=== PATIENT | male | born 1945 | race African-American/Black ===

== ENCOUNTER 2017-12-31 09:05 | Emergency (ER) | payer MEDICARE ==
--- OUTSIDE RECORDS SUMMARY | 2017-12-31 09:07 | XMS REPORT | Clinical Summary ---
:1945 Author Organization [facility] Address [address] [place] [address] Phone Care Team Providers Name Role Phone Unavailable Primary Care Provider Unavailable Allergies No Known Allergies Current Medications Prescription Sig. Disp. Refills Start Date End Date Status tamsulosin Take 0.4 mg by Active (FLOMAX) 0.4 mg mouth daily. Cp24 24 hr capsule allopurinol Take 100 mg by Active (ZYLOPRIM) 100 MG mouth daily. tablet atorvastatin Take 40 mg by Active (LIPITOR) 40 MG mouth daily. tablet aspirin 81 MG Take 81 mg by Active chewable tablet mouth daily. lisinopril Take 10 mg by 02/10/2017 Discontinued (PRINIVIL,ZESTRIL) mouth daily. 10 MG tablet carvedilol (COREG) Take 25 mg by 02/10/2017 Discontinued 25 MG tablet mouth 2 (two) times daily with breakfast and dinner. lisinopril Take 1 tablet 30 tablet 1 02/10/2017 03/12/2017 (PRINIVIL,ZESTRIL) (40 mg total) 40 MG tablet by mouth daily for 30 days. carvedilol (COREG) Take 1 tablet 60 tablet 1 02/10/2017 03/12/2017 6.25 MG tablet (6.25 mg total) by mouth 2 (two) times daily with breakfast and dinner for 30 days. Active Problems Problem Noted Date HTN (hypertension) 02/04/2017 Hyperlipidemia 02/04/2017 Subdural hematoma (HCC) 02/04/2017 Encounters Date Type Specialty Care Team Description 02/05/2017 Procedure Pass 02/05/2017 Surgery Anatoliy Govea CRANIOTOMY MD Sin 02/04/2017 - Hospital Encounter General Internal Georgiadis, Hyperlipidemia , 02/10/2017 Medicine Jose unspecified MD Bren hyperlipidemia Bershad, Ryan type;Subdural MD Florencio hematoma Analia Calloway, (HCC);Essential Bri Rios MD hypertension;CKD (chronic kidney disease), stage 3 (moderate);Encephalop athy 02/04/2017 Anesthesia Event Ryan Obregon MD 02/04/2017 Orders Only Viola Bourgeois PA after 12/30/2016 Social History Tobacco Use Types Packs/Day Years Used Date Never Smoker Sex Assigned at Date Recorded Not on file Last Filed Vital Signs Vital Sign Reading Time Taken Blood Pressure 144/75 02/10/2017 3:00 PM CDT Pulse 62 02/10/2017 3:50 PM CDT Temperature 36.5 C (97.7 F) 02/10/2017 3:00 PM CDT Respiratory Rate 20 02/10/2017 3:50 PM CDT Oxygen Saturation 96% 02/10/2017 3:50 PM CDT Inhaled Oxygen Concentration - - Weight 93.5 kg (206 lb 2.1 oz) 02/04/2017 5:30 AM CDT Height 185.4 cm (6' 1") 02/04/2017 7:00 AM CDT Body Mass Index 27.2 02/04/2017 5:30 AM CDT Plan of Treatment Not on file Implants Implanted Type Area Legal Job Titles Device Expiration Model / Identifier Date Serial / Lot Matrix Floseal Hemo W/O Ndl 10 [id number] - [id number] Cement/Romario Right: GAYTAN: BIOSCI 06/15/2018 [id number] / Implanted: Qty: 1 on 02/05/2017 by Anatoliy Govea MD ler/Adhesi Head / ve [id number] Plt Rigid 2h [id number] - [id number] Fracture/F Right: ANNMARIE:CRANIOMA [id number] / Implanted: Qty: 3 on 02/05/2017 by Anatoliy Govae MD ixation Head XILLOFACIAL / Scr Un3 Ewen Self Drl 1.5x4mm [id number] - [id number] Fracture/F Right: ANNMARIE:CRANIOMA [id number] / Implanted: Qty: 6 on 02/05/2017 by Anatoliy Govea MD ixation Head XILLOFACIAL / Kt Cath Bactiseal Shnt Carlo 23c [id number] - [id number] Neuro Right: J &J: CODMAN 08/15/2017 [id number] / Implanted: Qty: 1 on 02/05/2017 by Anatoliy Govea MD Head & SHURTLEFF / [id number] Grft Dura Cllgn Duragn 2x2in Id-[id number] - [id number] Tissue Right: INTEGRA 01/13/2019 [id number] / Implanted: Qty: 1 on 02/05/2017 by Anatoliy Govea MD Graft/Subs Head LIFESCI:NEURO / titute [id number] Procedures Procedure Name Priority Date/Time Associated Diagnosis Comments CRANIOTOMY 02/05/2017 7:15 AM CDT SUBDURAL HEMATOMA Special Needs (MICROSCOPE) after 12/30/2016 Results RHYTHM STRIP - SCAN (02/13/2017 2:01 PM)CBC with platelet count + automated diff (02/10/2017 5:18 AM)Only the most recent of7 resultswithin the time period is included. Component Value Ref Range WBC 9.2 4.0 - 10.0 K/L RBC 4.69 4.20 - 5.80 M/L Hemoglobin 12.2 (L) 13.0 - 16.8 GM/DL Hematocrit 36.5 (L) 40.0 - 50.0 % MCV 77.8 (L) 82.0 - 98.0 fL MCH 25.9 (L) 27.0 - 33.0 pg MCHC 33.3 32.0 - 36.0 GM/DL RDW 15.5 (H) 10.3 - 14.2 % Platelets 140 (L) 150 - 430 K/CU MM MPV 10.1 6.5 - 10.5 fL nRBC 0 0 - 0 /100 WBC % Neutros 74 % % Lymphs 12 % % Monos 13 % % Eos 1 % % Baso 0 % # Neutros 6.78 1.80 - 8.00 K/L # Lymphs 1.08 (L) 1.48 - 4.50 K/L # Monos 1.19 0.00 - 1.30 K/L # Eos 0.10 0.00 - 0.50 K/L # Baso 0.01 0.00 - 0.20 K/L Specimen Performing Laboratory Blood [address] [address] Narrative 0.00 Prothrombin time/INR (02/10/2017 5:18 AM)Only the most recent of3 resultswithin the time period is included. Component Value Ref Range Protime 14.5 11.7 - 14.7 seconds INR 1.1 <=5.9 Specimen Performing Laboratory Blood [address] [address] Narrative RECOMMENDED COUMADIN/WARFARIN INR THERAPY RANGES STANDARD DOSE: 2.0 - 3.0 Includes: PROPHYLAXIS for venous thrombosis, systemic embolization; TREATMENT for venous thrombosis and/or pulmonary embolus. HIGH RISK: Target INR is 2.5-3.5 for patients with mechanical heart valves. CBC with platelet count + automated diff (02/10/2017 5:18 AM)Only the most recent of7 resultswithin the time period is included. Specimen Performing Laboratory Blood Narrative The following orders were created for panel order CBC with platelet count + automated diff. Procedure Abnormality Status --------- ------ CBC with platelet count ...[[id number]]AbnormalFinal result Please view results for these tests on the individual orders. Basic Metabolic Panel (02/10/2017 5:18 AM)Only the most recent of6 resultswithin the time period is included. Component Value Ref Range Sodium 136 136 - 145 meq/L Potassium 4.5 3.5 - 5.1 meq/L Chloride 101 98 - 107 meq/L CO2 26 22 - 29 meq/L BUN 18 7 - 21 mg/dL Creatinine 1.28 (H) 0.57 - 1.25 mg/dL Glucose 89 70 - 105 mg/dL Calcium 8.6 8.4 - 10.2 mg/dL EGFR 67Comment: ESTIMATED GFR IS NOT ACCURATE mL/min/1.73 sq m CREATININE CLEARANCE IN PREDICTING GLOMERULAR FILTRATION RATE. ESTIMATED GFR IS NOT APPLICABLE FOR DIALYSIS PATIENTS. Specimen Performing Laboratory Blood [address] [address] Sodium (02/09/2017 12:18 PM) Component Value Ref Range Sodium 134 (L) 136 - 145 meq/L Specimen Performing Laboratory Blood - Line, Venous [facility] [address] [place] [address] brain without IV contrast portable (02/09/2017 5:53 AM)Only the most recent of2 resultswithin the time period is included. Specimen Performing Laboratory GE RIS Narrative FINAL REPORT Examination: CT brain without contrast. HISTORY: SDH Comparison:February 08, 2017 TECHNIQUE:5mm sequential noncontrast axial CT images from the base to apex of the brain. This exam was performed to our departmental dose optimization program which includes automated exposure control, adjustment of the mA and/or kV according to patient size and/or use of iterative reconstruction techniques. FINDINGS: Right parietal craniotomy changes are identified with mild overlying soft tissue swelling. Extra-axial fluid collection along the right frontoparietal convexity is again demonstrated and demonstrates acute on chronic features with local regional sulcal effacement and minimal leftward midline shift, not significantly changed. Ventricles are stable in size. Cavernous carotid calcifications are mild. 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 The paranasal sinuses and mastoid air cells are clear. Demonstrated globes and orbits are unremarkable. Impression: Allowing for slight differences in angulation, right cerebral convexity mixed density subdural hematoma with mild local regional mass effect and leftward midline shift is not significantly changed. Signed: Jarett Myers MD Report Verified Date/Time:02/09/2017 05:58:27 Reading Location: [address] Reading Room Procedure Note Interface, External Ris In - 02/09/2017 6:00 AM CDT FINAL REPORT Examination: CT brain without contrast. HISTORY: SDH Comparison:February 08, 2017 TECHNIQUE: 5mm sequential noncontrast axial CT images from the base to apex of the brain. This exam was performed to our departmental dose optimization program which includes automated exposure control, adjustment of the mA and/or kV according to patient size and/or use of iterative reconstruction techniques. FINDINGS: Right parietal craniotomy changes are identified with mild overlying soft tissue swelling. Extra-axial fluid collection along the right frontoparietal convexity is again demonstrated and demonstrates acute on chronic features with local regional sulcal effacement and minimal leftward midline shift, not significantly changed. Ventricles are stable in size. Cavernous carotid calcifications are mild. 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 The paranasal sinuses and mastoid air cells are clear. Demonstrated globes and orbits are unremarkable. Impression: Allowing for slight differences in angulation, right cerebral convexity mixed density subdural hematoma with mild local regional mass effect and leftward midline shift is not significantly changed. Signed: Jarett Myers MD Report Verified Date/Time: 02/09/2017 05:58:27 Reading Location: [address] Reading Room Phosphorus (02/09/2017 3:46 AM)Only the most recent of3 resultswithin the time period is included. Component Value Ref Range Phosphorus 3.3 2.3 - 4.7 mg/dL Specimen Performing Laboratory Blood - Arm, [address] [address] Magnesium (02/09/2017 3:46 AM)Only the most recent of3 resultswithin the time period is included. Component Value Ref Range Magnesium 1.6 1.6 - 2.6 mg/dL Specimen Performing Laboratory Blood - Arm, [address] [address] PT/aPTT (02/08/2017 4:51 PM)Only the most recent of2 resultswithin the time period is included. Component Value Ref Range Protime 14.4 11.7 - 14.7 seconds INR 1.1 <=5.9 PTT 36.8 (H) 22.5 - 36.0 seconds Specimen Performing Laboratory Blood - Line, Venous [address] [address] Narrative RECOMMENDED COUMADIN/WARFARIN INR THERAPY RANGES STANDARD DOSE: 2.0 - 3.0 Includes: PROPHYLAXIS for venous thrombosis, systemic embolization; TREATMENT for venous thrombosis and/or pulmonary embolus. HIGH RISK: Target INR is 2.5-3.5 for patients with mechanical heart valves. CT brain without IV contrast (02/08/2017 3:59 PM) Specimen Performing Laboratory GE RIS Impressions : Since 02/06/2017, the residual right hemispheric mixed density subdural hematoma is minimally larger and mass effect and leftward midline shift are also minimally greater. Signed: Rinku Elias MD Report Verified Date/Time:02/08/2017 16:03:42 Reading Location: [facility] C0[facility] Neuro Reading Room Narrative FINAL REPORT CT head without contrast INDICATION: Subdural hematoma evacuation. TECHNIQUE: Axial noncontrast CT images through the head were obtained. This exam was performed according to our departmental dose optimization program which includes automated exposure control, adjustment of the mA and/or kV according to patient size and/or use of iterative reconstruction technique. COMPARISON: CT head 02/06/2017 FINDINGS: Right sided craniotomy changes are again noted with a residual mixed density right hemispheric subdural hematoma appears slightly larger, now up to 14 mm along the frontal parietal convexity. There is mass effect with 4 mm leftward midline shift, previously 3 mm. There is right lateral ventricular effacement but no hydrocephalus or suprasellar cistern effacement. There are chronic appearing cerebellar infarcts. Volume loss and vascular calcifications are again noted. The visualized sinuses and mastoid air cells are well aerated. The globes remain proptotic. Scalp surgical changes are similar. Procedure Note Interface, External Ris In - 02/08/2017 4:05 PM CDT FINAL REPORT CT head without contrast INDICATION: Subdural hematoma evacuation. TECHNIQUE: Axial noncontrast CT images through the head were obtained. This exam was performed according to our departmental dose optimization program which includes automated exposure control, adjustment of the mA and/or kV according to patient size and/or use of iterative reconstruction technique. COMPARISON: CT head 02/06/2017 FINDINGS: Right sided craniotomy changes are again noted with a residual mixed density right hemispheric subdural hematoma appears slightly larger, now up to 14 mm along the frontal parietal convexity. There is mass effect with 4 mm leftward midline shift, previously 3 mm. There is right lateral ventricular effacement but no hydrocephalus or suprasellar cistern effacement. There are chronic appearing cerebellar infarcts. Volume loss and vascular calcifications are again noted. The visualized sinuses and mastoid air cells are well aerated. The globes remain proptotic. Scalp surgical changes are similar. IMPRESSION : Since 02/06/2017, the residual right hemispheric mixed density subdural hematoma is minimally larger and mass effect and leftward midline shift are also minimally greater. Signed: Rinku Elias MD Report Verified Date/Time: 02/08/2017 16:03:42 Reading Location: [facility] C013V Neuro Reading Room -Glucose meter (02/07/2017 6:07 PM)Only the most recent of14 resultswithin the time period is included. Component Value Ref Range POC-Glucose Meter 110Comment: TESTED AT [address] 70 - 110 mg/dL [address] Specimen Performing Laboratory [address] [address] Prepare leuko-red PLT (02/06/2017 8:54 AM)Only the most recent of2 resultswithin the time period is included. Component Value Ref Range Unit ABO O Pos UNIT NUMBER [id number]^PLT LEUKO APH Status TRANSFUSED Blood Bank Product PLATELETS PRODUCT CODE [id number] Specimen Performing Laboratory Blood SAFET[place] Reticulocyte count (02/06/2017 4:28 AM) Component Value Ref Range % Retic 0.9 0.4 - 2.9 % Specimen Performing Laboratory Blood [address] [address] Ferritin (02/06/2017 4:28 AM) Component Value Ref Range Ferritin 220 5 - 275 ng/mL Specimen Performing Laboratory Blood [address] [address] Narrative Effective 08/03/2014: Reference Range Change New: Male 5-275Previous: Male 22-322 Female 5-275Female 10-291 PFA-100 (02/05/2017 6:46 AM) Component Value Ref Range COL/EPI Closure Time 93 78 - 191 Seconds COL/ADP Closure Time 62 43 - 122 Seconds Platelets 113 (L)Comment: Previous platelet result was 150 - 430 K/CU MM 113. Lavender top for platelet clotted! Specimen Performing Laboratory Blood [address] [address] Narrative Hematocrit <35% or platelet count <150,000/CU MM may contribute to falsely elevated PFA-100. Peripheral Blood Smear - Path Review (02/05/2017 4:59 AM) Component Value Ref Range RBC Morphology Anisocytosis Poikilocytosis Polychromasia WBC Morphology Unremarkable Platelet Morphology Unremarkable Pathologist Review No circulating blasts. No significantly increased shistocytes. Pathologist: Mark Acuna M.D.(electronic signature) Specimen Performing Laboratory Blood [address] [address] Vitamin B12 and Folate (02/05/2017 4:59 AM) Component Value Ref Range Vitamin B12 327 213 - 816 pg/mL Folate 9.6 >=7.0 ng/mL Specimen Performing Laboratory Blood [address] [address] Narrative Effective 08/03/2014: Folate Reference Range Change New: >=7.0Previous: >=5.4 Iron, TIBC, % sat. (without ferritin) (02/05/2017 4:59 AM) Component Value Ref Range Iron 37 (L) 40 - 160 ug/dL TIBC 206 (L) 250 - 450 ug/dL Iron % Saturation 18 (L) 20 - 55 % Specimen Performing Laboratory Blood [address] [address] XR chest 1 view portable / bedside (02/04/2017 4:56 PM) Specimen Performing Laboratory GE RIS Impressions : There is elevation of the right hemidiaphragm. Lungs are clear. No pleural effusion or pneumothorax. Cardiomediastinal silhouette is normal in size. No pulmonary edema. No fracture or dislocation. Signed: Cary Wolf MD Report Verified Date/Time:02/04/2017 17:21:22 Reading Location: [facility] Radiology Reading Room Narrative FINAL REPORT TECHNIQUE: Frontal chest radiograph dated 02/04/2017. CLINICAL HISTORY: Pre-op COMPARISON STUDY: None Procedure Note Interface, External Ris In - 02/04/2017 5:23 PM CDT FINAL REPORT TECHNIQUE: Frontal chest radiograph dated 02/04/2017. CLINICAL HISTORY: Pre-op COMPARISON STUDY: None IMPRESSION : There is elevation of the right hemidiaphragm. Lungs are clear. No pleural effusion or pneumothorax. Cardiomediastinal silhouette is normal in size. No pulmonary edema. No fracture or dislocation. Signed: Cary Wolf MD Report Verified Date/Time: 02/04/2017 17:21:22 Reading Location: [facility] Radiology Reading Room Platelet Aggregation: Function Screen (02/04/2017 2:19 PM) Component Value Ref Range Weak ADP 94 (H) 60 - 91 % Plt. Function Screen Interpretation 60-100% indicates normal platelet function Pathologist: Aurora Pascual MD (electronic signature) Platelets 113 (L) 150 - 430 K/CU MM Specimen [place] [address] Prepare PLT (02/04/2017 11:23 AM) Component Value Ref Range Unit ABO O Pos UNIT NUMBER [id number]^PLT POOL LEUKO Status TRANSFUSED Blood Bank Product PLATELETS PRODUCT CODE [id number] Specimen Performing Laboratory S[place] ECG 12 lead routine (02/04/2017 9:55 AM) Specimen Performing Laboratory GE MUSE Narrative Ventricular Rate 63 BPM Atrial Rate 63 BPM P-R Interval 198 ms QRS Duration 72 ms Q-T Interval 398 ms QTC Calculation(Bazett) 407 ms P Ewen 18 degrees R Ewen -5 degrees T Ewen 27 degrees Normal sinus rhythm Inferior infarct , age undetermined Abnormal ECG No previous ECGs available Confirmed by MD SUSHILA, AB ([id number]) on 02/04/2017 4:09:24 PM Procedure Note Interface, External Ris In - 02/04/2017 4:09 PM CDT Ventricular Rate 63 BPM Atrial Rate 63 BPM P-R Interval 198 ms QRS Duration 72 ms Q-T Interval 398 ms QTC Calculation(Bazett) 407 ms P Ewen 18 degrees R Ewen -5 degrees T Ewen 27 degrees Normal sinus rhythm Inferior infarct , age undetermined Abnormal ECG No previous ECGs available Confirmed by MD SUSHILA, IHAB ([id number]) on 02/04/2017 4:09:24 PM Type and screen, automated (02/04/2017 9:26 AM) Component Value Ref Range ABO/RH AUTOMATED (BEAKER) O POSITIVE Ab Scrn NEGATIVE Specimen Performing Laboratory Blood [place] [id number] aPTT (02/04/2017 6:49 AM) Component Value Ref Range PTT 35.9 22.5 - 36.0 seconds Specimen Performing Laboratory Blood [address] [address] Hepatic function panel (02/04/2017 6:49 AM) Component Value Ref Range Protein, Total 7.6Comment: Specimen slightly hemolyzed 6.0 - 8.3 gm/dL Albumin 3.4 (L)Comment: Specimen slightly hemolyzed 3.5 - 5.0 g/dL Total Bilirubin 0.8Comment: Specimen slightly hemolyzed 0.2 - 1.2 mg/dL Bilirubin, Direct 0.3Comment: Specimen slightly hemolyzed 0.1 - 0.5 mg/dL Alkaline Phosphatase 49 40 - 150 U/L AST 16Comment: Specimen slightly hemolyzed 5 - 34 U/L ALT 16Comment: Specimen slightly hemolyzed 6 - 55 U/L Specimen Performing Laboratory Blood [address] [address] after 12/30/2016
--- OUTSIDE RECORDS SUMMARY | 2017-12-31 09:08 | XMS REPORT ---
:1945 [facility] Address [address] [place] [address] Care Team Providers Name Role Phone MYA TURCIOS Unavailable Unavailable Problems This patient has no known problems. Allergies, Adverse Reactions, Alerts This patient has no known allergies or adverse reactions. Medications This patient has no known medications. Results Test Description Test Time Test Comments Text Results Atomic Results Result Comments CBC W/PLT COUNT & AUTO DIFFERENTIAL 2017-02-10 06:43:00 Test Item Value Reference Range Comments WHITE BLOOD CELL COUNT (BEAKER) (test mbkb=463) 9.2 K/ L 4.0-10.0 RED BLOOD CELL COUNT (BEAKER) (test eghd=771) 4.69 M/ L 4.20-5.80 HEMOGLOBIN (BEAKER) (test ueqr=616) 12.2 GM/DL 13.0-16.8 HEMATOCRIT (BEAKER) (test uvbb=966) 36.5 % 40.0-50.0 MEAN CORPUSCULAR VOLUME (BEAKER) (test yqns=035) 77.8 fL 82.0-98.0 MEAN CORPUSCULAR HEMOGLOBIN (BEAKER) (test iwpy=442) 25.9 pg 27.0-33.0 MEAN CORPUSCULAR HEMOGLOBIN CONC (BEAKER) (test zdvo=205) 33.3 GM/DL 32.0- 36.0 RED CELL DISTRIBUTION WIDTH (BEAKER) (test nqxw=237) 15.5 % 10.3-14.2 PLATELET COUNT (BEAKER) (test uwcs=347) 140 K/CU MM 150-430 MEAN PLATELET VOLUME (BEAKER) (test guhz=035) 10.1 fL 6.5-10.5 NUCLEATED RED BLOOD CELLS (BEAKER) (test cvlf=556) 0 /100 WBC 0-0 NEUTROPHILS RELATIVE PERCENT (BEAKER) (test mnzl=703) 74 % LYMPHOCYTES RELATIVE PERCENT (BEAKER) (test qtkl=643) 12 % MONOCYTES RELATIVE PERCENT (BEAKER) (test eopk=397) 13 % EOSINOPHILS RELATIVE PERCENT (BEAKER) (test fhcn=075) 1 % BASOPHILS RELATIVE PERCENT (BEAKER) (test egci=044) 0 % NEUTROPHILS ABSOLUTE COUNT (BEAKER) (test disg=930) 6.78 K/ L 1.80-8.00 LYMPHOCYTES ABSOLUTE COUNT (BEAKER) (test egad=073) 1.08 K/ L 1.48-4.50 MONOCYTES ABSOLUTE COUNT (BEAKER) (test maqi=394) 1.19 K/ L 0.00-1.30 EOSINOPHILS ABSOLUTE COUNT (BEAKER) (test loxo=476) 0.10 K/ L 0.00-0.50 BASOPHILS ABSOLUTE COUNT (BEAKER) (test uacp=360) 0.01 K/ L 0.00-0.20 0.00BASIC METABOLIC [id number] 06:12:00 Test Item Value Reference Range Comments SODIUM (BEAKER) (test 136 meq/L 136-145 nylh=948) POTASSIUM (BEAKER) (test 4.5 meq/L 3.5-5.1 vfoy=944) CHLORIDE (BEAKER) (test 101 meq/L 98-107 llya=844) CO2 (BEAKER) (test 26 meq/L 22-29 udjy=643) BLOOD UREA NITROGEN 18 mg/dL 7-21 (BEAKER) (test fybl=480) CREATININE (BEAKER) (test 1.28 mg/dL 0.57-1.25 vzxq=352) GLUCOSE RANDOM (BEAKER) 89 mg/dL 70-105 (test mbrf=419) CALCIUM (BEAKER) (test 8.6 mg/dL 8.4-10.2 qfio=693) EGFR (BEAKER) (test 67 mL/min/1.73 sq m ESTIMATED GFR IS NOT inkb=5018) ACCURATE CREATININE CLEARANCE IN PREDICTING GLOMERULAR FILTRATION RATE. ESTIMATED GFR IS NOT APPLICABLE FOR DIALYSIS PATIENTS. PROTHROMBIN [id number] 05:45:00 Test Item Value Reference Range Comments PROTIME (BEAKER) (test hgim=240) 14.5 seconds 11.7-14.7 INR (BEAKER) (test xtkb=798) 1.1 <=5.9 RECOMMENDED COUMADIN/WARFARIN INR THERAPY RANGESSTANDARD DOSE: 2.0 - 3.0 Includes: PROPHYLAXIS forvenous thrombosis, systemic embolization; TREATMENT for venous thrombosis and/or pulmonary embolus.HIGH RISK: Target INR is 2.5-3.5 for patients with mechanical heart valves.[id number] 12:38:00 Test Item Value Reference Range Comments SODIUM (BEAKER) (test fmur=127) 134 meq/L 136-145 [id number] 07:07:00 Test Item Value Reference Range Comments PHOSPHORUS (BEAKER) (test bqxh=108) 3.3 mg/dL 2.3-4.7 [id number] 07:07:00 Test Item Value Reference Range Comments MAGNESIUM (BEAKER) (test htqd=608) 1.6 mg/dL 1.6-2.6 BASIC METABOLIC [id number] 04:24:00 Test Item Value Reference Range Comments SODIUM (BEAKER) (test 134 meq/L 136-145 fvxv=718) POTASSIUM (BEAKER) (test 4.2 meq/L 3.5-5.1 jonz=610) CHLORIDE (BEAKER) (test 101 meq/L 98-107 ypnj=884) CO2 (BEAKER) (test 27 meq/L 22-29 enly=539) BLOOD UREA NITROGEN 18 mg/dL 7-21 (BEAKER) (test ragr=123) CREATININE (BEAKER) (test 1.22 mg/dL 0.57-1.25 lffb=333) GLUCOSE RANDOM (BEAKER) 99 mg/dL 70-105 (test oagr=674) CALCIUM (BEAKER) (test 8.7 mg/dL 8.4-10.2 uypb=602) EGFR (BEAKER) (test 71 mL/min/1.73 sq m ESTIMATED GFR IS NOT dwfj=5448) ACCURATE CREATININE CLEARANCE IN PREDICTING GLOMERULAR FILTRATION RATE. ESTIMATED GFR IS NOT APPLICABLE FOR DIALYSIS PATIENTS. PROTHROMBIN [id number] 04:16:00 Test Item Value Reference Range Comments PROTIME (BEAKER) (test jhjb=178) 15.0 seconds 11.7-14.7 INR (BEAKER) (test urdg=488) 1.2 <=5.9 RECOMMENDED COUMADIN/WARFARIN INR THERAPY RANGESSTANDARD DOSE: 2.0 - 3.0 Includes: PROPHYLAXIS forvenous thrombosis, systemic embolization; TREATMENT for venous thrombosis and/or pulmonary embolus.HIGH RISK: Target INR is 2.5-3.5 for patients with mechanical heart valves.CBC W/PLT COUNT & AUTO [id number] 04:16:00 Test Item Value Reference Range Comments WHITE BLOOD CELL COUNT (BEAKER) (test ibma=681) 9.4 K/ L 4.0-10.0 RED BLOOD CELL COUNT (BEAKER) (test irxg=598) 4.66 M/ L 4.20-5.80 HEMOGLOBIN (BEAKER) (test uuqz=577) 11.8 GM/DL 13.0-16.8 HEMATOCRIT (BEAKER) (test rilo=145) 36.9 % 40.0-50.0 MEAN CORPUSCULAR VOLUME (BEAKER) (test shtg=891) 79.2 fL 82.0-98.0 MEAN CORPUSCULAR HEMOGLOBIN (BEAKER) (test 25.2 pg 27.0-33.0 agto=654) MEAN CORPUSCULAR HEMOGLOBIN CONC (BEAKER) (test 31.9 GM/DL 32.0-36.0 eyfs=892) RED CELL DISTRIBUTION WIDTH (BEAKER) (test 14.1 % 10.3-14.2 smjk=001) PLATELET COUNT (BEAKER) (test dmqh=951) 129 K/CU MM 150-430 MEAN PLATELET VOLUME (BEAKER) (test fkwq=460) 9.7 fL 6.5-10.5 NUCLEATED RED BLOOD CELLS (BEAKER) (test 0 /100 WBC 0-0 misp=155) NEUTROPHILS RELATIVE PERCENT (BEAKER) (test 74 % esow=005) LYMPHOCYTES RELATIVE PERCENT (BEAKER) (test 12 % jzfr=747) MONOCYTES RELATIVE PERCENT (BEAKER) (test 13 % ncqs=125) EOSINOPHILS RELATIVE PERCENT (BEAKER) (test 1 % ekzb=944) BASOPHILS RELATIVE PERCENT (BEAKER) (test 0 % gljm=127) NEUTROPHILS ABSOLUTE COUNT (BEAKER) (test 6.97 K/ L 1.80-8.00 yovo=698) LYMPHOCYTES ABSOLUTE COUNT (BEAKER) (test 1.11 K/ L 1.48-4.50 dmii=798) MONOCYTES ABSOLUTE COUNT (BEAKER) (test 1.23 K/ L 0.00-1.30 vqhd=323) EOSINOPHILS ABSOLUTE COUNT (BEAKER) (test 0.06 K/ L 0.00-0.50 kpep=904) BASOPHILS ABSOLUTE COUNT (BEAKER) (test 0.00 K/ L 0.00-0.20 lkai=095) 0.00PT/[id number] 17:46:00 Test Item Value Reference Range Comments PROTIME (BEAKER) (test lmnu=339) 14.4 seconds 11.7-14.7 INR (BEAKER) (test sfei=620) 1.1 <=5.9 PARTIAL THROMBOPLASTIN TIME (BEAKER) (test 36.8 seconds 22.5-36.0 okxd=831) RECOMMENDED COUMADIN/WARFARIN INR THERAPY RANGESSTANDARD DOSE: 2.0 - 3.0 Includes: PROPHYLAXIS forvenous thrombosis, systemic embolization; TREATMENT for venous thrombosis and/or pulmonary embolus.HIGH RISK: Target INR is 2.5-3.5 for patients with mechanical heart valves.BASIC METABOLIC [id number] 02:40: 00 Test Item Value Reference Range Comments SODIUM (BEAKER) (test 137 meq/L 136-145 hzfd=548) POTASSIUM (BEAKER) (test 4.6 meq/L 3.5-5.1 lefy=443) CHLORIDE (BEAKER) (test 101 meq/L 98-107 lave=113) CO2 (BEAKER) (test 29 meq/L 22-29 zayn=965) BLOOD UREA NITROGEN 19 mg/dL 7-21 (BEAKER) (test kbvh=023) CREATININE (BEAKER) (test 1.42 mg/dL 0.57-1.25 mudg=625) GLUCOSE RANDOM (BEAKER) 105 mg/dL 70-105 (test yasp=693) CALCIUM (BEAKER) (test 8.3 mg/dL 8.4-10.2 jwin=605) EGFR (BEAKER) (test 59 mL/min/1.73 sq m ESTIMATED GFR IS NOT sceg=8861) ACCURATE CREATININE CLEARANCE IN PREDICTING GLOMERULAR FILTRATION RATE. ESTIMATED GFR IS NOT APPLICABLE FOR DIALYSIS PATIENTS. CBC W/PLT COUNT & AUTO [id number] 02:16:00 Test Item Value Reference Range Comments WHITE BLOOD CELL COUNT (BEAKER) (test vbol=458) 9.9 K/ L 4.0-10.0 RED BLOOD CELL COUNT (BEAKER) (test raqy=559) 4.56 M/ L 4.20-5.80 HEMOGLOBIN (BEAKER) (test esvf=401) 11.8 GM/DL 13.0-16.8 HEMATOCRIT (BEAKER) (test gzfm=561) 36.5 % 40.0-50.0 MEAN CORPUSCULAR VOLUME (BEAKER) (test baqi=637) 79.9 fL 82.0-98.0 MEAN CORPUSCULAR HEMOGLOBIN (BEAKER) (test 25.9 pg 27.0-33.0 ndvt=776) MEAN CORPUSCULAR HEMOGLOBIN CONC (BEAKER) (test 32.4 GM/DL 32.0-36.0 jwqr=554) RED CELL DISTRIBUTION WIDTH (BEAKER) (test 14.4 % 10.3-14.2 coer=878) PLATELET COUNT (BEAKER) (test upjd=796) 127 K/CU MM 150-430 MEAN PLATELET VOLUME (BEAKER) (test lips=829) 10.0 fL 6.5-10.5 NUCLEATED RED BLOOD CELLS (BEAKER) (test 0 /100 WBC 0-0 cwcl=900) NEUTROPHILS RELATIVE PERCENT (BEAKER) (test 79 % vwny=552) LYMPHOCYTES RELATIVE PERCENT (BEAKER) (test 6 % lqpn=054) MONOCYTES RELATIVE PERCENT (BEAKER) (test 14 % ttwr=669) EOSINOPHILS RELATIVE PERCENT (BEAKER) (test 1 % tkmk=765) BASOPHILS RELATIVE PERCENT (BEAKER) (test 0 % ceay=699) NEUTROPHILS ABSOLUTE COUNT (BEAKER) (test 7.86 K/ L 1.80-8.00 iwjm=432) LYMPHOCYTES ABSOLUTE COUNT (BEAKER) (test 0.64 K/ L 1.48-4.50 uhvy=409) MONOCYTES ABSOLUTE COUNT (BEAKER) (test 1.36 K/ L 0.00-1.30 tjet=380) EOSINOPHILS ABSOLUTE COUNT (BEAKER) (test 0.07 K/ L 0.00-0.50 vhmr=911) BASOPHILS ABSOLUTE COUNT (BEAKER) (test 0.01 K/ L 0.00-0.20 lfvt=603) 0.00POCT-GLUCOSE [id number] 18:13:00 Test Item Value Reference Range Comments POC-GLUCOSE METER (BEAKER) 110 mg/dL 70-110 TESTED AT [address] (test mrau=8653) [place] [id number] POCT-GLUCOSE [id number] 11:50:00 Test Item Value Reference Range Comments POC-GLUCOSE METER (BEAKER) 107 mg/dL 70-110 TESTED AT [address] (test ggkh=8674) [place] [id number] POCT-GLUCOSE [id number] 06:35:00 Test Item Value Reference Range Comments POC-GLUCOSE METER (BEAKER) 113 mg/dL 70-110 TESTED AT [address] (test boam=1458) [place] [id number] CBC W/PLT COUNT & AUTO [id number] 03:27:00 Test Item Value Reference Range Comments WHITE BLOOD CELL COUNT (BEAKER) (test agnl=452) 10.0 K/ L 4.0-10.0 RED BLOOD CELL COUNT (BEAKER) (test pwhc=364) 4.64 M/ L 4.20-5.80 HEMOGLOBIN (BEAKER) (test axxz=804) 11.9 GM/DL 13.0-16.8 HEMATOCRIT (BEAKER) (test ikri=448) 36.8 % 40.0-50.0 MEAN CORPUSCULAR VOLUME (BEAKER) (test ejba=753) 79.3 fL 82.0-98.0 MEAN CORPUSCULAR HEMOGLOBIN (BEAKER) (test 25.6 pg 27.0-33.0 pkos=865) MEAN CORPUSCULAR HEMOGLOBIN CONC (BEAKER) (test 32.3 GM/DL 32.0-36.0 fkzq=858) RED CELL DISTRIBUTION WIDTH (BEAKER) (test 14.4 % 10.3-14.2 ljsz=709) PLATELET COUNT (BEAKER) (test gfah=706) 135 K/CU MM 150-430 MEAN PLATELET VOLUME (BEAKER) (test zyzy=509) 9.7 fL 6.5-10.5 NUCLEATED RED BLOOD CELLS (BEAKER) (test 0 /100 WBC 0-0 xhdy=966) NEUTROPHILS RELATIVE PERCENT (BEAKER) (test 81 % uyih=340) LYMPHOCYTES RELATIVE PERCENT (BEAKER) (test 7 % gbss=955) MONOCYTES RELATIVE PERCENT (BEAKER) (test 12 % uldq=304) EOSINOPHILS RELATIVE PERCENT (BEAKER) (test 1 % lapd=690) BASOPHILS RELATIVE PERCENT (BEAKER) (test 0 % cfft=927) NEUTROPHILS ABSOLUTE COUNT (BEAKER) (test 8.03 K/ L 1.80-8.00 prqt=405) LYMPHOCYTES ABSOLUTE COUNT (BEAKER) (test 0.69 K/ L 1.48-4.50 kxza=755) MONOCYTES ABSOLUTE COUNT (BEAKER) (test 1.19 K/ L 0.00-1.30 vusa=646) EOSINOPHILS ABSOLUTE COUNT (BEAKER) (test 0.07 K/ L 0.00-0.50 neny=628) BASOPHILS ABSOLUTE COUNT (BEAKER) (test 0.00 K/ L 0.00-0.20 zdty=947) 0.00BASIC METABOLIC [id number] 03:16:00 Test Item Value Reference Range Comments SODIUM (BEAKER) (test 135 meq/L 136-145 iaap=655) POTASSIUM (BEAKER) (test 4.3 meq/L 3.5-5.1 fcaw=472) CHLORIDE (BEAKER) (test 104 meq/L 98-107 nexz=963) CO2 (BEAKER) (test 26 meq/L 22-29 ehbg=112) BLOOD UREA NITROGEN 19 mg/dL 7-21 (BEAKER) (test mqop=587) CREATININE (BEAKER) (test 1.35 mg/dL 0.57-1.25 srjy=417) GLUCOSE RANDOM (BEAKER) 110 mg/dL 70-105 (test fvrf=233) CALCIUM (BEAKER) (test 8.2 mg/dL 8.4-10.2 lxuh=834) EGFR (BEAKER) (test 63 mL/min/1.73 sq m ESTIMATED GFR IS NOT ewsa=4154) ACCURATE CREATININE CLEARANCE IN PREDICTING GLOMERULAR FILTRATION RATE. ESTIMATED GFR IS NOT APPLICABLE FOR DIALYSIS PATIENTS. POCT-GLUCOSE [id number] 00:29:00 Test Item Value Reference Range Comments POC-GLUCOSE METER (BEAKER) 114 mg/dL 70-110 TESTED AT [address] (test kcyu=3809) [facility] [address] POCT-GLUCOSE [id number] 00:21:00 Test Item Value Reference Range Comments POC-GLUCOSE METER (BEAKER) 115 mg/dL 70-110 TESTED AT [address] (test pkvm=7389) [facility] [address] POCT-GLUCOSE [id number] 12:42:00 Test Item Value Reference Range Comments POC-GLUCOSE METER (BEAKER) 114 mg/dL 70-110 TESTED AT [facility] [address] [facility] (test yqnj=5235) [facility] [address] POCT-GLUCOSE [id number] 06:45:00 Test Item Value Reference Range Comments POC-GLUCOSE METER (BEAKER) 126 mg/dL 70-110 TESTED AT [facility] [address] [facility] (test miye=1732) [facility] [address] [id number] 05:26:00 Test Item Value Reference Range Comments FERRITIN (BEAKER) (test qliz=172) 220 ng/mL 5-275 Effective 08/03/2014: Reference Range ChangeNew: Male 5-275 Previous: Male 22-322 Female 5-275 [facility] [id number] 05:01:00 Test Item Value Reference Range Comments SODIUM (BEAKER) (test 137 meq/L 136-145 oasq=831) POTASSIUM (BEAKER) (test 3.9 meq/L 3.5-5.1 Specimen slightly ipor=402) hemolyzed CHLORIDE (BEAKER) (test 108 meq/L 98-107 apqo=787) CO2 (BEAKER) (test 22 meq/L 22-29 vjad=703) BLOOD UREA NITROGEN 13 mg/dL 7-21 (BEAKER) (test ixrw=095) CREATININE (BEAKER) (test 1.23 mg/dL 0.57-1.25 Specimen slightly fjja=020) hemolyzed GLUCOSE RANDOM (BEAKER) 114 mg/dL 70-105 (test urab=423) CALCIUM (BEAKER) (test 7.6 mg/dL 8.4-10.2 sknu=413) EGFR (BEAKER) (test 70 mL/min/1.73 sq m ESTIMATED GFR IS NOT ymvw=3999) ACCURATE CREATININE CLEARANCE IN PREDICTING GLOMERULAR FILTRATION RATE. ESTIMATED GFR IS NOT APPLICABLE FOR DIALYSIS PATIENTS. [id number] 04:59:00 Test Item Value Reference Range Comments MAGNESIUM (BEAKER) (test 1.5 mg/dL 1.6-2.6 Specimen slightly hemolyzed epvn=320) [id number] 04:59:00 Test Item Value Reference Range Comments PHOSPHORUS (BEAKER) (test 3.5 mg/dL 2.3-4.7 Specimen slightly hemolyzed psnc=983) CBC W/PLT COUNT & AUTO [id number] 04:52:00 Test Item Value Reference Range Comments WHITE BLOOD CELL COUNT (BEAKER) (test snoe=317) 9.5 K/ L 4.0-10.0 RED BLOOD CELL COUNT (BEAKER) (test pxpe=699) 4.57 M/ L 4.20-5.80 HEMOGLOBIN (BEAKER) (test ugsq=853) 11.5 GM/DL 13.0-16.8 HEMATOCRIT (BEAKER) (test dwyw=641) 36.2 % 40.0-50.0 MEAN CORPUSCULAR VOLUME (BEAKER) (test seuh=859) 79.3 fL 82.0-98.0 MEAN CORPUSCULAR HEMOGLOBIN (BEAKER) (test 25.2 pg 27.0-33.0 pqez=381) MEAN CORPUSCULAR HEMOGLOBIN CONC (BEAKER) (test 31.7 GM/DL 32.0-36.0 ajrx=769) RED CELL DISTRIBUTION WIDTH (BEAKER) (test 14.6 % 10.3-14.2 owtu=332) PLATELET COUNT (BEAKER) (test xvdz=870) 98 K/CU MM 150-430 MEAN PLATELET VOLUME (BEAKER) (test ipeb=394) 10.8 fL 6.5-10.5 NUCLEATED RED BLOOD CELLS (BEAKER) (test 0 /100 WBC 0-0 xlzt=823) NEUTROPHILS RELATIVE PERCENT (BEAKER) (test 81 % kfte=783) LYMPHOCYTES RELATIVE PERCENT (BEAKER) (test 9 % vwit=955) MONOCYTES RELATIVE PERCENT (BEAKER) (test 10 % almm=702) EOSINOPHILS RELATIVE PERCENT (BEAKER) (test 0 % lhen=499) BASOPHILS RELATIVE PERCENT (BEAKER) (test 0 % ekka=087) NEUTROPHILS ABSOLUTE COUNT (BEAKER) (test 7.71 K/ L 1.80-8.00 bloh=748) LYMPHOCYTES ABSOLUTE COUNT (BEAKER) (test 0.81 K/ L 1.48-4.50 gvom=331) MONOCYTES ABSOLUTE COUNT (BEAKER) (test xijy=903) 0.93 K/ L 0.00-1.30 EOSINOPHILS ABSOLUTE COUNT (BEAKER) (test 0.03 K/ L 0.00-0.50 basa=542) BASOPHILS ABSOLUTE COUNT (BEAKER) (test gxju=002) 0.04 K/ L 0.00-0.20 RETICULOCYTE [id number] 04:51:00 Test Item Value Reference Range Comments RETICULOCYTE COUNT PCT (BEAKER) (test vicg=377) 0.9 % 0.4-2.9 POCT-GLUCOSE [id number] 00:25:00 Test Item Value Reference Range Comments POC-GLUCOSE METER (BEAKER) 124 mg/dL 70-110 TESTED AT [address] (test ebnh=7809) [place] [address] POCT-GLUCOSE [id number] 17:53:00 Test Item Value Reference Range Comments POC-GLUCOSE METER (BEAKER) 126 mg/dL 70-110 TESTED AT [address] (test mrsi=6035) [place] [address] PERIPHERAL BLOOD SMEAR - PATHOLOGIST [id number] 13:47:00 Test Item Value Reference Range Comments RBC MORPHOLOGY (BEAKER) Anisocytosis (test kcew=1699) RBC MORPHOLOGY (BEAKER) Poikilocytosis (test gzxk=82441) RBC MORPHOLOGY (BEAKER) Polychromasia (test emos=16092) WBC MORPHOLOGY (BEAKER) Unremarkable (test nvzm=8318) PLT MORPHOLOGY (BEAKER) Unremarkable (test fnib=3297) PERIPHERAL SMR REVIEW No circulating blasts. No (BEAKER) (test hnko=1417) significantly increased shistocytes. [id number] Mark Acuna, (BEAKER) (test abcr=8981) M.D.(electronic signature) POCT-GLUCOSE [id number] 12:00:00 Test Item Value Reference Range Comments POC-GLUCOSE METER (BEAKER) 101 mg/dL 70-110 TESTED AT [address] (test rcab=3650) [place] [address] [id number] 07:34:00 Test Item Value Reference Range Comments COL/EPI CLOSURE TIME (BEAKER) 93 Seconds 78-191 (test kqzu=8200) COL/ADP CLOSURE TIME (BEAKER) 62 Seconds 43-122 (test hlan=3699) PLATELET COUNT AGG (BEAKER) 113 K/CU MM 150-430 Previous platelet result was (test pcag=0434) 113. Lavender top for platelet clotted! Hematocrit <35% or platelet count <150,000/CU MM may contribute to falsely elevated PFA-100.PT/[id number] 07:33:00 Test Item Value Reference Range Comments PROTIME (BEAKER) (test rzdc=530) 14.1 seconds 11.7-14.7 INR (BEAKER) (test xgoc=189) 1.1 <=5.9 PARTIAL THROMBOPLASTIN TIME (BEAKER) (test 30.8 seconds 22.5-36.0 htfm=029) RECOMMENDED COUMADIN/WARFARIN INR THERAPY RANGESSTANDARD DOSE: 2.0 - 3.0 Includes: PROPHYLAXIS forvenous thrombosis, systemic embolization; TREATMENT for venous thrombosis and/or pulmonary embolus.HIGH RISK: Target INR is 2.5-3.5 for patients with mechanical heart valves.VITAMIN B12 AND [id number] 06:33 :00 Test Item Value Reference Range Comments VITAMIN B12 (BEAKER) (test amdz=935) 327 pg/mL 213-816 FOLATE (BEAKER) (test ygow=314) 9.6 ng/mL >=7.0 Effective 08/03/2014: Folate Reference Range ChangeNew: >=7.0 Previous: & gt;=5.4POCT-GLUCOSE [id number] 06:32:00 Test Item Value Reference Range Comments POC-GLUCOSE METER (BEAKER) 79 mg/dL 70-110 TESTED AT [facility] [address] [facility] (test apix=5034) [facility] [address] CBC W/PLT COUNT & AUTO [id number] 06:29:00 Test Item Value Reference Range Comments WHITE BLOOD CELL COUNT (BEAKER) (test mohh=629) 7.9 K/ L 4.0-10.0 RED BLOOD CELL COUNT (BEAKER) (test ihqm=944) 5.16 M/ L 4.20-5.80 HEMOGLOBIN (BEAKER) (test dshw=710) 13.0 GM/DL 13.0-16.8 HEMATOCRIT (BEAKER) (test vpjg=182) 41.2 % 40.0-50.0 MEAN CORPUSCULAR VOLUME (BEAKER) (test uprf=866) 79.9 fL 82.0-98.0 MEAN CORPUSCULAR HEMOGLOBIN (BEAKER) (test 25.2 pg 27.0-33.0 jgvp=210) MEAN CORPUSCULAR HEMOGLOBIN CONC (BEAKER) (test 31.6 GM/DL 32.0-36.0 pzgs=662) RED CELL DISTRIBUTION WIDTH (BEAKER) (test 14.8 % 10.3-14.2 ixvy=652) PLATELET COUNT (BEAKER) (test xlal=199) 108 K/CU MM 150-430 MEAN PLATELET VOLUME (BEAKER) (test hdnj=201) 11.2 fL 6.5-10.5 NUCLEATED RED BLOOD CELLS (BEAKER) (test 0 /100 WBC 0-0 nmap=798) NEUTROPHILS RELATIVE PERCENT (BEAKER) (test 71 % ngjv=003) LYMPHOCYTES RELATIVE PERCENT (BEAKER) (test 17 % sljb=486) MONOCYTES RELATIVE PERCENT (BEAKER) (test 9 % gkhg=854) EOSINOPHILS RELATIVE PERCENT (BEAKER) (test 2 % krpy=878) BASOPHILS RELATIVE PERCENT (BEAKER) (test 0 % fjtq=594) NEUTROPHILS ABSOLUTE COUNT (BEAKER) (test 5.62 K/ L 1.80-8.00 gcku=099) LYMPHOCYTES ABSOLUTE COUNT (BEAKER) (test 1.37 K/ L 1.48-4.50 frte=522) MONOCYTES ABSOLUTE COUNT (BEAKER) (test 0.73 K/ L 0.00-1.30 lqtz=586) EOSINOPHILS ABSOLUTE COUNT (BEAKER) (test 0.16 K/ L 0.00-0.50 itdw=300) BASOPHILS ABSOLUTE COUNT (BEAKER) (test 0.02 K/ L 0.00-0.20 ifae=418) 0.00IRON, TIBC, % SAT. (WITHOUT FERRITIN)2017-02-05 05:59:00 Test Item Value Reference Range Comments IRON (BEAKER) (test ldqg=846) 37 ug/dL 40-160 TOTAL IRON BINDING CAPACITY (BEAKER) (test 206 ug/dL 250-450 zsxb=054) IRON % SATURATION (2) (BEAKER) (test wapb=7635) 18 % 20-55 [id number] 05:33:00 Test Item Value Reference Range Comments PHOSPHORUS (BEAKER) (test wylz=773) 3.4 mg/dL 2.3-4.7 Once on admission and Daily AM afterwardsOnce on admission and Daily AM afterwardsOnce on admission and Daily AM [id number] 05:33:00 Test Item Value Reference Range Comments MAGNESIUM (BEAKER) (test lmqa=104) 1.7 mg/dL 1.6-2.6 Once on admission and Daily AM afterwardsOnce on admission and Daily AM afterwardsOnce on admission and Daily AM afterwardsBASIC METABOLIC [id number] 05:33:00 Test Item Value Reference Range Comments SODIUM (BEAKER) (test 139 meq/L 136-145 czju=290) POTASSIUM (BEAKER) (test 4.9 meq/L 3.5-5.1 jkpt=220) CHLORIDE (BEAKER) (test 107 meq/L 98-107 aeye=108) CO2 (BEAKER) (test 26 meq/L 22-29 lllt=535) BLOOD UREA NITROGEN 15 mg/dL 7-21 (BEAKER) (test khgd=627) CREATININE (BEAKER) (test 1.51 mg/dL 0.57-1.25 xhvc=324) GLUCOSE RANDOM (BEAKER) 76 mg/dL 70-105 (test efqn=567) CALCIUM (BEAKER) (test 8.5 mg/dL 8.4-10.2 mepa=613) EGFR (BEAKER) (test 55 mL/min/1.73 sq m ESTIMATED GFR IS NOT qwxz=1230) ACCURATE CREATININE CLEARANCE IN PREDICTING GLOMERULAR FILTRATION RATE. ESTIMATED GFR IS NOT APPLICABLE FOR DIALYSIS PATIENTS. Once on admission and Daily AM afterwardsOnce on admission and Daily AM afterwardsOnce on admission and Daily AM afterwardsPOCT-GLUCOSE [id number] 00:30:00 Test Item Value Reference Range Comments POC-GLUCOSE METER (BEAKER) 78 mg/dL 70-110 TESTED AT [address] (test isvv=2984) [facility] [address] POCT-GLUCOSE [id number] 18:20:00 Test Item Value Reference Range Comments POC-GLUCOSE METER (BEAKER) 156 mg/dL 70-110 TESTED AT [address] (test askk=0571) [facility] [address] PLATELET AGGREGATION: FUNCTION [id number] 15:53:00 Test Item Value Reference Range Comments WEAK ADP RESULT(BEAKER) (test 94 % 60-91 zuxk=9878) PLATELET FUNCTION SCREEN 60-100% indicates normal INTERP (BEAKER) (test platelet function mehf=2738) [id number] (BEAKER) Aurora Pascual MD (electronic (test ejvz=9788) signature) PLATELET COUNT AGG (BEAKER) 113 K/CU MM 150-430 (test oazv=3840) POCT-GLUCOSE [id number] 14:21:00 Test Item Value Reference Range Comments POC-GLUCOSE METER (BEAKER) 82 mg/dL 70-110 TESTED AT [facility] [address] [facility] (test otkk=0837) [facility] [address] HEPATIC FUNCTION [id number] 07:38:00 Test Item Value Reference Range Comments TOTAL PROTEIN (BEAKER) (test 7.6 gm/dL 6.0-8.3 Specimen slightly hemolyzed ydey=427) ALBUMIN (BEAKER) (test 3.4 g/dL 3.5-5.0 Specimen slightly hemolyzed hmxi=6351) BILIRUBIN TOTAL (BEAKER) (test 0.8 mg/dL 0.2-1.2 Specimen slightly hemolyzed nlsz=464) BILIRUBIN DIRECT (BEAKER) (test 0.3 mg/dL 0.1-0.5 Specimen slightly hemolyzed kquc=468) ALKALINE PHOSPHATASE (BEAKER) 49 U/L 40-150 (test wivr=199) AST (SGOT) (BEAKER) (test 16 U/L 5-34 Specimen slightly hemolyzed rxxb=057) ALT (SGPT) (BEAKER) (test 16 U/L 6-55 Specimen slightly hemolyzed pehd=972) PROTHROMBIN [id number] 07:10:00 Test Item Value Reference Range Comments PROTIME (BEAKER) (test afpf=200) 14.9 seconds 11.7-14.7 INR (BEAKER) (test ivlx=888) 1.2 <=5.9 RECOMMENDED COUMADIN/WARFARIN INR THERAPY RANGESSTANDARD DOSE: 2.0 - 3.0 Includes: PROPHYLAXIS forvenous thrombosis, systemic embolization; TREATMENT for venous thrombosis and/or pulmonary embolus.HIGH RISK: Target INR is 2.5-3.5 for patients with mechanical heart valves.[id number] 07:10:00 Test Item Value Reference Range Comments PARTIAL THROMBOPLASTIN TIME (BEAKER) (test 35.9 seconds 22.5-36.0 aysm=823) CBC W/PLT COUNT & AUTO [id number] 07:07:00 Test Item Value Reference Range Comments WHITE BLOOD CELL COUNT (BEAKER) (test ndol=041) 7.4 K/ L 4.0-10.0 RED BLOOD CELL COUNT (BEAKER) (test caqd=718) 5.04 M/ L 4.20-5.80 HEMOGLOBIN (BEAKER) (test ctxe=470) 12.9 GM/DL 13.0-16.8 HEMATOCRIT (BEAKER) (test qzsj=101) 40.0 % 40.0-50.0 MEAN CORPUSCULAR VOLUME (BEAKER) (test tkgb=539) 79.2 fL 82.0-98.0 MEAN CORPUSCULAR HEMOGLOBIN (BEAKER) (test 25.6 pg 27.0-33.0 zbei=899) MEAN CORPUSCULAR HEMOGLOBIN CONC (BEAKER) (test 32.3 GM/DL 32.0-36.0 akkm=330) RED CELL DISTRIBUTION WIDTH (BEAKER) (test 14.5 % 10.3-14.2 gkaz=596) PLATELET COUNT (BEAKER) (test cpzy=369) 94 K/CU MM 150-430 MEAN PLATELET VOLUME (BEAKER) (test zbxe=793) 11.7 fL 6.5-10.5 NUCLEATED RED BLOOD CELLS (BEAKER) (test 0 /100 WBC 0-0 kofa=003) NEUTROPHILS RELATIVE PERCENT (BEAKER) (test 72 % ixqv=049) LYMPHOCYTES RELATIVE PERCENT (BEAKER) (test 17 % bcwz=178) MONOCYTES RELATIVE PERCENT (BEAKER) (test 9 % oyqt=543) EOSINOPHILS RELATIVE PERCENT (BEAKER) (test 2 % dkfz=793) BASOPHILS RELATIVE PERCENT (BEAKER) (test 0 % qogi=709) NEUTROPHILS ABSOLUTE COUNT (BEAKER) (test 5.33 K/ L 1.80-8.00 rxpw=023) LYMPHOCYTES ABSOLUTE COUNT (BEAKER) (test 1.25 K/ L 1.48-4.50 yjca=920) MONOCYTES ABSOLUTE COUNT (BEAKER) (test ktzk=075) 0.66 K/ L 0.00-1.30 EOSINOPHILS ABSOLUTE COUNT (BEAKER) (test 0.12 K/ L 0.00-0.50 vdjk=861) BASOPHILS ABSOLUTE COUNT (BEAKER) (test eyfh=251) 0.03 K/ L 0.00-0.20 0.00
[2017-12-31 10:17] LABS: Urine Blood NEGATIVE (NEG); Urine Glucose NEGATIVE (NEG); Urine Protein 1+ (NEG); Urine pH 6.5 (5.0-7.0)
[2017-12-31 10:25] LABS: Absolute Lymphocytes (CBC) 0.9 K/uL (0.7-4.9); Absolute Monocytes 0.6 K/uL (0.1-1.3); Absolute Neutrophil 5.7 K/uL (1.8-8.0); Basophils % 0.4 % (0-1.3); Eosinophils % 1.8 % (0-4.4); Hematocrit 41.2 % (39.6-49.0); MCH 23.9 pg (27.0-35.0); MCV 75.4 fL (80-100); MPV 9.9 fL (7.6-11.3); Monocytes % 8.1 % (3.3-12.3); Potassium 4.8 mEq/L (3.6-5.0); RBC Red Blood Cell Count 5.47 M/uL (4.33-5.43)
[2017-12-31 10:28] LABS: Albumin 3.7 g/dL (3.2-5.5); Bilirubin Total 0.7 mg/dL (0.3-1.2); Protein, Total 8.3 g/dL (6.0-8.3)
--- NOTE | 2017-12-31 11:22 | ER ---
Nurse's Notes [facility] Name: Reggie Mayer Age: 72 yrs Sex: Male : 1945 Arrival Date: 12/31/2017 Time: 09:06 Bed 19 Private MD: Diagnosis: Low back pain;Right flank pain Presentation: 12/31 09:22 Presenting complaint: Patient states: " I have been having a pain in my back for about ph a week now." Reports pain in R mid/lower back area, denies radiation, also denies N/V/D or urinary symptoms. Transition of care: patient was not received from another setting of care. Onset of symptoms was December 31, 2017. Care prior to arrival: None. : Method Of Arrival: Ambulatory ph : Acuity: AQUILES 3 ph Triage Assessment: : General: Appears in no apparent distress. uncomfortable, well groomed, Behavior is ph calm, cooperative, appropriate for age, Denies fever, feeling ill. Pain: Complains of pain in right mid back and right low back Pain does not radiate. Pain currently is 8 out of 10 on a pain scale. Aggravated by repositioning. Neuro: Level of Consciousness is awake, alert, obeys commands, Oriented to person, place, time, situation. Cardiovascular: Capillary refill < 3 seconds Patient's skin is warm and dry. Respiratory: Airway is patent Respiratory effort is even, unlabored, Respiratory pattern is regular, symmetrical. GI: Patient currently denies diarrhea, nausea, vomiting. : Denies burning with urination, urinary frequency. Derm: Skin is intact, is healthy with good turgor, Skin is dry, Skin is normal, Skin temperature is warm. Musculoskeletal: Circulation, motion, and sensation intact. Range of motion: intact in all extremities, Swelling absent. Historical: - Allergies: : NKA; ph - Home Meds: carvedilol 6.25 mg Oral tab 2 times per day [Active]; tamsulosin 0.4 mg Oral cp24 1 cap ph once daily [Active]; allopurinol 100 mg Oral tab once daily [Active]; lisinopril 20 mg oral tab [Active]; atorvastatin 40 mg Oral tab once daily [Active]; - PMHx: Hyperlipidemia; Hypertension; ph - PSHx: 09:28 Liver laceration repair; ph - Immunization history:: Adult Immunizations not up to date. - Social history:: Smoking status: Patient/guardian denies using tobacco. Screenin:30 Abuse screen: Denies threats or abuse. Denies injuries from another. Nutritional ph screening: No deficits noted. Tuberculosis screening: No symptoms or risk factors identified. Fall Risk None identified. Assessment: 10:15 General: Appears in no apparent distress. uncomfortable, Behavior is calm, cooperative, aj1 appropriate for age. Pain: Complains of pain in low back area Pain does not radiate. Neuro: Level of Consciousness is awake, alert, obeys commands, Oriented to person, place, time, situation, Jet Engine Mechanic are equal bilaterally Moves all extremities. Full function Speech is normal, Facial symmetry appears normal. Cardiovascular: Patient's skin is warm and dry. Respiratory: Airway is patent Respiratory effort is even, unlabored, Respiratory pattern is regular, symmetrical. GI: No signs and/or symptoms were reported involving the gastrointestinal system. : No signs and/or symptoms were reported regarding the genitourinary system. EENT: No signs and/or symptoms were reported regarding the EENT system. Derm: No signs and/or symptoms reported regarding the dermatologic system. Skin is pink, warm \\T\\ dry. normal. Musculoskeletal: Range of motion: intact in all extremities. 11:17 Reassessment: Patient appears in no apparent distress at this time. No changes from aj1 previously documented assessment. Patient and/or family updated on plan of care and expected duration. Pain level reassessed. Patient is alert, oriented x 3, equal unlabored respirations, skin warm/dry/pink. Vital Signs: 09:24 BP 157 / 97; Pulse 71; Resp 18; Temp 98.9(TE); Pulse Ox 96% on R/A; Weight 108.86 kg; ph Height 6 ft. 1 in. (185.42 cm); Pain 8/10; 11:35 BP 156 / 87; Pulse 65; Resp 18; Pulse Ox 97% ; aj1 09:24 Body Mass Index 31.66 (108.86 kg, 185.42 cm) ph ED Course: 09:06 Patient arrived in ED. as 09:12 Chris Dela Cruz MD is Attending Physician. ps1 09:22 Zaynab Pedro RN is Primary Nurse. ph 09:24 Triage completed. ph 09:28 Arm band placed on. ph 09:30 Patient has correct armband on for positive identification. Bed in low position. Call ph light in reach. Side rails up X 1. Pulse ox on. NIBP on. Warm blanket given. 10:15 No provider procedures requiring assistance completed. aj1 11:36 IV discontinued, intact, bleeding controlled, No redness/swelling at site. Pressure aj1 dressing applied. Administered Medications: No medications were administered Outcome: 11: Discharge ordered by . ps1 11:37 Discharged to home ambulatory. aj1 11:37 Condition: good 11:37 Discharge instructions given to patient, Instructed on discharge instructions, follow up and referral plans. medication usage, Demonstrated understanding of instructions, follow-up care, medications, Prescriptions given X 1. 11:38 Patient left the ED. aj1 Signatures: Marilee Kaminski, RN RN aj1 Little Miranda Patricia, RN RN ph Chris Dela Cruz MD MD ps1 Corrections: (The following items were deleted from the chart) :25 09:22 Acuity: AQUILES 4 ph ph
--- NOTE | 2017-12-31 11:22 | EDPHYS ---
Physician Documentation [facility] Name: Reggie Mayer Age: 72 yrs Sex: Male : 1945 Arrival Date: 12/31/2017 Time: 09:06 Bed 19 Private MD: ED Physician Chris Dela Cruz HPI: 12/31 09:25 This 72 yrs old Black Male presents to ER via Ambulatory with complaints of Back Pain. ps1 09:25 The patient presents with pain that is acute, with no known mechanism of injury. The ps1 symptoms are located in the low back. Onset: The symptoms/episode began/occurred 1 week(s) ago. The pain does not radiate. Associated signs and symptoms: The patient has no apparent associated signs or symptoms. The problem was sustained without known cause, hx of kidney disease. Has right flank pain. . Modifying factors: The patient symptoms are alleviated by nothing, the patient symptoms are aggravated by bending. Historical: - Allergies: :28 NKA; ph - Home Meds: : carvedilol 6.25 mg Oral tab 2 times per day [Active]; tamsulosin 0.4 mg Oral cp24 1 cap ph once daily [Active]; allopurinol 100 mg Oral tab once daily [Active]; lisinopril 20 mg oral tab [Active]; atorvastatin 40 mg Oral tab once daily [Active]; - PMHx: : Hyperlipidemia; Hypertension; ph - PSHx: :28 Liver laceration repair; ph - Immunization history:: Adult Immunizations not up to date. - Social history:: Smoking status: Patient/guardian denies using tobacco. ROS: 09:25 Constitutional: Negative for fever, chills, and weight loss, Eyes: Negative for injury, ps1 pain, redness, and discharge, ENT: Negative for injury, pain, and discharge, Cardiovascular: Negative for chest pain, palpitations, and edema, Respiratory: Negative for shortness of breath, cough, wheezing, and pleuritic chest pain, Abdomen/GI: Negative for abdominal pain, nausea, vomiting, diarrhea, and constipation. 09:25 MS/Extremity: Negative for injury and deformity, Skin: Negative for injury, rash, and discoloration, Neuro: Negative for headache, weakness, numbness, tingling, and seizure. 09:25 Back: Positive for decreased range of motion, pain with movement, flank pain, on the right. Exam: 09:25 Constitutional: This is a well developed, well nourished patient who is awake, alert, ps1 and in no acute distress. Head/Face: Normocephalic, atraumatic. Eyes: Pupils equal round and reactive to light, extra-ocular motions intact. Lids and lashes normal. Conjunctiva and sclera are non-icteric and not injected. Chest/axilla: Normal chest wall appearance and motion. Nontender with no deformity. No lesions are appreciated. Cardiovascular: Regular rate and rhythm. No gallops, murmurs, or rubs. Normal PMI, no JVD. No pulse deficits. Respiratory: Lungs have equal breath sounds bilaterally, clear to auscultation and percussion. No rales, rhonchi or wheezes noted. No increased work of breathing, no retractions or nasal flaring. Abdomen/GI: Soft, non-tender, with normal bowel sounds. No distension or tympany. No guarding or rebound. No evidence of tenderness throughout. 09:25 MS/ Extremity: Pulses equal, no cyanosis. Neurovascular intact. Full, normal range of motion. Neuro: Awake and alert, GCS 15, oriented to person, place, time, and situation. Cranial nerves II-XII grossly intact. Sensory grossly intact. Psych: Awake, alert, with orientation to person, place and time. Behavior, mood, and affect are within normal limits. 09:25 Back: pain, that is very mild, of the right mid back, muscle spasm, is not present. Vital Signs: 09:24 BP 157 / 97; Pulse 71; Resp 18; Temp 98.9(TE); Pulse Ox 96% on R/A; Weight 108.86 kg; ph Height 6 ft. 1 in. (185.42 cm); Pain 8/10; 11:35 BP 156 / 87; Pulse 65; Resp 18; Pulse Ox 97% ; aj1 09:24 Body Mass Index 31.66 (108.86 kg, 185.42 cm) ph MDM: 09:25 Patient medically screened. ps1 09:25 Data reviewed: vital signs, nurses notes. ps1 12/31 09:30 Order name: CBC with Diff; Complete Time: 10:30 ps1 12/31 09:30 Order name: CMP; Complete Time: 10:30 ps1 12/31 09:30 Order name: Urine Dipstick-Ancillary (obtain specimen); Complete Time: 11:19 ps1 12/31 10:03 Order name: Urine Dipstick--Ancillary (enter results); Complete Time: 10:19 em1 Administered Medications: No medications were administered Disposition: 12/31/17 11:22 Discharged to Home. Impression: Low back pain, Right flank pain. - Condition is Stable. - Discharge Instructions: Back Pain, Adult. - Prescriptions for Robaxin 500 mg Oral Tablet - take 2 tablet by ORAL route every 6 hours As needed; 40 tablet. - Medication Reconciliation Form, Thank You Letter, Antibiotic Education, Prescription Opioid Use form. - Follow up: Private Physician; When: As needed; Reason: Recheck today's complaints, Continuance of care, Re-evaluation by your physician. Follow up: Emergency Department; When: As needed; Reason: Fever > 102 F, Trouble breathing, Worsening of condition. - Problem is new. - Symptoms are unchanged. Signatures: Dispatcher [employer] EDMarilee Conklin RN RN aj1 Zaynab Pedro RN RN ph Chris Dela Cruz MD MD ps1
== END 2017-12-31 11:38 | disposition home or self-care (01) ==
LOC: ER 09:05
DX: R10.9 Unspecified abdominal pain (principal); I10 Essential (primary) hypertension; E78.5 Hyperlipidemia, unspecified
CPT/HCPCS: 36415; 80053; 81003; 85025; 99283

== ENCOUNTER 2018-05-18 08:16 | Emergency (ER) | payer MEDICARE ==
--- OUTSIDE RECORDS SUMMARY | 2018-05-18 08:18 | XMS REPORT | Clinical Summary ---
:1945 Author Organization [facility] Address [address] [place] [address] Phone Care Team Providers Name Role Phone Unavailable Primary Care Provider Unavailable Allergies No Known Allergies Current Medications Prescription Sig. Disp. Refills Start Date End Date Status tamsulosin (FLOMAX) 0.4 mg Take 0.4 mg by Active Cp24 24 hr capsule mouth daily. allopurinol (ZYLOPRIM) 100 Take 100 mg by Active MG tablet mouth daily. atorvastatin (LIPITOR) 40 Take 40 mg by Active MG tablet mouth daily. aspirin 81 MG chewable Take 81 mg by Active tablet mouth daily. Active Problems Problem Noted Date HTN (hypertension) 02/04/2017 Hyperlipidemia 02/04/2017 Subdural hematoma (HCC) 02/04/2017 Social History Tobacco Use Types Packs/Day Years Used Date Never Smoker Sex Assigned at Date Recorded Not on file Last Filed Vital Signs Not on file Plan of Treatment Not on file Implants Implanted Type Area Managed Services Sales Consultant Device Expiration Model / Identifier Date Serial / Lot Matrix Floseal Hemo W/O Ndl 10 [id number] - [id number] Cement/Romario Right: GAYTAN: BIOSCI 06/15/2018 [id number] / Implanted: Qty: 1 on 02/05/2017 by Anatoliy Govea MD ler/Adhesi Head / ve [id number] Plt Rigid 2h [id number] - [id number] Fracture/F Right: ANNMARIE:CRANIOMA [id number] / Implanted: Qty: 3 on 02/05/2017 by Anatoliy Govea MD ixation Head XILLOFACIAL / Scr Un3 [place] Self Drl 1.5x4mm [id number] - [id number] Fracture/F Right: ANNMARIE:CRANIOMA [id number] / Implanted: Qty: 6 on 02/05/2017 by Anatoliy Govea MD ixation Head XILLOFACIAL / Kt Cath Bactiseal Shnt Carlo 23c [id number] - [id number] Neuro Right: J &J:CODMAN & 08/15/2017 [id number] / Implanted: Qty: 1 on 02/05/2017 by Anatoliy Govea MD Head [facility] / [id number] Grft Dura Cllgn Duragn 2x2in [id number] - [id number] Tissue Right: [employer] 01/13/2019 [id number] / Implanted: Qty: 1 on 02/05/2017 by Anatoliy Govea MD Graft/Subs Head LIFESCI:NEURO / titute [id number] Results Not on fileafter 05/17/2017
--- OUTSIDE RECORDS SUMMARY | 2018-05-18 08:19 | XMS REPORT ---
:1945 [facility] [address] [place] [address] Care Team Providers Name Role Phone COLTON TURCIOS Unavailable Unavailable Problems This patient has no known problems. Allergies, Adverse Reactions, Alerts This patient has no known allergies or adverse reactions. Medications This patient has no known medications. Results Test Description Test Time Test Comments Text Results Atomic Results Result Comments CBC W/PLT COUNT & AUTO DIFFERENTIAL 2017-02-10 06:43:00 Test Item Value Reference Range Comments WHITE BLOOD CELL COUNT (BEAKER) (test xxgz=439) 9.2 K/ L 4.0-10.0 RED BLOOD CELL COUNT (BEAKER) (test iyob=198) 4.69 M/ L 4.20-5.80 HEMOGLOBIN (BEAKER) (test yfbe=202) 12.2 GM/DL 13.0-16.8 HEMATOCRIT (BEAKER) (test zvwl=094) 36.5 % 40.0-50.0 MEAN CORPUSCULAR VOLUME (BEAKER) (test ofcf=360) 77.8 fL 82.0-98.0 MEAN CORPUSCULAR HEMOGLOBIN (BEAKER) (test cuwd=649) 25.9 pg 27.0-33.0 MEAN CORPUSCULAR HEMOGLOBIN CONC (BEAKER) (test esjm=203) 33.3 GM/DL 32.0- 36.0 RED CELL DISTRIBUTION WIDTH (BEAKER) (test bycf=748) 15.5 % 10.3-14.2 PLATELET COUNT (BEAKER) (test fozz=843) 140 K/CU MM 150-430 MEAN PLATELET VOLUME (BEAKER) (test qjze=127) 10.1 fL 6.5-10.5 NUCLEATED RED BLOOD CELLS (BEAKER) (test qduu=120) 0 /100 WBC 0-0 NEUTROPHILS RELATIVE PERCENT (BEAKER) (test cyus=923) 74 % LYMPHOCYTES RELATIVE PERCENT (BEAKER) (test qlzv=426) 12 % MONOCYTES RELATIVE PERCENT (BEAKER) (test fxap=747) 13 % EOSINOPHILS RELATIVE PERCENT (BEAKER) (test yydo=722) 1 % BASOPHILS RELATIVE PERCENT (BEAKER) (test jwqi=131) 0 % NEUTROPHILS ABSOLUTE COUNT (BEAKER) (test ohib=126) 6.78 K/ L 1.80-8.00 LYMPHOCYTES ABSOLUTE COUNT (BEAKER) (test klpr=426) 1.08 K/ L 1.48-4.50 MONOCYTES ABSOLUTE COUNT (BEAKER) (test andt=922) 1.19 K/ L 0.00-1.30 EOSINOPHILS ABSOLUTE COUNT (BEAKER) (test uiww=564) 0.10 K/ L 0.00-0.50 BASOPHILS ABSOLUTE COUNT (BEAKER) (test wkzq=400) 0.01 K/ L 0.00-0.20 0.00BASIC METABOLIC [id number] 06:12:00 Test Item Value Reference Range Comments SODIUM (BEAKER) (test 136 meq/L 136-145 nori=860) POTASSIUM (BEAKER) (test 4.5 meq/L 3.5-5.1 zaqz=052) CHLORIDE (BEAKER) (test 101 meq/L 98-107 ttkm=416) CO2 (BEAKER) (test 26 meq/L 22-29 psae=905) BLOOD UREA NITROGEN 18 mg/dL 7-21 (BEAKER) (test otna=488) CREATININE (BEAKER) (test 1.28 mg/dL 0.57-1.25 cxyq=715) GLUCOSE RANDOM (BEAKER) 89 mg/dL 70-105 (test rwom=057) CALCIUM (BEAKER) (test 8.6 mg/dL 8.4-10.2 xltf=541) EGFR (BEAKER) (test 67 mL/min/1.73 sq m ESTIMATED GFR IS NOT vrsf=6000) ACCURATE CREATININE CLEARANCE IN PREDICTING GLOMERULAR FILTRATION RATE. ESTIMATED GFR IS NOT APPLICABLE FOR DIALYSIS PATIENTS. PROTHROMBIN [id number] 05:45:00 Test Item Value Reference Range Comments PROTIME (BEAKER) (test fudw=177) 14.5 seconds 11.7-14.7 INR (BEAKER) (test kfeg=411) 1.1 <=5.9 RECOMMENDED COUMADIN/WARFARIN INR THERAPY RANGESSTANDARD DOSE: 2.0 - 3.0 Includes: PROPHYLAXIS forvenous thrombosis, systemic embolization; TREATMENT for venous thrombosis and/or pulmonary embolus.HIGH RISK: Target INR is 2.5-3.5 for patients with mechanical heart valves.[id number] 12:38:00 Test Item Value Reference Range Comments SODIUM (BEAKER) (test pouo=121) 134 meq/L 136-145 [id number] 07:07:00 Test Item Value Reference Range Comments PHOSPHORUS (BEAKER) (test hptb=782) 3.3 mg/dL 2.3-4.7 [id number] 07:07:00 Test Item Value Reference Range Comments MAGNESIUM (BEAKER) (test jcge=085) 1.6 mg/dL 1.6-2.6 BASIC METABOLIC [id number] 04:24:00 Test Item Value Reference Range Comments SODIUM (BEAKER) (test 134 meq/L 136-145 xajf=087) POTASSIUM (BEAKER) (test 4.2 meq/L 3.5-5.1 eorg=428) CHLORIDE (BEAKER) (test 101 meq/L 98-107 njus=206) CO2 (BEAKER) (test 27 meq/L 22-29 ajlb=826) BLOOD UREA NITROGEN 18 mg/dL 7-21 (BEAKER) (test hhom=650) CREATININE (BEAKER) (test 1.22 mg/dL 0.57-1.25 ltpp=681) GLUCOSE RANDOM (BEAKER) 99 mg/dL 70-105 (test tpbr=910) CALCIUM (BEAKER) (test 8.7 mg/dL 8.4-10.2 sepw=956) EGFR (BEAKER) (test 71 mL/min/1.73 sq m ESTIMATED GFR IS NOT rnvv=5080) ACCURATE CREATININE CLEARANCE IN PREDICTING GLOMERULAR FILTRATION RATE. ESTIMATED GFR IS NOT APPLICABLE FOR DIALYSIS PATIENTS. PROTHROMBIN [id number] 04:16:00 Test Item Value Reference Range Comments PROTIME (BEAKER) (test parq=863) 15.0 seconds 11.7-14.7 INR (BEAKER) (test cwnw=479) 1.2 <=5.9 RECOMMENDED COUMADIN/WARFARIN INR THERAPY RANGESSTANDARD DOSE: 2.0 - 3.0 Includes: PROPHYLAXIS forvenous thrombosis, systemic embolization; TREATMENT for venous thrombosis and/or pulmonary embolus.HIGH RISK: Target INR is 2.5-3.5 for patients with mechanical heart valves.CBC W/PLT COUNT & AUTO [id number] 04:16:00 Test Item Value Reference Range Comments WHITE BLOOD CELL COUNT (BEAKER) (test kakk=993) 9.4 K/ L 4.0-10.0 RED BLOOD CELL COUNT (BEAKER) (test wmwo=957) 4.66 M/ L 4.20-5.80 HEMOGLOBIN (BEAKER) (test lrew=249) 11.8 GM/DL 13.0-16.8 HEMATOCRIT (BEAKER) (test mxqb=322) 36.9 % 40.0-50.0 MEAN CORPUSCULAR VOLUME (BEAKER) (test quod=696) 79.2 fL 82.0-98.0 MEAN CORPUSCULAR HEMOGLOBIN (BEAKER) (test 25.2 pg 27.0-33.0 uqio=569) MEAN CORPUSCULAR HEMOGLOBIN CONC (BEAKER) (test 31.9 GM/DL 32.0-36.0 sump=165) RED CELL DISTRIBUTION WIDTH (BEAKER) (test 14.1 % 10.3-14.2 tdyg=640) PLATELET COUNT (BEAKER) (test ecxq=686) 129 K/CU MM 150-430 MEAN PLATELET VOLUME (BEAKER) (test imdw=124) 9.7 fL 6.5-10.5 NUCLEATED RED BLOOD CELLS (BEAKER) (test 0 /100 WBC 0-0 wkdm=652) NEUTROPHILS RELATIVE PERCENT (BEAKER) (test 74 % pwne=963) LYMPHOCYTES RELATIVE PERCENT (BEAKER) (test 12 % rslb=890) MONOCYTES RELATIVE PERCENT (BEAKER) (test 13 % nctu=561) EOSINOPHILS RELATIVE PERCENT (BEAKER) (test 1 % lyyk=729) BASOPHILS RELATIVE PERCENT (BEAKER) (test 0 % lipl=862) NEUTROPHILS ABSOLUTE COUNT (BEAKER) (test 6.97 K/ L 1.80-8.00 oggh=244) LYMPHOCYTES ABSOLUTE COUNT (BEAKER) (test 1.11 K/ L 1.48-4.50 zcvo=535) MONOCYTES ABSOLUTE COUNT (BEAKER) (test 1.23 K/ L 0.00-1.30 lmet=612) EOSINOPHILS ABSOLUTE COUNT (BEAKER) (test 0.06 K/ L 0.00-0.50 lqdn=561) BASOPHILS ABSOLUTE COUNT (BEAKER) (test 0.00 K/ L 0.00-0.20 zulf=565) 0.00PT/[id number] 17:46:00 Test Item Value Reference Range Comments PROTIME (BEAKER) (test lssu=908) 14.4 seconds 11.7-14.7 INR (BEAKER) (test pdps=103) 1.1 <=5.9 PARTIAL THROMBOPLASTIN TIME (BEAKER) (test 36.8 seconds 22.5-36.0 xcrb=848) RECOMMENDED COUMADIN/WARFARIN INR THERAPY RANGESSTANDARD DOSE: 2.0 - 3.0 Includes: PROPHYLAXIS forvenous thrombosis, systemic embolization; TREATMENT for venous thrombosis and/or pulmonary embolus.HIGH RISK: Target INR is 2.5-3.5 for patients with mechanical heart valves.BASIC METABOLIC [id number] 02:40: 00 Test Item Value Reference Range Comments SODIUM (BEAKER) (test 137 meq/L 136-145 ywuh=611) POTASSIUM (BEAKER) (test 4.6 meq/L 3.5-5.1 mqev=315) CHLORIDE (BEAKER) (test 101 meq/L 98-107 mwjp=016) CO2 (BEAKER) (test 29 meq/L 22-29 xpim=134) BLOOD UREA NITROGEN 19 mg/dL 7-21 (BEAKER) (test vrvc=287) CREATININE (BEAKER) (test 1.42 mg/dL 0.57-1.25 mwkx=586) GLUCOSE RANDOM (BEAKER) 105 mg/dL 70-105 (test thtq=275) CALCIUM (BEAKER) (test 8.3 mg/dL 8.4-10.2 fntb=438) EGFR (BEAKER) (test 59 mL/min/1.73 sq m ESTIMATED GFR IS NOT ssxw=9565) ACCURATE CREATININE CLEARANCE IN PREDICTING GLOMERULAR FILTRATION RATE. ESTIMATED GFR IS NOT APPLICABLE FOR DIALYSIS PATIENTS. CBC W/PLT COUNT & AUTO [id number] 02:16:00 Test Item Value Reference Range Comments WHITE BLOOD CELL COUNT (BEAKER) (test aliw=659) 9.9 K/ L 4.0-10.0 RED BLOOD CELL COUNT (BEAKER) (test qcvg=323) 4.56 M/ L 4.20-5.80 HEMOGLOBIN (BEAKER) (test oqxk=802) 11.8 GM/DL 13.0-16.8 HEMATOCRIT (BEAKER) (test cmfd=243) 36.5 % 40.0-50.0 MEAN CORPUSCULAR VOLUME (BEAKER) (test bnrb=136) 79.9 fL 82.0-98.0 MEAN CORPUSCULAR HEMOGLOBIN (BEAKER) (test 25.9 pg 27.0-33.0 ehmp=577) MEAN CORPUSCULAR HEMOGLOBIN CONC (BEAKER) (test 32.4 GM/DL 32.0-36.0 mimp=544) RED CELL DISTRIBUTION WIDTH (BEAKER) (test 14.4 % 10.3-14.2 lfrh=268) PLATELET COUNT (BEAKER) (test xlya=332) 127 K/CU MM 150-430 MEAN PLATELET VOLUME (BEAKER) (test eitv=091) 10.0 fL 6.5-10.5 NUCLEATED RED BLOOD CELLS (BEAKER) (test 0 /100 WBC 0-0 tope=260) NEUTROPHILS RELATIVE PERCENT (BEAKER) (test 79 % zzqz=335) LYMPHOCYTES RELATIVE PERCENT (BEAKER) (test 6 % zqtg=354) MONOCYTES RELATIVE PERCENT (BEAKER) (test 14 % epyo=041) EOSINOPHILS RELATIVE PERCENT (BEAKER) (test 1 % dkyk=690) BASOPHILS RELATIVE PERCENT (BEAKER) (test 0 % nges=422) NEUTROPHILS ABSOLUTE COUNT (BEAKER) (test 7.86 K/ L 1.80-8.00 hzlt=581) LYMPHOCYTES ABSOLUTE COUNT (BEAKER) (test 0.64 K/ L 1.48-4.50 sllk=061) MONOCYTES ABSOLUTE COUNT (BEAKER) (test 1.36 K/ L 0.00-1.30 easg=171) EOSINOPHILS ABSOLUTE COUNT (BEAKER) (test 0.07 K/ L 0.00-0.50 thes=225) BASOPHILS ABSOLUTE COUNT (BEAKER) (test 0.01 K/ L 0.00-0.20 tsjk=342) 0.00POCT-GLUCOSE [id number] 18:13:00 Test Item Value Reference Range Comments POC-GLUCOSE METER (BEAKER) 110 mg/dL 70-110 TESTED AT [facility] [address] [facility] (test swdi=9959) [place] [id number] POCT-GLUCOSE [id number] 11:50:00 Test Item Value Reference Range Comments POC-GLUCOSE METER (BEAKER) 107 mg/dL 70-110 TESTED AT [place] [id number] [facility] (test yukk=5122) [place] [id number] POCT-GLUCOSE [id number] 06:35:00 Test Item Value Reference Range Comments POC-GLUCOSE METER (BEAKER) 113 mg/dL 70-110 TESTED AT [address] (test eijf=5552) [place] [id number] CBC W/PLT COUNT & AUTO [id number] 03:27:00 Test Item Value Reference Range Comments WHITE BLOOD CELL COUNT (BEAKER) (test ccjl=031) 10.0 K/ L 4.0-10.0 RED BLOOD CELL COUNT (BEAKER) (test izyp=769) 4.64 M/ L 4.20-5.80 HEMOGLOBIN (BEAKER) (test vurc=552) 11.9 GM/DL 13.0-16.8 HEMATOCRIT (BEAKER) (test qsnu=302) 36.8 % 40.0-50.0 MEAN CORPUSCULAR VOLUME (BEAKER) (test upem=061) 79.3 fL 82.0-98.0 MEAN CORPUSCULAR HEMOGLOBIN (BEAKER) (test 25.6 pg 27.0-33.0 srek=162) MEAN CORPUSCULAR HEMOGLOBIN CONC (BEAKER) (test 32.3 GM/DL 32.0-36.0 nzyl=551) RED CELL DISTRIBUTION WIDTH (BEAKER) (test 14.4 % 10.3-14.2 nwce=017) PLATELET COUNT (BEAKER) (test lhpa=442) 135 K/CU MM 150-430 MEAN PLATELET VOLUME (BEAKER) (test vdrf=621) 9.7 fL 6.5-10.5 NUCLEATED RED BLOOD CELLS (BEAKER) (test 0 /100 WBC 0-0 sorq=398) NEUTROPHILS RELATIVE PERCENT (BEAKER) (test 81 % rquv=652) LYMPHOCYTES RELATIVE PERCENT (BEAKER) (test 7 % tmks=367) MONOCYTES RELATIVE PERCENT (BEAKER) (test 12 % qrcb=352) EOSINOPHILS RELATIVE PERCENT (BEAKER) (test 1 % ywhe=666) BASOPHILS RELATIVE PERCENT (BEAKER) (test 0 % mfvv=909) NEUTROPHILS ABSOLUTE COUNT (BEAKER) (test 8.03 K/ L 1.80-8.00 vskf=429) LYMPHOCYTES ABSOLUTE COUNT (BEAKER) (test 0.69 K/ L 1.48-4.50 rkxe=347) MONOCYTES ABSOLUTE COUNT (BEAKER) (test 1.19 K/ L 0.00-1.30 jvhs=468) EOSINOPHILS ABSOLUTE COUNT (BEAKER) (test 0.07 K/ L 0.00-0.50 cpqu=996) BASOPHILS ABSOLUTE COUNT (BEAKER) (test 0.00 K/ L 0.00-0.20 hjnf=117) 0.00BASIC METABOLIC [id number] 03:16:00 Test Item Value Reference Range Comments SODIUM (BEAKER) (test 135 meq/L 136-145 zgly=887) POTASSIUM (BEAKER) (test 4.3 meq/L 3.5-5.1 kocr=788) CHLORIDE (BEAKER) (test 104 meq/L 98-107 zpto=916) CO2 (BEAKER) (test 26 meq/L 22-29 pkiw=185) BLOOD UREA NITROGEN 19 mg/dL 7-21 (BEAKER) (test igoo=761) CREATININE (BEAKER) (test 1.35 mg/dL 0.57-1.25 unob=462) GLUCOSE RANDOM (BEAKER) 110 mg/dL 70-105 (test lokf=798) CALCIUM (BEAKER) (test 8.2 mg/dL 8.4-10.2 vwsr=295) EGFR (BEAKER) (test 63 mL/min/1.73 sq m ESTIMATED GFR IS NOT hqsc=7970) ACCURATE CREATININE CLEARANCE IN PREDICTING GLOMERULAR FILTRATION RATE. ESTIMATED GFR IS NOT APPLICABLE FOR DIALYSIS PATIENTS. POCT-GLUCOSE [id number] 00:29:00 Test Item Value Reference Range Comments POC-GLUCOSE METER (BEAKER) 114 mg/dL 70-110 TESTED AT [address] (test uqpn=5562) [facility] [address] POCT-GLUCOSE [id number] 00:21:00 Test Item Value Reference Range Comments POC-GLUCOSE METER (BEAKER) 115 mg/dL 70-110 TESTED AT [address] (test eutg=3960) [facility] [address] POCT-GLUCOSE [id number] 12:42:00 Test Item Value Reference Range Comments POC-GLUCOSE METER (BEAKER) 114 mg/dL 70-110 TESTED AT [facility] [address] [facility] (test ebvr=3788) [facility] [address] POCT-GLUCOSE [id number] 06:45:00 Test Item Value Reference Range Comments POC-GLUCOSE METER (BEAKER) 126 mg/dL 70-110 TESTED AT [facility] [address] [facility] (test xuxd=5242) [facility] [address] [id number] 05:26:00 Test Item Value Reference Range Comments FERRITIN (BEAKER) (test ehln=866) 220 ng/mL 5-275 Effective 08/03/2014: Reference Range ChangeNew: Male 5-275 Previous: Male 22-322 Female 5-275 Female 10-291BASI METABOLIC [id number] 05:01:00 Test Item Value Reference Range Comments SODIUM (BEAKER) (test 137 meq/L 136-145 ibzn=462) POTASSIUM (BEAKER) (test 3.9 meq/L 3.5-5.1 Specimen slightly scgy=472) hemolyzed CHLORIDE (BEAKER) (test 108 meq/L 98-107 akhw=719) CO2 (BEAKER) (test 22 meq/L 22-29 qqzp=154) BLOOD UREA NITROGEN 13 mg/dL 7-21 (BEAKER) (test ynss=541) CREATININE (BEAKER) (test 1.23 mg/dL 0.57-1.25 Specimen slightly wfdd=257) hemolyzed GLUCOSE RANDOM (BEAKER) 114 mg/dL 70-105 (test zsex=097) CALCIUM (BEAKER) (test 7.6 mg/dL 8.4-10.2 jeya=820) EGFR (BEAKER) (test 70 mL/min/1.73 sq m ESTIMATED GFR IS NOT wfmo=7530) ACCURATE CREATININE CLEARANCE IN PREDICTING GLOMERULAR FILTRATION RATE. ESTIMATED GFR IS NOT APPLICABLE FOR DIALYSIS PATIENTS. [id number] 04:59:00 Test Item Value Reference Range Comments MAGNESIUM (BEAKER) (test 1.5 mg/dL 1.6-2.6 Specimen slightly hemolyzed ltoq=187) [id number] 04:59:00 Test Item Value Reference Range Comments PHOSPHORUS (BEAKER) (test 3.5 mg/dL 2.3-4.7 Specimen slightly hemolyzed lfle=484) CBC W/PLT COUNT & AUTO [id number] 04:52:00 Test Item Value Reference Range Comments WHITE BLOOD CELL COUNT (BEAKER) (test otct=083) 9.5 K/ L 4.0-10.0 RED BLOOD CELL COUNT (BEAKER) (test zfgm=856) 4.57 M/ L 4.20-5.80 HEMOGLOBIN (BEAKER) (test fgpk=051) 11.5 GM/DL 13.0-16.8 HEMATOCRIT (BEAKER) (test cmfn=845) 36.2 % 40.0-50.0 MEAN CORPUSCULAR VOLUME (BEAKER) (test wdzp=801) 79.3 fL 82.0-98.0 MEAN CORPUSCULAR HEMOGLOBIN (BEAKER) (test 25.2 pg 27.0-33.0 kndv=844) MEAN CORPUSCULAR HEMOGLOBIN CONC (BEAKER) (test 31.7 GM/DL 32.0-36.0 mnea=305) RED CELL DISTRIBUTION WIDTH (BEAKER) (test 14.6 % 10.3-14.2 ermc=763) PLATELET COUNT (BEAKER) (test oxhs=287) 98 K/CU MM 150-430 MEAN PLATELET VOLUME (BEAKER) (test wkhz=038) 10.8 fL 6.5-10.5 NUCLEATED RED BLOOD CELLS (BEAKER) (test 0 /100 WBC 0-0 dbad=824) NEUTROPHILS RELATIVE PERCENT (BEAKER) (test 81 % ashr=476) LYMPHOCYTES RELATIVE PERCENT (BEAKER) (test 9 % ekqa=132) MONOCYTES RELATIVE PERCENT (BEAKER) (test 10 % wbde=855) EOSINOPHILS RELATIVE PERCENT (BEAKER) (test 0 % cgni=631) BASOPHILS RELATIVE PERCENT (BEAKER) (test 0 % mqbf=455) NEUTROPHILS ABSOLUTE COUNT (BEAKER) (test 7.71 K/ L 1.80-8.00 xgnr=284) LYMPHOCYTES ABSOLUTE COUNT (BEAKER) (test 0.81 K/ L 1.48-4.50 pkim=773) MONOCYTES ABSOLUTE COUNT (BEAKER) (test hccc=397) 0.93 K/ L 0.00-1.30 EOSINOPHILS ABSOLUTE COUNT (BEAKER) (test 0.03 K/ L 0.00-0.50 sorm=247) BASOPHILS ABSOLUTE COUNT (BEAKER) (test iomy=106) 0.04 K/ L 0.00-0.20 RETICULOCYTE [id number] 04:51:00 Test Item Value Reference Range Comments RETICULOCYTE COUNT PCT (BEAKER) (test zodl=956) 0.9 % 0.4-2.9 POCT-GLUCOSE [id number] 00:25:00 Test Item Value Reference Range Comments POC-GLUCOSE METER (BEAKER) 124 mg/dL 70-110 TESTED AT [address] (test jthp=8290) [place] [address] POCT-GLUCOSE [id number] 17:53:00 Test Item Value Reference Range Comments POC-GLUCOSE METER (BEAKER) 126 mg/dL 70-110 TESTED AT [address] (test lqpz=7967) [place] [address] PERIPHERAL BLOOD SMEAR - PATHOLOGIST [id number] 13:47:00 Test Item Value Reference Range Comments RBC MORPHOLOGY (BEAKER) Anisocytosis (test ttii=6518) RBC MORPHOLOGY (BEAKER) Poikilocytosis (test slss=60606) RBC MORPHOLOGY (BEAKER) Polychromasia (test bgdl=80573) WBC MORPHOLOGY (BEAKER) Unremarkable (test hall=4007) PLT MORPHOLOGY (BEAKER) Unremarkable (test doyo=6097) PERIPHERAL SMR REVIEW No circulating blasts. No (BEAKER) (test dmyn=3467) significantly increased shistocytes. [id number] Mark Acuna, (BEAKER) (test rbhx=4847) M.D.(electronic signature) POCT-GLUCOSE [id number] 12:00:00 Test Item Value Reference Range Comments POC-GLUCOSE METER (BEAKER) 101 mg/dL 70-110 TESTED AT [address] (test zkxl=5609) [place] [address] [id number] 07:34:00 Test Item Value Reference Range Comments COL/EPI CLOSURE TIME (BEAKER) 93 Seconds 78-191 (test foxx=3642) COL/ADP CLOSURE TIME (BEAKER) 62 Seconds 43-122 (test mxxi=6024) PLATELET COUNT AGG (BEAKER) 113 K/CU MM 150-430 Previous platelet result was (test dtru=4829) 113. Lavender top for platelet clotted! Hematocrit <35% or platelet count <150,000/CU MM may contribute to falsely elevated PFA-100.PT/[id number] 07:33:00 Test Item Value Reference Range Comments PROTIME (BEAKER) (test vroj=229) 14.1 seconds 11.7-14.7 INR (BEAKER) (test anyx=991) 1.1 <=5.9 PARTIAL THROMBOPLASTIN TIME (BEAKER) (test 30.8 seconds 22.5-36.0 unsg=798) RECOMMENDED COUMADIN/WARFARIN INR THERAPY RANGESSTANDARD DOSE: 2.0 - 3.0 Includes: PROPHYLAXIS forvenous thrombosis, systemic embolization; TREATMENT for venous thrombosis and/or pulmonary embolus.HIGH RISK: Target INR is 2.5-3.5 for patients with mechanical heart valves.VITAMIN B12 AND [id number] 06:33 :00 Test Item Value Reference Range Comments VITAMIN B12 (BEAKER) (test zoxi=738) 327 pg/mL 213-816 FOLATE (BEAKER) (test hqvl=968) 9.6 ng/mL >=7.0 Effective 08/03/2014: Folate Reference Range ChangeNew: >=7.0 Previous: & gt;=5.4POCT-GLUCOSE [id number] 06:32:00 Test Item Value Reference Range Comments POC-GLUCOSE METER (BEAKER) 79 mg/dL 70-110 TESTED AT [address] (test tvkc=9420) [facility] [address] CBC W/PLT COUNT & AUTO [id number] 06:29:00 Test Item Value Reference Range Comments WHITE BLOOD CELL COUNT (BEAKER) (test lida=620) 7.9 K/ L 4.0-10.0 RED BLOOD CELL COUNT (BEAKER) (test zlqb=398) 5.16 M/ L 4.20-5.80 HEMOGLOBIN (BEAKER) (test npny=074) 13.0 GM/DL 13.0-16.8 HEMATOCRIT (BEAKER) (test zkev=281) 41.2 % 40.0-50.0 MEAN CORPUSCULAR VOLUME (BEAKER) (test oeru=488) 79.9 fL 82.0-98.0 MEAN CORPUSCULAR HEMOGLOBIN (BEAKER) (test 25.2 pg 27.0-33.0 eqrt=235) MEAN CORPUSCULAR HEMOGLOBIN CONC (BEAKER) (test 31.6 GM/DL 32.0-36.0 gaew=733) RED CELL DISTRIBUTION WIDTH (BEAKER) (test 14.8 % 10.3-14.2 lhxa=903) PLATELET COUNT (BEAKER) (test kjjk=307) 108 K/CU MM 150-430 MEAN PLATELET VOLUME (BEAKER) (test czcg=985) 11.2 fL 6.5-10.5 NUCLEATED RED BLOOD CELLS (BEAKER) (test 0 /100 WBC 0-0 veed=880) NEUTROPHILS RELATIVE PERCENT (BEAKER) (test 71 % xfux=634) LYMPHOCYTES RELATIVE PERCENT (BEAKER) (test 17 % utfx=571) MONOCYTES RELATIVE PERCENT (BEAKER) (test 9 % ckoq=282) EOSINOPHILS RELATIVE PERCENT (BEAKER) (test 2 % ajxl=424) BASOPHILS RELATIVE PERCENT (BEAKER) (test 0 % levs=150) NEUTROPHILS ABSOLUTE COUNT (BEAKER) (test 5.62 K/ L 1.80-8.00 uhro=695) LYMPHOCYTES ABSOLUTE COUNT (BEAKER) (test 1.37 K/ L 1.48-4.50 vnar=758) MONOCYTES ABSOLUTE COUNT (BEAKER) (test 0.73 K/ L 0.00-1.30 pivy=907) EOSINOPHILS ABSOLUTE COUNT (BEAKER) (test 0.16 K/ L 0.00-0.50 rkjx=065) BASOPHILS ABSOLUTE COUNT (BEAKER) (test 0.02 K/ L 0.00-0.20 dyot=907) 0.00IRON, TIBC, % SAT. (WITHOUT FERRITIN)2017-02-05 05:59:00 Test Item Value Reference Range Comments IRON (BEAKER) (test mwdk=618) 37 ug/dL 40-160 TOTAL IRON BINDING CAPACITY (BEAKER) (test 206 ug/dL 250-450 nysb=146) IRON % SATURATION (2) (BEAKER) (test fckz=6873) 18 % 20-55 [id number] 05:33:00 Test Item Value Reference Range Comments PHOSPHORUS (BEAKER) (test iniq=346) 3.4 mg/dL 2.3-4.7 Once on admission and Daily AM afterwardsOnce on admission and Daily AM afterwardsOnce on admission and Daily AM [id number] 05:33:00 Test Item Value Reference Range Comments MAGNESIUM (BEAKER) (test bkdz=579) 1.7 mg/dL 1.6-2.6 Once on admission and Daily AM afterwardsOnce on admission and Daily AM afterwardsOnce on admission and Daily AM afterwardsBASIC METABOLIC [id number] 05:33:00 Test Item Value Reference Range Comments SODIUM (BEAKER) (test 139 meq/L 136-145 ygse=337) POTASSIUM (BEAKER) (test 4.9 meq/L 3.5-5.1 nrgw=167) CHLORIDE (BEAKER) (test 107 meq/L 98-107 wsws=732) CO2 (BEAKER) (test 26 meq/L 22-29 wedp=328) BLOOD UREA NITROGEN 15 mg/dL 7-21 (BEAKER) (test utzm=876) CREATININE (BEAKER) (test 1.51 mg/dL 0.57-1.25 oarm=850) GLUCOSE RANDOM (BEAKER) 76 mg/dL 70-105 (test vios=132) CALCIUM (BEAKER) (test 8.5 mg/dL 8.4-10.2 gvgq=622) EGFR (BEAKER) (test 55 mL/min/1.73 sq m ESTIMATED GFR IS NOT gzyx=2320) ACCURATE CREATININE CLEARANCE IN PREDICTING GLOMERULAR FILTRATION RATE. ESTIMATED GFR IS NOT APPLICABLE FOR DIALYSIS PATIENTS. Once on admission and Daily AM afterwardsOnce on admission and Daily AM afterwardsOnce on admission and Daily AM afterwardsPOCT-GLUCOSE [id number] 00:30:00 Test Item Value Reference Range Comments POC-GLUCOSE METER (BEAKER) 78 mg/dL 70-110 TESTED AT [address] (test lxvz=3674) [facility] [address] POCT-GLUCOSE [id number] 18:20:00 Test Item Value Reference Range Comments POC-GLUCOSE METER (BEAKER) 156 mg/dL 70-110 TESTED AT [place] [id number] [facility] (test szpc=0729) [facility] [address] PLATELET AGGREGATION: FUNCTION [id number] 15:53:00 Test Item Value Reference Range Comments WEAK ADP RESULT(BEAKER) (test 94 % 60-91 iujv=1641) PLATELET FUNCTION SCREEN 60-100% indicates normal INTERP (BEAKER) (test platelet function njgl=8557) [id number] (BEAKER) Aurora Pascual MD (electronic (test oach=8405) signature) PLATELET COUNT AGG (BEAKER) 113 K/CU MM 150-430 (test gcgt=0083) POCT-GLUCOSE [id number] 14:21:00 Test Item Value Reference Range Comments POC-GLUCOSE METER (BEAKER) 82 mg/dL 70-110 TESTED AT [facility] [address] [facility] (test wlpi=5611) [facility] [address] HEPATIC FUNCTION [id number] 07:38:00 Test Item Value Reference Range Comments TOTAL PROTEIN (BEAKER) (test 7.6 gm/dL 6.0-8.3 Specimen slightly hemolyzed uttj=903) ALBUMIN (BEAKER) (test 3.4 g/dL 3.5-5.0 Specimen slightly hemolyzed ydyu=3865) BILIRUBIN TOTAL (BEAKER) (test 0.8 mg/dL 0.2-1.2 Specimen slightly hemolyzed doeq=351) BILIRUBIN DIRECT (BEAKER) (test 0.3 mg/dL 0.1-0.5 Specimen slightly hemolyzed hqwv=482) ALKALINE PHOSPHATASE (BEAKER) 49 U/L 40-150 (test ogyn=974) AST (SGOT) (BEAKER) (test 16 U/L 5-34 Specimen slightly hemolyzed qeet=104) ALT (SGPT) (BEAKER) (test 16 U/L 6-55 Specimen slightly hemolyzed mqnk=234) PROTHROMBIN [id number] 07:10:00 Test Item Value Reference Range Comments PROTIME (BEAKER) (test ygqw=692) 14.9 seconds 11.7-14.7 INR (BEAKER) (test bxdr=914) 1.2 <=5.9 RECOMMENDED COUMADIN/WARFARIN INR THERAPY RANGESSTANDARD DOSE: 2.0 - 3.0 Includes: PROPHYLAXIS forvenous thrombosis, systemic embolization; TREATMENT for venous thrombosis and/or pulmonary embolus.HIGH RISK: Target INR is 2.5-3.5 for patients with mechanical heart valves.[id number] 07:10:00 Test Item Value Reference Range Comments PARTIAL THROMBOPLASTIN TIME (BEAKER) (test 35.9 seconds 22.5-36.0 efka=630) CBC W/PLT COUNT & AUTO [id number] 07:07:00 Test Item Value Reference Range Comments WHITE BLOOD CELL COUNT (BEAKER) (test gybd=896) 7.4 K/ L 4.0-10.0 RED BLOOD CELL COUNT (BEAKER) (test oyfk=510) 5.04 M/ L 4.20-5.80 HEMOGLOBIN (BEAKER) (test ptwg=279) 12.9 GM/DL 13.0-16.8 HEMATOCRIT (BEAKER) (test lzso=873) 40.0 % 40.0-50.0 MEAN CORPUSCULAR VOLUME (BEAKER) (test jffv=569) 79.2 fL 82.0-98.0 MEAN CORPUSCULAR HEMOGLOBIN (BEAKER) (test 25.6 pg 27.0-33.0 pjti=689) MEAN CORPUSCULAR HEMOGLOBIN CONC (BEAKER) (test 32.3 GM/DL 32.0-36.0 mvoe=152) RED CELL DISTRIBUTION WIDTH (BEAKER) (test 14.5 % 10.3-14.2 gtgq=809) PLATELET COUNT (BEAKER) (test ivem=274) 94 K/CU MM 150-430 MEAN PLATELET VOLUME (BEAKER) (test nshz=275) 11.7 fL 6.5-10.5 NUCLEATED RED BLOOD CELLS (BEAKER) (test 0 /100 WBC 0-0 ghze=647) NEUTROPHILS RELATIVE PERCENT (BEAKER) (test 72 % esab=733) LYMPHOCYTES RELATIVE PERCENT (BEAKER) (test 17 % pftl=532) MONOCYTES RELATIVE PERCENT (BEAKER) (test 9 % ovxy=298) EOSINOPHILS RELATIVE PERCENT (BEAKER) (test 2 % fmkx=548) BASOPHILS RELATIVE PERCENT (BEAKER) (test 0 % osur=904) NEUTROPHILS ABSOLUTE COUNT (BEAKER) (test 5.33 K/ L 1.80-8.00 hklp=097) LYMPHOCYTES ABSOLUTE COUNT (BEAKER) (test 1.25 K/ L 1.48-4.50 mmdw=820) MONOCYTES ABSOLUTE COUNT (BEAKER) (test ojtk=106) 0.66 K/ L 0.00-1.30 EOSINOPHILS ABSOLUTE COUNT (BEAKER) (test 0.12 K/ L 0.00-0.50 qtcp=142) BASOPHILS ABSOLUTE COUNT (BEAKER) (test inhq=240) 0.03 K/ L 0.00-0.20 0.00
[2018-05-18 08:54] LABS: Absolute Lymphocytes (CBC) 1.2 K/uL (0.7-4.9); Absolute Monocytes 0.7 K/uL (0.1-1.3); Absolute Neutrophil 4.8 K/uL (1.8-8.0); Basophils % 0.5 % (0-1.3); Eosinophils % 2.5 % (0-4.4); Hematocrit 40.4 % (39.6-49.0); Lymphocytes % 17.1 % (15.3-44.8); MCH 25.1 pg (27.0-35.0); MCV 76.1 fL (80-100); MPV 10.4 fL (7.6-11.3); Monocytes % 10.4 % (3.3-12.3); RBC Red Blood Cell Count 5.31 M/uL (4.33-5.43)
[2018-05-18 09:05] LABS: Protime INR 1.12
[2018-05-18 09:16] LABS: ALT/SGPT 22 U/L (12-78); AST/SGOT 20 U/L (15-37); Albumin 3.2 g/dL (3.4-5.0); Alkaline Phosphatase 51 U/L (45-117); BUN Blood Urea Nitrogen 20 mg/dL (7-18); Bicarbonate 28 mmol/L (21-32); Bilirubin Direct 0.2 mg/dL (0-0.2); Bilirubin Total 0.7 mg/dL (0.2-1.0); Glucose Level 90 mg/dL (74-106); Magnesium 1.8 mg/dL (1.8-2.4); NT PRO-BNP 86 pg/mL (<450); Potassium 4.3 mmol/L (3.5-5.1); Protein, Total 8.1 g/dL (6.4-8.2); Sodium Level 140 mmol/L (136-145); Troponin (Emerg Dept Use Only) < 0.02 ng/mL (0.0-0.045)
--- NOTE | 2018-05-18 10:25 | RAD REPORT ---
EXAM DESCRIPTION: RADChest Single View05/18/2018 8:55 am CLINICAL HISTORY: CHEST PAIN COMPARISON: CHEST SINGLE VIEW dated 12/08/2014; FINDINGS: The lungs appear clear of acute infiltrate. The heart is normal size The aorta is tortuous/ectatic. Right hemidiaphragm remains elevated
--- NOTE | 2018-05-18 11:20 | EDPHYS ---
Physician Documentation [facility] Name: Reggie Mayer Age: 73 yrs Sex: Male : 1945 Arrival Date: 05/18/2018 Time: 08:18 Bed 5 Private MD: Bear Moreira ED Physician Brandyn Silva HPI: 05/18 08:33 This 73 yrs old Black Male presents to ER via Ambulatory with complaints of Chest Pain. kdr 08:33 The patient or guardian reports chest pain that is located primarily in the anterior kdr chest wall, left. Onset: gradually, 1 week(s) ago, States that he has had discomfort for about a week that began in his left hand and then it moved to his left shoulder. Last night he started to be worse and in his left chest. He has had a prior [place] but then he was short of breath. He denies and SOB, nausea or diaphoresis. The pain radiates to. Associated signs and symptoms: Pertinent positives: None. Pertinent negatives: abdominal pain, diaphoresis, dizziness, headache, nausea, palpitations, recent travel, shortness of breath, syncope. The chest pain is described as aching, dull. Duration: The patient or guardian reports multiple episodes, that are intermittent, that wax and wane, with no pattern. Severity of pain: At its worst the pain was mild in the emergency department the pain has improved markedly, Still has some pain in his arm but no chest pain at the time of my initial evaluation. The patient has not experienced similar symptoms in the past. The patient has not recently seen a physician. Historical: - Allergies: 08:32 NKA; sg - Home Meds: 08:32 allopurinol 100 mg Oral tab once daily [Active]; atorvastatin 40 mg Oral tab once daily sg [Active]; carvedilol 6.25 mg Oral tab 2 times per day [Active]; lisinopril 20 mg Oral tab [Active]; tamsulosin 0.4 mg Oral cp24 1 cap once daily [Active]; aspirin 81 mg Oral chew 1 tab once daily [Active]; - PMHx: 08:32 Hyperlipidemia; Hypertension; sg - PSHx: 08:32 Liver laceration repair; Brain Sx- post trauma to head; sg - Immunization history:: Adult Immunizations unknown. - Social history:: Smoking status: Patient/guardian denies using tobacco. - Ebola Screening: : Patient negative for fever greater than or equal to 101.5 degrees Fahrenheit, and additional compatible Ebola Virus Disease symptoms Patient denies exposure to infectious person Patient denies travel to an Ebola-affected area in the 21 days before illness onset No symptoms or risks identified at this time. ROS: 08:33 Constitutional: Negative for fever, chills, and weight loss, Eyes: Negative for injury, kdr pain, redness, and discharge, ENT: Negative for injury, pain, and discharge, Neck: Negative for injury, pain, and swelling, Respiratory: Negative for shortness of breath, cough, wheezing, and pleuritic chest pain, Abdomen/GI: Negative for abdominal pain, nausea, vomiting, diarrhea, and constipation, Back: Negative for injury and pain, : Negative for injury, bleeding, discharge, and swelling, Skin: Negative for injury, rash, and discoloration, Neuro: Negative for headache, weakness, numbness, tingling, and seizure activity. Psych: Negative for depression, anxiety, suicide ideation, homicidal ideation, and hallucinations, Allergy/Immunology: Negative for hives, rash, and allergies, Endocrine: Negative for neck swelling, polydipsia, polyuria, polyphagia, and marked weight changes, Hematologic/Lymphatic: Negative for swollen nodes, abnormal bleeding, and unusual bruising. 08:33 Cardiovascular: Positive for chest pain, of the left clavicle and anterior aspect of left upper chest, Negative for 08:33 MS/extremity: Positive for pain, of the anterior aspect of left shoulder and left hand. Exam: 08:33 Constitutional: This is a well developed, well nourished patient who is awake, alert, kdr and in no acute distress. Head/Face: Normocephalic, atraumatic. Eyes: Pupils equal round and reactive to light, extra-ocular motions intact. Lids and lashes normal. Conjunctiva and sclera are non-icteric and not injected. Cornea within normal limits. Periorbital areas with no swelling, redness, or edema. Neck: Trachea midline, no thyromegaly or masses palpated, and no cervical lymphadenopathy. Supple, full range of motion without nuchal rigidity, or vertebral point tenderness. No Meningismus. Chest/axilla: Normal chest wall appearance and motion. Nontender with no deformity. No lesions are appreciated. Cardiovascular: Regular rate and rhythm with a normal S1 and S2. No gallops, murmurs, or rubs. Normal PMI, no JVD. No pulse deficits. Respiratory: Lungs have equal breath sounds bilaterally, clear to auscultation and percussion. No rales, rhonchi or wheezes noted. No increased work of breathing, no retractions or nasal flaring. Abdomen/GI: Soft, non-tender, with normal bowel sounds. No distension or tympany. No guarding or rebound. No evidence of tenderness throughout. Back: No spinal tenderness. No costovertebral tenderness. Full range of motion. MS/ Extremity: Pulses equal, no cyanosis. Neurovascular intact. Full, normal range of motion. Neuro: Awake and alert, GCS 15, oriented to person, place, time, and situation. Cranial nerves II-XII grossly intact. Motor strength 5/5 in all extremities. Sensory grossly intact. Cerebellar exam normal. Normal gait. Psych: Awake, alert, with orientation to person, place and time. Behavior, mood, and affect are within normal limits. 08:33 Skin: Multiple lesions/psoriasis like on the left upper extremity. Vital Signs: 08:30 Pulse 65; Resp 18; Pulse Ox 100% on R/A; Pain 6/10; sg 09:00 BP 129 / 74; sg 09:56 Temp 97.7; sg 10:07 BP 134 / 81; Pulse 55 MON; Resp 17; Pulse Ox 100% on R/A; sg 11:30 BP 132 / 70; Pulse 60; Resp 17 S; Pulse Ox 100% on R/A; sg MDM: 08:33 HEART Score: History: Slightly Suspicious (0), ECG: Non specific repolarization kdr disturbance / LBTB / PM (1), Age: > or = 65 years (2), Risk Factors: > or = 3 Risk factors for atherosclerotic disease (2), [Hypercholesterolemia] [Hypertension]. ÁNGEL Risk Score: 1 - patient's age is greater or equal to 65 years, 1- Known CAD, 1 - ASA use in past 7 days. Data reviewed: vital signs, nurses notes. 11:20 Patient medically screened. kdr 05/18 08:26 Order name: Basic Metabolic Panel; Complete Time: 09:32 kdr 05/18 08:26 Order name: CBC with Diff; Complete Time: 09:32 kdr 05/18 08:26 Order name: LFT's; Complete Time: 09:32 kdr 05/18 08:26 Order name: Magnesium; Complete Time: 09:32 kdr 05/18 08:26 Order name: NT PRO-BNP; Complete Time: 09:32 kdr 05/18 08:26 Order name: PT-INR; Complete Time: 09:32 kdr 05/18 08:26 Order name: Ptt, Activated; Complete Time: 09:32 kdr 05/18 08:26 Order name: Troponin (emerg Dept Use Only); Complete Time: 09:32 kdr 05/18 08:26 Order name: XRAY Chest (1 view); Complete Time: 11:17 kdr 05/18 08:26 Order name: EKG; Complete Time: 08:26 kdr 05/18 08:26 Order name: Cardiac monitoring; Complete Time: 08:39 kdr 05/18 08:26 Order name: EKG - Nurse/Tech; Complete Time: 08:39 kdr 05/18 08:26 Order name: IV Saline Lock; Complete Time: 08:38 kdr 05/18 09:33 Order name: Troponin (emerg Dept Use Only): Draw at 2 hrs from initial draw; Complete kdr Time: 11:17 05/18 08:26 Order name: Labs collected and sent; Complete Time: 08:39 kdr 05/18 08:26 Order name: O2 Per Protocol; Complete Time: 08:39 kdr 05/18 08:26 Order name: O2 Sat Monitoring; Complete Time: 08:39 kdr 05/18 09:33 Order name: EKG - Nurse/Tech: Perform two hours from initial study; Complete Time: 10:47kdr Administered Medications: No medications were administered Disposition: 05/18/18 11:20 Discharged to Home. Impression: Left upper extremity pain, left chest pain (non-cardiac). - Condition is Stable. - Discharge Instructions: Nonspecific Chest Pain, [id number], Radicular Pain. - Medication Reconciliation Form, Thank You Letter form. - Follow up: Bear Moreira DO; When: 2 - 3 days; Reason: If symptoms return, Further diagnostic work-up, Recheck today's complaints, Continuance of care, Re-evaluation by your physician. - Problem is new. - Symptoms are resolved. Signatures: Dispatcher [employer] EDSami Morel RN RN sg Brandyn Silva MD MD [facility] Jovita Boothe, DODIE RN ss Corrections: (The following items were deleted from the chart) 11:28 11:20 05/18/2018 11:20 Discharged to Home. Impression: Left upper extremity pain, left ss chest pain (non-cardiac). Condition is Stable. Forms are Medication Reconciliation Form, Thank You Letter, Antibiotic Education, Prescription Opioid Use. Follow up: Bear Moreira; When: 2 - 3 days; Reason: If symptoms return, Further diagnostic work-up, Recheck today's complaints, Continuance of care, Re-evaluation by your physician. Problem is new. Symptoms are resolved. kdr
--- NOTE | 2018-05-18 11:20 | ER ---
Nurse's Notes [facility] Name: Reggie Mayer Age: 73 yrs Sex: Male : 1945 Arrival Date: 05/18/2018 Time: 08:18 Bed 5 Private MD: Bear Moreira Diagnosis: Left upper extremity pain, left chest pain (non-cardiac) Presentation: 05/18 08:28 Presenting complaint: Patient states: Chest pain in epigastric area that started two sg days ago. Over the last two days the pain has radiated up into my chest and now is in my left arm as well, denies dizziness, N/V/D/Fever, reports feeling short of breath last night. Transition of care: patient was not received from another setting of care. Onset of symptoms was May 18, 2018. Risk Assessment: Do you want to hurt yourself or someone else? Patient reports no desire to harm self or others. Initial Sepsis Screen: Does the patient meet any 2 criteria? No. Patient's initial sepsis screen is negative. Does the patient have a suspected source of infection? No. Patient's initial sepsis screen is negative. Care prior to arrival: None. 08:28 Method Of Arrival: Ambulatory sg 08:28 Acuity: AQUILES 3 sg Historical: - Allergies: 08:32 NKA; sg - Home Meds: 08:32 allopurinol 100 mg Oral tab once daily [Active]; atorvastatin 40 mg Oral tab once daily sg [Active]; carvedilol 6.25 mg Oral tab 2 times per day [Active]; lisinopril 20 mg Oral tab [Active]; tamsulosin 0.4 mg Oral cp24 1 cap once daily [Active]; aspirin 81 mg Oral chew 1 tab once daily [Active]; - PMHx: 08:32 Hyperlipidemia; Hypertension; sg - PSHx: 08:32 Liver laceration repair; Brain Sx- post trauma to head; sg - Immunization history:: Adult Immunizations unknown. - Social history:: Smoking status: Patient/guardian denies using tobacco. - Ebola Screening: : Patient negative for fever greater than or equal to 101.5 degrees Fahrenheit, and additional compatible Ebola Virus Disease symptoms Patient denies exposure to infectious person Patient denies travel to an Ebola-affected area in the 21 days before illness onset No symptoms or risks identified at this time. Screenin:33 Abuse screen: Denies threats or abuse. Denies injuries from another. Nutritional sg screening: No deficits noted. Tuberculosis screening: No symptoms or risk factors identified. Never had TB. Fall Risk None identified. Assessment: 08:33 General: Appears in no apparent distress. comfortable, well groomed, well developed, sg well nourished, Behavior is calm, cooperative, appropriate for age. Pain: Complains of pain in chest Pain does not radiate. Pain currently is 4 out of 10 on a pain scale. at worst was 10 out of 10 on a pain scale. Quality of pain is described as sharp. Neuro: Level of Consciousness is awake, alert, obeys commands, Oriented to person, place, time, Speech is normal, Facial symmetry appears normal. Cardiovascular: Heart tones S1 S2 present Capillary refill is brisk in bilateral fingers Patient's skin is warm and dry. Cardiovascular: Chest pain is described as vague, quality is sharp. Respiratory: Airway is patent Respiratory effort is even, unlabored, Respiratory pattern is regular, symmetrical. GI: Abdomen is round non-distended, Patient currently denies nausea, vomiting. : No signs and/or symptoms were reported regarding the genitourinary system. EENT: No signs and/or symptoms were reported regarding the EENT system. Derm: Skin is pink, warm \T\ dry. Musculoskeletal: No signs and/or symptoms reported regarding the musculoskeletal system. 09:16 Reassessment: Patient appears in no apparent distress at this time. Patient and/or sg family updated on plan of care and expected duration. Pain level reassessed. Patient is alert, oriented x 3, equal unlabored respirations, skin warm/dry/pink. Patient states symptoms have not improved. Vital Signs: 08:30 Pulse 65; Resp 18; Pulse Ox 100% on R/A; Pain 6/10; sg 09:00 BP 129 / 74; sg 09:56 Temp 97.7; sg 10:07 BP 134 / 81; Pulse 55 MON; Resp 17; Pulse Ox 100% on R/A; sg 11:30 BP 132 / 70; Pulse 60; Resp 17 S; Pulse Ox 100% on R/A; sg ED Course: 08:18 Patient arrived in ED. mr 08:18 Bear Moreira DO is Private Physician. mr 08:18 Brandyn Silva MD is Attending Physician. kdr 08:27 EKG done, by ED staff, reviewed by Brandyn Silva MD. eb 08:28 Sami Krishna, RN is Primary Nurse. sg 08:30 Triage completed. sg 08:33 No provider procedures requiring assistance completed. Patient did not have IV access sg during this emergency room visit. Patient maintains SpO2 saturation greater than 95% on room air. 08:33 Arm band placed on. sg 08:49 X-ray completed. Portable x-ray completed in exam room. Patient tolerated procedure jb2 well. 08:52 Initial lab(s) drawn, by sc, sent to lab. Inserted saline lock: 22 gauge in left 5 forearm, using aseptic technique. Blood collected. 08:52 Patient has correct armband on for positive identification. Bed in low position. Call 5 light in reach. Side rails up X2. Adult w/ patient. gambling monitor on. Pulse ox on. NIBP on. 08:55 XRAY Chest (1 view) In Process Unspecified. EDMS 08:56 Basic Metabolic Panel Sent. mh5 08:56 LFT's Sent. mh5 08:56 Magnesium Sent. mh5 08:56 NT PRO-BNP Sent. mh5 08:56 PT-INR Sent. mh5 08:57 Ptt, Activated Sent. mh5 08:57 Troponin (emerg Dept Use Only) Sent. mh5 09:15 No apparent distress. Resting quietly. sg 09:15 Awaiting lab results, Awaiting radiology results. sg 11:18 Bear Moreira DO is Referral Physician. kdr Administered Medications: No medications were administered Outcome: 11:20 Discharge ordered by . kdr 11:25 Discharged to home ambulatory, with family. sg 11:25 Condition: good 11:25 Discharge instructions given to patient, Instructed on discharge instructions, follow up and referral plans. safety practices, Demonstrated understanding of instructions, follow-up care. 11:28 Patient left the ED. Signatures: Dispatcher [employer] EDMS Sami Krishna, Brandyn Munoz RN, MD MD kdr Rivera, Maria Freddy Mayosse jb2 Jovita Boothe RN RN Apple Miranda [facility] Mabel Partida
--- NOTE | 2018-05-19 07:57 | EKG ---
Test Date: 2018-05-18 Test Time: 08:27:01 Engineering Technologist: MEASUREMENT RESULTS: Intervals: Rate: 62 [place]: 182 QRSD: 76 QT: 404 QTc: 410 [place]: P: 55 [place]: 182 QRS: 32 T: 83 INTERPRETIVE STATEMENTS: Normal sinus rhythm Normal ECG Compared to ECG 02/04/2017 00:46:05 Myocardial infarct finding no longer present Electronically Signed On 05-19-18 07:55:07 CDT by Herbert Conway
--- NOTE | 2018-05-20 07:11 | EKG ---
Test Date: 2018-05-18 Test Time: 10:49:14 Adolescent Psychiatrist: MALIA MEASUREMENT RESULTS: Intervals: Rate: 55 MT: 188 QRSD: 74 QT: 432 QTc: 413 [place]: P: 16 MT: 188 QRS: 7 T: 61 INTERPRETIVE STATEMENTS: Sinus bradycardia Inferior infarct, age undetermined Abnormal ECG Compared to ECG 05/18/2018 08:27:01 Myocardial infarct finding now present Sinus rhythm no longer present Electronically Signed On 05-20-18 07:09:40 CDT by Herbert Conway
== END 2018-05-18 11:28 | disposition home or self-care (01) ==
LOC: ER 08:16
DX: R07.89 Other chest pain (principal); I10 Essential (primary) hypertension; E78.5 Hyperlipidemia, unspecified; Z79.82 Long term (current) use of aspirin
CPT/HCPCS: 36415; 71045; 80048; 80076; 83735; 83880; 84484; 85025; 85610; 85730; 93005; 99285

== ENCOUNTER 2018-05-20 01:31 | Observation (INO) | payer MEDICARE ==
--- OUTSIDE RECORDS SUMMARY | 2018-05-20 01:33 | XMS REPORT | Clinical Summary ---
:1945 Author Organization [facility] Address [address] [place] [address] Phone Care Team Providers Name Role Phone [...] Not on file Implants Implanted Type Area Machinist Bench Device Expiration Model / Identifier Date Serial / Lot Matrix Floseal Hemo W/O Ndl 10 [id number] - [id number] Cement/Romario Right: GAYTAN: BIOSCI 06/15/2018 [id number] / Implanted: Qty: 1 on 02/05/2017 by Anatoliy Govea MD ler/Adhesi Head / ve [id number] Plt Rigid 2h [id number] - [id number] Fracture/F Right: ANNMARIE:CRANIOMA [id number] / Implanted: Qty: 3 on 02/05/2017 by Anatoliy Govea MD ixation Head XILLOFACIAL / Scr Un3 [place] Self Drl 1.5x4mm [id number] - [id number] Fracture/F Right: ANNMARIE:CRANIOMA [id number] / Implanted: Qty: 6 on 02/05/2017 by Anatoliy Govea MD ixation Head XILLOFACIAL / Kt Cath Bactiseal Shnt Carlo 23c [id number] - [id number] Neuro Right: J &J:CODMAN & 08/15/2017 [id number] / Implanted: Qty: 1 on 02/05/2017 by Anatoliy Govea MD Head [facility] / [id number] Grft Dura Cllgn Duragn 2x2in Id-[id number] - [id number] Tissue Right: INTE[employer]RA 01/13/2019 [id number] / Implanted: Qty: 1 on 02/05/2017 by Anatoliy Govea MD Graft/Subs Head LIFESCI:NEURO / titute [id number] Results Not on fileafter 05/19/2017
--- OUTSIDE RECORDS SUMMARY | 2018-05-20 01:33 | XMS REPORT ---
:1945 [facility] Address [address] [place] [address] Care Team Providers Name Role Phone COLTON [...] Comments WHITE BLOOD CELL COUNT (BEAKER) (test clbf=439) 9.2 K/ L 4.0-10.0 RED BLOOD CELL COUNT (BEAKER) (test jqwa=731) 4.69 M/ L 4.20-5.80 HEMOGLOBIN (BEAKER) (test yyke=527) 12.2 GM/DL 13.0-16.8 HEMATOCRIT (BEAKER) (test wuhx=361) 36.5 % 40.0-50.0 MEAN CORPUSCULAR VOLUME (BEAKER) (test mact=511) 77.8 fL 82.0-98.0 MEAN CORPUSCULAR HEMOGLOBIN (BEAKER) (test qsrw=669) 25.9 pg 27.0-33.0 MEAN CORPUSCULAR HEMOGLOBIN CONC (BEAKER) (test xrof=730) 33.3 GM/DL 32.0- 36.0 RED CELL DISTRIBUTION WIDTH (BEAKER) (test avuf=974) 15.5 % 10.3-14.2 PLATELET COUNT (BEAKER) (test vfff=716) 140 K/CU MM 150-430 MEAN PLATELET VOLUME (BEAKER) (test qjpk=869) 10.1 fL 6.5-10.5 NUCLEATED RED BLOOD CELLS (BEAKER) (test rfzo=892) 0 /100 WBC 0-0 NEUTROPHILS RELATIVE PERCENT (BEAKER) (test qakk=382) 74 % LYMPHOCYTES RELATIVE PERCENT (BEAKER) (test ouht=675) 12 % MONOCYTES RELATIVE PERCENT (BEAKER) (test qanb=596) 13 % EOSINOPHILS RELATIVE PERCENT (BEAKER) (test ujlq=601) 1 % BASOPHILS RELATIVE PERCENT (BEAKER) (test zfoc=634) 0 % NEUTROPHILS ABSOLUTE COUNT (BEAKER) (test zxci=061) 6.78 K/ L 1.80-8.00 LYMPHOCYTES ABSOLUTE COUNT (BEAKER) (test lljv=245) 1.08 K/ L 1.48-4.50 MONOCYTES ABSOLUTE COUNT (BEAKER) (test eqlz=184) 1.19 K/ L 0.00-1.30 EOSINOPHILS ABSOLUTE COUNT (BEAKER) (test hsko=599) 0.10 K/ L 0.00-0.50 BASOPHILS ABSOLUTE COUNT (BEAKER) (test accv=070) 0.01 K/ L 0.00-0.20 0.00BASIC METABOLIC [id number] 06:12:00 Test Item Value Reference Range Comments SODIUM (BEAKER) (test 136 meq/L 136-145 wick=636) POTASSIUM (BEAKER) (test 4.5 meq/L 3.5-5.1 psvq=859) CHLORIDE (BEAKER) (test 101 meq/L 98-107 byep=798) CO2 (BEAKER) (test 26 meq/L 22-29 yiji=444) BLOOD UREA NITROGEN 18 mg/dL 7-21 (BEAKER) (test ahnf=160) CREATININE (BEAKER) (test 1.28 mg/dL 0.57-1.25 nvwu=810) GLUCOSE RANDOM (BEAKER) 89 mg/dL 70-105 (test rcaf=097) CALCIUM (BEAKER) (test 8.6 mg/dL 8.4-10.2 drno=453) EGFR (BEAKER) (test 67 mL/min/1.73 sq m ESTIMATED GFR IS NOT gtdd=0866) ACCURATE CREATININE CLEARANCE IN PREDICTING GLOMERULAR FILTRATION RATE. ESTIMATED GFR IS NOT APPLICABLE FOR DIALYSIS PATIENTS. PROTHROMBIN [id number] 05:45:00 Test Item Value Reference Range Comments PROTIME (BEAKER) (test vcys=870) 14.5 seconds 11.7-14.7 INR (BEAKER) (test inlk=513) 1.1 <=5.9 RECOMMENDED COUMADIN/WARFARIN INR THERAPY RANGESSTANDARD DOSE: 2.0 - 3.0 Includes: PROPHYLAXIS forvenous thrombosis, systemic embolization; TREATMENT for venous thrombosis and/or pulmonary embolus.HIGH RISK: Target INR is 2.5-3.5 for patients with mechanical heart valves.[id number] 12:38:00 Test Item Value Reference Range Comments SODIUM (BEAKER) (test jjyn=819) 134 meq/L 136-145 [id number] 07:07:00 Test Item Value Reference Range Comments PHOSPHORUS (BEAKER) (test natt=466) 3.3 mg/dL 2.3-4.7 [id number] 07:07:00 Test Item Value Reference Range Comments MAGNESIUM (BEAKER) (test qxfc=777) 1.6 mg/dL 1.6-2.6 BASIC METABOLIC [id number] 04:24:00 Test Item Value Reference Range Comments SODIUM (BEAKER) (test 134 meq/L 136-145 xfuv=937) POTASSIUM (BEAKER) (test 4.2 meq/L 3.5-5.1 jbwx=297) CHLORIDE (BEAKER) (test 101 meq/L 98-107 qykl=924) CO2 (BEAKER) (test 27 meq/L 22-29 eenr=432) BLOOD UREA NITROGEN 18 mg/dL 7-21 (BEAKER) (test neps=340) CREATININE (BEAKER) (test 1.22 mg/dL 0.57-1.25 meox=022) GLUCOSE RANDOM (BEAKER) 99 mg/dL 70-105 (test sxoj=827) CALCIUM (BEAKER) (test 8.7 mg/dL 8.4-10.2 qshl=375) EGFR (BEAKER) (test 71 mL/min/1.73 sq m ESTIMATED GFR IS NOT cwep=9103) ACCURATE CREATININE CLEARANCE IN PREDICTING GLOMERULAR FILTRATION RATE. ESTIMATED GFR IS NOT APPLICABLE FOR DIALYSIS PATIENTS. PROTHROMBIN TIME/[id number] 04:16:00 Test Item Value Reference Range Comments PROTIME (BEAKER) (test ntxi=169) 15.0 seconds 11.7-14.7 INR (BEAKER) (test tfbs=160) 1.2 <=5.9 RECOMMENDED COUMADIN/WARFARIN INR THERAPY RANGESSTANDARD DOSE: 2.0 - 3.0 Includes: PROPHYLAXIS forvenous thrombosis, systemic embolization; TREATMENT for venous thrombosis and/or pulmonary embolus.HIGH RISK: Target INR is 2.5-3.5 for patients with mechanical heart valves.CBC W/PLT COUNT & AUTO [id number] 04:16:00 Test Item Value Reference Range Comments WHITE BLOOD CELL COUNT (BEAKER) (test kovc=597) 9.4 K/ L 4.0-10.0 RED BLOOD CELL COUNT (BEAKER) (test wjmf=122) 4.66 M/ L 4.20-5.80 HEMOGLOBIN (BEAKER) (test oeud=059) 11.8 GM/DL 13.0-16.8 HEMATOCRIT (BEAKER) (test jvfk=759) 36.9 % 40.0-50.0 MEAN CORPUSCULAR VOLUME (BEAKER) (test zyny=118) 79.2 fL 82.0-98.0 MEAN CORPUSCULAR HEMOGLOBIN (BEAKER) (test 25.2 pg 27.0-33.0 iwdc=858) MEAN CORPUSCULAR HEMOGLOBIN CONC (BEAKER) (test 31.9 GM/DL 32.0-36.0 pndw=329) RED CELL DISTRIBUTION WIDTH (BEAKER) (test 14.1 % 10.3-14.2 fznp=705) PLATELET COUNT (BEAKER) (test sugu=989) 129 K/CU MM 150-430 MEAN PLATELET VOLUME (BEAKER) (test tdtn=029) 9.7 fL 6.5-10.5 NUCLEATED RED BLOOD CELLS (BEAKER) (test 0 /100 WBC 0-0 ljsw=721) NEUTROPHILS RELATIVE PERCENT (BEAKER) (test 74 % wjtl=832) LYMPHOCYTES RELATIVE PERCENT (BEAKER) (test 12 % piwv=114) MONOCYTES RELATIVE PERCENT (BEAKER) (test 13 % rsyz=988) EOSINOPHILS RELATIVE PERCENT (BEAKER) (test 1 % mxcc=689) BASOPHILS RELATIVE PERCENT (BEAKER) (test 0 % rgbr=815) NEUTROPHILS ABSOLUTE COUNT (BEAKER) (test 6.97 K/ L 1.80-8.00 swlz=164) LYMPHOCYTES ABSOLUTE COUNT (BEAKER) (test 1.11 K/ L 1.48-4.50 mljw=679) MONOCYTES ABSOLUTE COUNT (BEAKER) (test 1.23 K/ L 0.00-1.30 mzbx=314) EOSINOPHILS ABSOLUTE COUNT (BEAKER) (test 0.06 K/ L 0.00-0.50 fiww=941) BASOPHILS ABSOLUTE COUNT (BEAKER) (test 0.00 K/ L 0.00-0.20 srxd=760) 0.00PT/[id number] 17:46:00 Test Item Value Reference Range Comments PROTIME (BEAKER) (test toph=936) 14.4 seconds 11.7-14.7 INR (BEAKER) (test fqrs=097) 1.1 <=5.9 PARTIAL THROMBOPLASTIN TIME (BEAKER) (test 36.8 seconds 22.5-36.0 ghci=479) RECOMMENDED COUMADIN/WARFARIN INR THERAPY RANGESSTANDARD DOSE: 2.0 - 3.0 Includes: PROPHYLAXIS forvenous thrombosis, systemic embolization; TREATMENT for venous thrombosis and/or pulmonary embolus.HIGH RISK: Target INR is 2.5-3.5 for patients with mechanical heart valves.BASIC METABOLIC [id number] 02:40: 00 Test Item Value Reference Range Comments SODIUM (BEAKER) (test 137 meq/L 136-145 cjci=391) POTASSIUM (BEAKER) (test 4.6 meq/L 3.5-5.1 luxn=009) CHLORIDE (BEAKER) (test 101 meq/L 98-107 cvmr=026) CO2 (BEAKER) (test 29 meq/L 22-29 egfx=988) BLOOD UREA NITROGEN 19 mg/dL 7-21 (BEAKER) (test fupb=617) CREATININE (BEAKER) (test 1.42 mg/dL 0.57-1.25 hlqd=983) GLUCOSE RANDOM (BEAKER) 105 mg/dL 70-105 (test aeah=783) CALCIUM (BEAKER) (test 8.3 mg/dL 8.4-10.2 tlta=597) EGFR (BEAKER) (test 59 mL/min/1.73 sq m ESTIMATED GFR IS NOT bgkg=3778) ACCURATE CREATININE CLEARANCE IN PREDICTING GLOMERULAR FILTRATION RATE. ESTIMATED GFR IS NOT APPLICABLE FOR DIALYSIS PATIENTS. CBC W/PLT COUNT & AUTO [id number] 02:16:00 Test Item Value Reference Range Comments WHITE BLOOD CELL COUNT (BEAKER) (test jmxq=623) 9.9 K/ L 4.0-10.0 RED BLOOD CELL COUNT (BEAKER) (test lihk=546) 4.56 M/ L 4.20-5.80 HEMOGLOBIN (BEAKER) (test ygls=829) 11.8 GM/DL 13.0-16.8 HEMATOCRIT (BEAKER) (test stga=645) 36.5 % 40.0-50.0 MEAN CORPUSCULAR VOLUME (BEAKER) (test kfju=419) 79.9 fL 82.0-98.0 MEAN CORPUSCULAR HEMOGLOBIN (BEAKER) (test 25.9 pg 27.0-33.0 sopr=411) MEAN CORPUSCULAR HEMOGLOBIN CONC (BEAKER) (test 32.4 GM/DL 32.0-36.0 trev=366) RED CELL DISTRIBUTION WIDTH (BEAKER) (test 14.4 % 10.3-14.2 qhsb=260) PLATELET COUNT (BEAKER) (test wnbq=469) 127 K/CU MM 150-430 MEAN PLATELET VOLUME (BEAKER) (test pjut=784) 10.0 fL 6.5-10.5 NUCLEATED RED BLOOD CELLS (BEAKER) (test 0 /100 WBC 0-0 netc=171) NEUTROPHILS RELATIVE PERCENT (BEAKER) (test 79 % lnxi=500) LYMPHOCYTES RELATIVE PERCENT (BEAKER) (test 6 % oagj=736) MONOCYTES RELATIVE PERCENT (BEAKER) (test 14 % avnn=208) EOSINOPHILS RELATIVE PERCENT (BEAKER) (test 1 % eehe=261) BASOPHILS RELATIVE PERCENT (BEAKER) (test 0 % ysns=872) NEUTROPHILS ABSOLUTE COUNT (BEAKER) (test 7.86 K/ L 1.80-8.00 kava=955) LYMPHOCYTES ABSOLUTE COUNT (BEAKER) (test 0.64 K/ L 1.48-4.50 jeuw=508) MONOCYTES ABSOLUTE COUNT (BEAKER) (test 1.36 K/ L 0.00-1.30 xeen=999) EOSINOPHILS ABSOLUTE COUNT (BEAKER) (test 0.07 K/ L 0.00-0.50 riim=582) BASOPHILS ABSOLUTE COUNT (BEAKER) (test 0.01 K/ L 0.00-0.20 irve=494) 0.00POCT-GLUCOSE [id number] 18:13:00 Test Item Value Reference Range Comments POC-GLUCOSE METER (BEAKER) 110 mg/dL 70-110 TESTED AT [facility] [address] [facility] (test yjsu=4028) [place] [id number] POCT-GLUCOSE [id number] 11:50:00 Test Item Value Reference Range Comments POC-GLUCOSE METER (BEAKER) 107 mg/dL 70-110 TESTED AT [place] [id number] [facility] (test qvre=1081) [place] [id number] POCT-GLUCOSE [id number] 06:35:00 Test Item Value Reference Range Comments POC-GLUCOSE METER (BEAKER) 113 mg/dL 70-110 TESTED AT [address] (test wcvh=9135) [place] [id number] CBC W/PLT COUNT & AUTO [id number] 03:27:00 Test Item Value Reference Range Comments WHITE BLOOD CELL COUNT (BEAKER) (test smft=254) 10.0 K/ L 4.0-10.0 RED BLOOD CELL COUNT (BEAKER) (test cqff=080) 4.64 M/ L 4.20-5.80 HEMOGLOBIN (BEAKER) (test pqne=116) 11.9 GM/DL 13.0-16.8 HEMATOCRIT (BEAKER) (test dzqf=423) 36.8 % 40.0-50.0 MEAN CORPUSCULAR VOLUME (BEAKER) (test wude=989) 79.3 fL 82.0-98.0 MEAN CORPUSCULAR HEMOGLOBIN (BEAKER) (test 25.6 pg 27.0-33.0 shjf=064) MEAN CORPUSCULAR HEMOGLOBIN CONC (BEAKER) (test 32.3 GM/DL 32.0-36.0 xljg=415) RED CELL DISTRIBUTION WIDTH (BEAKER) (test 14.4 % 10.3-14.2 iwfq=708) PLATELET COUNT (BEAKER) (test wkrz=398) 135 K/CU MM 150-430 MEAN PLATELET VOLUME (BEAKER) (test ywdx=342) 9.7 fL 6.5-10.5 NUCLEATED RED BLOOD CELLS (BEAKER) (test 0 /100 WBC 0-0 rzbq=914) NEUTROPHILS RELATIVE PERCENT (BEAKER) (test 81 % vadu=855) LYMPHOCYTES RELATIVE PERCENT (BEAKER) (test 7 % tynf=382) MONOCYTES RELATIVE PERCENT (BEAKER) (test 12 % rjvm=980) EOSINOPHILS RELATIVE PERCENT (BEAKER) (test 1 % blxb=568) BASOPHILS RELATIVE PERCENT (BEAKER) (test 0 % hqln=399) NEUTROPHILS ABSOLUTE COUNT (BEAKER) (test 8.03 K/ L 1.80-8.00 sjvs=371) LYMPHOCYTES ABSOLUTE COUNT (BEAKER) (test 0.69 K/ L 1.48-4.50 cpvw=796) MONOCYTES ABSOLUTE COUNT (BEAKER) (test 1.19 K/ L 0.00-1.30 ygzb=906) EOSINOPHILS ABSOLUTE COUNT (BEAKER) (test 0.07 K/ L 0.00-0.50 erlx=906) BASOPHILS ABSOLUTE COUNT (BEAKER) (test 0.00 K/ L 0.00-0.20 zwpk=645) 0.00BASIC METABOLIC [id number] 03:16:00 Test Item Value Reference Range Comments SODIUM (BEAKER) (test 135 meq/L 136-145 zgsb=054) POTASSIUM (BEAKER) (test 4.3 meq/L 3.5-5.1 ilpy=273) CHLORIDE (BEAKER) (test 104 meq/L 98-107 frli=583) CO2 (BEAKER) (test 26 meq/L 22-29 ebkq=311) BLOOD UREA NITROGEN 19 mg/dL 7-21 (BEAKER) (test dvrn=898) CREATININE (BEAKER) (test 1.35 mg/dL 0.57-1.25 osrx=355) GLUCOSE RANDOM (BEAKER) 110 mg/dL 70-105 (test neqh=210) CALCIUM (BEAKER) (test 8.2 mg/dL 8.4-10.2 wwvm=286) EGFR (BEAKER) (test 63 mL/min/1.73 sq m ESTIMATED GFR IS NOT ecoz=2015) ACCURATE CREATININE CLEARANCE IN PREDICTING GLOMERULAR FILTRATION RATE. ESTIMATED GFR IS NOT APPLICABLE FOR DIALYSIS PATIENTS. POCT-GLUCOSE [id number] 00:29:00 Test Item Value Reference Range Comments POC-GLUCOSE METER (BEAKER) 114 mg/dL 70-110 TESTED AT [address] (test gmio=2640) [facility] [address] POCT-GLUCOSE [id number] 00:21:00 Test Item Value Reference Range Comments POC-GLUCOSE METER (BEAKER) 115 mg/dL 70-110 TESTED AT [address] (test nioa=4293) [facility] [address] POCT-GLUCOSE [id number] 12:42:00 Test Item Value Reference Range Comments POC-GLUCOSE METER (BEAKER) 114 mg/dL 70-110 TESTED AT [facility] [address] [facility] (test owyg=6523) [facility] [address] POCT-GLUCOSE [id number] 06:45:00 Test Item Value Reference Range Comments POC-GLUCOSE METER (BEAKER) 126 mg/dL 70-110 TESTED AT [facility] [address] [facility] (test mdgh=2171) [facility] [address] [id number] 05:26:00 Test Item Value Reference Range Comments FERRITIN (BEAKER) (test xyyu=574) 220 ng/mL 5-275 Effective 08/03/2014: Reference Range ChangeNew: Male 5-275 Previous: Male 22-322 Female 5-275 Female 10-291BASI METABOLIC [id number] 05:01:00 Test Item Value Reference Range Comments SODIUM (BEAKER) (test 137 meq/L 136-145 ozkg=856) POTASSIUM (BEAKER) (test 3.9 meq/L 3.5-5.1 Specimen slightly tvmo=508) hemolyzed CHLORIDE (BEAKER) (test 108 meq/L 98-107 jknr=016) CO2 (BEAKER) (test 22 meq/L 22-29 znbn=225) BLOOD UREA NITROGEN 13 mg/dL 7-21 (BEAKER) (test milr=815) CREATININE (BEAKER) (test 1.23 mg/dL 0.57-1.25 Specimen slightly yfpw=531) hemolyzed GLUCOSE RANDOM (BEAKER) 114 mg/dL 70-105 (test huuz=600) CALCIUM (BEAKER) (test 7.6 mg/dL 8.4-10.2 jkqx=964) EGFR (BEAKER) (test 70 mL/min/1.73 sq m ESTIMATED GFR IS NOT hmow=1705) ACCURATE CREATININE CLEARANCE IN PREDICTING GLOMERULAR FILTRATION RATE. ESTIMATED GFR IS NOT APPLICABLE FOR DIALYSIS PATIENTS. [id number] 04:59:00 Test Item Value Reference Range Comments MAGNESIUM (BEAKER) (test 1.5 mg/dL 1.6-2.6 Specimen slightly hemolyzed auvk=267) [id number] 04:59:00 Test Item Value Reference Range Comments PHOSPHORUS (BEAKER) (test 3.5 mg/dL 2.3-4.7 Specimen slightly hemolyzed tgef=930) CBC W/PLT COUNT & AUTO [id number] 04:52:00 Test Item Value Reference Range Comments WHITE BLOOD CELL COUNT (BEAKER) (test ijhw=910) 9.5 K/ L 4.0-10.0 RED BLOOD CELL COUNT (BEAKER) (test ucwh=568) 4.57 M/ L 4.20-5.80 HEMOGLOBIN (BEAKER) (test ylga=321) 11.5 GM/DL 13.0-16.8 HEMATOCRIT (BEAKER) (test yrjc=492) 36.2 % 40.0-50.0 MEAN CORPUSCULAR VOLUME (BEAKER) (test ebad=020) 79.3 fL 82.0-98.0 MEAN CORPUSCULAR HEMOGLOBIN (BEAKER) (test 25.2 pg 27.0-33.0 zhjz=869) MEAN CORPUSCULAR HEMOGLOBIN CONC (BEAKER) (test 31.7 GM/DL 32.0-36.0 fcsx=372) RED CELL DISTRIBUTION WIDTH (BEAKER) (test 14.6 % 10.3-14.2 uirs=192) PLATELET COUNT (BEAKER) (test qxjm=939) 98 K/CU MM 150-430 MEAN PLATELET VOLUME (BEAKER) (test xndt=981) 10.8 fL 6.5-10.5 NUCLEATED RED BLOOD CELLS (BEAKER) (test 0 /100 WBC 0-0 tlkg=206) NEUTROPHILS RELATIVE PERCENT (BEAKER) (test 81 % atpe=833) LYMPHOCYTES RELATIVE PERCENT (BEAKER) (test 9 % rvte=036) MONOCYTES RELATIVE PERCENT (BEAKER) (test 10 % famb=752) EOSINOPHILS RELATIVE PERCENT (BEAKER) (test 0 % utnt=276) BASOPHILS RELATIVE PERCENT (BEAKER) (test 0 % yzwo=770) NEUTROPHILS ABSOLUTE COUNT (BEAKER) (test 7.71 K/ L 1.80-8.00 wfkh=586) LYMPHOCYTES ABSOLUTE COUNT (BEAKER) (test 0.81 K/ L 1.48-4.50 wlwi=672) MONOCYTES ABSOLUTE COUNT (BEAKER) (test jsyj=451) 0.93 K/ L 0.00-1.30 EOSINOPHILS ABSOLUTE COUNT (BEAKER) (test 0.03 K/ L 0.00-0.50 yueu=639) BASOPHILS ABSOLUTE COUNT (BEAKER) (test rsaq=042) 0.04 K/ L 0.00-0.20 RETICULOCYTE [id number] 04:51:00 Test Item Value Reference Range Comments RETICULOCYTE COUNT PCT (BEAKER) (test bidc=310) 0.9 % 0.4-2.9 POCT-GLUCOSE [id number] 00:25:00 Test Item Value Reference Range Comments POC-GLUCOSE METER (BEAKER) 124 mg/dL 70-110 TESTED AT [address] (test ykvw=2119) [place] [address] POCT-GLUCOSE [id number] 17:53:00 Test Item Value Reference Range Comments POC-GLUCOSE METER (BEAKER) 126 mg/dL 70-110 TESTED AT [address] (test qtmn=5768) [place] [address] PERIPHERAL BLOOD SMEAR - PATHOLOGIST [id number] 13:47:00 Test Item Value Reference Range Comments RBC MORPHOLOGY (BEAKER) Anisocytosis (test ugap=4616) RBC MORPHOLOGY (BEAKER) Poikilocytosis (test fepf=68415) RBC MORPHOLOGY (BEAKER) Polychromasia (test vyco=42084) WBC MORPHOLOGY (BEAKER) Unremarkable (test ytzo=5517) PLT MORPHOLOGY (BEAKER) Unremarkable (test cugl=8346) PERIPHERAL SMR REVIEW No circulating blasts. No (BEAKER) (test fuuu=8267) significantly increased shistocytes. [id number] Mark Acuna, (BEAKER) (test bias=6399) M.D.(electronic signature) POCT-GLUCOSE [id number] 12:00:00 Test Item Value Reference Range Comments POC-GLUCOSE METER (BEAKER) 101 mg/dL 70-110 TESTED AT [address] (test xzts=2175) [place] [address] [id number] 07:34:00 Test Item Value Reference Range Comments COL/EPI CLOSURE TIME (BEAKER) 93 Seconds 78-191 (test aeyl=3989) COL/ADP CLOSURE TIME (BEAKER) 62 Seconds 43-122 (test eput=8039) PLATELET COUNT AGG (BEAKER) 113 K/CU MM 150-430 Previous platelet result was (test csvm=9659) 113. Lavender top for platelet clotted! Hematocrit <35% or platelet count <150,000/CU MM may contribute to falsely elevated PFA-100.PT/[id number] 07:33:00 Test Item Value Reference Range Comments PROTIME (BEAKER) (test nuqc=093) 14.1 seconds 11.7-14.7 INR (BEAKER) (test jywa=583) 1.1 <=5.9 PARTIAL THROMBOPLASTIN TIME (BEAKER) (test 30.8 seconds 22.5-36.0 xomn=640) RECOMMENDED COUMADIN/WARFARIN INR THERAPY RANGESSTANDARD DOSE: 2.0 - 3.0 Includes: PROPHYLAXIS forvenous thrombosis, systemic embolization; TREATMENT for venous thrombosis and/or pulmonary embolus.HIGH RISK: Target INR is 2.5-3.5 for patients with mechanical heart valves.VITAMIN B12 AND [id number] 06:33 :00 Test Item Value Reference Range Comments VITAMIN B12 (BEAKER) (test ruhy=245) 327 pg/mL 213-816 FOLATE (BEAKER) (test dweq=293) 9.6 ng/mL >=7.0 Effective 08/03/2014: Folate Reference Range ChangeNew: >=7.0 Previous: & gt;=5.4POCT-GLUCOSE [id number] 06:32:00 Test Item Value Reference Range Comments POC-GLUCOSE METER (BEAKER) 79 mg/dL 70-110 TESTED AT [address] (test pehx=8544) [facility] [address] CBC W/PLT COUNT & AUTO [id number] 06:29:00 Test Item Value Reference Range Comments WHITE BLOOD CELL COUNT (BEAKER) (test nhog=234) 7.9 K/ L 4.0-10.0 RED BLOOD CELL COUNT (BEAKER) (test ytqf=375) 5.16 M/ L 4.20-5.80 HEMOGLOBIN (BEAKER) (test btjz=609) 13.0 GM/DL 13.0-16.8 HEMATOCRIT (BEAKER) (test jvee=207) 41.2 % 40.0-50.0 MEAN CORPUSCULAR VOLUME (BEAKER) (test paut=411) 79.9 fL 82.0-98.0 MEAN CORPUSCULAR HEMOGLOBIN (BEAKER) (test 25.2 pg 27.0-33.0 zpvq=964) MEAN CORPUSCULAR HEMOGLOBIN CONC (BEAKER) (test 31.6 GM/DL 32.0-36.0 qjyy=961) RED CELL DISTRIBUTION WIDTH (BEAKER) (test 14.8 % 10.3-14.2 nibs=704) PLATELET COUNT (BEAKER) (test wibc=081) 108 K/CU MM 150-430 MEAN PLATELET VOLUME (BEAKER) (test vqwm=707) 11.2 fL 6.5-10.5 NUCLEATED RED BLOOD CELLS (BEAKER) (test 0 /100 WBC 0-0 piuk=603) NEUTROPHILS RELATIVE PERCENT (BEAKER) (test 71 % ksaa=506) LYMPHOCYTES RELATIVE PERCENT (BEAKER) (test 17 % kwxq=258) MONOCYTES RELATIVE PERCENT (BEAKER) (test 9 % mnkj=867) EOSINOPHILS RELATIVE PERCENT (BEAKER) (test 2 % mzjp=390) BASOPHILS RELATIVE PERCENT (BEAKER) (test 0 % agjf=308) NEUTROPHILS ABSOLUTE COUNT (BEAKER) (test 5.62 K/ L 1.80-8.00 jwim=011) LYMPHOCYTES ABSOLUTE COUNT (BEAKER) (test 1.37 K/ L 1.48-4.50 ndrk=016) MONOCYTES ABSOLUTE COUNT (BEAKER) (test 0.73 K/ L 0.00-1.30 vhdh=244) EOSINOPHILS ABSOLUTE COUNT (BEAKER) (test 0.16 K/ L 0.00-0.50 bjcp=692) BASOPHILS ABSOLUTE COUNT (BEAKER) (test 0.02 K/ L 0.00-0.20 vnky=774) 0.00IRON, TIBC, % SAT. (WITHOUT FERRITIN)2017-02-05 05:59:00 Test Item Value Reference Range Comments IRON (BEAKER) (test ugfs=363) 37 ug/dL 40-160 TOTAL IRON BINDING CAPACITY (BEAKER) (test 206 ug/dL 250-450 tjtd=322) IRON % SATURATION (2) (BEAKER) (test ujiz=0786) 18 % 20-55 [id number] 05:33:00 Test Item Value Reference Range Comments PHOSPHORUS (BEAKER) (test mkfx=911) 3.4 mg/dL 2.3-4.7 Once on admission and Daily AM afterwardsOnce on admission and Daily AM afterwardsOnce on admission and Daily AM [id number] 05:33:00 Test Item Value Reference Range Comments MAGNESIUM (BEAKER) (test lild=930) 1.7 mg/dL 1.6-2.6 Once on admission and Daily AM afterwardsOnce on admission and Daily AM afterwardsOnce on admission and Daily AM afterwardsBASIC METABOLIC [id number] 05:33:00 Test Item Value Reference Range Comments SODIUM (BEAKER) (test 139 meq/L 136-145 rfif=822) POTASSIUM (BEAKER) (test 4.9 meq/L 3.5-5.1 fopj=022) CHLORIDE (BEAKER) (test 107 meq/L 98-107 xcjp=126) CO2 (BEAKER) (test 26 meq/L 22-29 aejy=683) BLOOD UREA NITROGEN 15 mg/dL 7-21 (BEAKER) (test ptmw=478) CREATININE (BEAKER) (test 1.51 mg/dL 0.57-1.25 dpnz=393) GLUCOSE RANDOM (BEAKER) 76 mg/dL 70-105 (test lfvl=760) CALCIUM (BEAKER) (test 8.5 mg/dL 8.4-10.2 ivjt=101) EGFR (BEAKER) (test 55 mL/min/1.73 sq m ESTIMATED GFR IS NOT zbmi=3183) ACCURATE CREATININE CLEARANCE IN PREDICTING GLOMERULAR FILTRATION RATE. ESTIMATED GFR IS NOT APPLICABLE FOR DIALYSIS PATIENTS. Once on admission and Daily AM afterwardsOnce on admission and Daily AM afterwardsOnce on admission and Daily AM afterwardsPOCT-GLUCOSE [id number] 00:30:00 Test Item Value Reference Range Comments POC-GLUCOSE METER (BEAKER) 78 mg/dL 70-110 TESTED AT [address] (test nonn=6429) [facility] [id number] POCT-GLUCOSE [id number] 18:20:00 Test Item Value Reference Range Comments POC-GLUCOSE METER (BEAKER) 156 mg/dL 70-110 TESTED AT [place] [id number] [facility] (test hsnb=5277) [facility] [address] PLATELET AGGREGATION: FUNCTION [id number] 15:53:00 Test Item Value Reference Range Comments WEAK ADP RESULT(BEAKER) (test 94 % 60-91 tvcv=5407) PLATELET FUNCTION SCREEN 60-100% indicates normal INTERP (BEAKER) (test platelet function aavh=3014) [id number] (BEAKER) Aurora Pascual MD (electronic (test thfj=1135) signature) PLATELET COUNT AGG (BEAKER) 113 K/CU MM 150-430 (test qkuq=4300) POCT-GLUCOSE [id number] 14:21:00 Test Item Value Reference Range Comments POC-GLUCOSE METER (BEAKER) 82 mg/dL 70-110 TESTED AT [facility] [address] [facility] (test kcit=2527) [facility] [address] HEPATIC FUNCTION [id number] 07:38:00 Test Item Value Reference Range Comments TOTAL PROTEIN (BEAKER) (test 7.6 gm/dL 6.0-8.3 Specimen slightly hemolyzed ggda=340) ALBUMIN (BEAKER) (test 3.4 g/dL 3.5-5.0 Specimen slightly hemolyzed kcdb=7756) BILIRUBIN TOTAL (BEAKER) (test 0.8 mg/dL 0.2-1.2 Specimen slightly hemolyzed mkug=137) BILIRUBIN DIRECT (BEAKER) (test 0.3 mg/dL 0.1-0.5 Specimen slightly hemolyzed sajz=335) ALKALINE PHOSPHATASE (BEAKER) 49 U/L 40-150 (test kgvi=077) AST (SGOT) (BEAKER) (test 16 U/L 5-34 Specimen slightly hemolyzed zsuq=078) ALT (SGPT) (BEAKER) (test 16 U/L 6-55 Specimen slightly hemolyzed aqui=470) PROTHROMBIN [id number] 07:10:00 Test Item Value Reference Range Comments PROTIME (BEAKER) (test cvos=697) 14.9 seconds 11.7-14.7 INR (BEAKER) (test uyik=806) 1.2 <=5.9 RECOMMENDED COUMADIN/WARFARIN INR THERAPY RANGESSTANDARD DOSE: 2.0 - 3.0 Includes: PROPHYLAXIS forvenous thrombosis, systemic embolization; TREATMENT for venous thrombosis and/or pulmonary embolus.HIGH RISK: Target INR is 2.5-3.5 for patients with mechanical heart valves.[id number] 07:10:00 Test Item Value Reference Range Comments PARTIAL THROMBOPLASTIN TIME (BEAKER) (test 35.9 seconds 22.5-36.0 trsx=654) CBC W/PLT COUNT & AUTO [id number] 07:07:00 Test Item Value Reference Range Comments WHITE BLOOD CELL COUNT (BEAKER) (test chum=227) 7.4 K/ L 4.0-10.0 RED BLOOD CELL COUNT (BEAKER) (test rhvb=735) 5.04 M/ L 4.20-5.80 HEMOGLOBIN (BEAKER) (test tmqz=199) 12.9 GM/DL 13.0-16.8 HEMATOCRIT (BEAKER) (test gedj=315) 40.0 % 40.0-50.0 MEAN CORPUSCULAR VOLUME (BEAKER) (test tdaq=287) 79.2 fL 82.0-98.0 MEAN CORPUSCULAR HEMOGLOBIN (BEAKER) (test 25.6 pg 27.0-33.0 wmlg=778) MEAN CORPUSCULAR HEMOGLOBIN CONC (BEAKER) (test 32.3 GM/DL 32.0-36.0 jhwr=693) RED CELL DISTRIBUTION WIDTH (BEAKER) (test 14.5 % 10.3-14.2 fmzq=626) PLATELET COUNT (BEAKER) (test dxfd=964) 94 K/CU MM 150-430 MEAN PLATELET VOLUME (BEAKER) (test tsjc=860) 11.7 fL 6.5-10.5 NUCLEATED RED BLOOD CELLS (BEAKER) (test 0 /100 WBC 0-0 qqbb=605) NEUTROPHILS RELATIVE PERCENT (BEAKER) (test 72 % uvum=716) LYMPHOCYTES RELATIVE PERCENT (BEAKER) (test 17 % azcv=132) MONOCYTES RELATIVE PERCENT (BEAKER) (test 9 % lncw=623) EOSINOPHILS RELATIVE PERCENT (BEAKER) (test 2 % jniy=467) BASOPHILS RELATIVE PERCENT (BEAKER) (test 0 % ogyg=275) NEUTROPHILS ABSOLUTE COUNT (BEAKER) (test 5.33 K/ L 1.80-8.00 gwtb=207) LYMPHOCYTES ABSOLUTE COUNT (BEAKER) (test 1.25 K/ L 1.48-4.50 ilxf=442) MONOCYTES ABSOLUTE COUNT (BEAKER) (test kdsr=930) 0.66 K/ L 0.00-1.30 EOSINOPHILS ABSOLUTE COUNT (BEAKER) (test 0.12 K/ L 0.00-0.50 tonr=427) BASOPHILS ABSOLUTE COUNT (BEAKER) (test ldun=295) 0.03 K/ L 0.00-0.20 0.00
[2018-05-20] MEDS ORDERED: ASPIRIN 81 MG CHEWABLE TABLET ONE (02:08)
[2018-05-20] MEDS ORDERED: MORPHINE 4 MG/ML SYR ONE (02:08)
[2018-05-20] MEDS ORDERED: ONDANSETRON 4 MG/2 ML VIAL ONE (02:08)
[2018-05-20 02:13] LABS: Absolute Lymphocytes (CBC) 1.5 K/uL (0.7-4.9); Absolute Neutrophil 5.6 K/uL (1.8-8.0); Basophils % 0.6 % (0-1.3); Eosinophils % 2.2 % (0-4.4); Hematocrit 40.2 % (39.6-49.0); Lymphocytes % 17.9 % (15.3-44.8); MCH 24.4 pg (27.0-35.0); MCV 76.7 fL (80-100); Monocytes % 12.2 % (3.3-12.3); RBC Red Blood Cell Count 5.23 M/uL (4.33-5.43)
[2018-05-20 02:18] LABS: Protime INR 1.08
[2018-05-20 02:31] LABS: ALT/SGPT 23 U/L (12-78); AST/SGOT 19 U/L (15-37); Albumin 3.2 g/dL (3.4-5.0); Alkaline Phosphatase 56 U/L (45-117); Amylase Level 97 U/L (25-115); BUN Blood Urea Nitrogen 27 mg/dL (7-18); Bicarbonate 28 mmol/L (21-32); Bilirubin Direct 0.1 mg/dL (0-0.2); Bilirubin Total 0.5 mg/dL (0.2-1.0); CKMB Creatine Kinase MB 1.3 ng/mL (0.3-3.6); Creatine Phosphokinase 329 U/L (39-308); Glucose Level 94 mg/dL (74-106); Lipase 128 U/L (73-393); NT PRO-BNP 58 pg/mL (<450); Potassium 4.3 mmol/L (3.5-5.1); Protein, Total 8.1 g/dL (6.4-8.2); Sodium Level 141 mmol/L (136-145); Troponin (Emerg Dept Use Only) < 0.02 ng/mL (0.0-0.045)
--- NOTE | 2018-05-20 02:41 | EDPHYS ---
Physician Documentation [facility] Name: Reggie Mayer Age: 73 yrs Sex: Male : 1945 Arrival Date: 05/20/2018 Time: 01:34 Bed 14 Private MD: Bear Moreira ED Physician Dat Lemus HPI: 05/20 01:54 This 73 yrs old Black Male presents to ER via Ambulatory with complaints of Chest Pain. pkl 01:54 The patient or guardian reports chest pain that is located primarily in the substernal pkl area. Onset: 2 day(s) ago, and became worse just prior to arrival. The pain radiates to the left arm. Associated signs and symptoms: Pertinent positives: shortness of breath. The chest pain is described as dull. The patient has been recently seen at the [facility] Emergency Department, yesterday, for similar complaints. Historical: - Allergies: 01:46 NKA; ao - Home Meds: 01:46 allopurinol 100 mg Oral tab once daily [Active]; aspirin 81 mg Oral chew 1 tab once ao daily [Active]; atorvastatin 40 mg Oral tab once daily [Active]; carvedilol 6.25 mg Oral tab 2 times per day [Active]; lisinopril 20 mg Oral tab [Active]; tamsulosin 0.4 mg Oral cp24 1 cap once daily [Active]; - PMHx: 01:46 Hyperlipidemia; Hypertension; ao - PSHx: 01:46 None; ao - Immunization history:: Adult Immunizations unknown. - Social history:: Smoking status: Patient/guardian denies using tobacco, Patient/guardian denies using alcohol, street drugs. - Ebola Screening: : Patient negative for fever greater than or equal to 101.5 degrees Fahrenheit, and additional compatible Ebola Virus Disease symptoms Patient denies exposure to infectious person Patient denies travel to an Ebola-affected area in the 21 days before illness onset. ROS: 01:54 Eyes: Negative for injury, pain, redness, and discharge, ENT: Negative for injury, pkl pain, and discharge, Neck: Negative for injury, pain, and swelling. 01:54 Cardiovascular: Positive for chest pain. 01:54 Respiratory: Negative for cough, shortness of breath. 01:54 Abdomen/GI: Negative for abdominal pain, nausea, vomiting, and diarrhea. 01:54 Back: Negative for acute changes. :54 : Negative for urinary symptoms. :54 MS/extremity: Negative for acute changes. :54 Skin: Negative for rash. :54 Neuro: Negative for altered mental status. Exam: :54 Head/Face: Normocephalic, atraumatic. Eyes: Pupils equal round and reactive to light, pkl extra-ocular motions intact. Lids and lashes normal. Conjunctiva and sclera are non-icteric and not injected. Cornea within normal limits. Periorbital areas with no swelling, redness, or edema. ENT: Nares patent. No nasal discharge, no septal abnormalities noted. Tympanic membranes are normal and external auditory canals are clear. Oropharynx with no redness, swelling, or masses, exudates, or evidence of obstruction, uvula midline. Mucous membranes moist. Neck: Trachea midline, no thyromegaly or masses palpated, and no cervical lymphadenopathy. Supple, full range of motion without nuchal rigidity, or vertebral point tenderness. No Meningismus. Chest/axilla: Normal chest wall appearance and motion. Nontender with no deformity. No lesions are appreciated. Cardiovascular: Regular rate and rhythm with a normal S1 and S2. No gallops, murmurs, or rubs. Normal PMI, no JVD. No pulse deficits. Respiratory: Lungs have equal breath sounds bilaterally, clear to auscultation and percussion. No rales, rhonchi or wheezes noted. No increased work of breathing, no retractions or nasal flaring. Abdomen/GI: Soft, non-tender, with normal bowel sounds. No distension or tympany. No guarding or rebound. No evidence of tenderness throughout. Back: No spinal tenderness. No costovertebral tenderness. Full range of motion. Skin: Warm, dry with normal turgor. Normal color with no rashes, no lesions, and no evidence of cellulitis. MS/ Extremity: Pulses equal, no cyanosis. Neurovascular intact. Full, normal range of motion. Neuro: Awake and alert, GCS 15, oriented to person, place, time, and situation. Cranial nerves II-XII grossly intact. Motor strength 5/5 in all extremities. Sensory grossly intact. Cerebellar exam normal. Normal gait. Vital Signs: :43 BP 160 / 84; Pulse 79; Resp 16; Temp 98.9(O); Pulse Ox 95% on R/A; Weight 108.86 kg; ao Height 6 ft. 1 in. (185.42 cm); Pain 8/10; 03:03 BP 136 / 82; Pulse 60; Resp 20; Pulse Ox 100% on R/A; Pain 0/10; ao 04:15 BP 150 / 83; Pulse 63; Resp 17; Pulse Ox 97% on R/A; ao 01:43 Body Mass Index 31.66 (108.86 kg, 185.42 cm) ao MDM: 01:40 Patient medically screened. pkl 02:38 Data reviewed: vital signs, nurses notes, lab test result(s), EKG, radiologic studies, pkl plain films. 05/20 01:50 Order name: Basic Metabolic Panel; Complete Time: 02:35 pkl 05/20 01:50 Order name: CBC with Diff; Complete Time: 02:19 pkl 05/20 01:50 Order name: Ckmb; Complete Time: 02:35 pkl 05/20 01:50 Order name: CPK; Complete Time: 02:35 pkl 05/20 01:50 Order name: LFT's; Complete Time: 02:35 pkl 05/20 01:50 Order name: Magnesium; Complete Time: 02:35 pkl 05/20 01:50 Order name: NT PRO-BNP; Complete Time: 02:35 pkl 05/20 01:50 Order name: PT-INR; Complete Time: 02:34 pkl 05/20 01:50 Order name: Ptt, Activated; Complete Time: 02:34 pkl 05/20 01:50 Order name: Troponin (emerg Dept Use Only); Complete Time: 02:35 pkl 05/20 01:51 Order name: Amylase, Serum; Complete Time: 02:35 pkl 05/20 01:51 Order name: Lipase; Complete Time: 02:35 pkl 05/20 02:11 Order name: D-Dimer; Complete Time: 02:34 EDMS 05/20 01:50 Order name: EKG; Complete Time: 01:51 pkl 05/20 01:50 Order name: Cardiac monitoring; Complete Time: 02:08 pkl 05/20 01:50 Order name: EKG - Nurse/Tech; Complete Time: 02:08 pkl 05/20 01:50 Order name: IV Saline Lock; Complete Time: 02:08 pkl 05/20 01:50 Order name: Labs collected and sent; Complete Time: 02:08 pkl 05/20 01:50 Order name: O2 Per Protocol; Complete Time: 02:08 pkl 05/20 01:50 Order name: O2 Sat Monitoring; Complete Time: 02:08 pkl 05/20 02:30 Order name: ABG pkl Administered Medications: 02:08 Drug: Aspirin 162 mg Route: PO; rv 04:42 Follow up: Response: No adverse reaction ao 02:09 Drug: morphine 4 mg Route: IVP; Site: right antecubital; rv 04:43 Follow up: Response: No adverse reaction ao 02:09 Drug: Zofran 4 mg Route: IVP; Site: right antecubital; rv 04:42 Follow up: Response: No adverse reaction ao Disposition: 05/20/18 02:40 Hospitalization ordered by Luis A Hall for Observation. Preliminary diagnosis is Chest pain. R/O Pulmonary embolism. Chronic renal disease. - Bed requested for Telemetry/MedSurg (observation). - Status is Observation. ao - Condition is Stable. - Problem is new. - Symptoms are unchanged. UTI on Admission? No Signatures: Dispatcher [employer] EDAR Barbara Dallas RN Dat Lizarraga MD MD pkl Ortiz, Alex RN RN Sean Yadav RN RN rv Corrections: (The following items were deleted from the chart) 02:09 01:52 D-DIMER+COAG.LAB.BRZ ordered. [facility] EDAR 02:46 02:40 Hospitalization Ordered by Luis A Hall MD for Observation. Preliminary mw diagnosis is Chest pain. R/O Pulmonary embolism. Chronic renal disease. Bed requested for Telemetry/MedSurg (observation). Status is Observation. Condition is Stable. Problem is new. Symptoms are unchanged. UTI on Admission? No. pkl 04:43 02:46 05/20/2018 02:40 Hospitalization Ordered by Luis A Hall MD for Observation. ao Preliminary diagnosis is Chest pain. R/O Pulmonary embolism. Chronic renal disease. Bed requested for Telemetry/MedSurg (observation). Status is Observation. Condition is Stable. Problem is new. Symptoms are unchanged. UTI on Admission? No. mw
--- NOTE | 2018-05-20 02:41 | ER ---
Nurse's Notes [facility] Name: Reggie Mayer Age: 73 yrs Sex: Male : 1945 Arrival Date: 05/20/2018 Time: 01:34 Bed 14 Private MD: Bear Moreira Diagnosis: Chest pain. R/O Pulmonary embolism. Chronic renal disease Presentation: 05/20 01:40 Presenting complaint: Patient states: "Was here on Saturday with chest pain and discharge ao home. My chest pain is coming back. It comes and goes" Patient describes pain as stabbing pain that radiates to the arms. Risk Assessment: Do you want to hurt yourself or someone else? Patient reports no desire to harm self or others. 01:40 Method Of Arrival: Ambulatory ao 01:40 Acuity: AQUILES 3 ao 01:44 Transition of care: patient was not received from another setting of care. Onset of ao symptoms is unknown. Initial Sepsis Screen: Does the patient meet any 2 criteria? No. Patient's initial sepsis screen is negative. Does the patient have a suspected source of infection? No. Patient's initial sepsis screen is negative. Care prior to arrival: None. Historical: - Allergies: 01:46 NKA; ao - Home Meds: 01:46 allopurinol 100 mg Oral tab once daily [Active]; aspirin 81 mg Oral chew 1 tab once ao daily [Active]; atorvastatin 40 mg Oral tab once daily [Active]; carvedilol 6.25 mg Oral tab 2 times per day [Active]; lisinopril 20 mg Oral tab [Active]; tamsulosin 0.4 mg Oral cp24 1 cap once daily [Active]; - PMHx: 01:46 Hyperlipidemia; Hypertension; ao - PSHx: 01:46 None; ao - Immunization history:: Adult Immunizations unknown. - Social history:: Smoking status: Patient/guardian denies using tobacco, Patient/guardian denies using alcohol, street drugs. - Ebola Screening: : Patient negative for fever greater than or equal to 101.5 degrees Fahrenheit, and additional compatible Ebola Virus Disease symptoms Patient denies exposure to infectious person Patient denies travel to an Ebola-affected area in the 21 days before illness onset. Screenin:49 Abuse screen: Denies threats or abuse. Denies injuries from another. Nutritional ao screening: No deficits noted. Tuberculosis screening: No symptoms or risk factors identified. Fall Risk None identified. Assessment: 01:47 General: Appears in no apparent distress. comfortable, Behavior is calm, cooperative, ao appropriate for age. Pain: Complains of pain in chest Pain does not radiate. Pain currently is 8 out of 10 on a pain scale. Quality of pain is described as stabbing, Pain began Unknown date pain started. Neuro: Level of Consciousness is awake, alert, obeys commands, Oriented to person, place, time, situation, Appropriate for age Moves all extremities. Full function Speech is normal, Facial symmetry appears normal. Cardiovascular: Capillary refill < 3 seconds Patient's skin is warm and dry. Respiratory: Airway is patent Respiratory effort is even, unlabored, Respiratory pattern is regular, symmetrical. GI: Abdomen is non-distended. : No signs and/or symptoms were reported regarding the genitourinary system. EENT: No signs and/or symptoms were reported regarding the EENT system. Derm: Skin is intact, Skin is pink, warm \\T\\ dry. Skin temperature is warm. Musculoskeletal: Circulation, motion, and sensation intact. Range of motion:. 02:45 Reassessment: Patient appears in no apparent distress at this time. Patient and/or ao family updated on plan of care and expected duration. Pain level reassessed. Patient is alert, oriented x 3, equal unlabored respirations, skin warm/dry/pink. Waiting on dispo orders. 03:05 Reassessment: Patient to be admitted to the hospital. Waiting on Admitting doctor ao orders. Vital Signs: 01:43 BP 160 / 84; Pulse 79; Resp 16; Temp 98.9(O); Pulse Ox 95% on R/A; Weight 108.86 kg; ao Height 6 ft. 1 in. (185.42 cm); Pain 8/10; 03:03 BP 136 / 82; Pulse 60; Resp 20; Pulse Ox 100% on R/A; Pain 0/10; ao 04:15 BP 150 / 83; Pulse 63; Resp 17; Pulse Ox 97% on R/A; ao 01:43 Body Mass Index 31.66 (108.86 kg, 185.42 cm) ao ED Course: 01:34 Patient arrived in ED. es 01:34 Bear Moreira DO is Private Physician. es 01:39 Jean Marie Espino, RN is Primary Nurse. ao 01:39 Dat Lemus MD is Attending Physician. pkl 01:43 Triage completed. ao 01:44 Arm band placed on right wrist. Patient placed in an exam room, in a wheelchair, on ao cardiac nurse, on pulse oximetry, Patient notified of wait time. 01:49 Patient has correct armband on for positive identification. Placed in gown. Bed in low ao position. Call light in reach. Side rails up X 1. desk monitor on. 01:50 Inserted saline lock: 20 gauge in right antecubital area, using aseptic technique. ao ,using aseptic technique. By DODIE Naik Blood collected. Patient maintains SpO2 saturation greater than 95% on room air. 02:27 Notified ED physician of a critical lab result(s). D-Dimer 2006 Dr Lemus notified. bb 02:38 Luis A Hall MD is Hospitalizing Provider. pkl 04:41 No provider procedures requiring assistance completed. Patient admitted, IV remains in ao place. Administered Medications: 02:08 Drug: Aspirin 162 mg Route: PO; rv 04:42 Follow up: Response: No adverse reaction ao 02:09 Drug: morphine 4 mg Route: IVP; Site: right antecubital; rv 04:43 Follow up: Response: No adverse reaction ao 02:09 Drug: Zofran 4 mg Route: IVP; Site: right antecubital; rv 04:42 Follow up: Response: No adverse reaction ao Outcome: 02:40 Decision to Hospitalize by Provider. pkl 04:41 Admitted to Tele accompanied by nurse, room 416, Other Bedside report given to ke Jefferson RN 04:41 Condition: stable 04:41 Instructed on the need for admit. 04:43 Patient left the ED. ao Signatures: Dat Lemus MD MD pkl Delisa Cleveland Brenda, RN RN bb Jean Marie Espino, RN Sean Shah RN RN rv
--- NOTE | 2018-05-20 04:13 | P.HP ---
Certification for Inpatient Patient admitted to: Observation With expected LOS: <2 Midnights Practitioner: I am a practitioner with admitting privileges, knowledge of patient current condition, hospital course, and medical plan of care. Services: Services provided to patient in accordance with Admission requirements found in Title 42 Section 412.3 of the Code of Federal Regulations Patient History Date of Service: 05/20/18 Reason for admission: chest pain History of Present Illness: Mr. Mayer is a 73-year-old male with history of hypertension, CKD, obesity and dyslipidemia, who came to ED 2 days ago due to chest pain. His workup was negative and he was discharged home. Was doing fine until last night, when he started being complaining of chest pain. His pain is located on left side of the chest, radiated to left arm and shoulder. He states that the pain is worse when he deep breath. He denied any shortness of breath, nausea, vomiting, dizziness or diaphoresis episode. Workup in ER revealed elevated D-dimer 2007. He denied also any bloody sputum. EKG remarkable for Q-waves in inferior leads , without ST-T abnormality. Troponin I is negative. Allergies No Known Drug Allergies Allergy (Unverified 12/22/14 19:54) Unknown NKDA Allergy (Uncoded 02/15/14 21:27) Unknown No Known Allergi Allergy (Uncoded 03/13/17 10:37) Unknown No Known Allergies Allergy (Uncoded 12/31/17 11:44) Unknown Home medications list reviewed: Yes - Past Medical/Surgical History -: Hypertension -: Dyslipidemia Past Surgical History: Reviewed- Non-Contributory - Family History Family History: Reviewed- Non-Contributory - Social History Smoking Status: Never smoker Alcohol use: No CD- Drugs: No Place of Residence: Home Review of Systems 10-point ROS is otherwise unremarkable Physical Examination - Physical Exam General: Alert, In no apparent distress HEENT: Atraumatic, PERRLA, Mucous membr. moist/pink, EOMI, Sclerae nonicteric Neck: Supple, 2+ carotid pulse no bruit, No LAD, Without JVD or thyroid abnormality Respiratory: Clear to auscultation bilaterally, Normal air movement Cardiovascular: Regular rate/rhythm, Normal S1 S2, Systolic murmur (2/6 in aortic area), Diastolic murmur (2/6 aortic area) Gastrointestinal: Normal bowel sounds, No tenderness Musculoskeletal: No tenderness Integumentary: No rashes Neurological: Normal speech, Normal strength at 5/5 x4 extr, Normal tone, Normal affect Lymphatics: No axilla or inguinal lymphadenopathy - Studies Laboratory Data (last 24 hrs) 05/20/18 01:45: PT 12.7 H, INR 1.08, APTT 33.2 05/20/18 01:45: WBC 8.3 D, Hgb 12.8 L, Hct 40.2, Plt Count 110 L 05/20/18 01:45: Sodium 141, Potassium 4.3, BUN 27 H, Creatinine 2.20 H, Glucose 94, Magnesium 2.0, Total Bilirubin 0.5, AST 19, ALT 23, Alkaline Phosphatase 56 , Amylase 97, Lipase 128 Assessment and Plan - Problems (Diagnosis) (1) Chest pain Current Visit: Yes Status: Acute Qualifiers: Chest pain type: intercostal pain Qualified Code(s): R07.82 - Intercostal pain (2) CKD (chronic kidney disease) Current Visit: Yes Status: Acute Qualifiers: Chronic kidney disease stage: stage 3 (moderate) Qualified Code(s): N18.3 - Chronic kidney disease, stage 3 (moderate) (3) Hypertension Current Visit: Yes Status: Acute Qualifiers: Hypertension type: essential hypertension Qualified Code(s): I10 - Essential (primary) hypertension (4) Elevated d-dimer Current Visit: Yes Status: Acute - Plan The patient will be admitted to the hospital due to chest pain associated with elevated D-dimer. He has elevated creatinine, which is contraindicated for CTA of chest. Will order a V/Q scan in the morning to rule out PE. Also will order bilateral lower extremity venous Doppler and echo. So far EKG and troponin I are negative. Continue serial cardiac enzymes and EKG. - Advance Directives Does patient have a Living Will: No Does patient have a Durable POA for Healthcare: No - Code Status/Comfort Care Code Status Assessed: Yes Code Status: Full Code
[2018-05-20] MEDS ORDERED: ACETAMINOPHEN 500 MG TAB PO PRN (04:38)
[2018-05-20] MEDS ORDERED: NA CHLORIDE 0.9% 1,000 ML IV SCH (04:38)
[2018-05-20] MEDS ORDERED: TRAMADOL HCL 50 MG TAB PO PRN (04:38)
[2018-05-20] MEDS ORDERED: ONDANSETRON 4 MG/2 ML VIAL IV PRN (04:38)
[2018-05-20 05:06] LABS: Arterial Blood Carboxyhemoglob 1.2 % (0-1.5); Blood Gas Oxyhemoglobin 89.1 % (94-97); Blood O2 Saturation 90.7 % (92-98.5)
[2018-05-20 06:17] LABS: Urine Appearance CLEAR; Urine Bilirubin NEGATIVE (NEG); Urine Blood NEGATIVE (NEG); Urine Color YELLOW; Urine Glucose NEGATIVE (NEG); Urine Protein NEGATIVE (NEG)
[2018-05-20 06:22] LABS: Urine Microscopic Reflex NO UMIC
[2018-05-20] MEDS ORDERED: PNEUMOCOCCAL VACCINE 0.5 ML IMVAC ONE (08:00)
[2018-05-20] MEDS ORDERED: ENOXAPARIN 100 MG/ML SYR SQ SCH (09:00)
--- NOTE | 2018-05-20 11:26 | RAD REPORT ---
EXAM DESCRIPTION: NM - Vent Perfusion VQ Scan - 05/20/2018 11:20 am CLINICAL HISTORY: chest pain, elevated d-dimer COMPARISON: Chest Single View dated 05/18/2018 TECHNIQUE: 20.7mCi Xe-133 gas inhaled and 7.5mCi Tc-MAA IV. Planar ventilation scan was performed in posterior projection after Xe-133 gas inhalation (wash-in, e quilibrium, and wash-out phases) followed by perfusion scan with Tc-MAA IV in multiple projections. Examination is correlated with recent chest radiograph. FINDINGS: Normal ventilation with appropriate wash-out and no significant air-trapping. No mismatched segmental perfusion defect. Elevated right hemidiaphragmatic leaflet noted. IMPRESSION: Very low probability of acute pulmonary embolism.
--- NOTE | 2018-05-20 11:35 | RAD REPORT ---
EXAM DESCRIPTION: US - Extrem Venous W Compress Zain - 05/20/2018 11:25 am CLINICAL HISTORY: elevated d-dimer Bilateral leg edema and swelling. COMPARISON: No comparisons TECHNIQUE: Real-time sonographic interrogation of the left and right lower extremity deep venous sys tems was performed. FINDINGS: Normal compressibility, flow augmentation, phasic flow and spontaneous flow is identified in both the left and right lower extremity deep venous systems. IMPRESSION: No sonographic evidence of left or right lower extremity deep venous thrombosis.
--- NOTE | 2018-05-20 12:20 | EKG ---
Test Date: 2018-05-20 Test Time: 01:40:19 Bakery Team Member: WALTER MEASUREMENT RESULTS: Intervals: Rate: 76 MS: 182 QRSD: 72 QT: 362 QTc: 407 [place]: P: 39 MS: 182 QRS: 1 T: 70 INTERPRETIVE STATEMENTS: Normal sinus rhythm Possible Inferior infarct, age undetermined Abnormal ECG Compared to ECG 05/18/2018 10:49:14 Sinus bradycardia no longer present Myocardial infarct finding still present Electronically Signed On 05-20-18 12:19:02 CDT by Herbert Conway
[2018-05-20 13:14] LABS: Potassium 4.5 mmol/L (3.5-5.1)
--- NOTE | 2018-05-20 13:16 | P.SSS ---
Patient History Date of Service: 05/20/18 Reason for admission: chest pain History of Present Illness: Mr. Mayer is a 73-year-old male with history of hypertension, CKD, obesity and dyslipidemia, who came to ED 2 days ago due to chest pain. His workup was negative and he was discharged home. Was doing fine until last night, when he started being complaining of chest pain. His pain is located on left side of the chest, radiated to left arm and shoulder. He states that the pain is worse when he deep breath. He denied any shortness of breath, nausea, vomiting, dizziness or diaphoresis episode. Workup in ER revealed elevated D-dimer 2007. He denied also any bloody sputum. EKG remarkable for Q-waves in inferior leads , without ST-T abnormality. Troponin I is negative. Allergies No Known Drug Allergies Allergy (Verified 05/20/18 05:08) Unknown NKDA Allergy (Uncoded 02/15/14 21:27) Unknown No Known Allergi Allergy (Uncoded 03/13/17 10:37) Unknown No Known Allergies Allergy (Uncoded 12/31/17 11:44) Unknown Home Medications: Allopurinol 1 tab PO DAILY 05/20/18 Aspirin [Aspirin EC 81 MG] 1 tab PO DAILY 05/20/18 Atorvastatin Calcium 1 tab PO DAILY 05/20/18 Carvedilol [Coreg*] 1 tab PO BID 05/20/18 Lisinopril [Prinivil*] 20 mg PO BID 05/20/18 Tamsulosin HCl 1 cap PO DAILY 05/20/18 - Past Medical/Surgical History Has patient received pneumonia vaccine in the past: No Diabetic: No -: Hypertension -: Dyslipidemia -: Psoriasis -: hematoma to head -: hematoma removal - Family History Family History: Reviewed- Non-Contributory - Family History Father -: Cancer - Social History Smoking Status: Never smoker Alcohol use: No CD- Drugs: No Caffeine use: Yes Place of Residence: Home Review of Systems 10-point ROS is otherwise unremarkable Physical Examination - Vital Signs Temperature: 98.4 F Blood Pressure: 139/84 Pulse: 53 Respirations: 18 Pulse Ox (%): 95 - Physical Exam General: Alert, In no apparent distress HEENT: Atraumatic, PERRLA, Mucous membr. moist/pink, EOMI, Sclerae nonicteric Neck: Supple, 2+ carotid pulse no bruit, No LAD, Without JVD or thyroid abnormality Respiratory: Clear to auscultation bilaterally, Normal air movement Cardiovascular: Regular rate/rhythm, Normal S1 S2 Gastrointestinal: Normal bowel sounds, No tenderness Musculoskeletal: No tenderness Integumentary: No rashes Neurological: Normal gait, Normal speech, Normal strength at 5/5 x4 extr, Normal tone, Normal affect Lymphatics: No axilla or inguinal lymphadenopathy - Studies Laboratory Data (last 24 hrs) 05/20/18 01:45: PT 12.7 H, INR 1.08, APTT 33.2 05/20/18 01:45: WBC 8.3 D, Hgb 12.8 L, Hct 40.2, Plt Count 110 L 05/20/18 01:45: Sodium 141, Potassium 4.3, BUN 27 H, Creatinine 2.20 H, Glucose 94, Magnesium 2.0, Total Bilirubin 0.5, AST 19, ALT 23, Alkaline Phosphatase 56 , Amylase 97, Lipase 128 - Diagnosis (Problem(s)) (1) Chest pain Current Visit: Yes Status: Acute Plan: Patient admitted for chest pain. Troponin x2 negative. EKG within normal limits. Outpatient workup is appropriate at this time patient to follow up with cardiology outpatient to get further workup if continues to have chest pain. Qualifiers: Chest pain type: intercostal pain Qualified Code(s): R07.82 - Intercostal pain (2) Elevated d-dimer Current Visit: Yes Status: Acute Plan: Elevated D-dimer. Due to elevated creatinine CT scan contraindicated. VQ scan with very low probability of PE. Patient's symptoms resolved and thus discharge home is appropriate at this time. (3) CKD (chronic kidney disease) Current Visit: Yes Status: Chronic Qualifiers: Chronic kidney disease stage: stage 3 (moderate) Qualified Code(s): N18.3 - Chronic kidney disease, stage 3 (moderate) (4) Hypertension Current Visit: Yes Status: Chronic Qualifiers: Hypertension type: essential hypertension Qualified Code(s): I10 - Essential (primary) hypertension Treatment Summary: Overall patient remained stable while here in the hospital. Patient was admitted to the hospital for chest pain. Troponin x2 negative EKG within normal limits. Patient was recommended to be discharged home under stable condition and to have followup with cards were they will be doing outpatient workup for his coronary artery disease. Chest pain resolved while here in the hospital as well. Patient was also having elevated D-dimer V/Q scan was negative for low probability for PE. Patient did not have any other further complaints and thus discharged home - Disposition Disposition: ROUTINE DISCHARGE
== END 2018-05-20 16:12 | disposition home or self-care (01) ==
LOC: ER 01:31 → ERHOLD 02:44 → 4TH 04:23
PROVIDERS: ADMIT Internal Medicine; ATTEND Internal Medicine
DX: R07.9 Chest pain, unspecified (principal); R79.1 Abnormal coagulation profile; I12.9 Hypertensive chronic kidney disease with stage 1 through stage 4 chronic kidney disease, or unspecified chronic kidney disease; N18.3 Chronic kidney disease, stage 3 (moderate); Z79.82 Long term (current) use of aspirin; E78.5 Hyperlipidemia, unspecified
CPT/HCPCS: 36415; 78582; 80048 ×2; 80076; 81003; 82150; 82550; 82553; 82805; 83690; 83735; 83880; 84484 ×3; 85025; 85379; 85610; 85730; 93005; 93970; 94760; 96374; 96375; 99285; A9540; A9558; G0378 ×2; J1650; J2405; J7030

== ENCOUNTER 2018-06-01 01:59 | Emergency (ER) | payer MEDICARE ==
--- OUTSIDE RECORDS SUMMARY | 2018-06-01 02:01 | XMS REPORT | Clinical Summary ---
:1945 Author Organization [facility] Address [address] [place] [address] Phone Care Team Providers Name Role Phone [...] Not on file Implants Implanted Type Area Drum Sander Setter Device Expiration Model / Identifier Date Serial / Lot Matrix Floseal Hemo W/O Ndl 10 [id number] - [id number] Cement/Romario Right: GAYTAN: BIOSCI 06/15/2018 [id number] / Implanted: Qty: 1 on 02/05/2017 by Anatoliy Govea MD ler/Adhesi Head / ve [id number] Plt Rigid 2h [id number] - [id number] Fracture/F Right: ANNMARIE:CRANIOMA [id number] / Implanted: Qty: 3 on 02/05/2017 by Anatoliy Govea MD ixation Head XILLOFACIAL / Scr Un3 [place] Self Drl 1.5x4mm [id number] - [id number] Fracture/F Right: ANNMARIE:CRANIOMA [id number] / Implanted: Qty: 6 on 02/05/2017 by Anatoliy Govea MD ixation Head XILLOFACIAL / Kt Cath Bactiseal Shnt Carlo 23c [id number] - [id number] Neuro Right: J &J:CODMAN & 08/15/2017 [id number] / Implanted: Qty: 1 on 02/05/2017 by Anatoliy Govea MD Head [facility] / [id number] Grft Dura Cllgn Duragn 2x2in [id number] - [id number] Tissue Right: [employer] 01/13/2019 [id number] / Implanted: Qty: 1 on 02/05/2017 by Anatoliy Govea MD Graft/Subs Head LIFESCI:NEURO / titute [id number] Results Not on fileafter 05/31/2017
--- OUTSIDE RECORDS SUMMARY | 2018-06-01 02:02 | XMS REPORT ---
:1945 [facility] Address [address] [place] [address] Care Team Providers Name Role Phone COLTON [...] Comments WHITE BLOOD CELL COUNT (BEAKER) (test mtzv=412) 9.2 K/ L 4.0-10.0 RED BLOOD CELL COUNT (BEAKER) (test afwi=589) 4.69 M/ L 4.20-5.80 HEMOGLOBIN (BEAKER) (test qzuq=214) 12.2 GM/DL 13.0-16.8 HEMATOCRIT (BEAKER) (test kvcp=676) 36.5 % 40.0-50.0 MEAN CORPUSCULAR VOLUME (BEAKER) (test nwhu=938) 77.8 fL 82.0-98.0 MEAN CORPUSCULAR HEMOGLOBIN (BEAKER) (test xgoo=864) 25.9 pg 27.0-33.0 MEAN CORPUSCULAR HEMOGLOBIN CONC (BEAKER) (test vpxo=877) 33.3 GM/DL 32.0- 36.0 RED CELL DISTRIBUTION WIDTH (BEAKER) (test dgrb=581) 15.5 % 10.3-14.2 PLATELET COUNT (BEAKER) (test pszy=125) 140 K/CU MM 150-430 MEAN PLATELET VOLUME (BEAKER) (test caud=617) 10.1 fL 6.5-10.5 NUCLEATED RED BLOOD CELLS (BEAKER) (test ncdu=241) 0 /100 WBC 0-0 NEUTROPHILS RELATIVE PERCENT (BEAKER) (test cotz=946) 74 % LYMPHOCYTES RELATIVE PERCENT (BEAKER) (test blvb=108) 12 % MONOCYTES RELATIVE PERCENT (BEAKER) (test cazu=283) 13 % EOSINOPHILS RELATIVE PERCENT (BEAKER) (test uego=808) 1 % BASOPHILS RELATIVE PERCENT (BEAKER) (test qozi=023) 0 % NEUTROPHILS ABSOLUTE COUNT (BEAKER) (test nsey=299) 6.78 K/ L 1.80-8.00 LYMPHOCYTES ABSOLUTE COUNT (BEAKER) (test xqrt=520) 1.08 K/ L 1.48-4.50 MONOCYTES ABSOLUTE COUNT (BEAKER) (test efmw=097) 1.19 K/ L 0.00-1.30 EOSINOPHILS ABSOLUTE COUNT (BEAKER) (test tphw=417) 0.10 K/ L 0.00-0.50 BASOPHILS ABSOLUTE COUNT (BEAKER) (test wnoz=515) 0.01 K/ L 0.00-0.20 0.00BASIC METABOLIC [id number] 06:12:00 Test Item Value Reference Range Comments SODIUM (BEAKER) (test 136 meq/L 136-145 lnri=578) POTASSIUM (BEAKER) (test 4.5 meq/L 3.5-5.1 ehdp=747) CHLORIDE (BEAKER) (test 101 meq/L 98-107 dgfh=850) CO2 (BEAKER) (test 26 meq/L 22-29 ocuu=107) BLOOD UREA NITROGEN 18 mg/dL 7-21 (BEAKER) (test vtsh=705) CREATININE (BEAKER) (test 1.28 mg/dL 0.57-1.25 uoia=164) GLUCOSE RANDOM (BEAKER) 89 mg/dL 70-105 (test kogk=018) CALCIUM (BEAKER) (test 8.6 mg/dL 8.4-10.2 pdxt=458) EGFR (BEAKER) (test 67 mL/min/1.73 sq m ESTIMATED GFR IS NOT qzxq=2650) ACCURATE CREATININE CLEARANCE IN PREDICTING GLOMERULAR FILTRATION RATE. ESTIMATED GFR IS NOT APPLICABLE FOR DIALYSIS PATIENTS. PROTHROMBIN TIME/[id number] 05:45:00 Test Item Value Reference Range Comments PROTIME (BEAKER) (test sodi=707) 14.5 seconds 11.7-14.7 INR (BEAKER) (test qesu=533) 1.1 <=5.9 RECOMMENDED COUMADIN/WARFARIN INR THERAPY RANGESSTANDARD DOSE: 2.0 - 3.0 Includes: PROPHYLAXIS forvenous thrombosis, systemic embolization; TREATMENT for venous thrombosis and/or pulmonary embolus.HIGH RISK: Target INR is 2.5-3.5 for patients with mechanical heart valves.[id number] 12:38:00 Test Item Value Reference Range Comments SODIUM (BEAKER) (test jnss=389) 134 meq/L 136-145 [id number] 07:07:00 Test Item Value Reference Range Comments PHOSPHORUS (BEAKER) (test gtnl=525) 3.3 mg/dL 2.3-4.7 [id number] 07:07:00 Test Item Value Reference Range Comments MAGNESIUM (BEAKER) (test zsdv=591) 1.6 mg/dL 1.6-2.6 BASIC METABOLIC [id number] 04:24:00 Test Item Value Reference Range Comments SODIUM (BEAKER) (test 134 meq/L 136-145 mhxv=391) POTASSIUM (BEAKER) (test 4.2 meq/L 3.5-5.1 wguo=679) CHLORIDE (BEAKER) (test 101 meq/L 98-107 ktlp=094) CO2 (BEAKER) (test 27 meq/L 22-29 shiu=293) BLOOD UREA NITROGEN 18 mg/dL 7-21 (BEAKER) (test kubr=006) CREATININE (BEAKER) (test 1.22 mg/dL 0.57-1.25 nijs=339) GLUCOSE RANDOM (BEAKER) 99 mg/dL 70-105 (test qxzg=614) CALCIUM (BEAKER) (test 8.7 mg/dL 8.4-10.2 ooml=588) EGFR (BEAKER) (test 71 mL/min/1.73 sq m ESTIMATED GFR IS NOT rixo=8204) ACCURATE CREATININE CLEARANCE IN PREDICTING GLOMERULAR FILTRATION RATE. ESTIMATED GFR IS NOT APPLICABLE FOR DIALYSIS PATIENTS. PROTHROMBIN TIME/[id number] 04:16:00 Test Item Value Reference Range Comments PROTIME (BEAKER) (test kmwb=733) 15.0 seconds 11.7-14.7 INR (BEAKER) (test kbnn=122) 1.2 <=5.9 RECOMMENDED COUMADIN/WARFARIN INR THERAPY RANGESSTANDARD DOSE: 2.0 - 3.0 Includes: PROPHYLAXIS forvenous thrombosis, systemic embolization; TREATMENT for venous thrombosis and/or pulmonary embolus.HIGH RISK: Target INR is 2.5-3.5 for patients with mechanical heart valves.CBC W/PLT COUNT & AUTO [id number] 04:16:00 Test Item Value Reference Range Comments WHITE BLOOD CELL COUNT (BEAKER) (test dubj=231) 9.4 K/ L 4.0-10.0 RED BLOOD CELL COUNT (BEAKER) (test zmpv=407) 4.66 M/ L 4.20-5.80 HEMOGLOBIN (BEAKER) (test kczq=275) 11.8 GM/DL 13.0-16.8 HEMATOCRIT (BEAKER) (test oavd=468) 36.9 % 40.0-50.0 MEAN CORPUSCULAR VOLUME (BEAKER) (test qnye=940) 79.2 fL 82.0-98.0 MEAN CORPUSCULAR HEMOGLOBIN (BEAKER) (test 25.2 pg 27.0-33.0 nbqc=638) MEAN CORPUSCULAR HEMOGLOBIN CONC (BEAKER) (test 31.9 GM/DL 32.0-36.0 abls=022) RED CELL DISTRIBUTION WIDTH (BEAKER) (test 14.1 % 10.3-14.2 layb=322) PLATELET COUNT (BEAKER) (test yrof=796) 129 K/CU MM 150-430 MEAN PLATELET VOLUME (BEAKER) (test axqj=681) 9.7 fL 6.5-10.5 NUCLEATED RED BLOOD CELLS (BEAKER) (test 0 /100 WBC 0-0 qauu=039) NEUTROPHILS RELATIVE PERCENT (BEAKER) (test 74 % gxvn=465) LYMPHOCYTES RELATIVE PERCENT (BEAKER) (test 12 % hpoj=932) MONOCYTES RELATIVE PERCENT (BEAKER) (test 13 % hwux=256) EOSINOPHILS RELATIVE PERCENT (BEAKER) (test 1 % ftet=620) BASOPHILS RELATIVE PERCENT (BEAKER) (test 0 % iahq=136) NEUTROPHILS ABSOLUTE COUNT (BEAKER) (test 6.97 K/ L 1.80-8.00 uozz=012) LYMPHOCYTES ABSOLUTE COUNT (BEAKER) (test 1.11 K/ L 1.48-4.50 bnjv=036) MONOCYTES ABSOLUTE COUNT (BEAKER) (test 1.23 K/ L 0.00-1.30 oere=511) EOSINOPHILS ABSOLUTE COUNT (BEAKER) (test 0.06 K/ L 0.00-0.50 pygj=600) BASOPHILS ABSOLUTE COUNT (BEAKER) (test 0.00 K/ L 0.00-0.20 shjo=295) 0.00PT/[id number] 17:46:00 Test Item Value Reference Range Comments PROTIME (BEAKER) (test zyes=821) 14.4 seconds 11.7-14.7 INR (BEAKER) (test etdr=836) 1.1 <=5.9 PARTIAL THROMBOPLASTIN TIME (BEAKER) (test 36.8 seconds 22.5-36.0 xwct=528) RECOMMENDED COUMADIN/WARFARIN INR THERAPY RANGESSTANDARD DOSE: 2.0 - 3.0 Includes: PROPHYLAXIS forvenous thrombosis, systemic embolization; TREATMENT for venous thrombosis and/or pulmonary embolus.HIGH RISK: Target INR is 2.5-3.5 for patients with mechanical heart valves.BASIC METABOLIC [id number] 02:40: 00 Test Item Value Reference Range Comments SODIUM (BEAKER) (test 137 meq/L 136-145 tldb=164) POTASSIUM (BEAKER) (test 4.6 meq/L 3.5-5.1 zogm=103) CHLORIDE (BEAKER) (test 101 meq/L 98-107 vqxn=531) CO2 (BEAKER) (test 29 meq/L 22-29 rzcj=459) BLOOD UREA NITROGEN 19 mg/dL 7-21 (BEAKER) (test yzlx=397) CREATININE (BEAKER) (test 1.42 mg/dL 0.57-1.25 vsin=174) GLUCOSE RANDOM (BEAKER) 105 mg/dL 70-105 (test pefj=011) CALCIUM (BEAKER) (test 8.3 mg/dL 8.4-10.2 mkrv=826) EGFR (BEAKER) (test 59 mL/min/1.73 sq m ESTIMATED GFR IS NOT chrt=6416) ACCURATE CREATININE CLEARANCE IN PREDICTING GLOMERULAR FILTRATION RATE. ESTIMATED GFR IS NOT APPLICABLE FOR DIALYSIS PATIENTS. CBC W/PLT COUNT & AUTO [id number] 02:16:00 Test Item Value Reference Range Comments WHITE BLOOD CELL COUNT (BEAKER) (test ozqn=405) 9.9 K/ L 4.0-10.0 RED BLOOD CELL COUNT (BEAKER) (test xnva=795) 4.56 M/ L 4.20-5.80 HEMOGLOBIN (BEAKER) (test auya=294) 11.8 GM/DL 13.0-16.8 HEMATOCRIT (BEAKER) (test ktgx=819) 36.5 % 40.0-50.0 MEAN CORPUSCULAR VOLUME (BEAKER) (test wzaw=037) 79.9 fL 82.0-98.0 MEAN CORPUSCULAR HEMOGLOBIN (BEAKER) (test 25.9 pg 27.0-33.0 ebyd=773) MEAN CORPUSCULAR HEMOGLOBIN CONC (BEAKER) (test 32.4 GM/DL 32.0-36.0 aupx=649) RED CELL DISTRIBUTION WIDTH (BEAKER) (test 14.4 % 10.3-14.2 idzn=561) PLATELET COUNT (BEAKER) (test qgje=117) 127 K/CU MM 150-430 MEAN PLATELET VOLUME (BEAKER) (test rluq=530) 10.0 fL 6.5-10.5 NUCLEATED RED BLOOD CELLS (BEAKER) (test 0 /100 WBC 0-0 hstb=053) NEUTROPHILS RELATIVE PERCENT (BEAKER) (test 79 % svnf=584) LYMPHOCYTES RELATIVE PERCENT (BEAKER) (test 6 % pcdl=228) MONOCYTES RELATIVE PERCENT (BEAKER) (test 14 % fbas=481) EOSINOPHILS RELATIVE PERCENT (BEAKER) (test 1 % nnke=059) BASOPHILS RELATIVE PERCENT (BEAKER) (test 0 % atlv=250) NEUTROPHILS ABSOLUTE COUNT (BEAKER) (test 7.86 K/ L 1.80-8.00 icui=509) LYMPHOCYTES ABSOLUTE COUNT (BEAKER) (test 0.64 K/ L 1.48-4.50 xsnn=980) MONOCYTES ABSOLUTE COUNT (BEAKER) (test 1.36 K/ L 0.00-1.30 bwvx=479) EOSINOPHILS ABSOLUTE COUNT (BEAKER) (test 0.07 K/ L 0.00-0.50 iqfb=222) BASOPHILS ABSOLUTE COUNT (BEAKER) (test 0.01 K/ L 0.00-0.20 yfet=183) 0.00POCT-GLUCOSE [id number] 18:13:00 Test Item Value Reference Range Comments POC-GLUCOSE METER (BEAKER) 110 mg/dL 70-110 TESTED AT [facility] [address] [facility] (test iwdw=7664) [place] [id number] POCT-GLUCOSE [id number] 11:50:00 Test Item Value Reference Range Comments POC-GLUCOSE METER (BEAKER) 107 mg/dL 70-110 TESTED AT [place] [id number] [facility] (test igou=2487) [place] [id number] POCT-GLUCOSE [id number] 06:35:00 Test Item Value Reference Range Comments POC-GLUCOSE METER (BEAKER) 113 mg/dL 70-110 TESTED AT [address] (test hflw=2052) [place] [id number] CBC W/PLT COUNT & AUTO [id number] 03:27:00 Test Item Value Reference Range Comments WHITE BLOOD CELL COUNT (BEAKER) (test prcl=439) 10.0 K/ L 4.0-10.0 RED BLOOD CELL COUNT (BEAKER) (test txqg=224) 4.64 M/ L 4.20-5.80 HEMOGLOBIN (BEAKER) (test icyg=090) 11.9 GM/DL 13.0-16.8 HEMATOCRIT (BEAKER) (test fnjc=638) 36.8 % 40.0-50.0 MEAN CORPUSCULAR VOLUME (BEAKER) (test zfqi=524) 79.3 fL 82.0-98.0 MEAN CORPUSCULAR HEMOGLOBIN (BEAKER) (test 25.6 pg 27.0-33.0 msrj=714) MEAN CORPUSCULAR HEMOGLOBIN CONC (BEAKER) (test 32.3 GM/DL 32.0-36.0 sxkf=014) RED CELL DISTRIBUTION WIDTH (BEAKER) (test 14.4 % 10.3-14.2 wrgg=700) PLATELET COUNT (BEAKER) (test nyhp=273) 135 K/CU MM 150-430 MEAN PLATELET VOLUME (BEAKER) (test rhri=507) 9.7 fL 6.5-10.5 NUCLEATED RED BLOOD CELLS (BEAKER) (test 0 /100 WBC 0-0 uayi=600) NEUTROPHILS RELATIVE PERCENT (BEAKER) (test 81 % urrq=249) LYMPHOCYTES RELATIVE PERCENT (BEAKER) (test 7 % uuum=640) MONOCYTES RELATIVE PERCENT (BEAKER) (test 12 % kuyn=774) EOSINOPHILS RELATIVE PERCENT (BEAKER) (test 1 % agvb=198) BASOPHILS RELATIVE PERCENT (BEAKER) (test 0 % doep=785) NEUTROPHILS ABSOLUTE COUNT (BEAKER) (test 8.03 K/ L 1.80-8.00 clmu=277) LYMPHOCYTES ABSOLUTE COUNT (BEAKER) (test 0.69 K/ L 1.48-4.50 dsbw=174) MONOCYTES ABSOLUTE COUNT (BEAKER) (test 1.19 K/ L 0.00-1.30 nsvv=540) EOSINOPHILS ABSOLUTE COUNT (BEAKER) (test 0.07 K/ L 0.00-0.50 fmem=581) BASOPHILS ABSOLUTE COUNT (BEAKER) (test 0.00 K/ L 0.00-0.20 kmit=005) 0.00BASIC METABOLIC [id number] 03:16:00 Test Item Value Reference Range Comments SODIUM (BEAKER) (test 135 meq/L 136-145 vyle=071) POTASSIUM (BEAKER) (test 4.3 meq/L 3.5-5.1 juyi=481) CHLORIDE (BEAKER) (test 104 meq/L 98-107 agam=651) CO2 (BEAKER) (test 26 meq/L 22-29 yolk=784) BLOOD UREA NITROGEN 19 mg/dL 7-21 (BEAKER) (test njgx=796) CREATININE (BEAKER) (test 1.35 mg/dL 0.57-1.25 sgcz=475) GLUCOSE RANDOM (BEAKER) 110 mg/dL 70-105 (test vvwh=626) CALCIUM (BEAKER) (test 8.2 mg/dL 8.4-10.2 pknn=347) EGFR (BEAKER) (test 63 mL/min/1.73 sq m ESTIMATED GFR IS NOT chfv=5124) ACCURATE CREATININE CLEARANCE IN PREDICTING GLOMERULAR FILTRATION RATE. ESTIMATED GFR IS NOT APPLICABLE FOR DIALYSIS PATIENTS. POCT-GLUCOSE [id number] 00:29:00 Test Item Value Reference Range Comments POC-GLUCOSE METER (BEAKER) 114 mg/dL 70-110 TESTED AT [address] (test jnbz=4077) [facility] [address] POCT-GLUCOSE [id number] 00:21:00 Test Item Value Reference Range Comments POC-GLUCOSE METER (BEAKER) 115 mg/dL 70-110 TESTED AT [address] (test bfgs=3945) [facility] [address] POCT-GLUCOSE [id number] 12:42:00 Test Item Value Reference Range Comments POC-GLUCOSE METER (BEAKER) 114 mg/dL 70-110 TESTED AT [facility] [address] [facility] (test clrk=9281) [facility] [address] POCT-GLUCOSE [id number] 06:45:00 Test Item Value Reference Range Comments POC-GLUCOSE METER (BEAKER) 126 mg/dL 70-110 TESTED AT [facility] [address] [facility] (test veps=8146) [facility] [address] [id number] 05:26:00 Test Item Value Reference Range Comments FERRITIN (BEAKER) (test uaru=229) 220 ng/mL 5-275 Effective 08/03/2014: Reference Range ChangeNew: Male 5-275 Previous: Male 22-322 Female 5-275 Female 10-291BASI METABOLIC [id number] 05:01:00 Test Item Value Reference Range Comments SODIUM (BEAKER) (test 137 meq/L 136-145 vgxv=134) POTASSIUM (BEAKER) (test 3.9 meq/L 3.5-5.1 Specimen slightly kpik=363) hemolyzed CHLORIDE (BEAKER) (test 108 meq/L 98-107 jett=625) CO2 (BEAKER) (test 22 meq/L 22-29 ndfn=798) BLOOD UREA NITROGEN 13 mg/dL 7-21 (BEAKER) (test venr=611) CREATININE (BEAKER) (test 1.23 mg/dL 0.57-1.25 Specimen slightly flzu=692) hemolyzed GLUCOSE RANDOM (BEAKER) 114 mg/dL 70-105 (test mpoc=705) CALCIUM (BEAKER) (test 7.6 mg/dL 8.4-10.2 apgb=256) EGFR (BEAKER) (test 70 mL/min/1.73 sq m ESTIMATED GFR IS NOT eqvc=0246) ACCURATE CREATININE CLEARANCE IN PREDICTING GLOMERULAR FILTRATION RATE. ESTIMATED GFR IS NOT APPLICABLE FOR DIALYSIS PATIENTS. [id number] 04:59:00 Test Item Value Reference Range Comments MAGNESIUM (BEAKER) (test 1.5 mg/dL 1.6-2.6 Specimen slightly hemolyzed cejo=484) [id number] 04:59:00 Test Item Value Reference Range Comments PHOSPHORUS (BEAKER) (test 3.5 mg/dL 2.3-4.7 Specimen slightly hemolyzed hfbq=256) CBC W/PLT COUNT & AUTO [id number] 04:52:00 Test Item Value Reference Range Comments WHITE BLOOD CELL COUNT (BEAKER) (test tepr=939) 9.5 K/ L 4.0-10.0 RED BLOOD CELL COUNT (BEAKER) (test mwqr=863) 4.57 M/ L 4.20-5.80 HEMOGLOBIN (BEAKER) (test fvza=784) 11.5 GM/DL 13.0-16.8 HEMATOCRIT (BEAKER) (test gprr=914) 36.2 % 40.0-50.0 MEAN CORPUSCULAR VOLUME (BEAKER) (test fdbo=925) 79.3 fL 82.0-98.0 MEAN CORPUSCULAR HEMOGLOBIN (BEAKER) (test 25.2 pg 27.0-33.0 arsy=538) MEAN CORPUSCULAR HEMOGLOBIN CONC (BEAKER) (test 31.7 GM/DL 32.0-36.0 yddn=170) RED CELL DISTRIBUTION WIDTH (BEAKER) (test 14.6 % 10.3-14.2 wyko=296) PLATELET COUNT (BEAKER) (test geoo=275) 98 K/CU MM 150-430 MEAN PLATELET VOLUME (BEAKER) (test uvlm=160) 10.8 fL 6.5-10.5 NUCLEATED RED BLOOD CELLS (BEAKER) (test 0 /100 WBC 0-0 bwvn=976) NEUTROPHILS RELATIVE PERCENT (BEAKER) (test 81 % vsap=471) LYMPHOCYTES RELATIVE PERCENT (BEAKER) (test 9 % rcav=790) MONOCYTES RELATIVE PERCENT (BEAKER) (test 10 % yzza=138) EOSINOPHILS RELATIVE PERCENT (BEAKER) (test 0 % tmgh=639) BASOPHILS RELATIVE PERCENT (BEAKER) (test 0 % fpmv=845) NEUTROPHILS ABSOLUTE COUNT (BEAKER) (test 7.71 K/ L 1.80-8.00 cyfe=473) LYMPHOCYTES ABSOLUTE COUNT (BEAKER) (test 0.81 K/ L 1.48-4.50 zwfm=751) MONOCYTES ABSOLUTE COUNT (BEAKER) (test lxjr=617) 0.93 K/ L 0.00-1.30 EOSINOPHILS ABSOLUTE COUNT (BEAKER) (test 0.03 K/ L 0.00-0.50 ropm=285) BASOPHILS ABSOLUTE COUNT (BEAKER) (test ynim=696) 0.04 K/ L 0.00-0.20 RETICULOCYTE [id number] 04:51:00 Test Item Value Reference Range Comments RETICULOCYTE COUNT PCT (BEAKER) (test uxal=113) 0.9 % 0.4-2.9 POCT-GLUCOSE [id number] 00:25:00 Test Item Value Reference Range Comments POC-GLUCOSE METER (BEAKER) 124 mg/dL 70-110 TESTED AT [address] (test riex=0090) [place] [address] POCT-GLUCOSE [id number] 17:53:00 Test Item Value Reference Range Comments POC-GLUCOSE METER (BEAKER) 126 mg/dL 70-110 TESTED AT [address] (test wxde=0739) [place] [address] PERIPHERAL BLOOD SMEAR - PATHOLOGIST [id number] 13:47:00 Test Item Value Reference Range Comments RBC MORPHOLOGY (BEAKER) Anisocytosis (test yfcr=1534) RBC MORPHOLOGY (BEAKER) Poikilocytosis (test kfkd=38382) RBC MORPHOLOGY (BEAKER) Polychromasia (test kcmx=58273) WBC MORPHOLOGY (BEAKER) Unremarkable (test zkvn=2979) PLT MORPHOLOGY (BEAKER) Unremarkable (test ykvp=9603) PERIPHERAL SMR REVIEW No circulating blasts. No (BEAKER) (test oxrq=5153) significantly increased shistocytes. [id number] Mark Acuna, (BEAKER) (test nrom=6217) M.D.(electronic signature) POCT-GLUCOSE [id number] 12:00:00 Test Item Value Reference Range Comments POC-GLUCOSE METER (BEAKER) 101 mg/dL 70-110 TESTED AT [address] (test xhfv=4236) [place] [address] [id number] 07:34:00 Test Item Value Reference Range Comments COL/EPI CLOSURE TIME (BEAKER) 93 Seconds 78-191 (test emxu=2703) COL/ADP CLOSURE TIME (BEAKER) 62 Seconds 43-122 (test ypjv=3835) PLATELET COUNT AGG (BEAKER) 113 K/CU MM 150-430 Previous platelet result was (test yjkn=2080) 113. Lavender top for platelet clotted! Hematocrit <35% or platelet count <150,000/CU MM may contribute to falsely elevated PFA-100.PT/[id number] 07:33:00 Test Item Value Reference Range Comments PROTIME (BEAKER) (test giqi=628) 14.1 seconds 11.7-14.7 INR (BEAKER) (test exeu=313) 1.1 <=5.9 PARTIAL THROMBOPLASTIN TIME (BEAKER) (test 30.8 seconds 22.5-36.0 fyta=275) RECOMMENDED COUMADIN/WARFARIN INR THERAPY RANGESSTANDARD DOSE: 2.0 - 3.0 Includes: PROPHYLAXIS forvenous thrombosis, systemic embolization; TREATMENT for venous thrombosis and/or pulmonary embolus.HIGH RISK: Target INR is 2.5-3.5 for patients with mechanical heart valves.VITAMIN B12 AND [id number] 06:33 :00 Test Item Value Reference Range Comments VITAMIN B12 (BEAKER) (test ngew=835) 327 pg/mL 213-816 FOLATE (BEAKER) (test hphb=956) 9.6 ng/mL >=7.0 Effective 08/03/2014: Folate Reference Range ChangeNew: >=7.0 Previous: & gt;=5.4POCT-GLUCOSE [id number] 06:32:00 Test Item Value Reference Range Comments POC-GLUCOSE METER (BEAKER) 79 mg/dL 70-110 TESTED AT [address] (test blad=9321) [facility] [address] CBC W/PLT COUNT & AUTO [id number] 06:29:00 Test Item Value Reference Range Comments WHITE BLOOD CELL COUNT (BEAKER) (test rooq=989) 7.9 K/ L 4.0-10.0 RED BLOOD CELL COUNT (BEAKER) (test qdqj=496) 5.16 M/ L 4.20-5.80 HEMOGLOBIN (BEAKER) (test aykz=103) 13.0 GM/DL 13.0-16.8 HEMATOCRIT (BEAKER) (test ipyy=403) 41.2 % 40.0-50.0 MEAN CORPUSCULAR VOLUME (BEAKER) (test xccv=298) 79.9 fL 82.0-98.0 MEAN CORPUSCULAR HEMOGLOBIN (BEAKER) (test 25.2 pg 27.0-33.0 etwr=552) MEAN CORPUSCULAR HEMOGLOBIN CONC (BEAKER) (test 31.6 GM/DL 32.0-36.0 dukp=080) RED CELL DISTRIBUTION WIDTH (BEAKER) (test 14.8 % 10.3-14.2 qvyn=348) PLATELET COUNT (BEAKER) (test lphv=822) 108 K/CU MM 150-430 MEAN PLATELET VOLUME (BEAKER) (test lrgg=094) 11.2 fL 6.5-10.5 NUCLEATED RED BLOOD CELLS (BEAKER) (test 0 /100 WBC 0-0 meas=487) NEUTROPHILS RELATIVE PERCENT (BEAKER) (test 71 % lcdy=139) LYMPHOCYTES RELATIVE PERCENT (BEAKER) (test 17 % ojvg=079) MONOCYTES RELATIVE PERCENT (BEAKER) (test 9 % otpj=736) EOSINOPHILS RELATIVE PERCENT (BEAKER) (test 2 % xcvt=636) BASOPHILS RELATIVE PERCENT (BEAKER) (test 0 % xrth=408) NEUTROPHILS ABSOLUTE COUNT (BEAKER) (test 5.62 K/ L 1.80-8.00 dogy=679) LYMPHOCYTES ABSOLUTE COUNT (BEAKER) (test 1.37 K/ L 1.48-4.50 pdtb=530) MONOCYTES ABSOLUTE COUNT (BEAKER) (test 0.73 K/ L 0.00-1.30 bbxf=693) EOSINOPHILS ABSOLUTE COUNT (BEAKER) (test 0.16 K/ L 0.00-0.50 mqyp=751) BASOPHILS ABSOLUTE COUNT (BEAKER) (test 0.02 K/ L 0.00-0.20 razk=344) 0.00IRON, TIBC, % SAT. (WITHOUT FERRITIN)2017-02-05 05:59:00 Test Item Value Reference Range Comments IRON (BEAKER) (test hppe=942) 37 ug/dL 40-160 TOTAL IRON BINDING CAPACITY (BEAKER) (test 206 ug/dL 250-450 aslz=779) IRON % SATURATION (2) (BEAKER) (test nube=9730) 18 % 20-55 [id number] 05:33:00 Test Item Value Reference Range Comments PHOSPHORUS (BEAKER) (test dsbk=615) 3.4 mg/dL 2.3-4.7 Once on admission and Daily AM afterwardsOnce on admission and Daily AM afterwardsOnce on admission and Daily AM [id number] 05:33:00 Test Item Value Reference Range Comments MAGNESIUM (BEAKER) (test ffml=212) 1.7 mg/dL 1.6-2.6 Once on admission and Daily AM afterwardsOnce on admission and Daily AM afterwardsOnce on admission and Daily AM afterwardsBASIC METABOLIC [id number] 05:33:00 Test Item Value Reference Range Comments SODIUM (BEAKER) (test 139 meq/L 136-145 nffp=960) POTASSIUM (BEAKER) (test 4.9 meq/L 3.5-5.1 ysxv=314) CHLORIDE (BEAKER) (test 107 meq/L 98-107 pway=693) CO2 (BEAKER) (test 26 meq/L 22-29 uzlb=037) BLOOD UREA NITROGEN 15 mg/dL 7-21 (BEAKER) (test ayfc=208) CREATININE (BEAKER) (test 1.51 mg/dL 0.57-1.25 cqes=040) GLUCOSE RANDOM (BEAKER) 76 mg/dL 70-105 (test nobw=597) CALCIUM (BEAKER) (test 8.5 mg/dL 8.4-10.2 fdui=218) EGFR (BEAKER) (test 55 mL/min/1.73 sq m ESTIMATED GFR IS NOT rvzg=6771) ACCURATE CREATININE CLEARANCE IN PREDICTING GLOMERULAR FILTRATION RATE. ESTIMATED GFR IS NOT APPLICABLE FOR DIALYSIS PATIENTS. Once on admission and Daily AM afterwardsOnce on admission and Daily AM afterwardsOnce on admission and Daily AM afterwardsPOCT-GLUCOSE [id number] 00:30:00 Test Item Value Reference Range Comments POC-GLUCOSE METER (BEAKER) 78 mg/dL 70-110 TESTED AT [address] (test iyiq=5905) [facility] [id number] POCT-GLUCOSE [id number] 18:20:00 Test Item Value Reference Range Comments POC-GLUCOSE METER (BEAKER) 156 mg/dL 70-110 TESTED AT [place] [id number] [facility] (test trnt=6031) [facility] [address] PLATELET AGGREGATION: FUNCTION [id number] 15:53:00 Test Item Value Reference Range Comments WEAK ADP RESULT(BEAKER) (test 94 % 60-91 hxlh=8699) PLATELET FUNCTION SCREEN 60-100% indicates normal INTERP (BEAKER) (test platelet function hvgp=7574) [id number] (BEAKER) Aurora Pascual MD (electronic (test iiwo=0352) signature) PLATELET COUNT AGG (BEAKER) 113 K/CU MM 150-430 (test dueb=1040) POCT-GLUCOSE [id number] 14:21:00 Test Item Value Reference Range Comments POC-GLUCOSE METER (BEAKER) 82 mg/dL 70-110 TESTED AT [facility] [address] [facility] (test qmvy=7612) [facility] [address] HEPATIC FUNCTION [id number] 07:38:00 Test Item Value Reference Range Comments TOTAL PROTEIN (BEAKER) (test 7.6 gm/dL 6.0-8.3 Specimen slightly hemolyzed cplm=953) ALBUMIN (BEAKER) (test 3.4 g/dL 3.5-5.0 Specimen slightly hemolyzed citd=3024) BILIRUBIN TOTAL (BEAKER) (test 0.8 mg/dL 0.2-1.2 Specimen slightly hemolyzed kltr=718) BILIRUBIN DIRECT (BEAKER) (test 0.3 mg/dL 0.1-0.5 Specimen slightly hemolyzed txfk=644) ALKALINE PHOSPHATASE (BEAKER) 49 U/L 40-150 (test iqvb=982) AST (SGOT) (BEAKER) (test 16 U/L 5-34 Specimen slightly hemolyzed rmmv=673) ALT (SGPT) (BEAKER) (test 16 U/L 6-55 Specimen slightly hemolyzed fptn=874) PROTHROMBIN [id number] 07:10:00 Test Item Value Reference Range Comments PROTIME (BEAKER) (test ewxt=646) 14.9 seconds 11.7-14.7 INR (BEAKER) (test symp=332) 1.2 <=5.9 RECOMMENDED COUMADIN/WARFARIN INR THERAPY RANGESSTANDARD DOSE: 2.0 - 3.0 Includes: PROPHYLAXIS forvenous thrombosis, systemic embolization; TREATMENT for venous thrombosis and/or pulmonary embolus.HIGH RISK: Target INR is 2.5-3.5 for patients with mechanical heart valves.[id number] 07:10:00 Test Item Value Reference Range Comments PARTIAL THROMBOPLASTIN TIME (BEAKER) (test 35.9 seconds 22.5-36.0 hfqn=060) CBC W/PLT COUNT & AUTO [id number] 07:07:00 Test Item Value Reference Range Comments WHITE BLOOD CELL COUNT (BEAKER) (test tqrx=893) 7.4 K/ L 4.0-10.0 RED BLOOD CELL COUNT (BEAKER) (test mlbe=994) 5.04 M/ L 4.20-5.80 HEMOGLOBIN (BEAKER) (test tzvr=506) 12.9 GM/DL 13.0-16.8 HEMATOCRIT (BEAKER) (test pezk=173) 40.0 % 40.0-50.0 MEAN CORPUSCULAR VOLUME (BEAKER) (test raba=929) 79.2 fL 82.0-98.0 MEAN CORPUSCULAR HEMOGLOBIN (BEAKER) (test 25.6 pg 27.0-33.0 refr=175) MEAN CORPUSCULAR HEMOGLOBIN CONC (BEAKER) (test 32.3 GM/DL 32.0-36.0 nmiq=212) RED CELL DISTRIBUTION WIDTH (BEAKER) (test 14.5 % 10.3-14.2 fzfw=702) PLATELET COUNT (BEAKER) (test rpvn=009) 94 K/CU MM 150-430 MEAN PLATELET VOLUME (BEAKER) (test eajw=358) 11.7 fL 6.5-10.5 NUCLEATED RED BLOOD CELLS (BEAKER) (test 0 /100 WBC 0-0 pyzo=789) NEUTROPHILS RELATIVE PERCENT (BEAKER) (test 72 % hwrq=465) LYMPHOCYTES RELATIVE PERCENT (BEAKER) (test 17 % vtua=745) MONOCYTES RELATIVE PERCENT (BEAKER) (test 9 % omua=784) EOSINOPHILS RELATIVE PERCENT (BEAKER) (test 2 % fpec=262) BASOPHILS RELATIVE PERCENT (BEAKER) (test 0 % opwj=888) NEUTROPHILS ABSOLUTE COUNT (BEAKER) (test 5.33 K/ L 1.80-8.00 flrx=848) LYMPHOCYTES ABSOLUTE COUNT (BEAKER) (test 1.25 K/ L 1.48-4.50 alds=422) MONOCYTES ABSOLUTE COUNT (BEAKER) (test piop=457) 0.66 K/ L 0.00-1.30 EOSINOPHILS ABSOLUTE COUNT (BEAKER) (test 0.12 K/ L 0.00-0.50 esxu=406) BASOPHILS ABSOLUTE COUNT (BEAKER) (test dycx=463) 0.03 K/ L 0.00-0.20 0.00
[2018-06-01 03:33] LABS: Absolute Lymphocytes (CBC) 1.6 K/uL (0.7-4.9); Absolute Monocytes 0.8 K/uL (0.1-1.3); Absolute Neutrophil 4.8 K/uL (1.8-8.0); Basophils % 1.1 % (0-1.3); Eosinophils % 2.9 % (0-4.4); Lymphocytes % 21.7 % (15.3-44.8); MCH 24.3 pg (27.0-35.0); MCV 75.4 fL (80-100); Monocytes % 10.8 % (3.3-12.3); RBC Red Blood Cell Count 5.04 M/uL (4.33-5.43)
[2018-06-01 03:49] LABS: BUN Blood Urea Nitrogen 31 mg/dL (7-18); Bicarbonate 30 mmol/L (21-32); Glucose Level 87 mg/dL (74-106); Potassium 4.8 mmol/L (3.5-5.1); Sodium Level 140 mmol/L (136-145); Troponin (Emerg Dept Use Only) < 0.02 ng/mL (0.0-0.045)
--- NOTE | 2018-06-01 04:10 | EDPHYS ---
Physician Documentation [facility] Name: Reggie Mayer Age: 73 yrs Sex: Male : 1945 Arrival Date: 06/01/2018 Time: 02:00 Bed 6 Private MD: Bear Moreira ED Physician Clayton Arce HPI: 06/01 04:02 This 73 yrs old Black Male presents to ER via Ambulatory with complaints of Chest Pain. gs 04:02 The patient or guardian reports chest pain that is located primarily in the anterior gs chest wall. Onset: 2 week(s) ago. The pain does not radiate. Associated signs and symptoms: Pertinent negatives: abdominal pain, diaphoresis. The chest pain is described as a heaviness. Duration: The patient or guardian reports multiple episodes, that are intermittent, that wax and wane, with no pattern. Modifying factors: The symptoms are alleviated by nothing. the symptoms are aggravated by nothing. Severity of pain: At its worst the pain was moderate in the emergency department the pain has resolved. The patient has experienced similar episodes in the past, several times. The patient has been recently been admitted at [facility], was discharged a couple of weeks ago. Historical: - Allergies: 02:25 NKA; fc - Home Meds: 02:25 tamsulosin 0.4 mg Oral cp24 1 cap once daily [Active]; lisinopril 20 mg Oral tab 1 tab fc twice a day [Active]; carvedilol 6.25 mg Oral tab 1 tab 2 times per day [Active]; aspirin 81 mg Oral chew 1 tab once daily [Active]; allopurinol 100 mg Oral tab 1 tab once daily [Active]; atorvastatin 40 mg Oral tab 1 tab once daily [Active]; - PMHx: 02:25 Hyperlipidemia; Hypertension; Chronic kidney disease; fc - PSHx: 02:25 hematoma evacuated from head post fall; fc - Immunization history:: Last tetanus immunization: up to date. - Social history:: Smoking status: Patient/guardian denies using tobacco. - Ebola Screening: : Patient negative for fever greater than or equal to 101.5 degrees Fahrenheit, and additional compatible Ebola Virus Disease symptoms Patient denies exposure to infectious person Patient denies travel to an Ebola-affected area in the 21 days before illness onset. ROS: 04:02 All other systems are negative. gs Exam: 04:02 Head/Face: Normocephalic, atraumatic. Eyes: Pupils equal round and reactive to light, gs extra-ocular motions intact. Lids and lashes normal. Conjunctiva and sclera are non-icteric and not injected. Cornea within normal limits. Periorbital areas with no swelling, redness, or edema. ENT: Nares patent. No nasal discharge, no septal abnormalities noted. Tympanic membranes are normal and external auditory canals are clear. Oropharynx with no redness, swelling, or masses, exudates, or evidence of obstruction, uvula midline. Mucous membranes moist. Neck: Trachea midline, no thyromegaly or masses palpated, and no cervical lymphadenopathy. Supple, full range of motion without nuchal rigidity, or vertebral point tenderness. No Meningismus. Chest/axilla: Normal chest wall appearance and motion. Nontender with no deformity. No lesions are appreciated. Cardiovascular: Regular rate and rhythm with a normal S1 and S2. No gallops, murmurs, or rubs. Normal PMI, no JVD. No pulse deficits. Respiratory: Lungs have equal breath sounds bilaterally, clear to auscultation and percussion. No rales, rhonchi or wheezes noted. No increased work of breathing, no retractions or nasal flaring. Abdomen/GI: Soft, non-tender, with normal bowel sounds. No distension or tympany. No guarding or rebound. No evidence of tenderness throughout. Back: No spinal tenderness. No costovertebral tenderness. Full range of motion. Skin: Warm, dry with normal turgor. Normal color with no rashes, no lesions, and no evidence of cellulitis. MS/ Extremity: Pulses equal, no cyanosis. Neurovascular intact. Full, normal range of motion. Neuro: Awake and alert, GCS 15, oriented to person, place, time, and situation. Cranial nerves II-XII grossly intact. Motor strength 5/5 in all extremities. Sensory grossly intact. Cerebellar exam normal. Normal gait. 04:02 Constitutional: The patient appears alert, awake. 04:02 ECG was reviewed by the Attending Physician. Vital Signs: 02:20 BP 147 / 97; Pulse 63; Resp 18; Temp 97.6(O); Pulse Ox 95% on R/A; Weight 108.86 kg fc (R); Height 6 ft. 1 in. (185.42 cm) (R); Pain 10/10; 03:57 BP 138 / 78; Pulse 62; Resp 18; Pulse Ox 96% ; ea 04:22 BP 142 / 90; Pulse 60; Resp 18; Pulse Ox 99% on R/A; ea 02:20 Body Mass Index 31.66 (108.86 kg, 185.42 cm) MDM: 02:18 Patient medically screened. 04:02 Differential diagnosis: acute myocardial infarction, coronary artery disease congestive gs heart failure. Data reviewed: vital signs, nurses notes. Counseling: I had a detailed discussion with the patient and/or guardian regarding: the historical points, exam findings, and any diagnostic results supporting the discharge/admit diagnosis, lab results, radiology results. Response to treatment: the patient's symptoms have resolved after treatment, the patient's pain is gone. 06/01 02:20 Order name: Basic Metabolic Panel; Complete Time: 04:10 06/01 02:20 Order name: CBC with Diff; Complete Time: 04: 06/01 02:20 Order name: Troponin (emerg Dept Use Only); Complete Time: 04:10 06/01 02:20 Order name: XRAY Chest (1 view) 06/01 02:20 Order name: EKG; Complete Time: 02:20 06/01 02:20 Order name: Cardiac monitoring; Complete Time: 02:27 06/01 02:20 Order name: EKG - Nurse/Tech; Complete Time: 02:27 06/01 02:20 Order name: IV Saline Lock; Complete Time: 03:34 06/01 02:20 Order name: Labs collected and sent; Complete Time: 03:34 06/01 02:20 Order name: O2 Per Protocol; Complete Time: 02: 06/01 02:20 Order name: O2 Sat Monitoring; Complete Time: 02:27 EC:02 Rate is 59 beats/min. Rhythm is regular. AK interval is normal. QRS interval is normal. Q waves are Old in leads III, aVF. T waves are Normal. No ST changes noted. Clinical impression: Abnormal EKG without significant change. Interpreted by me. Administered Medications: No medications were administered Disposition: 06/01/18 04:09 Discharged to Home. Impression: Chest pain, unspecified. - Condition is Stable. - Discharge Instructions: Nonspecific Chest Pain. - Medication Reconciliation Form, Thank You Letter, Antibiotic Education, Prescription Opioid Use form. - Follow up: Private Physician; When: 2 - 3 days; Reason: Re-evaluation by your physician. Follow up: Oscar Yee MD; When: 2 - 3 days; Reason: Re-evaluation by your physician. Signatures: Dispatcher [employer] EDDE Lynn Cuevas RN RN fc Antunez, Elena, RN RN ea ArceClayton marshall MD MD gs Corrections: (The following items were deleted from the chart) 04:10 04:09 06/01/2018 04:09 Discharged to Home. Impression: Chest pain, unspecified. gs Condition is Stable. Forms are Medication Reconciliation Form, Thank You Letter, Antibiotic Education, Prescription Opioid Use. Follow up: Private Physician; When: 2 - 3 days; Reason: Re-evaluation by your physician. gs 04:25 04:10 06/01/2018 04:09 Discharged to Home. Impression: Chest pain, unspecified. ea Condition is Stable. Forms are Medication Reconciliation Form, Thank You Letter, Antibiotic Education, Prescription Opioid Use. Follow up: Private Physician; When: 2 - 3 days; Reason: Re-evaluation by your physician. Follow up: Oscar Yee; When: 2 - 3 days; Reason: Re-evaluation by your physician. gs
--- NOTE | 2018-06-01 04:10 | ER ---
Nurse's Notes [facility] Name: Reggie Mayer Age: 73 yrs Sex: Male : 1945 Arrival Date: 06/01/2018 Time: 02:00 Bed 6 Private MD: Bear Moreira Diagnosis: Chest pain, unspecified Presentation: 06/01 02:20 Presenting complaint: Patient states: that he is having chest pain that radiates down fc left arm. Denies any nausea, vomiting or shortness of breath. Has been seen here x 2 in the past week for the same thing. Has also been seen by his PCP. Transition of care: patient was not received from another setting of care. Onset of symptoms was May 23, 2018. Risk Assessment: Do you want to hurt yourself or someone else? Patient reports no desire to harm self or others. Initial Sepsis Screen: Does the patient meet any 2 criteria? No. Patient's initial sepsis screen is negative. Does the patient have a suspected source of infection? No. Patient's initial sepsis screen is negative. Care prior to arrival: None. 02:20 Method Of Arrival: Ambulatory 02:20 Acuity: AQUILES 3 fc Historical: - Allergies: 02:25 NKA; fc - Home Meds: 02:25 tamsulosin 0.4 mg Oral cp24 1 cap once daily [Active]; lisinopril 20 mg Oral tab 1 tab fc twice a day [Active]; carvedilol 6.25 mg Oral tab 1 tab 2 times per day [Active]; aspirin 81 mg Oral chew 1 tab once daily [Active]; allopurinol 100 mg Oral tab 1 tab once daily [Active]; atorvastatin 40 mg Oral tab 1 tab once daily [Active]; - PMHx: 02:25 Hyperlipidemia; Hypertension; Chronic kidney disease; fc - PSHx: 02:25 hematoma evacuated from head post fall; fc - Immunization history:: Last tetanus immunization: up to date. - Social history:: Smoking status: Patient/guardian denies using tobacco. - Ebola Screening: : Patient negative for fever greater than or equal to 101.5 degrees Fahrenheit, and additional compatible Ebola Virus Disease symptoms Patient denies exposure to infectious person Patient denies travel to an Ebola-affected area in the 21 days before illness onset. Screenin:20 Abuse screen: Denies threats or abuse. Nutritional screening: No deficits noted. fc Tuberculosis screening: No symptoms or risk factors identified. Fall Risk None identified. Assessment: 02:35 General: Appears in no apparent distress. Behavior is calm, cooperative, appropriate ea for age. Pain: Complains of pain in chest Pain does not radiate. Pain began 1 week ago. Neuro: Level of Consciousness is awake, alert, obeys commands, Oriented to person, place, time, situation. Cardiovascular: Heart tones S1 S2 present Patient's skin is warm and dry. Respiratory: Airway is patent Respiratory effort is even, unlabored, Respiratory pattern is regular, Breath sounds are clear bilaterally. GI: No signs and/or symptoms were reported involving the gastrointestinal system. : No signs and/or symptoms were reported regarding the genitourinary system. Derm: Skin is pink, warm \T\ dry. 03:50 Reassessment: Patient and/or family updated on plan of care and expected duration. Pain ea level reassessed. Patient is alert, oriented x 3, equal unlabored respirations, skin warm/dry/pink. 04:21 Reassessment: Patient and/or family updated on plan of care and expected duration. Pain ea level reassessed. Patient is alert, oriented x 3, equal unlabored respirations, skin warm/dry/pink. Discharge instructions given to patient, verbalized the understanding of instructions. Vital Signs: 02:20 BP 147 / 97; Pulse 63; Resp 18; Temp 97.6(O); Pulse Ox 95% on R/A; Weight 108.86 kg fc (R); Height 6 ft. 1 in. (185.42 cm) (R); Pain 10/10; 03:57 BP 138 / 78; Pulse 62; Resp 18; Pulse Ox 96% ; ea 04:22 BP 142 / 90; Pulse 60; Resp 18; Pulse Ox 99% on R/A; ea 02:20 Body Mass Index 31.66 (108.86 kg, 185.42 cm) ED Course: 02:00 Patient arrived in ED. ds1 02:01 Bear Moreira DO is Private Physician. ds1 02:13 Clayton Arce MD is Attending Physician. gs 02:20 Arm band placed on Patient placed in an exam room, on a stretcher. 02:20 Patient has correct armband on for positive identification. Placed in gown. Bed in low fc position. Call light in reach. Side rails up X 1. classroom monitor on. Pulse ox on. NIBP on. 02:20 Inserted saline lock: 20 gauge in right antecubital area, using aseptic technique. ea Blood collected. 02:22 Triage completed. fc 02:32 Shayy Singh, RN is Primary Nurse. ea 02:44 X-ray completed. Portable x-ray completed in exam room. Patient tolerated procedure mh1 well. 02:44 XRAY Chest (1 view) In Process Unspecified. EDMS 03:00 Patient maintains SpO2 saturation greater than 95% on room air. ea 04:10 Oscar Yee MD is Referral Physician. gs 04:23 No provider procedures requiring assistance completed. IV discontinued, intact, ea bleeding controlled, No redness/swelling at site. Pressure dressing applied. Administered Medications: No medications were administered Outcome: 04:09 Discharge ordered by . gs 04:24 Discharged to home ambulatory, with significant other. ea 04:24 Condition: improved 04:24 Discharge instructions given to patient, Instructed on discharge instructions, follow up and referral plans. Demonstrated understanding of instructions, follow-up care. 04:25 Patient left the ED. ea Signatures: Dispatcher [employer] [facility] Barbara Montano 1 Lynn Cuevas RN RN Maritza Ruiz 1 Shayy Singh RN RN ea Starr, Gregory, MD MD
--- NOTE | 2018-06-01 08:33 | RAD REPORT ---
EXAM DESCRIPTION: RAD - Chest Single View - 06/01/2018 2:44 am CLINICAL HISTORY: Chest pain radiating to the left arm, history of hypertension COMPARISON: May 18 TECHNIQUE: AP portable chest image was obtained 0241 hours . FINDINGS: Right hemidiaphragm elevation is again noted. No new or progressive right lung field findi ng. Minimal left base patchy opacification present that could be minimal infiltrate or atelectasis. H eart and vasculature are normal. No pneumothorax or large pleural effusion. No gross bony abnormality seen. No acute aortic findings suspected. IMPRESSION: Atelectasis versus patchy pneumonia change left lung base. No significant failure or volume overload.
--- NOTE | 2018-06-02 06:54 | EKG ---
Test Date: 2018-06-01 Test Time: 02:16:45 Care Administrative Tech: LISANDRA MEASUREMENT RESULTS: Intervals: Rate: 59 NV: 190 QRSD: 78 QT: 404 QTc: 399 [place]: P: 32 NV: 190 QRS: 5 T: 41 INTERPRETIVE STATEMENTS: Sinus bradycardia Inferior infarct, age undetermined Abnormal ECG Compared to ECG 05/20/2018 01:40:19 Sinus rhythm no longer present Myocardial infarct finding still present Electronically Signed On 06-02-18 06:51:17 CDT by Herbert Conway
== END 2018-06-01 04:25 | disposition home or self-care (01) ==
LOC: ER 01:59
DX: R07.9 Chest pain, unspecified (principal); I12.9 Hypertensive chronic kidney disease with stage 1 through stage 4 chronic kidney disease, or unspecified chronic kidney disease; N18.9 Chronic kidney disease, unspecified; Z79.82 Long term (current) use of aspirin
CPT/HCPCS: 36415; 71045; 80048; 84484; 85025; 93005; 99285

== ENCOUNTER 2018-12-24 22:36 | Observation (INO) | payer MEDICARE ==
--- OUTSIDE RECORDS SUMMARY | 2018-12-24 22:38 | XMS REPORT | Clinical Summary ---
:1945 Author Organization [facility] Address [address] [place] [address] Care Team Providers Name Role Phone Unavailable Primary Care Provider Unavailable Allergies No Known Allergies Medications Medication Sig Dispensed Refills Start Date End Date Status tamsulosin (FLOMAX) 0.4 Take 0.4 mg by 0 Active mg Cp24 24 hr capsule mouth daily. allopurinol (ZYLOPRIM) Take 100 mg by 0 Active 100 MG tablet mouth daily. atorvastatin (LIPITOR) Take 40 mg by 0 Active 40 MG tablet mouth daily. aspirin 81 MG chewable Take 81 mg by 0 Active tablet mouth daily. 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 Last Filed Vital Signs Not on file Plan of Treatment Not on file Implants Implanted Type Area Oleo Hasher And Renderer Device Shelf Model / Identifier Expiration Serial / Date Lot Matrix Floseal Hemo W/O Ndl 10 [id number] - [id number] Cement/Romario Right: GAYTAN: BIOSCI 06/15/2018 [id number] / Implanted: Qty: 1 on 02/05/2017 by Anatoliy Govea MD ler/Adhesi Head / ve [id number] Plt Rigid 2h [id number] - [id number] Fracture/F Right: ANNMARIE:CRANIOMA [id number] / Implanted: Qty: 3 on 02/05/2017 by Anatoliy Govea MD ixation Head XILLOFACIAL / Scr Un3 Maybell Self Drl 1.5x4mm [id number] - [id number] Fracture/F Right: ANNMARIE:CRANIOMA [id number] / Implanted: Qty: 6 on 02/05/2017 by Anatoliy Govea MD ixation Head XILLOFACIAL / Kt Cath Bactiseal Shnt Carlo 23c [id number] - [id number] Neuro Right: J &J:CODMAN & 08/15/2017 [id number] / Implanted: Qty: 1 on 02/05/2017 by Anatoliy Govea MD Head SHURTLEFF / [id number] Grft Dura Cllgn Duragn 2x2in [id number] - [id number] Tissue Right: INTEGRA 01/13/2019 [id number] / Implanted: Qty: 1 on 02/05/2017 by Anatoliy Govea MD Graft/Subs Head LIFESCI:NEURO / titute [id number] Results Not on fileafter 12/23/2017 Insurance Payer Benefit Plan / Group Subscriber ID Type Phone Address [employer] - MEDICARE AARP/MEDICARE COMPLETE xxxxxxxxx MGD CARE Advance Directives For more information, please contact:[address] MajanoAtchison, [place] [phone] Code Status Date Activated Date Inactivated Comments Full Code 02/04/2017 6:37 AM 02/10/2017 9:03 PM This code status was determined by: Patient
--- OUTSIDE RECORDS SUMMARY | 2018-12-24 22:39 | XMS REPORT ---
:1945 [facility] [address] [place] [address] Care Team Providers Name Role Phone COLTON [...] Comments WHITE BLOOD CELL COUNT (BEAKER) (test wdsh=418) 9.2 K/ L 4.0-10.0 RED BLOOD CELL COUNT (BEAKER) (test cqoc=071) 4.69 M/ L 4.20-5.80 HEMOGLOBIN (BEAKER) (test aslu=192) 12.2 GM/DL 13.0-16.8 HEMATOCRIT (BEAKER) (test uaqe=900) 36.5 % 40.0-50.0 MEAN CORPUSCULAR VOLUME (BEAKER) (test oymx=667) 77.8 fL 82.0-98.0 MEAN CORPUSCULAR HEMOGLOBIN (BEAKER) (test mqve=791) 25.9 pg 27.0-33.0 MEAN CORPUSCULAR HEMOGLOBIN CONC (BEAKER) (test ngyw=458) 33.3 GM/DL 32.0- 36.0 RED CELL DISTRIBUTION WIDTH (BEAKER) (test qusg=179) 15.5 % 10.3-14.2 PLATELET COUNT (BEAKER) (test cper=300) 140 K/CU MM 150-430 MEAN PLATELET VOLUME (BEAKER) (test qehr=824) 10.1 fL 6.5-10.5 NUCLEATED RED BLOOD CELLS (BEAKER) (test ocad=196) 0 /100 WBC 0-0 NEUTROPHILS RELATIVE PERCENT (BEAKER) (test grzz=378) 74 % LYMPHOCYTES RELATIVE PERCENT (BEAKER) (test jmxa=810) 12 % MONOCYTES RELATIVE PERCENT (BEAKER) (test ghdj=596) 13 % EOSINOPHILS RELATIVE PERCENT (BEAKER) (test mhsx=532) 1 % BASOPHILS RELATIVE PERCENT (BEAKER) (test yhxv=586) 0 % NEUTROPHILS ABSOLUTE COUNT (BEAKER) (test ydja=291) 6.78 K/ L 1.80-8.00 LYMPHOCYTES ABSOLUTE COUNT (BEAKER) (test hfnd=122) 1.08 K/ L 1.48-4.50 MONOCYTES ABSOLUTE COUNT (BEAKER) (test amly=949) 1.19 K/ L 0.00-1.30 EOSINOPHILS ABSOLUTE COUNT (BEAKER) (test izqj=633) 0.10 K/ L 0.00-0.50 BASOPHILS ABSOLUTE COUNT (BEAKER) (test rtlp=585) 0.01 K/ L 0.00-0.20 0.00BASIC METABOLIC [id number] 06:12:00 Test Item Value Reference Range Comments SODIUM (BEAKER) (test 136 meq/L 136-145 hroz=083) POTASSIUM (BEAKER) (test 4.5 meq/L 3.5-5.1 xoea=975) CHLORIDE (BEAKER) (test 101 meq/L 98-107 qhfw=178) CO2 (BEAKER) (test 26 meq/L 22-29 xgvg=302) BLOOD UREA NITROGEN 18 mg/dL 7-21 (BEAKER) (test prxa=055) CREATININE (BEAKER) (test 1.28 mg/dL 0.57-1.25 pqjb=754) GLUCOSE RANDOM (BEAKER) 89 mg/dL 70-105 (test cvsw=839) CALCIUM (BEAKER) (test 8.6 mg/dL 8.4-10.2 tgqs=513) EGFR (BEAKER) (test 67 mL/min/1.73 sq m ESTIMATED GFR IS NOT hiat=0175) ACCURATE CREATININE CLEARANCE IN PREDICTING GLOMERULAR FILTRATION RATE. ESTIMATED GFR IS NOT APPLICABLE FOR DIALYSIS PATIENTS. PROTHROMBIN [id number] 05:45:00 Test Item Value Reference Range Comments PROTIME (BEAKER) (test jdnx=878) 14.5 seconds 11.7-14.7 INR (BEAKER) (test xlnw=398) 1.1 <=5.9 RECOMMENDED COUMADIN/WARFARIN INR THERAPY RANGESSTANDARD DOSE: 2.0 - 3.0 Includes: PROPHYLAXIS forvenous thrombosis, systemic embolization; TREATMENT for venous thrombosis and/or pulmonary embolus.HIGH RISK: Target INR is 2.5-3.5 for patients with mechanical heart valves.[id number] 12:38:00 Test Item Value Reference Range Comments SODIUM (BEAKER) (test uymj=643) 134 meq/L 136-145 [id number] 07:07:00 Test Item Value Reference Range Comments PHOSPHORUS (BEAKER) (test njsb=217) 3.3 mg/dL 2.3-4.7 [id number] 07:07:00 Test Item Value Reference Range Comments MAGNESIUM (BEAKER) (test blmz=369) 1.6 mg/dL 1.6-2.6 BASIC METABOLIC [id number] 04:24:00 Test Item Value Reference Range Comments SODIUM (BEAKER) (test 134 meq/L 136-145 pfmw=432) POTASSIUM (BEAKER) (test 4.2 meq/L 3.5-5.1 xdzs=952) CHLORIDE (BEAKER) (test 101 meq/L 98-107 eewr=892) CO2 (BEAKER) (test 27 meq/L 22-29 cuxu=155) BLOOD UREA NITROGEN 18 mg/dL 7-21 (BEAKER) (test walq=885) CREATININE (BEAKER) (test 1.22 mg/dL 0.57-1.25 ysit=241) GLUCOSE RANDOM (BEAKER) 99 mg/dL 70-105 (test vwqn=511) CALCIUM (BEAKER) (test 8.7 mg/dL 8.4-10.2 gpfr=758) EGFR (BEAKER) (test 71 mL/min/1.73 sq m ESTIMATED GFR IS NOT kqfn=7144) ACCURATE CREATININE CLEARANCE IN PREDICTING GLOMERULAR FILTRATION RATE. ESTIMATED GFR IS NOT APPLICABLE FOR DIALYSIS PATIENTS. PROTHROMBIN [id number] 04:16:00 Test Item Value Reference Range Comments PROTIME (BEAKER) (test pjaj=049) 15.0 seconds 11.7-14.7 INR (BEAKER) (test bjrc=319) 1.2 <=5.9 RECOMMENDED COUMADIN/WARFARIN INR THERAPY RANGESSTANDARD DOSE: 2.0 - 3.0 Includes: PROPHYLAXIS forvenous thrombosis, systemic embolization; TREATMENT for venous thrombosis and/or pulmonary embolus.HIGH RISK: Target INR is 2.5-3.5 for patients with mechanical heart valves.CBC W/PLT COUNT & AUTO [id number] 04:16:00 Test Item Value Reference Range Comments WHITE BLOOD CELL COUNT (BEAKER) (test xldz=046) 9.4 K/ L 4.0-10.0 RED BLOOD CELL COUNT (BEAKER) (test tass=514) 4.66 M/ L 4.20-5.80 HEMOGLOBIN (BEAKER) (test iwak=323) 11.8 GM/DL 13.0-16.8 HEMATOCRIT (BEAKER) (test faws=476) 36.9 % 40.0-50.0 MEAN CORPUSCULAR VOLUME (BEAKER) (test nfcv=887) 79.2 fL 82.0-98.0 MEAN CORPUSCULAR HEMOGLOBIN (BEAKER) (test 25.2 pg 27.0-33.0 mery=836) MEAN CORPUSCULAR HEMOGLOBIN CONC (BEAKER) (test 31.9 GM/DL 32.0-36.0 ivdp=962) RED CELL DISTRIBUTION WIDTH (BEAKER) (test 14.1 % 10.3-14.2 oqdh=153) PLATELET COUNT (BEAKER) (test bqho=515) 129 K/CU MM 150-430 MEAN PLATELET VOLUME (BEAKER) (test ibzk=831) 9.7 fL 6.5-10.5 NUCLEATED RED BLOOD CELLS (BEAKER) (test 0 /100 WBC 0-0 ihnx=431) NEUTROPHILS RELATIVE PERCENT (BEAKER) (test 74 % uifg=735) LYMPHOCYTES RELATIVE PERCENT (BEAKER) (test 12 % zfhn=000) MONOCYTES RELATIVE PERCENT (BEAKER) (test 13 % wpgn=425) EOSINOPHILS RELATIVE PERCENT (BEAKER) (test 1 % bccn=289) BASOPHILS RELATIVE PERCENT (BEAKER) (test 0 % akwj=953) NEUTROPHILS ABSOLUTE COUNT (BEAKER) (test 6.97 K/ L 1.80-8.00 stfo=373) LYMPHOCYTES ABSOLUTE COUNT (BEAKER) (test 1.11 K/ L 1.48-4.50 ywgf=130) MONOCYTES ABSOLUTE COUNT (BEAKER) (test 1.23 K/ L 0.00-1.30 djkt=143) EOSINOPHILS ABSOLUTE COUNT (BEAKER) (test 0.06 K/ L 0.00-0.50 hqrc=383) BASOPHILS ABSOLUTE COUNT (BEAKER) (test 0.00 K/ L 0.00-0.20 frex=614) 0.00PT/[id number] 17:46:00 Test Item Value Reference Range Comments PROTIME (BEAKER) (test gylv=504) 14.4 seconds 11.7-14.7 INR (BEAKER) (test pqmv=684) 1.1 <=5.9 PARTIAL THROMBOPLASTIN TIME (BEAKER) (test 36.8 seconds 22.5-36.0 rjof=492) RECOMMENDED COUMADIN/WARFARIN INR THERAPY RANGESSTANDARD DOSE: 2.0 - 3.0 Includes: PROPHYLAXIS forvenous thrombosis, systemic embolization; TREATMENT for venous thrombosis and/or pulmonary embolus.HIGH RISK: Target INR is 2.5-3.5 for patients with mechanical heart valves.BASIC METABOLIC [id number] 02:40: 00 Test Item Value Reference Range Comments SODIUM (BEAKER) (test 137 meq/L 136-145 bepi=162) POTASSIUM (BEAKER) (test 4.6 meq/L 3.5-5.1 wcsw=604) CHLORIDE (BEAKER) (test 101 meq/L 98-107 cppp=139) CO2 (BEAKER) (test 29 meq/L 22-29 svyp=825) BLOOD UREA NITROGEN 19 mg/dL 7-21 (BEAKER) (test wrha=774) CREATININE (BEAKER) (test 1.42 mg/dL 0.57-1.25 zohc=905) GLUCOSE RANDOM (BEAKER) 105 mg/dL 70-105 (test sknl=230) CALCIUM (BEAKER) (test 8.3 mg/dL 8.4-10.2 kfmt=826) EGFR (BEAKER) (test 59 mL/min/1.73 sq m ESTIMATED GFR IS NOT lmok=9977) ACCURATE CREATININE CLEARANCE IN PREDICTING GLOMERULAR FILTRATION RATE. ESTIMATED GFR IS NOT APPLICABLE FOR DIALYSIS PATIENTS. CBC W/PLT COUNT & AUTO [id number] 02:16:00 Test Item Value Reference Range Comments WHITE BLOOD CELL COUNT (BEAKER) (test vguh=332) 9.9 K/ L 4.0-10.0 RED BLOOD CELL COUNT (BEAKER) (test csbj=553) 4.56 M/ L 4.20-5.80 HEMOGLOBIN (BEAKER) (test gyfw=367) 11.8 GM/DL 13.0-16.8 HEMATOCRIT (BEAKER) (test zpqf=155) 36.5 % 40.0-50.0 MEAN CORPUSCULAR VOLUME (BEAKER) (test khxf=910) 79.9 fL 82.0-98.0 MEAN CORPUSCULAR HEMOGLOBIN (BEAKER) (test 25.9 pg 27.0-33.0 mmtr=200) MEAN CORPUSCULAR HEMOGLOBIN CONC (BEAKER) (test 32.4 GM/DL 32.0-36.0 cvvc=231) RED CELL DISTRIBUTION WIDTH (BEAKER) (test 14.4 % 10.3-14.2 qtjb=310) PLATELET COUNT (BEAKER) (test twwk=998) 127 K/CU MM 150-430 MEAN PLATELET VOLUME (BEAKER) (test tlzs=979) 10.0 fL 6.5-10.5 NUCLEATED RED BLOOD CELLS (BEAKER) (test 0 /100 WBC 0-0 cggb=999) NEUTROPHILS RELATIVE PERCENT (BEAKER) (test 79 % yinw=739) LYMPHOCYTES RELATIVE PERCENT (BEAKER) (test 6 % taed=154) MONOCYTES RELATIVE PERCENT (BEAKER) (test 14 % amuu=521) EOSINOPHILS RELATIVE PERCENT (BEAKER) (test 1 % udev=823) BASOPHILS RELATIVE PERCENT (BEAKER) (test 0 % vurx=187) NEUTROPHILS ABSOLUTE COUNT (BEAKER) (test 7.86 K/ L 1.80-8.00 lorq=764) LYMPHOCYTES ABSOLUTE COUNT (BEAKER) (test 0.64 K/ L 1.48-4.50 uoqj=893) MONOCYTES ABSOLUTE COUNT (BEAKER) (test 1.36 K/ L 0.00-1.30 gbtp=933) EOSINOPHILS ABSOLUTE COUNT (BEAKER) (test 0.07 K/ L 0.00-0.50 pzob=711) BASOPHILS ABSOLUTE COUNT (BEAKER) (test 0.01 K/ L 0.00-0.20 mhmt=660) 0.00POCT-GLUCOSE [id number] 18:13:00 Test Item Value Reference Range Comments POC-GLUCOSE METER (BEAKER) 110 mg/dL 70-110 TESTED AT [facility] [address] [facility] (test gzxe=2802) [place] [id number] POCT-GLUCOSE [id number] 11:50:00 Test Item Value Reference Range Comments POC-GLUCOSE METER (BEAKER) 107 mg/dL 70-110 TESTED AT [place] [id number] [facility] (test ldhd=9412) [place] [id number] POCT-GLUCOSE [id number] 06:35:00 Test Item Value Reference Range Comments POC-GLUCOSE METER (BEAKER) 113 mg/dL 70-110 TESTED AT [address] (test xsmw=4405) [place] [id number] CBC W/PLT COUNT & AUTO [id number] 03:27:00 Test Item Value Reference Range Comments WHITE BLOOD CELL COUNT (BEAKER) (test aths=873) 10.0 K/ L 4.0-10.0 RED BLOOD CELL COUNT (BEAKER) (test yara=492) 4.64 M/ L 4.20-5.80 HEMOGLOBIN (BEAKER) (test uohz=209) 11.9 GM/DL 13.0-16.8 HEMATOCRIT (BEAKER) (test oeeb=528) 36.8 % 40.0-50.0 MEAN CORPUSCULAR VOLUME (BEAKER) (test ttbq=808) 79.3 fL 82.0-98.0 MEAN CORPUSCULAR HEMOGLOBIN (BEAKER) (test 25.6 pg 27.0-33.0 flvj=003) MEAN CORPUSCULAR HEMOGLOBIN CONC (BEAKER) (test 32.3 GM/DL 32.0-36.0 acvm=861) RED CELL DISTRIBUTION WIDTH (BEAKER) (test 14.4 % 10.3-14.2 uayz=208) PLATELET COUNT (BEAKER) (test fgve=491) 135 K/CU MM 150-430 MEAN PLATELET VOLUME (BEAKER) (test rwny=824) 9.7 fL 6.5-10.5 NUCLEATED RED BLOOD CELLS (BEAKER) (test 0 /100 WBC 0-0 osdg=117) NEUTROPHILS RELATIVE PERCENT (BEAKER) (test 81 % lspy=470) LYMPHOCYTES RELATIVE PERCENT (BEAKER) (test 7 % bnpw=493) MONOCYTES RELATIVE PERCENT (BEAKER) (test 12 % chnk=484) EOSINOPHILS RELATIVE PERCENT (BEAKER) (test 1 % qoje=600) BASOPHILS RELATIVE PERCENT (BEAKER) (test 0 % cxxw=319) NEUTROPHILS ABSOLUTE COUNT (BEAKER) (test 8.03 K/ L 1.80-8.00 ohun=641) LYMPHOCYTES ABSOLUTE COUNT (BEAKER) (test 0.69 K/ L 1.48-4.50 tcwu=564) MONOCYTES ABSOLUTE COUNT (BEAKER) (test 1.19 K/ L 0.00-1.30 auiv=438) EOSINOPHILS ABSOLUTE COUNT (BEAKER) (test 0.07 K/ L 0.00-0.50 njdz=156) BASOPHILS ABSOLUTE COUNT (BEAKER) (test 0.00 K/ L 0.00-0.20 zsbs=034) 0.00BASIC METABOLIC [id number] 03:16:00 Test Item Value Reference Range Comments SODIUM (BEAKER) (test 135 meq/L 136-145 ebcc=138) POTASSIUM (BEAKER) (test 4.3 meq/L 3.5-5.1 xlyv=316) CHLORIDE (BEAKER) (test 104 meq/L 98-107 gkjz=697) CO2 (BEAKER) (test 26 meq/L 22-29 hfdo=002) BLOOD UREA NITROGEN 19 mg/dL 7-21 (BEAKER) (test drby=448) CREATININE (BEAKER) (test 1.35 mg/dL 0.57-1.25 foav=052) GLUCOSE RANDOM (BEAKER) 110 mg/dL 70-105 (test yitj=646) CALCIUM (BEAKER) (test 8.2 mg/dL 8.4-10.2 elfx=020) EGFR (BEAKER) (test 63 mL/min/1.73 sq m ESTIMATED GFR IS NOT hcus=0165) ACCURATE CREATININE CLEARANCE IN PREDICTING GLOMERULAR FILTRATION RATE. ESTIMATED GFR IS NOT APPLICABLE FOR DIALYSIS PATIENTS. POCT-GLUCOSE [id number] 00:29:00 Test Item Value Reference Range Comments POC-GLUCOSE METER (BEAKER) 114 mg/dL 70-110 TESTED AT [address] (test frmn=0066) [facility] [address] POCT-GLUCOSE [id number] 00:21:00 Test Item Value Reference Range Comments POC-GLUCOSE METER (BEAKER) 115 mg/dL 70-110 TESTED AT [address] (test syjc=3963) [facility] [address] POCT-GLUCOSE [id number] 12:42:00 Test Item Value Reference Range Comments POC-GLUCOSE METER (BEAKER) 114 mg/dL 70-110 TESTED AT [facility] [address] [facility] (test cgje=0905) [facility] [address] POCT-GLUCOSE [id number] 06:45:00 Test Item Value Reference Range Comments POC-GLUCOSE METER (BEAKER) 126 mg/dL 70-110 TESTED AT [facility] [address] [facility] (test izxr=6772) [facility] [address] [id number] 05:26:00 Test Item Value Reference Range Comments FERRITIN (BEAKER) (test vftr=175) 220 ng/mL 5-275 Effective 08/03/2014: Reference Range ChangeNew: Male 5-275 Previous: Male 22-322 Female 5-275 Female 10-291BASI METABOLIC [id number] 05:01:00 Test Item Value Reference Range Comments SODIUM (BEAKER) (test 137 meq/L 136-145 rpcq=545) POTASSIUM (BEAKER) (test 3.9 meq/L 3.5-5.1 Specimen slightly zgro=187) hemolyzed CHLORIDE (BEAKER) (test 108 meq/L 98-107 sehy=643) CO2 (BEAKER) (test 22 meq/L 22-29 zyoh=433) BLOOD UREA NITROGEN 13 mg/dL 7-21 (BEAKER) (test gjts=829) CREATININE (BEAKER) (test 1.23 mg/dL 0.57-1.25 Specimen slightly erwu=737) hemolyzed GLUCOSE RANDOM (BEAKER) 114 mg/dL 70-105 (test nnns=999) CALCIUM (BEAKER) (test 7.6 mg/dL 8.4-10.2 oygc=839) EGFR (BEAKER) (test 70 mL/min/1.73 sq m ESTIMATED GFR IS NOT yqom=5209) ACCURATE CREATININE CLEARANCE IN PREDICTING GLOMERULAR FILTRATION RATE. ESTIMATED GFR IS NOT APPLICABLE FOR DIALYSIS PATIENTS. [id number] 04:59:00 Test Item Value Reference Range Comments MAGNESIUM (BEAKER) (test 1.5 mg/dL 1.6-2.6 Specimen slightly hemolyzed fzjm=415) [id number] 04:59:00 Test Item Value Reference Range Comments PHOSPHORUS (BEAKER) (test 3.5 mg/dL 2.3-4.7 Specimen slightly hemolyzed qkkx=906) CBC W/PLT COUNT & AUTO [id number] 04:52:00 Test Item Value Reference Range Comments WHITE BLOOD CELL COUNT (BEAKER) (test amiq=818) 9.5 K/ L 4.0-10.0 RED BLOOD CELL COUNT (BEAKER) (test smit=909) 4.57 M/ L 4.20-5.80 HEMOGLOBIN (BEAKER) (test trrs=961) 11.5 GM/DL 13.0-16.8 HEMATOCRIT (BEAKER) (test vion=763) 36.2 % 40.0-50.0 MEAN CORPUSCULAR VOLUME (BEAKER) (test kiyk=003) 79.3 fL 82.0-98.0 MEAN CORPUSCULAR HEMOGLOBIN (BEAKER) (test 25.2 pg 27.0-33.0 kepn=558) MEAN CORPUSCULAR HEMOGLOBIN CONC (BEAKER) (test 31.7 GM/DL 32.0-36.0 czlq=410) RED CELL DISTRIBUTION WIDTH (BEAKER) (test 14.6 % 10.3-14.2 usne=083) PLATELET COUNT (BEAKER) (test xief=309) 98 K/CU MM 150-430 MEAN PLATELET VOLUME (BEAKER) (test ndzc=030) 10.8 fL 6.5-10.5 NUCLEATED RED BLOOD CELLS (BEAKER) (test 0 /100 WBC 0-0 vxdg=822) NEUTROPHILS RELATIVE PERCENT (BEAKER) (test 81 % ydni=475) LYMPHOCYTES RELATIVE PERCENT (BEAKER) (test 9 % ndww=189) MONOCYTES RELATIVE PERCENT (BEAKER) (test 10 % fyxw=694) EOSINOPHILS RELATIVE PERCENT (BEAKER) (test 0 % suoq=122) BASOPHILS RELATIVE PERCENT (BEAKER) (test 0 % nnet=868) NEUTROPHILS ABSOLUTE COUNT (BEAKER) (test 7.71 K/ L 1.80-8.00 hszt=449) LYMPHOCYTES ABSOLUTE COUNT (BEAKER) (test 0.81 K/ L 1.48-4.50 vqiy=712) MONOCYTES ABSOLUTE COUNT (BEAKER) (test yfdf=860) 0.93 K/ L 0.00-1.30 EOSINOPHILS ABSOLUTE COUNT (BEAKER) (test 0.03 K/ L 0.00-0.50 wcrg=200) BASOPHILS ABSOLUTE COUNT (BEAKER) (test fyrv=250) 0.04 K/ L 0.00-0.20 RETICULOCYTE [id number] 04:51:00 Test Item Value Reference Range Comments RETICULOCYTE COUNT PCT (BEAKER) (test sxqx=687) 0.9 % 0.4-2.9 POCT-GLUCOSE [id number] 00:25:00 Test Item Value Reference Range Comments POC-GLUCOSE METER (BEAKER) 124 mg/dL 70-110 TESTED AT [address] (test cjgi=9200) [place] [address] POCT-GLUCOSE [id number] 17:53:00 Test Item Value Reference Range Comments POC-GLUCOSE METER (BEAKER) 126 mg/dL 70-110 TESTED AT [address] (test umjr=0022) [place] [address] PERIPHERAL BLOOD SMEAR - PATHOLOGIST [id number] 13:47:00 Test Item Value Reference Range Comments RBC MORPHOLOGY (BEAKER) Anisocytosis (test pbae=5822) RBC MORPHOLOGY (BEAKER) Poikilocytosis (test kdgh=28303) RBC MORPHOLOGY (BEAKER) Polychromasia (test islk=36113) WBC MORPHOLOGY (BEAKER) Unremarkable (test vodj=4081) PLT MORPHOLOGY (BEAKER) Unremarkable (test fbjg=4169) PERIPHERAL SMR REVIEW No circulating blasts. No (BEAKER) (test jkmc=2699) significantly increased shistocytes. [id number] Mark Acuna, (BEAKER) (test qdlh=6396) M.D.(electronic signature) POCT-GLUCOSE [id number] 12:00:00 Test Item Value Reference Range Comments POC-GLUCOSE METER (BEAKER) 101 mg/dL 70-110 TESTED AT [address] (test kajv=2248) [place] [address] [id number] 07:34:00 Test Item Value Reference Range Comments COL/EPI CLOSURE TIME (BEAKER) 93 Seconds 78-191 (test icix=4052) COL/ADP CLOSURE TIME (BEAKER) 62 Seconds 43-122 (test ddmn=3065) PLATELET COUNT AGG (BEAKER) 113 K/CU MM 150-430 Previous platelet result was (test exbj=1314) 113. Lavender top for platelet clotted! Hematocrit <35% or platelet count <150,000/CU MM may contribute to falsely elevated PFA-100.PT/[id number] 07:33:00 Test Item Value Reference Range Comments PROTIME (BEAKER) (test zrhf=944) 14.1 seconds 11.7-14.7 INR (BEAKER) (test ryxr=932) 1.1 <=5.9 PARTIAL THROMBOPLASTIN TIME (BEAKER) (test 30.8 seconds 22.5-36.0 jwuu=795) RECOMMENDED COUMADIN/WARFARIN INR THERAPY RANGESSTANDARD DOSE: 2.0 - 3.0 Includes: PROPHYLAXIS forvenous thrombosis, systemic embolization; TREATMENT for venous thrombosis and/or pulmonary embolus.HIGH RISK: Target INR is 2.5-3.5 for patients with mechanical heart valves.VITAMIN B12 AND [id number] 06:33 :00 Test Item Value Reference Range Comments VITAMIN B12 (BEAKER) (test uiwy=829) 327 pg/mL 213-816 FOLATE (BEAKER) (test zimo=563) 9.6 ng/mL >=7.0 Effective 08/03/2014: Folate Reference Range ChangeNew: >=7.0 Previous: & gt;=5.4POCT-GLUCOSE [id number] 06:32:00 Test Item Value Reference Range Comments POC-GLUCOSE METER (BEAKER) 79 mg/dL 70-110 TESTED AT [address] (test apdw=2719) [facility] [address] CBC W/PLT COUNT & AUTO [id number] 06:29:00 Test Item Value Reference Range Comments WHITE BLOOD CELL COUNT (BEAKER) (test tequ=544) 7.9 K/ L 4.0-10.0 RED BLOOD CELL COUNT (BEAKER) (test ddfe=851) 5.16 M/ L 4.20-5.80 HEMOGLOBIN (BEAKER) (test dopu=836) 13.0 GM/DL 13.0-16.8 HEMATOCRIT (BEAKER) (test yjes=555) 41.2 % 40.0-50.0 MEAN CORPUSCULAR VOLUME (BEAKER) (test rqdt=383) 79.9 fL 82.0-98.0 MEAN CORPUSCULAR HEMOGLOBIN (BEAKER) (test 25.2 pg 27.0-33.0 lboe=509) MEAN CORPUSCULAR HEMOGLOBIN CONC (BEAKER) (test 31.6 GM/DL 32.0-36.0 sfsl=236) RED CELL DISTRIBUTION WIDTH (BEAKER) (test 14.8 % 10.3-14.2 bijw=281) PLATELET COUNT (BEAKER) (test iwbg=541) 108 K/CU MM 150-430 MEAN PLATELET VOLUME (BEAKER) (test wxtt=690) 11.2 fL 6.5-10.5 NUCLEATED RED BLOOD CELLS (BEAKER) (test 0 /100 WBC 0-0 jzoc=976) NEUTROPHILS RELATIVE PERCENT (BEAKER) (test 71 % vseo=106) LYMPHOCYTES RELATIVE PERCENT (BEAKER) (test 17 % expr=978) MONOCYTES RELATIVE PERCENT (BEAKER) (test 9 % fpqx=967) EOSINOPHILS RELATIVE PERCENT (BEAKER) (test 2 % ofqa=456) BASOPHILS RELATIVE PERCENT (BEAKER) (test 0 % ctbg=780) NEUTROPHILS ABSOLUTE COUNT (BEAKER) (test 5.62 K/ L 1.80-8.00 arax=559) LYMPHOCYTES ABSOLUTE COUNT (BEAKER) (test 1.37 K/ L 1.48-4.50 phav=378) MONOCYTES ABSOLUTE COUNT (BEAKER) (test 0.73 K/ L 0.00-1.30 tvbq=202) EOSINOPHILS ABSOLUTE COUNT (BEAKER) (test 0.16 K/ L 0.00-0.50 vqtr=916) BASOPHILS ABSOLUTE COUNT (BEAKER) (test 0.02 K/ L 0.00-0.20 mvqi=512) 0.00IRON, TIBC, % SAT. (WITHOUT FERRITIN)2017-02-05 05:59:00 Test Item Value Reference Range Comments IRON (BEAKER) (test tyie=553) 37 ug/dL 40-160 TOTAL IRON BINDING CAPACITY (BEAKER) (test 206 ug/dL 250-450 drjb=673) IRON % SATURATION (2) (BEAKER) (test ovzx=8210) 18 % 20-55 [id number] 05:33:00 Test Item Value Reference Range Comments PHOSPHORUS (BEAKER) (test nilm=143) 3.4 mg/dL 2.3-4.7 Once on admission and Daily AM afterwardsOnce on admission and Daily AM afterwardsOnce on admission and Daily AM [id number] 05:33:00 Test Item Value Reference Range Comments MAGNESIUM (BEAKER) (test ccep=919) 1.7 mg/dL 1.6-2.6 Once on admission and Daily AM afterwardsOnce on admission and Daily AM afterwardsOnce on admission and Daily AM afterwardsBASIC METABOLIC [id number] 05:33:00 Test Item Value Reference Range Comments SODIUM (BEAKER) (test 139 meq/L 136-145 cfzj=971) POTASSIUM (BEAKER) (test 4.9 meq/L 3.5-5.1 eqpg=378) CHLORIDE (BEAKER) (test 107 meq/L 98-107 hrmv=593) CO2 (BEAKER) (test 26 meq/L 22-29 ebuq=553) BLOOD UREA NITROGEN 15 mg/dL 7-21 (BEAKER) (test cmok=147) CREATININE (BEAKER) (test 1.51 mg/dL 0.57-1.25 piyw=895) GLUCOSE RANDOM (BEAKER) 76 mg/dL 70-105 (test aoxy=579) CALCIUM (BEAKER) (test 8.5 mg/dL 8.4-10.2 lrou=451) EGFR (BEAKER) (test 55 mL/min/1.73 sq m ESTIMATED GFR IS NOT bjaf=6614) ACCURATE CREATININE CLEARANCE IN PREDICTING GLOMERULAR FILTRATION RATE. ESTIMATED GFR IS NOT APPLICABLE FOR DIALYSIS PATIENTS. Once on admission and Daily AM afterwardsOnce on admission and Daily AM afterwardsOnce on admission and Daily AM afterwardsPOCT-GLUCOSE [id number] 00:30:00 Test Item Value Reference Range Comments POC-GLUCOSE METER (BEAKER) 78 mg/dL 70-110 TESTED AT [address] (test comq=0403) [facility] [address] POCT-GLUCOSE [id number] 18:20:00 Test Item Value Reference Range Comments POC-GLUCOSE METER (BEAKER) 156 mg/dL 70-110 TESTED AT [place] [id number] [facility] (test ergp=9478) [facility] [address] PLATELET AGGREGATION: FUNCTION [id number] 15:53:00 Test Item Value Reference Range Comments WEAK ADP RESULT(BEAKER) (test 94 % 60-91 cnza=9894) PLATELET FUNCTION SCREEN 60-100% indicates normal INTERP (BEAKER) (test platelet function zphg=6086) [id number]-[id number]-2170 (BEAKER) Aurora Pascual MD (electronic (test jkmo=4235) signature) PLATELET COUNT AGG (BEAKER) 113 K/CU MM 150-430 (test bmkn=6735) POCT-GLUCOSE [id number] 14:21:00 Test Item Value Reference Range Comments POC-GLUCOSE METER (BEAKER) 82 mg/dL 70-110 TESTED AT [facility] [address] [facility] (test fazg=5067) [facility] [address] HEPATIC FUNCTION [id number] 07:38:00 Test Item Value Reference Range Comments TOTAL PROTEIN (BEAKER) (test 7.6 gm/dL 6.0-8.3 Specimen slightly hemolyzed ycrx=518) ALBUMIN (BEAKER) (test 3.4 g/dL 3.5-5.0 Specimen slightly hemolyzed jled=5263) BILIRUBIN TOTAL (BEAKER) (test 0.8 mg/dL 0.2-1.2 Specimen slightly hemolyzed cdjr=370) BILIRUBIN DIRECT (BEAKER) (test 0.3 mg/dL 0.1-0.5 Specimen slightly hemolyzed qtyv=975) ALKALINE PHOSPHATASE (BEAKER) 49 U/L 40-150 (test namg=577) AST (SGOT) (BEAKER) (test 16 U/L 5-34 Specimen slightly hemolyzed meaa=417) ALT (SGPT) (BEAKER) (test 16 U/L 6-55 Specimen slightly hemolyzed jcuu=804) PROTHROMBIN [id number] 07:10:00 Test Item Value Reference Range Comments PROTIME (BEAKER) (test zuww=258) 14.9 seconds 11.7-14.7 INR (BEAKER) (test byaq=104) 1.2 <=5.9 RECOMMENDED COUMADIN/WARFARIN INR THERAPY RANGESSTANDARD DOSE: 2.0 - 3.0 Includes: PROPHYLAXIS forvenous thrombosis, systemic embolization; TREATMENT for venous thrombosis and/or pulmonary embolus.HIGH RISK: Target INR is 2.5-3.5 for patients with mechanical heart valves.[id number] 07:10:00 Test Item Value Reference Range Comments PARTIAL THROMBOPLASTIN TIME (BEAKER) (test 35.9 seconds 22.5-36.0 lqgi=715) CBC W/PLT COUNT & AUTO [id number] 07:07:00 Test Item Value Reference Range Comments WHITE BLOOD CELL COUNT (BEAKER) (test yibc=156) 7.4 K/ L 4.0-10.0 RED BLOOD CELL COUNT (BEAKER) (test rvkv=619) 5.04 M/ L 4.20-5.80 HEMOGLOBIN (BEAKER) (test lxuh=245) 12.9 GM/DL 13.0-16.8 HEMATOCRIT (BEAKER) (test zxoj=752) 40.0 % 40.0-50.0 MEAN CORPUSCULAR VOLUME (BEAKER) (test unvd=644) 79.2 fL 82.0-98.0 MEAN CORPUSCULAR HEMOGLOBIN (BEAKER) (test 25.6 pg 27.0-33.0 vgiw=475) MEAN CORPUSCULAR HEMOGLOBIN CONC (BEAKER) (test 32.3 GM/DL 32.0-36.0 jnsy=701) RED CELL DISTRIBUTION WIDTH (BEAKER) (test 14.5 % 10.3-14.2 qudy=017) PLATELET COUNT (BEAKER) (test gpze=007) 94 K/CU MM 150-430 MEAN PLATELET VOLUME (BEAKER) (test ntdb=126) 11.7 fL 6.5-10.5 NUCLEATED RED BLOOD CELLS (BEAKER) (test 0 /100 WBC 0-0 xpvm=570) NEUTROPHILS RELATIVE PERCENT (BEAKER) (test 72 % hfwl=039) LYMPHOCYTES RELATIVE PERCENT (BEAKER) (test 17 % saft=067) MONOCYTES RELATIVE PERCENT (BEAKER) (test 9 % ilxv=038) EOSINOPHILS RELATIVE PERCENT (BEAKER) (test 2 % bgdp=481) BASOPHILS RELATIVE PERCENT (BEAKER) (test 0 % yyll=331) NEUTROPHILS ABSOLUTE COUNT (BEAKER) (test 5.33 K/ L 1.80-8.00 qxzk=763) LYMPHOCYTES ABSOLUTE COUNT (BEAKER) (test 1.25 K/ L 1.48-4.50 bxok=[id number]) MONOCYTES ABSOLUTE COUNT (BEAKER) (test mtpl=117) 0.66 K/ L 0.00-1.30 EOSINOPHILS ABSOLUTE COUNT (BEAKER) (test 0.12 K/ L 0.00-0.50 bpwa=786) BASOPHILS ABSOLUTE COUNT (BEAKER) (test nabg=411) 0.03 K/ L 0.00-0.20 0.00
[2018-12-24 23:26] LABS: Absolute Lymphocytes (CBC) 1.6 K/uL (0.7-4.9); Absolute Monocytes 0.8 K/uL (0.1-1.3); Absolute Neutrophil 4.5 K/uL (1.8-8.0); Basophils % 0.7 % (0-1.3); Eosinophils % 3.4 % (0-4.4); Hematocrit 40.6 % (39.6-49.0); Lymphocytes % 21.6 % (15.3-44.8); MPV 10.1 fL (7.6-11.3); Monocytes % 11.4 % (3.3-12.3); RBC Red Blood Cell Count 5.41 M/uL (4.33-5.43)
[2018-12-24 23:35] LABS: Protime INR 1.01
[2018-12-24 23:48] LABS: ALT/SGPT 27 U/L (12-78); AST/SGOT 22 U/L (15-37); Albumin 3.1 g/dL (3.4-5.0); Alkaline Phosphatase 53 U/L (45-117); BUN Blood Urea Nitrogen 30 mg/dL (7-18); Bicarbonate 25 mmol/L (21-32); Bilirubin Direct 0.1 mg/dL (0-0.2); Bilirubin Total 0.4 mg/dL (0.2-1.0); Glucose Level 96 mg/dL (74-106); Magnesium 2.2 mg/dL (1.8-2.4); NT PRO-BNP 57 pg/mL (<450); Potassium 4.3 mmol/L (3.5-5.1); Protein, Total 7.6 g/dL (6.4-8.2); Sodium Level 143 mmol/L (136-145); Troponin (Emerg Dept Use Only) < 0.02 ng/mL (0.0-0.045)
--- NOTE | 2018-12-25 01:29 | ER ---
Nurse's Notes [facility] Name: Reggie Mayer Age: 73 yrs Sex: Male : 1945 Arrival Date: 12/24/2018 Time: 22:37 Bed 16 Private MD: Diagnosis: Chest pain, unspecified;Chronic renal insufficiency Presentation: 12/24 22:48 Presenting complaint: Patient states: Chest pain to center of chest x 3-4 days; States lp1 pain worse tonight; Hx of VA; Denies any other symptoms. Transition of care: patient was not received from another setting of care. Onset of symptoms was December 24, 2018. Risk Assessment: Do you want to hurt yourself or someone else? Patient reports no desire to harm self or others. Initial Sepsis Screen: Does the patient meet any 2 criteria? No. Patient's initial sepsis screen is negative. Does the patient have a suspected source of infection? No. Patient's initial sepsis screen is negative. Care prior to arrival: None. 22:48 Method Of Arrival: Wheelchair lp1 22:48 Acuity: AQUILES 3 lp1 Historical: - Allergies: 22:50 NKA; lp1 - Home Meds: 22:50 allopurinol 100 mg Oral tab 1 tab once daily [Active]; aspirin 81 mg Oral chew 1 tab lp1 once daily [Active]; atorvastatin 40 mg Oral tab 1 tab once daily [Active]; carvedilol 6.25 mg Oral tab 1 tab 2 times per day [Active]; lisinopril 20 mg Oral tab 1 tab twice a day [Active]; tamsulosin 0.4 mg Oral cp24 1 cap once daily [Active]; - PMHx: 22:50 chronic kidney disease; Hyperlipidemia; Hypertension; Myocardial infarction; lp1 - PSHx: 22:50 Head bleed; lp1 - Immunization history:: Adult Immunizations up to date. - Social history:: Smoking status: Patient/guardian denies using tobacco. - Ebola Screening: : No symptoms or risks identified at this time. Screenin:51 Abuse screen: Denies threats or abuse. Denies injuries from another. Nutritional lp1 screening: No deficits noted. Tuberculosis screening: No symptoms or risk factors identified. Fall Risk None identified. Assessment: 22:50 General: Appears in no apparent distress. comfortable, Behavior is calm, cooperative, jb4 appropriate for age. Pain: Complains of pain in anterior aspect of left upper chest Pain does not radiate. Pain currently is 2 out of 10 on a pain scale. at worst was 8 out of 10 on a pain scale. Quality of pain is described as spasm Pain began 2-3 days ago. Is intermittent, Alleviated by rest, Aggravated by Moving the left arm. Neuro: Level of Consciousness is awake, alert, obeys commands, Oriented to person, place, time, situation. Cardiovascular: Patient's skin is warm and dry. Respiratory: Airway is patent Respiratory effort is even, unlabored, Respiratory pattern is regular, symmetrical. GI: No signs and/or symptoms were reported involving the gastrointestinal system. : No signs and/or symptoms were reported regarding the genitourinary system. EENT: No signs and/or symptoms were reported regarding the EENT system. Derm: Skin is intact, Skin is dry, Skin is normal, Skin temperature is warm Rash noted that is on umbilical area and anterior aspect of right lateral abdomen. Musculoskeletal: Circulation, motion, and sensation intact. 12/25 00:15 Reassessment: Patient appears in no apparent distress at this time. Patient and/or jb4 family updated on plan of care and expected duration. Pain level reassessed. Patient is alert, oriented x 3, equal unlabored respirations, skin warm/dry/pink. 01:00 Reassessment: Patient appears in no apparent distress at this time. Patient and/or jb4 family updated on plan of care and expected duration. Pain level reassessed. Patient is alert, oriented x 3, equal unlabored respirations, skin warm/dry/pink. 01:38 Reassessment: Pt reports increased chest pain, provider notified, EKG done, read by jb4 provider. 02:30 Reassessment: Patient appears in no apparent distress at this time. Patient and/or jb4 family updated on plan of care and expected duration. Pain level reassessed. Patient is alert, oriented x 3, equal unlabored respirations, skin warm/dry/pink. 03:30 Reassessment: Patient appears in no apparent distress at this time. Patient and/or jb4 family updated on plan of care and expected duration. Pain level reassessed. Patient is alert, oriented x 3, equal unlabored respirations, skin warm/dry/pink. 03:51 Reassessment: Patient appears in no apparent distress at this time. Patient and/or jb4 family updated on plan of care and expected duration. Pain level reassessed. Patient is alert, oriented x 3, equal unlabored respirations, skin warm/dry/pink. Pt admitted to ER hold. No signs of distress or pain noted. has a 20g IV to the left forearm. Pt is lying in bed watching tv. See [facility] for further charting. 07:48 Reassessment: Called report to DODIE De La Rosa. Information from the SBAR was given. All rb1 questions asked and answered. Vital Signs: 12/24 22:50 BP 158 / 89; Pulse 58; Resp 16; Temp 99(O); Pulse Ox 97% on R/A; Weight 111.13 kg; lp1 Height 6 ft. 1 in. (185.42 cm); Pain 06/25; 12/25 00:15 BP 141 / 82; Pulse 62; Resp 16; Pulse Ox 95% on R/A; jb4 01:00 BP 149 / 92; Pulse 57; Resp 18; Pulse Ox 98% on R/A; jb4 01:30 BP 151 / 78; Pulse 54; Resp 16; Pulse Ox 98% on R/A; jb4 02:32 BP 134 / 67; Pulse 52; Resp 16; Pulse Ox 93% on R/A; jb4 03:30 BP 135 / 73; Pulse 52; Resp 16; Pulse Ox 96% on R/A; jb4 07:50 BP 156 / 89; Pulse 52; Resp 15; Pulse Ox 95% on R/A; Pain 0/10; rb1 12/24 22:50 Body Mass Index 32.32 (111.13 kg, 185.42 cm) lp1 ED Course: 12/24 22:37 Patient arrived in ED. do 22:45 Escobar Robles, DODIE is Primary Nurse. jb4 22:49 Triage completed. lp1 22:49 EKG done, by ED staff. lp1 22:50 Patient has correct armband on for positive identification. Placed in gown. Bed in low jb4 position. Call light in reach. Side rails up X 1. dorr operator on. Pulse ox on. NIBP on. 22:51 Patient maintains SpO2 saturation greater than 95% on room air. lp1 22:51 Arm band placed on left wrist. lp1 22:54 Sarah Dennis [facility]C [facility]. snw 22:54 Francis Thompson MD is Attending Physician. snw 23:15 Initial lab(s) drawn, by me, sent to lab. Inserted saline lock: 20 gauge in left jb4 forearm, using aseptic technique. Blood collected. Missed attempt(s): 20 gauge in right antecubital area. 23:17 X-ray completed. Portable x-ray completed in exam room. Patient tolerated procedure kw well. 23:18 XRAY Chest (1 view) In Process Unspecified. EDCO 12/25 01:28 Odilia Dyson MD is Hospitalizing Provider. snw 03:51 No provider procedures requiring assistance completed. Patient admitted, IV remains in jb4 place. Administered Medications: 01:42 Drug: Aspirin Chewable Tablet 324 mg Route: PO; jb4 02:30 Follow up: Response: No adverse reaction jb4 01:42 Drug: Lovenox 1 mg/kg Route: Sub-Q; Site: left lower abdomen; jb4 02:30 Follow up: Response: No adverse reaction jb Outcome: 01:29 Decision to Hospitalize by Provider. snw 03:51 Admitted to ER Hold. Please see [facility] for further documentation. jb4 03:51 Condition: stable 03:51 Discharge instructions given to patient, Instructed on the need for admit, Demonstrated understanding of instructions. 08:19 Patient left the ED. sv Signatures: Dispatcher [employer] EDCO Melly Shea RN RN Sarah Dennis FNP-C DIE FORGER-Csnw Mirella Arora Laura, DODIE STOLL lp1 Mariana Lopez, RN RN rb1 Irene Jose James RN RN jb4
--- NOTE | 2018-12-25 01:29 | EDPHYS ---
Physician Documentation [facility] Name: Reggie Mayer Age: 73 yrs Sex: Male : 1945 Arrival Date: 12/24/2018 Time: 22:37 Bed 16 Private MD: ED Physician Francis Thompson HPI: 12/24 23:02 This 73 yrs old Black Male presents to ER via Wheelchair with complaints of Chest Pain. snw 23:02 Onset: The symptoms/episode began/occurred acutely, 3 day(s) ago, and became snw persistent. Associated signs and symptoms: The patient has no apparent associated signs or symptoms. Modifying factors: The patient symptoms are alleviated by nothing, the patient symptoms are aggravated by nothing. The patient has experienced similar episodes in the past. It is unknown whether or not the patient has recently seen a physician, sees Dr. Moreira. Historical: - Allergies: 22:50 NKA; lp1 - Home Meds: 22:50 allopurinol 100 mg Oral tab 1 tab once daily [Active]; aspirin 81 mg Oral chew 1 tab lp1 once daily [Active]; atorvastatin 40 mg Oral tab 1 tab once daily [Active]; carvedilol 6.25 mg Oral tab 1 tab 2 times per day [Active]; lisinopril 20 mg Oral tab 1 tab twice a day [Active]; tamsulosin 0.4 mg Oral cp24 1 cap once daily [Active]; - PMHx: 22:50 chronic kidney disease; Hyperlipidemia; Hypertension; Myocardial infarction; lp1 - PSHx: 22:50 Head bleed; lp1 - Immunization history:: Adult Immunizations up to date. - Social history:: Smoking status: Patient/guardian denies using tobacco. - Ebola Screening: : No symptoms or risks identified at this time. ROS: 23:02 Constitutional: Negative for fever, chills, and weight loss, Eyes: Negative for injury, snw pain, redness, and discharge, ENT: Negative for injury, pain, and discharge, Neck: Negative for injury, pain, and swelling, Respiratory: Negative for shortness of breath, cough, wheezing, and pleuritic chest pain, Abdomen/GI: Negative for abdominal pain, nausea, vomiting, diarrhea, and constipation, Back: Negative for injury and pain, : Negative for injury, bleeding, discharge, and swelling, MS/Extremity: Negative for injury and deformity, Skin: Negative for injury, rash, and discoloration, Neuro: Negative for headache, weakness, numbness, tingling, and seizure. 23:02 Cardiovascular: Positive for chest pain, of the anterior aspect of left upper chest. Exam: 23:02 Constitutional: This is a well developed, well nourished patient who is awake, alert, snw and in no acute distress. Head/Face: Normocephalic, atraumatic. Eyes: Pupils equal round and reactive to light, extra-ocular motions intact. Lids and lashes normal. Conjunctiva and sclera are non-icteric and not injected. Cornea within normal limits. Periorbital areas with no swelling, redness, or edema. ENT: Nares patent. No nasal discharge, no septal abnormalities noted. Tympanic membranes are normal and external auditory canals are clear. Oropharynx with no redness, swelling, or masses, exudates, or evidence of obstruction, uvula midline. Mucous membranes moist. Neck: Trachea midline, no thyromegaly or masses palpated, and no cervical lymphadenopathy. Supple, full range of motion without nuchal rigidity, or vertebral point tenderness. No Meningismus. Chest/axilla: Normal chest wall appearance and motion. Nontender with no deformity. No lesions are appreciated. Cardiovascular: Regular rate and rhythm with a normal S1 and S2. No gallops, murmurs, or rubs. Normal PMI, no JVD. No pulse deficits. Respiratory: Lungs have equal breath sounds bilaterally, clear to auscultation and percussion. No rales, rhonchi or wheezes noted. No increased work of breathing, no retractions or nasal flaring. Abdomen/GI: Soft, non-tender, with normal bowel sounds. No distension or tympany. No guarding or rebound. No evidence of tenderness throughout. Back: No spinal tenderness. No costovertebral tenderness. Full range of motion. Skin: Warm, dry with normal turgor. Normal color with no rashes, no lesions, and no evidence of cellulitis. MS/ Extremity: Pulses equal, no cyanosis. Neurovascular intact. Full, normal range of motion. Neuro: Awake and alert, GCS 15, oriented to person, place, time, and situation. Cranial nerves II-XII grossly intact. Motor strength 5/5 in all extremities. Sensory grossly intact. Cerebellar exam normal. Normal gait. Psych: Awake, alert, with orientation to person, place and time. Behavior, mood, and affect are within normal limits. 23:15 ECG was reviewed by the Attending Physician. snw Vital Signs: 22:50 BP 158 / 89; Pulse 58; Resp 16; Temp 99(O); Pulse Ox 97% on R/A; Weight 111.13 kg; lp1 Height 6 ft. 1 in. (185.42 cm); Pain 06/25; 12/25 00:15 BP 141 / 82; Pulse 62; Resp 16; Pulse Ox 95% on R/A; jb4 01:00 BP 149 / 92; Pulse 57; Resp 18; Pulse Ox 98% on R/A; jb4 01:30 BP 151 / 78; Pulse 54; Resp 16; Pulse Ox 98% on R/A; jb4 02:32 BP 134 / 67; Pulse 52; Resp 16; Pulse Ox 93% on R/A; jb4 03:30 BP 135 / 73; Pulse 52; Resp 16; Pulse Ox 96% on R/A; jb4 07:50 BP 156 / 89; Pulse 52; Resp 15; Pulse Ox 95% on R/A; Pain 010; rb1 12/24 22:50 Body Mass Index 32.32 (111.13 kg, 185.42 cm) lp1 MDM: 12/24 23:04 Patient medically screened. snw 12/25 01:29 Data reviewed: vital signs, nurses notes. Data interpreted: Pulse oximetry: on room air snw is 95 %. Interpretation: acceptable. Counseling: I had a detailed discussion with the patient and/or guardian regarding: the historical points, exam findings, and any diagnostic results supporting the discharge/admit diagnosis, the presence of at least one elevated blood pressure reading (>120/80) during this emergency department visit, lab results, radiology results, the need for further work-up and treatment in the hospital. Physician consultation: Odilia Dyson MD was called at 01:30, was contacted at 01:30, regarding admission. 01:30 Response to treatment: There is no appreciated change of the patient's symptoms at this snw time, pain remains intermittent, denies nausea, shortness of breath. Will admit for serial enzymes secondary to pt's hx and age.. 12/24 22:54 Order name: Basic Metabolic Panel [facility] 12/24 22:54 Order name: CBC with Diff; Complete Time: 00:03 [facility] 12/24 22:54 Order name: LFT's sn 12/24 22:54 Order name: Magnesium; Complete Time: 00:03 [facility] 12/24 22:54 Order name: NT PRO-BNP; Complete Time: 00:03 [facility] 12/24 22:54 Order name: PT-INR; Complete Time: 00:03 [facility] 12/24 22:54 Order name: Troponin (emerg Dept Use Only) sn 12/24 22:55 Order name: Basic Metabolic Panel; Complete Time: 00:03 [facility] 12/24 22:55 Order name: Liver (Hepatic) Function; Complete Time: 00:03 [facility] 12/24 22:55 Order name: Troponin (Emerg Dept Use Only); Complete Time: 00:03 [facility] 12/25 02:50 Order name: Basic Metabolic Panel [facility] 12/25 02:50 Order name: Basic Metabolic Panel [facility] 12/25 02:50 Order name: Lipid Profile [facility] 12/25 02:50 Order name: Lipid Profile [facility] 12/24 22:54 Order name: XRAY Chest (1 view) [facility] 12/24 22:54 Order name: EKG; Complete Time: 22:55 [facility] 12/24 22:54 Order name: Cardiac monitoring; Complete Time: 22:59 [facility] 12/24 22:54 Order name: EKG - Nurse/Tech; Complete Time: 22:55 [facility] 12/24 22:54 Order name: IV Saline Lock; Complete Time: 23:28 [facility] 12/25 02:50 Order name: CONS Physician Consult [facility] 12/25 02:50 Order name: Troponin I [facility] 12/25 02:50 Order name: Troponin I [facility] 12/25 02:50 Order name: Troponin I [facility] 12/25 02:52 Order name: Echo with Doppler [facility] 12/25 02:52 Order name: EKG Electrocardiogram [facility] 12/25 02:52 Order name: EKG Electrocardiogram [facility] 12/25 02:52 Order name: CBC with Automated Diff [facility] 12/25 02:52 Order name: CBC with Automated Diff [facility] 12/24 22:54 Order name: Labs collected and sent; Complete Time: 23:28 snw 12/24 22:54 Order name: O2 Per Protocol; Complete Time: 23:00 snw 12/24 22:54 Order name: O2 Sat Monitoring; Complete Time: 23:00 snw Administered Medications: 01:42 Drug: Aspirin Chewable Tablet 324 mg Route: PO; jb4 02:30 Follow up: Response: No adverse reaction jb4 01:42 Drug: Lovenox 1 mg/kg Route: Sub-Q; Site: left lower abdomen; jb4 02:30 Follow up: Response: No adverse reaction jb4 Disposition: 12/25/18 01:29 Hospitalization ordered by Odilia Dyson for Observation. Preliminary diagnosis are Chest pain, unspecified, Chronic renal insufficiency. - Bed requested for Telemetry/MedSurg (observation). - Status is Observation. sv - Condition is Stable. - Problem is an acute exacerbation. - Symptoms are unchanged. UTI on Admission? No Addendum: 12/29/2018 08:52 Co-signature as Attending Physician, Francis Thompson MD I agree with the assessment and c webster plan of care. Signatures: Dispatcher [employer] EDIL Melly Shea RN Barbara Cohen RN Francis Wu MD MD cha Therrien, Shelly, WAREHOUSE PACKAGING SUPERVISOR-C WAREHOUSE PACKAGING SUPERVISOR-Csnw Silvina Rowley, RN RN Irene Paul, DODIE RN lp1 Escobar Robles, RN RN jb4 Corrections: (The following items were deleted from the chart) 12/25 02:57 01:29 Hospitalization Ordered by Odilia Dyson MD for Observation. Preliminary bb diagnosis is Chest pain, unspecified; Chronic renal insufficiency. Bed requested for Telemetry/MedSurg (observation). Status is Observation. Condition is Stable. Problem is an acute exacerbation. Symptoms are unchanged. UTI on Admission? No. snw 05:35 02:57 12/25/2018 01:29 Hospitalization Ordered by Odilia Dyson MD for Observation. ho Preliminary diagnosis is Chest pain, unspecified; Chronic renal insufficiency. Bed requested for [facility] ER HOLD. Status is Observation. Condition is Stable. Problem is an acute exacerbation. Symptoms are unchanged. UTI on Admission? No. bb 08:19 05:35 12/25/2018 01:29 Hospitalization Ordered by Odilia Dyson MD for Observation. sv Preliminary diagnosis is Chest pain, unspecified; Chronic renal insufficiency. Bed requested for Telemetry/MedSurg (observation). Status is Observation. Condition is Stable. Problem is an acute exacerbation. Symptoms are unchanged. UTI on Admission? No. mw
[2018-12-25] MEDS ORDERED: ENOXAPARIN 100 MG/ML SYR SQ ONE (01:45)
[2018-12-25] MEDS ORDERED: ASPIRIN 81 MG CHEWABLE TABLET ONE (01:45)
[2018-12-25] MEDS ORDERED: ALPRAZOLAM 0.25 MG TABLET PO PRN (02:46)
[2018-12-25] MEDS ORDERED: MORPHINE 4 MG/ML SYR IV PRN (02:46)
[2018-12-25] MEDS ORDERED: ACETAMINOPHEN 500 MG TAB PO PRN (02:46)
[2018-12-25 05:31] LABS: HDL Cholesterol 55 mg/dL (40-60); LDL Cholesterol, Calculated 92 (<130); Troponin I < 0.02 ng/mL (0.0-0.045)
[2018-12-25] MEDS ORDERED: PNEUMOCOCCAL VACCINE 0.5 ML IMVAC ONE (08:00)
--- NOTE | 2018-12-25 08:18 | EKG ---
Test Date: 2018-12-24 Test Time: 22:45:25 Sales Negotiator: JENN MEASUREMENT RESULTS: Intervals: Rate: 58 DC: 192 QRSD: 78 QT: 422 QTc: 414 Klemme: P: 33 DC: 192 QRS: 9 T: 59 INTERPRETIVE STATEMENTS: Sinus bradycardia Inferior infarct, age undetermined Abnormal ECG Compared to ECG 06/01/2018 02:16:45 No significant changes Electronically Signed On 12-25-18 07:50:26 CDT by Oscar Yee
--- NOTE | 2018-12-25 08:24 | RAD REPORT ---
EXAM DESCRIPTION: RAD - Chest Single View - 12/24/2018 11:18 pm CLINICAL HISTORY: CHEST PAIN Chest pain. COMPARISON: Chest Single View dated 06/01/2018; Chest Single View dated 05/18/2018; CHEST SINGLE VIEW d ated 12/08/2014; CHEST PA AND LAT 2 VIEW dated 11/29/2008 FINDINGS: Portable technique limits examination quality. The lungs are grossly clear. Elevation of the right hemidiaphragmatic leaflet noted, chronic. The hea rt is upper limit of normal in size with a tortuous thoracic aorta. IMPRESSION: No acute intrathoracic process suspected.
[2018-12-25] MEDS ORDERED: ASPIRIN EC 81 MG TAB PO SCH (09:00)
[2018-12-25] MEDS ORDERED: TAMSULOSIN 0.4 MG SR CAP PO SCH (09:00)
[2018-12-25] MEDS: METOPROLOL TAR 50 MG TAB PO SCH ×2 (09:00→12:15)
[2018-12-25] MEDS ORDERED: ALLOPURINOL 100 MG TAB PO SCH (09:00)
[2018-12-25] MEDS ORDERED: ENOXAPARIN 40 MG/0.4 ML SQ SCH (09:00)
[2018-12-25] MEDS ORDERED: REGADENOSON 0.4 MG/5 ML SYR IV ONE (10:19)
[2018-12-25 10:39] VITALS: BMI 30.3
--- NOTE | 2018-12-25 11:37 | RAD REPORT ---
EXAM DESCRIPTION: NM - Rest Stress Cardiac Imaging - 12/25/2018 11:26 am CLINICAL HISTORY: CP Chest pain. COMPARISON: No comparisons TECHNIQUE: The patient was administered approximately 10mCi of Tc 99m Sestamibi prior to resting SPE CT imaging of the heart. The patient was then administered approximately 30 mCi of Tc 99m Sestamibi f ollowing exercise or pharmacologic stress. Multiplanar SPECT images were reviewed. FINDINGS: No stress induced ischemic defect is seen to suggest stress induced ischemia. No fixed def ect is seen to suggest hibernating myocardium or scarred myocardium. Diminished radiopharmaceutical accumulation along the inferior wall on both rest and stress is likely related to diaphragmatic atten uation artifact. The end diastolic volume is 109 ml, the end systolic volume is 53 ml, and the ejection fraction is 51 %. IMPRESSION: No stress induced ischemia.
--- NOTE | 2018-12-25 11:57 | CON ---
Additional Attending Physician: Dr. Dyson. Chief Complaint: Chest pain. History Of Present Illness: Mr. Mayer has been having this pain in the chest for 2 weeks. It is mos tly at night while he is sleeping, during the day he does not feel it. He has been very active durin g the day, walking 5 blocks going up and down stairs, doing everything he wants to do without any sym ptoms at all, but at night when he sleeps it is an area of point tenderness, mid left pectoral muscle might be in the third or fourth intercostal space, midclavicular line. It does not radiate. No alis sea, vomiting, sweating, dyspnea. Mr. Mayer has a history of heart disease. Ten years ago he had a heart attack. He did a heart catheterization. 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 Medications: As an outpatient he takes Flomax, lisinopril, carvedilol, allopurinol, aspirin, and evert rvastatin 40 mg. Allergies: HE HAS NO ALLERGIES. Social History: He uses no tobacco. No illegal drugs. Rare alcohol. Physical Examination: VITAL SIGNS: 6 feet 1 inch. 245 pounds. Obese, alert, oriented and pleasant. Lungs: Clear. Neck: Carotids, no bruit. Heart: Within normal limits. Abdomen: Soft. Extremities: Normal. Diagnostic Data: EKG shows an old inferior FL without any ischemia or injury. Laboratory Data: Reveals some microcytosis without anemia and a low platelet count, otherwise unexpl ained. Normal clotting studies. He has a creatinine of 2.11. Normal enzymes. His total cholestero l is 159, HDL is 55 and terminal proBNP is 57. Impression: This is not an acute coronary syndrome. We will do echo and stress test later today. I f those are normal, he could be discharged and he could be given colchicine or nonsteroidal anti-infl ammatory drugs to see if it would relieve his pain. I suspect he has a very stable situation and mus culoskeletal pain. SH/MODL Voice ID: [id number] Report ID: [id number]
--- NOTE | 2018-12-25 12:07 | TREADPHA ---
DX: CHEST PAIN Date of Study: 12/25/2018 Ht: 6 1 Wt: 230 lb 1.6 oz Consulting Physician: BLAKE MEDICATIONS: TYLENOL, ZYLOPRIM, XANAX, LOVENOX, LOPRESSOR, FLOMAX HISTORY: 73 YEAR OLD MALE WITH COMPLAINTS OF CHEST PAIN. HISTORY OF HYPERTENSION AND HYPERLIPIDEMIA, MYOCARDIAL INFARCTION AND CHRONIC KIDNEY DISEASE. PHYSICIAL EXAMINATION: RESTING B.P.: 172/92 RESTING H.R.: 53 RESTING EKG: SINUS BRADYCARDIA, OTHERWISE NORMAL PROTOCOL: LEXISCAN EXERCISE TIME: 3:30 B.P. AT PEAK STRESS: 169/97 IMPRESSION: LEXISCAN INJECTED, CARDIOLITE INJECTED PER PROTOCOL. SEE NUCLEAR MEDICINE REPORT. NO SUPRAVENTRICULAR TACHCARDIA. NO VENTRICULAR TACHYCARDIA. PREMATURE VENTRICULAR COMPLEXES, OCCASIONAL. PREMATURE ATRIAL COMPLEXES, OCCASIONAL. DENIED CHEST PAIN. NON-DIAGNOSTIC ELECTROCARDIOGRAM WITH LEXISCAN STRESS.
--- NOTE | 2018-12-25 12:11 | ECHO ---
HEIGHT: 6 ft 1 in WEIGHT: 230 lb 1.6 oz DATE OF STUDY: 12/25/[address]: Odilia Dyson MD 2-DIMENSIONAL: YES M.MODE: YES DOPPLER: YES COLOR FLOW: YES TDS: PORTABLE: DEFINITY: BUBBLE STUDY: DIAGNOSIS: CHEST PAIN/ RULE OUT ACUTE CORNARY SYNDROME CARDIAC HISTORY: CATHERIZATION: NO SURGERY: NO PROSTHETIC VALVE: NO PACEMAKER: NO MEASUREMENTS (cm) DIASTOLIC (NORMALS) SYSTOLIC (NORMALS) IVSd 1.1 (0.6-1.2) LA Diam 4.0 (1.9-4.0) LVEF 44% LVIDd 4.6 (3.5-5.7) LVIDs 3.6 (2.0-3.5) %FS 22% LVPWd 1.3 (0.6-1.2) Ao Diam 2.8 (2.0-3.7) 2 DIMENSIONAL ASSESSMENT: RIGHT ATRIUM: NORMAL LEFT ATRIUM: NORMAL RIGHT VENTRICLE: NORMAL LEFT VENTRICLE: NORMAL TRICUSPID VALVE: NORMAL MITRAL VALVE: NORMAL PULMONIC VALVE: NORMAL AORTIC VALVE: NORMAL PERICARDIAL EFFUSION: NONE AORTIC ROOT: NORMAL LEFT VENTRICULAR WALL MOTION: NORMAL DOPPLER/COLOR FLOW: TRACE MITRAL AND TRICUSPID REGURGITATION. NORMAL RIGHT VENTRICULAR SYSTOLIC PRESSURE. COMMENTS: NORMAL 2-DIMENSIONAL ECHOCARDIOGRAM. TRACE MITRAL AND TRICUSPID REGURGITATION. TECHNOLOGIST: PEDRITO AZAR
[2018-12-25 12:24] LABS: Urine Appearance CLEAR; Urine Bilirubin NEGATIVE (NEG); Urine Blood NEGATIVE (NEG); Urine Color YELLOW; Urine Glucose NEGATIVE (NEG); Urine Protein NEGATIVE (NEG); Urine Urobilinogen 0.2 mg/dL (0.2-1.0); Urine pH 5.5 (5.0-7.0)
[2018-12-25 12:28] LABS: Urine Microscopic Reflex NO UMIC
[2018-12-25 15:14] VITALS: O2SAT 94
[2018-12-25 18:03] VITALS: BP 171/79; TEMP 97.6
--- NOTE | 2018-12-25 20:14 | P.HP ---
Certification for Inpatient Patient admitted to: Observation With expected LOS: <2 Midnights Patient will require the following post-hospital care: None Practitioner: I am a practitioner with admitting privileges, knowledge of patient current condition, hospital course, and medical plan of care. Services: Services provided to patient in accordance with Admission requirements found in Title 42 Section 412.3 of the Code of Federal Regulations Patient History Date of Service: 12/25/18 Reason for admission: chest pain rule out acute coronary syndrome History of Present Illness: patient is a 73-year-old gentleman came to the hospital with chest discomfort. Pain was mainly in the sternal region radiated down her left arm. He also has some shortness of breath. He had nausea no vomiting. patient with multiple risk factors of cardiac disease. At this time will admit him to the hospital to rule out for acute coronary syndrome. Patient will also need an echocardiogram along with a cardiac stress test. Will further work him up at this time. Allergies No Known Drug Allergies Allergy (Verified 05/20/18 05:08) Unknown Home Medications: Allopurinol 1 tab PO DAILY 05/20/18 Aspirin [Aspirin EC 81 MG] 1 tab PO DAILY 05/20/18 Carvedilol [Coreg*] 1 tab PO BID 05/20/18 Lisinopril [Prinivil*] 20 mg PO BID 05/20/18 Tamsulosin HCl 1 cap PO DAILY 05/20/18 Atorvastatin Calcium 40 mg PO DAILY 12/25/18 - Past Medical/Surgical History Has patient received pneumonia vaccine in the past: No Diabetic: No -: Hypertension -: Dyslipidemia -: Psoriasis -: hematoma to head -: CKD -: HLD -: PR -: hematoma removal - Family History Father Medical History: Cancer - Social History Smoking Status: Never smoker Alcohol use: No CD- Drugs: No Caffeine use: Yes Place of Residence: Home Review of Systems 10-point ROS is otherwise unremarkable Physical Examination - Vital Signs Temperature: 97.6 F Blood Pressure: 171/79 Pulse: 51 Respirations: 20 Pulse Ox (%): 96 - Physical Exam General: Alert, In no apparent distress, Oriented x3 HEENT: Atraumatic, PERRLA, Mucous membr. moist/pink, EOMI, Sclerae nonicteric Neck: Supple, 2+ carotid pulse no bruit, No LAD, Without JVD or thyroid abnormality Respiratory: Clear to auscultation bilaterally, Normal air movement Cardiovascular: Regular rate/rhythm, Normal S1 S2, No murmurs Gastrointestinal: Normal bowel sounds, Hypoactive, Soft and benign, Non- distended, No tenderness Musculoskeletal: No clubbing, No swelling, No tenderness Integumentary: No rashes Neurological: Normal gait, Normal speech, Normal strength at 5/5 x4 extr, Normal tone, Normal affect Lymphatics: No axilla or inguinal lymphadenopathy - Studies Laboratory Data (last 24 hrs) 12/24/18 23:15: PT 11.9, INR 1.01 12/24/18 23:15: WBC 7.2, Hgb 12.6 L, Hct 40.6, Plt Count 126 L 12/24/18 23:15: Sodium 143, Potassium 4.3, BUN 30 H, Creatinine 2.11 H, Glucose 96, Magnesium 2.2, Total Bilirubin 0.4, AST 22, ALT 27, Alkaline Phosphatase 53 Assessment & Plan - Problems (Diagnosis) (1) Chest pain Onset Date: 05/21/18 Status: Acute Qualifiers: (2) CKD (chronic kidney disease) Onset Date: 05/21/18 Status: Chronic Qualifiers: (3) Hypertension Onset Date: 05/21/18 Status: Chronic Qualifiers: - Plan 1. Serial troponins and EKG 2. Cardiology consultation 3. Echocardiogram and inpatient stress test(pending cardiology evaluation) 4. Anti-platelet therapy, anti coagulation, beta-nicolette, statin, and O2 as needed 5. IV morphine for pain 6. Nitro p.r.n. Discharge Plan: Home Plan to discharge in: 24 Hours - Advance Directives Does patient have a Living Will: Yes Does patient have a Durable POA for Healthcare: No - Code Status/Comfort Care Code Status Assessed: Yes Code Status: Full Code Critical Care: No Time Spent Managing PTS Care (In Minutes): 45
[2018-12-26] MEDS ORDERED: ASPIRIN 81 MG PO SCH (09:00)
[2018-12-26] MEDS ORDERED: ALLOPURINOL 100 MG TABLET PO SCH (09:00)
[2018-12-26] MEDS ORDERED: TAMSULOSIN 0.4 MG PO SCH (09:00)
== END 2018-12-25 16:25 | disposition home or self-care (01) ==
LOC: ER 22:36 → ERHOLD 12-25 03:01 → 4TH 12-25 07:55
PROVIDERS: ADMIT Hospitalist; ATTEND Hospitalist
DX: R07.9 Chest pain, unspecified (principal); I12.9 Hypertensive chronic kidney disease with stage 1 through stage 4 chronic kidney disease, or unspecified chronic kidney disease; N18.9 Chronic kidney disease, unspecified; E78.5 Hyperlipidemia, unspecified; Z23 Encounter for immunization
CPT/HCPCS: 93005; 93017; 93306; 85025; 80048; 36415; 83735; 85610; 80061; 80076; 81003; 84484 ×3; 83880; 71045; 90670; 78452; 96372; 99285; G0009; J1650 ×2; J2785; A9500; G0378 ×2

== ENCOUNTER 2019-03-04 07:54 | Emergency (ER) | payer MEDICARE ==
--- OUTSIDE RECORDS SUMMARY | 2019-03-04 07:57 | XMS REPORT | Clinical Summary ---
:1945 Author Organization [facility] Address [address] [place] [address] Care Team Providers Name Role Phone Unavailable [...] Not on file Implants Implanted Type Area Probation Agent Device Shelf Model / Identifier Expiration Serial / Date Lot Matrix Floseal Hemo W/O Ndl 10 [id number] - [id number] Cement/Romario Right: GAYTAN: BIOSCI 06/15/2018 [id number] / Implanted: Qty: 1 on 02/05/2017 by Anatoliy Govea MD ler/Adhesi Head / ve [id number] Plt Rigid 2h [id number] - [id number] Fracture/F Right: ANNMARIE:CRANIOMA [id number] / Implanted: Qty: 3 on 02/05/2017 by Anatoliy Govea MD ixation Head XILLOFACIAL / Scr Un3 Petros Self Drl 1.5x4mm [id number] - [id number] Fracture/F Right: ANNMARIE:CRANIOMA [id number] / Implanted: Qty: 6 on 02/05/2017 by Anatoliy Govea MD ixation Head XILLOFACIAL / Kt Cath Bactiseal Shnt Carlo 23c [id number] - [id number] Neuro Right: J &J:CODMAN & 08/15/2017 [id number] / Implanted: Qty: 1 on 02/05/2017 by Anatoliy Govea MD Head SHURTLEFF / [id number] Grft Dura Cllgn Duragn 2x2in Id-[id number] - [id number] Tissue Right: INTEGRA 01/13/2019 [id number] / Implanted: Qty: 1 on 02/05/2017 by Anatoliy Govea MD Graft/Subs Head LIFESCI:NEURO / titute [id number] Results Not on fileafter 03/03/2018 Insurance Payer Benefit Plan / Group Subscriber ID Type Phone Address [employer] - MEDICARE AARP/MEDICARE COMPLETE xxxxxxxxx MGD CARE Advance Directives For more information, please contact:[address] enrique MajanoRavens[place], [place] [phone] Code Status Date Activated Date Inactivated Comments Full Code 02/04/2017 6:37 AM 02/10/2017 9:03 PM This code status was determined by: Patient
--- OUTSIDE RECORDS SUMMARY | 2019-03-04 07:58 | XMS REPORT ---
:1945 Author Organization [facility] Address [address] [place] [address] [address] [place] [address] Care Team Providers Name Role Phone COLTON [...] Comments WHITE BLOOD CELL COUNT (BEAKER) (test jpie=069) 9.2 K/ L 4.0-10.0 RED BLOOD CELL COUNT (BEAKER) (test immp=272) 4.69 M/ L 4.20-5.80 HEMOGLOBIN (BEAKER) (test lxyx=335) 12.2 GM/DL 13.0-16.8 HEMATOCRIT (BEAKER) (test rrbz=269) 36.5 % 40.0-50.0 MEAN CORPUSCULAR VOLUME (BEAKER) (test kftr=522) 77.8 fL 82.0-98.0 MEAN CORPUSCULAR HEMOGLOBIN (BEAKER) (test ybnx=783) 25.9 pg 27.0-33.0 MEAN CORPUSCULAR HEMOGLOBIN CONC (BEAKER) (test euuz=653) 33.3 GM/DL 32.0- 36.0 RED CELL DISTRIBUTION WIDTH (BEAKER) (test yvjn=834) 15.5 % 10.3-14.2 PLATELET COUNT (BEAKER) (test cobt=862) 140 K/CU MM 150-430 MEAN PLATELET VOLUME (BEAKER) (test jaef=672) 10.1 fL 6.5-10.5 NUCLEATED RED BLOOD CELLS (BEAKER) (test rxde=850) 0 /100 WBC 0-0 NEUTROPHILS RELATIVE PERCENT (BEAKER) (test qeaa=401) 74 % LYMPHOCYTES RELATIVE PERCENT (BEAKER) (test tyvl=597) 12 % MONOCYTES RELATIVE PERCENT (BEAKER) (test rnon=297) 13 % EOSINOPHILS RELATIVE PERCENT (BEAKER) (test xxlb=804) 1 % BASOPHILS RELATIVE PERCENT (BEAKER) (test rifj=608) 0 % NEUTROPHILS ABSOLUTE COUNT (BEAKER) (test cqqm=481) 6.78 K/ L 1.80-8.00 LYMPHOCYTES ABSOLUTE COUNT (BEAKER) (test xbfz=231) 1.08 K/ L 1.48-4.50 MONOCYTES ABSOLUTE COUNT (BEAKER) (test hmvm=757) 1.19 K/ L 0.00-1.30 EOSINOPHILS ABSOLUTE COUNT (BEAKER) (test ysvd=805) 0.10 K/ L 0.00-0.50 BASOPHILS ABSOLUTE COUNT (BEAKER) (test jvfg=863) 0.01 K/ L 0.00-0.20 0.00BASIC METABOLIC [id number] 06:12:00 Test Item Value Reference Range Comments SODIUM (BEAKER) (test 136 meq/L 136-145 haze=422) POTASSIUM (BEAKER) (test 4.5 meq/L 3.5-5.1 xhkv=032) CHLORIDE (BEAKER) (test 101 meq/L 98-107 daoo=320) CO2 (BEAKER) (test 26 meq/L 22-29 vbtu=001) BLOOD UREA NITROGEN 18 mg/dL 7-21 (BEAKER) (test zeap=508) CREATININE (BEAKER) (test 1.28 mg/dL 0.57-1.25 fwuk=595) GLUCOSE RANDOM (BEAKER) 89 mg/dL 70-105 (test euxv=625) CALCIUM (BEAKER) (test 8.6 mg/dL 8.4-10.2 zwzw=379) EGFR (BEAKER) (test 67 mL/min/1.73 sq m ESTIMATED GFR IS NOT jbgv=6967) ACCURATE CREATININE CLEARANCE IN PREDICTING GLOMERULAR FILTRATION RATE. ESTIMATED GFR IS NOT APPLICABLE FOR DIALYSIS PATIENTS. PROTHROMBIN [id number] 05:45:00 Test Item Value Reference Range Comments PROTIME (BEAKER) (test noln=733) 14.5 seconds 11.7-14.7 INR (BEAKER) (test jxif=833) 1.1 <=5.9 RECOMMENDED COUMADIN/WARFARIN INR THERAPY RANGESSTANDARD DOSE: 2.0 - 3.0 Includes: PROPHYLAXIS forvenous thrombosis, systemic embolization; TREATMENT for venous thrombosis and/or pulmonary embolus.HIGH RISK: Target INR is 2.5-3.5 for patients with mechanical heart valves.[id number] 12:38:00 Test Item Value Reference Range Comments SODIUM (BEAKER) (test wepu=088) 134 meq/L 136-145 [id number] 07:07:00 Test Item Value Reference Range Comments PHOSPHORUS (BEAKER) (test fgxu=291) 3.3 mg/dL 2.3-4.7 [id number] 07:07:00 Test Item Value Reference Range Comments MAGNESIUM (BEAKER) (test rydc=512) 1.6 mg/dL 1.6-2.6 BASIC METABOLIC [id number] 04:24:00 Test Item Value Reference Range Comments SODIUM (BEAKER) (test 134 meq/L 136-145 wsxm=590) POTASSIUM (BEAKER) (test 4.2 meq/L 3.5-5.1 rfuv=853) CHLORIDE (BEAKER) (test 101 meq/L 98-107 xlyn=037) CO2 (BEAKER) (test 27 meq/L 22-29 kvlq=477) BLOOD UREA NITROGEN 18 mg/dL 7-21 (BEAKER) (test nbgr=563) CREATININE (BEAKER) (test 1.22 mg/dL 0.57-1.25 bklr=987) GLUCOSE RANDOM (BEAKER) 99 mg/dL 70-105 (test wcrz=722) CALCIUM (BEAKER) (test 8.7 mg/dL 8.4-10.2 agda=616) EGFR (BEAKER) (test 71 mL/min/1.73 sq m ESTIMATED GFR IS NOT luly=2632) ACCURATE CREATININE CLEARANCE IN PREDICTING GLOMERULAR FILTRATION RATE. ESTIMATED GFR IS NOT APPLICABLE FOR DIALYSIS PATIENTS. PROTHROMBIN TIME/[id number] 04:16:00 Test Item Value Reference Range Comments PROTIME (BEAKER) (test qjzv=681) 15.0 seconds 11.7-14.7 INR (BEAKER) (test ysbj=722) 1.2 <=5.9 RECOMMENDED COUMADIN/WARFARIN INR THERAPY RANGESSTANDARD DOSE: 2.0 - 3.0 Includes: PROPHYLAXIS forvenous thrombosis, systemic embolization; TREATMENT for venous thrombosis and/or pulmonary embolus.HIGH RISK: Target INR is 2.5-3.5 for patients with mechanical heart valves.CBC W/PLT COUNT & AUTO [id number] 04:16:00 Test Item Value Reference Range Comments WHITE BLOOD CELL COUNT (BEAKER) (test lifb=768) 9.4 K/ L 4.0-10.0 RED BLOOD CELL COUNT (BEAKER) (test jula=639) 4.66 M/ L 4.20-5.80 HEMOGLOBIN (BEAKER) (test xcff=097) 11.8 GM/DL 13.0-16.8 HEMATOCRIT (BEAKER) (test oywq=171) 36.9 % 40.0-50.0 MEAN CORPUSCULAR VOLUME (BEAKER) (test hbwb=722) 79.2 fL 82.0-98.0 MEAN CORPUSCULAR HEMOGLOBIN (BEAKER) (test 25.2 pg 27.0-33.0 xyxu=134) MEAN CORPUSCULAR HEMOGLOBIN CONC (BEAKER) (test 31.9 GM/DL 32.0-36.0 emrn=629) RED CELL DISTRIBUTION WIDTH (BEAKER) (test 14.1 % 10.3-14.2 palx=921) PLATELET COUNT (BEAKER) (test ewhh=796) 129 K/CU MM 150-430 MEAN PLATELET VOLUME (BEAKER) (test ldpq=413) 9.7 fL 6.5-10.5 NUCLEATED RED BLOOD CELLS (BEAKER) (test 0 /100 WBC 0-0 wnkx=030) NEUTROPHILS RELATIVE PERCENT (BEAKER) (test 74 % jcui=157) LYMPHOCYTES RELATIVE PERCENT (BEAKER) (test 12 % ftsw=292) MONOCYTES RELATIVE PERCENT (BEAKER) (test 13 % ucuj=713) EOSINOPHILS RELATIVE PERCENT (BEAKER) (test 1 % oycu=898) BASOPHILS RELATIVE PERCENT (BEAKER) (test 0 % cmsl=003) NEUTROPHILS ABSOLUTE COUNT (BEAKER) (test 6.97 K/ L 1.80-8.00 ptzz=520) LYMPHOCYTES ABSOLUTE COUNT (BEAKER) (test 1.11 K/ L 1.48-4.50 gjlz=593) MONOCYTES ABSOLUTE COUNT (BEAKER) (test 1.23 K/ L 0.00-1.30 dkoj=681) EOSINOPHILS ABSOLUTE COUNT (BEAKER) (test 0.06 K/ L 0.00-0.50 smkf=235) BASOPHILS ABSOLUTE COUNT (BEAKER) (test 0.00 K/ L 0.00-0.20 mxfr=606) 0.00PT/[id number] 17:46:00 Test Item Value Reference Range Comments PROTIME (BEAKER) (test lxau=911) 14.4 seconds 11.7-14.7 INR (BEAKER) (test huxv=241) 1.1 <=5.9 PARTIAL THROMBOPLASTIN TIME (BEAKER) (test 36.8 seconds 22.5-36.0 secz=027) RECOMMENDED COUMADIN/WARFARIN INR THERAPY RANGESSTANDARD DOSE: 2.0 - 3.0 Includes: PROPHYLAXIS forvenous thrombosis, systemic embolization; TREATMENT for venous thrombosis and/or pulmonary embolus.HIGH RISK: Target INR is 2.5-3.5 for patients with mechanical heart valves.BASIC METABOLIC [id number] 02:40: 00 Test Item Value Reference Range Comments SODIUM (BEAKER) (test 137 meq/L 136-145 irrq=264) POTASSIUM (BEAKER) (test 4.6 meq/L 3.5-5.1 kogz=801) CHLORIDE (BEAKER) (test 101 meq/L 98-107 couj=279) CO2 (BEAKER) (test 29 meq/L 22-29 wlwr=270) BLOOD UREA NITROGEN 19 mg/dL 7-21 (BEAKER) (test dofn=948) CREATININE (BEAKER) (test 1.42 mg/dL 0.57-1.25 iksd=965) GLUCOSE RANDOM (BEAKER) 105 mg/dL 70-105 (test iuaj=815) CALCIUM (BEAKER) (test 8.3 mg/dL 8.4-10.2 yqil=530) EGFR (BEAKER) (test 59 mL/min/1.73 sq m ESTIMATED GFR IS NOT zjhd=9267) ACCURATE CREATININE CLEARANCE IN PREDICTING GLOMERULAR FILTRATION RATE. ESTIMATED GFR IS NOT APPLICABLE FOR DIALYSIS PATIENTS. CBC W/PLT COUNT & AUTO [id number] 02:16:00 Test Item Value Reference Range Comments WHITE BLOOD CELL COUNT (BEAKER) (test siso=811) 9.9 K/ L 4.0-10.0 RED BLOOD CELL COUNT (BEAKER) (test umjz=563) 4.56 M/ L 4.20-5.80 HEMOGLOBIN (BEAKER) (test iwmt=259) 11.8 GM/DL 13.0-16.8 HEMATOCRIT (BEAKER) (test ghvs=605) 36.5 % 40.0-50.0 MEAN CORPUSCULAR VOLUME (BEAKER) (test lpbg=644) 79.9 fL 82.0-98.0 MEAN CORPUSCULAR HEMOGLOBIN (BEAKER) (test 25.9 pg 27.0-33.0 pdwe=233) MEAN CORPUSCULAR HEMOGLOBIN CONC (BEAKER) (test 32.4 GM/DL 32.0-36.0 rzaf=029) RED CELL DISTRIBUTION WIDTH (BEAKER) (test 14.4 % 10.3-14.2 qfno=316) PLATELET COUNT (BEAKER) (test udor=701) 127 K/CU MM 150-430 MEAN PLATELET VOLUME (BEAKER) (test lycf=017) 10.0 fL 6.5-10.5 NUCLEATED RED BLOOD CELLS (BEAKER) (test 0 /100 WBC 0-0 zaek=813) NEUTROPHILS RELATIVE PERCENT (BEAKER) (test 79 % nhbk=957) LYMPHOCYTES RELATIVE PERCENT (BEAKER) (test 6 % rvai=940) MONOCYTES RELATIVE PERCENT (BEAKER) (test 14 % wvir=843) EOSINOPHILS RELATIVE PERCENT (BEAKER) (test 1 % brph=236) BASOPHILS RELATIVE PERCENT (BEAKER) (test 0 % ixqq=803) NEUTROPHILS ABSOLUTE COUNT (BEAKER) (test 7.86 K/ L 1.80-8.00 kldn=480) LYMPHOCYTES ABSOLUTE COUNT (BEAKER) (test 0.64 K/ L 1.48-4.50 fvxx=790) MONOCYTES ABSOLUTE COUNT (BEAKER) (test 1.36 K/ L 0.00-1.30 mxdp=774) EOSINOPHILS ABSOLUTE COUNT (BEAKER) (test 0.07 K/ L 0.00-0.50 gvzx=024) BASOPHILS ABSOLUTE COUNT (BEAKER) (test 0.01 K/ L 0.00-0.20 xzgy=189) 0.00POCT-GLUCOSE [id number] 18:13:00 Test Item Value Reference Range Comments POC-GLUCOSE METER (BEAKER) 110 mg/dL 70-110 TESTED AT [address] (test qhon=8709) [facility] [address] POCT-GLUCOSE [id number] 11:50:00 Test Item Value Reference Range Comments POC-GLUCOSE METER (BEAKER) 107 mg/dL 70-110 TESTED AT [address] (test hvsb=8928) [place] [id number] POCT-GLUCOSE [id number] 06:35:00 Test Item Value Reference Range Comments POC-GLUCOSE METER (BEAKER) 113 mg/dL 70-110 TESTED AT [address] (test yyoc=5328) [facility] [address] CBC W/PLT COUNT & AUTO [id number] 03:27:00 Test Item Value Reference Range Comments WHITE BLOOD CELL COUNT (BEAKER) (test occp=350) 10.0 K/ L 4.0-10.0 RED BLOOD CELL COUNT (BEAKER) (test nllr=718) 4.64 M/ L 4.20-5.80 HEMOGLOBIN (BEAKER) (test xzoh=876) 11.9 GM/DL 13.0-16.8 HEMATOCRIT (BEAKER) (test phcm=583) 36.8 % 40.0-50.0 MEAN CORPUSCULAR VOLUME (BEAKER) (test gulv=998) 79.3 fL 82.0-98.0 MEAN CORPUSCULAR HEMOGLOBIN (BEAKER) (test 25.6 pg 27.0-33.0 gkjk=262) MEAN CORPUSCULAR HEMOGLOBIN CONC (BEAKER) (test 32.3 GM/DL 32.0-36.0 gode=395) RED CELL DISTRIBUTION WIDTH (BEAKER) (test 14.4 % 10.3-14.2 mqjw=979) PLATELET COUNT (BEAKER) (test gqlj=403) 135 K/CU MM 150-430 MEAN PLATELET VOLUME (BEAKER) (test gpwp=860) 9.7 fL 6.5-10.5 NUCLEATED RED BLOOD CELLS (BEAKER) (test 0 /100 WBC 0-0 mchi=470) NEUTROPHILS RELATIVE PERCENT (BEAKER) (test 81 % hujx=433) LYMPHOCYTES RELATIVE PERCENT (BEAKER) (test 7 % ygrs=441) MONOCYTES RELATIVE PERCENT (BEAKER) (test 12 % qbut=288) EOSINOPHILS RELATIVE PERCENT (BEAKER) (test 1 % umxf=020) BASOPHILS RELATIVE PERCENT (BEAKER) (test 0 % zfmr=668) NEUTROPHILS ABSOLUTE COUNT (BEAKER) (test 8.03 K/ L 1.80-8.00 ozht=336) LYMPHOCYTES ABSOLUTE COUNT (BEAKER) (test 0.69 K/ L 1.48-4.50 esth=953) MONOCYTES ABSOLUTE COUNT (BEAKER) (test 1.19 K/ L 0.00-1.30 jicv=658) EOSINOPHILS ABSOLUTE COUNT (BEAKER) (test 0.07 K/ L 0.00-0.50 mplb=512) BASOPHILS ABSOLUTE COUNT (BEAKER) (test 0.00 K/ L 0.00-0.20 kzgr=282) 0.00BASI METABOLIC [id number] 03:16:00 Test Item Value Reference Range Comments SODIUM (BEAKER) (test 135 meq/L 136-145 pklk=506) POTASSIUM (BEAKER) (test 4.3 meq/L 3.5-5.1 gqwm=641) CHLORIDE (BEAKER) (test 104 meq/L 98-107 czeg=057) CO2 (BEAKER) (test 26 meq/L 22-29 jmiw=705) BLOOD UREA NITROGEN 19 mg/dL 7-21 (BEAKER) (test vmzj=484) CREATININE (BEAKER) (test 1.35 mg/dL 0.57-1.25 dxol=349) GLUCOSE RANDOM (BEAKER) 110 mg/dL 70-105 (test otol=997) CALCIUM (BEAKER) (test 8.2 mg/dL 8.4-10.2 qxzl=160) EGFR (BEAKER) (test 63 mL/min/1.73 sq m ESTIMATED GFR IS NOT hoat=4705) ACCURATE CREATININE CLEARANCE IN PREDICTING GLOMERULAR FILTRATION RATE. ESTIMATED GFR IS NOT APPLICABLE FOR DIALYSIS PATIENTS. POCT-GLUCOSE [id number] 00:29:00 Test Item Value Reference Range Comments POC-GLUCOSE METER (BEAKER) 114 mg/dL 70-110 TESTED AT [address] (test fvrc=3273) [facility] [address] POCT-GLUCOSE [id number] 00:21:00 Test Item Value Reference Range Comments POC-GLUCOSE METER (BEAKER) 115 mg/dL 70-110 TESTED AT [address] (test ppvo=2607) [facility] [address] POCT-GLUCOSE [id number] 12:42:00 Test Item Value Reference Range Comments POC-GLUCOSE METER (BEAKER) 114 mg/dL 70-110 TESTED AT [facility] [address] [facility] (test raqp=8711) [facility] [address] POCT-GLUCOSE [id number] 06:45:00 Test Item Value Reference Range Comments POC-GLUCOSE METER (BEAKER) 126 mg/dL 70-110 TESTED AT [facility] [address] [facility] (test hayd=7097) [facility] [address] [id number] 05:26:00 Test Item Value Reference Range Comments FERRITIN (BEAKER) (test qjjn=202) 220 ng/mL 5-275 Effective 08/03/2014: Reference Range ChangeNew: Male 5-275 Previous: Male 22-322 Female 5-275 Female 10-291BASI METABOLIC [id number] 05:01:00 Test Item Value Reference Range Comments SODIUM (BEAKER) (test 137 meq/L 136-145 luog=057) POTASSIUM (BEAKER) (test 3.9 meq/L 3.5-5.1 Specimen slightly gsqr=414) hemolyzed CHLORIDE (BEAKER) (test 108 meq/L 98-107 rngh=720) CO2 (BEAKER) (test 22 meq/L 22-29 bisz=094) BLOOD UREA NITROGEN 13 mg/dL 7-21 (BEAKER) (test util=554) CREATININE (BEAKER) (test 1.23 mg/dL 0.57-1.25 Specimen slightly dasi=437) hemolyzed GLUCOSE RANDOM (BEAKER) 114 mg/dL 70-105 (test dnmo=980) CALCIUM (BEAKER) (test 7.6 mg/dL 8.4-10.2 ojha=443) EGFR (BEAKER) (test 70 mL/min/1.73 sq m ESTIMATED GFR IS NOT yvlw=9700) ACCURATE CREATININE CLEARANCE IN PREDICTING GLOMERULAR FILTRATION RATE. ESTIMATED GFR IS NOT APPLICABLE FOR DIALYSIS PATIENTS. [id number] 04:59:00 Test Item Value Reference Range Comments MAGNESIUM (BEAKER) (test 1.5 mg/dL 1.6-2.6 Specimen slightly hemolyzed rljr=543) [id number] 04:59:00 Test Item Value Reference Range Comments PHOSPHORUS (BEAKER) (test 3.5 mg/dL 2.3-4.7 Specimen slightly hemolyzed rpyv=635) CBC W/PLT COUNT & AUTO [id number] 04:52:00 Test Item Value Reference Range Comments WHITE BLOOD CELL COUNT (BEAKER) (test twbx=315) 9.5 K/ L 4.0-10.0 RED BLOOD CELL COUNT (BEAKER) (test sdyx=312) 4.57 M/ L 4.20-5.80 HEMOGLOBIN (BEAKER) (test eptr=462) 11.5 GM/DL 13.0-16.8 HEMATOCRIT (BEAKER) (test lkyo=377) 36.2 % 40.0-50.0 MEAN CORPUSCULAR VOLUME (BEAKER) (test wizh=352) 79.3 fL 82.0-98.0 MEAN CORPUSCULAR HEMOGLOBIN (BEAKER) (test 25.2 pg 27.0-33.0 fsrz=678) MEAN CORPUSCULAR HEMOGLOBIN CONC (BEAKER) (test 31.7 GM/DL 32.0-36.0 fwyb=983) RED CELL DISTRIBUTION WIDTH (BEAKER) (test 14.6 % 10.3-14.2 mhcc=503) PLATELET COUNT (BEAKER) (test lorx=067) 98 K/CU MM 150-430 MEAN PLATELET VOLUME (BEAKER) (test kqwk=380) 10.8 fL 6.5-10.5 NUCLEATED RED BLOOD CELLS (BEAKER) (test 0 /100 WBC 0-0 rmvj=564) NEUTROPHILS RELATIVE PERCENT (BEAKER) (test 81 % xuoo=798) LYMPHOCYTES RELATIVE PERCENT (BEAKER) (test 9 % ohze=955) MONOCYTES RELATIVE PERCENT (BEAKER) (test 10 % vqjd=355) EOSINOPHILS RELATIVE PERCENT (BEAKER) (test 0 % kyrd=527) BASOPHILS RELATIVE PERCENT (BEAKER) (test 0 % yvzl=708) NEUTROPHILS ABSOLUTE COUNT (BEAKER) (test 7.71 K/ L 1.80-8.00 pgqx=889) LYMPHOCYTES ABSOLUTE COUNT (BEAKER) (test 0.81 K/ L 1.48-4.50 mucb=016) MONOCYTES ABSOLUTE COUNT (BEAKER) (test excs=315) 0.93 K/ L 0.00-1.30 EOSINOPHILS ABSOLUTE COUNT (BEAKER) (test 0.03 K/ L 0.00-0.50 obau=132) BASOPHILS ABSOLUTE COUNT (BEAKER) (test njwf=817) 0.04 K/ L 0.00-0.20 RETICULOCYTE [id number] 04:51:00 Test Item Value Reference Range Comments RETICULOCYTE COUNT PCT (BEAKER) (test vrby=092) 0.9 % 0.4-2.9 POCT-GLUCOSE [id number] 00:25:00 Test Item Value Reference Range Comments POC-GLUCOSE METER (BEAKER) 124 mg/dL 70-110 TESTED AT [address] (test livd=4527) [place] [address] POCT-GLUCOSE [id number] 17:53:00 Test Item Value Reference Range Comments POC-GLUCOSE METER (BEAKER) 126 mg/dL 70-110 TESTED AT [address] (test ocpk=6377) [place] [address] PERIPHERAL BLOOD SMEAR - PATHOLOGIST [id number] 13:47:00 Test Item Value Reference Range Comments RBC MORPHOLOGY (BEAKER) Anisocytosis (test evnu=7812) RBC MORPHOLOGY (BEAKER) Poikilocytosis (test tgpo=76355) RBC MORPHOLOGY (BEAKER) Polychromasia (test osbg=26991) WBC MORPHOLOGY (BEAKER) Unremarkable (test yakf=2286) PLT MORPHOLOGY (BEAKER) Unremarkable (test oajn=0445) PERIPHERAL SMR REVIEW No circulating blasts. No (BEAKER) (test deyo=7086) significantly increased shistocytes. [id number] Mark Acuna, (BEAKER) (test wdqf=4984) M.D.(electronic signature) POCT-GLUCOSE [id number] 12:00:00 Test Item Value Reference Range Comments POC-GLUCOSE METER (BEAKER) 101 mg/dL 70-110 TESTED AT [address] (test htla=8112) [place] [id number] 07:34:00 Test Item Value Reference Range Comments COL/EPI CLOSURE TIME (BEAKER) 93 Seconds 78-191 (test vqum=9187) COL/ADP CLOSURE TIME (BEAKER) 62 Seconds 43-122 (test bqjk=0943) PLATELET COUNT AGG (BEAKER) 113 K/CU MM 150-430 Previous platelet result was (test rbtu=8153) 113. Lavender top for platelet clotted! Hematocrit <35% or platelet count <150,000/CU MM may contribute to falsely elevated PFA-100.PT/[id number] 07:33:00 Test Item Value Reference Range Comments PROTIME (BEAKER) (test ofty=955) 14.1 seconds 11.7-14.7 INR (BEAKER) (test dbtj=515) 1.1 <=5.9 PARTIAL THROMBOPLASTIN TIME (BEAKER) (test 30.8 seconds 22.5-36.0 hirw=123) RECOMMENDED COUMADIN/WARFARIN INR THERAPY RANGESSTANDARD DOSE: 2.0 - 3.0 Includes: PROPHYLAXIS forvenous thrombosis, systemic embolization; TREATMENT for venous thrombosis and/or pulmonary embolus.HIGH RISK: Target INR is 2.5-3.5 for patients with mechanical heart valves.VITAMIN B12 AND [id number] 06:33 :00 Test Item Value Reference Range Comments VITAMIN B12 (BEAKER) (test knnf=772) 327 pg/mL 213-816 FOLATE (BEAKER) (test yqof=160) 9.6 ng/mL >=7.0 Effective 08/03/2014: Folate Reference Range ChangeNew: >=7.0 Previous: & gt;=5.4POCT-GLUCOSE [id number] 06:32:00 Test Item Value Reference Range Comments POC-GLUCOSE METER (BEAKER) 79 mg/dL 70-110 TESTED AT [facility] [address] [facility] (test kqdj=5748) [facility] [address] CBC W/PLT COUNT & AUTO [id number] 06:29:00 Test Item Value Reference Range Comments WHITE BLOOD CELL COUNT (BEAKER) (test rhgj=793) 7.9 K/ L 4.0-10.0 RED BLOOD CELL COUNT (BEAKER) (test mtym=763) 5.16 M/ L 4.20-5.80 HEMOGLOBIN (BEAKER) (test mvmp=439) 13.0 GM/DL 13.0-16.8 HEMATOCRIT (BEAKER) (test mdrg=984) 41.2 % 40.0-50.0 MEAN CORPUSCULAR VOLUME (BEAKER) (test skfp=014) 79.9 fL 82.0-98.0 MEAN CORPUSCULAR HEMOGLOBIN (BEAKER) (test 25.2 pg 27.0-33.0 tzob=119) MEAN CORPUSCULAR HEMOGLOBIN CONC (BEAKER) (test 31.6 GM/DL 32.0-36.0 qjgi=799) RED CELL DISTRIBUTION WIDTH (BEAKER) (test 14.8 % 10.3-14.2 qheq=601) PLATELET COUNT (BEAKER) (test qset=052) 108 K/CU MM 150-430 MEAN PLATELET VOLUME (BEAKER) (test uinp=070) 11.2 fL 6.5-10.5 NUCLEATED RED BLOOD CELLS (BEAKER) (test 0 /100 WBC 0-0 dhhj=836) NEUTROPHILS RELATIVE PERCENT (BEAKER) (test 71 % ymxw=478) LYMPHOCYTES RELATIVE PERCENT (BEAKER) (test 17 % xbcl=391) MONOCYTES RELATIVE PERCENT (BEAKER) (test 9 % uqyu=573) EOSINOPHILS RELATIVE PERCENT (BEAKER) (test 2 % uhjn=081) BASOPHILS RELATIVE PERCENT (BEAKER) (test 0 % gflj=754) NEUTROPHILS ABSOLUTE COUNT (BEAKER) (test 5.62 K/ L 1.80-8.00 mcsp=242) LYMPHOCYTES ABSOLUTE COUNT (BEAKER) (test 1.37 K/ L 1.48-4.50 bujj=056) MONOCYTES ABSOLUTE COUNT (BEAKER) (test 0.73 K/ L 0.00-1.30 tqfm=482) EOSINOPHILS ABSOLUTE COUNT (BEAKER) (test 0.16 K/ L 0.00-0.50 ekks=430) BASOPHILS ABSOLUTE COUNT (BEAKER) (test 0.02 K/ L 0.00-0.20 pcec=626) 0.00IRON, TIBC, % SAT. (WITHOUT FERRITIN)2017-02-05 05:59:00 Test Item Value Reference Range Comments IRON (BEAKER) (test wnns=260) 37 ug/dL 40-160 TOTAL IRON BINDING CAPACITY (BEAKER) (test 206 ug/dL 250-450 dnzf=688) IRON % SATURATION (2) (BEAKER) (test aqcr=1133) 18 % 20-55 [id number] 05:33:00 Test Item Value Reference Range Comments PHOSPHORUS (BEAKER) (test mzjq=264) 3.4 mg/dL 2.3-4.7 Once on admission and Daily AM afterwardsOnce on admission and Daily AM afterwardsOnce on admission and Daily AM [id number] 05:33:00 Test Item Value Reference Range Comments MAGNESIUM (BEAKER) (test wpsf=850) 1.7 mg/dL 1.6-2.6 Once on admission and Daily AM afterwardsOnce on admission and Daily AM afterwardsOnce on admission and Daily AM afterwardsBASIC METABOLIC [id number] 05:33:00 Test Item Value Reference Range Comments SODIUM (BEAKER) (test 139 meq/L 136-145 dtrn=610) POTASSIUM (BEAKER) (test 4.9 meq/L 3.5-5.1 rssm=708) CHLORIDE (BEAKER) (test 107 meq/L 98-107 dwsl=742) CO2 (BEAKER) (test 26 meq/L 22-29 hbvw=616) BLOOD UREA NITROGEN 15 mg/dL 7-21 (BEAKER) (test lyzb=420) CREATININE (BEAKER) (test 1.51 mg/dL 0.57-1.25 deon=287) GLUCOSE RANDOM (BEAKER) 76 mg/dL 70-105 (test evad=060) CALCIUM (BEAKER) (test 8.5 mg/dL 8.4-10.2 wfxo=664) EGFR (BEAKER) (test 55 mL/min/1.73 sq m ESTIMATED GFR IS NOT meaz=0496) ACCURATE CREATININE CLEARANCE IN PREDICTING GLOMERULAR FILTRATION RATE. ESTIMATED GFR IS NOT APPLICABLE FOR DIALYSIS PATIENTS. Once on admission and Daily AM afterwardsOnce on admission and Daily AM afterwardsOnce on admission and Daily AM afterwardsPOCT-GLUCOSE [id number] 00:30:00 Test Item Value Reference Range Comments POC-GLUCOSE METER (BEAKER) 78 mg/dL 70-110 TESTED AT [address] (test tiut=4260) [facility] [address] POCT-GLUCOSE [id number] 18:20:00 Test Item Value Reference Range Comments POC-GLUCOSE METER (BEAKER) 156 mg/dL 70-110 TESTED AT [address] (test yohf=3423) [facility] [address] PLATELET AGGREGATION: FUNCTION [id number] 15:53:00 Test Item Value Reference Range Comments WEAK ADP RESULT(BEAKER) (test 94 % 60-91 hmdc=7989) PLATELET FUNCTION SCREEN 60-100% indicates normal INTERP (BEAKER) (test platelet function yswz=7020) [id number] (BEAKER) Aurora Pascual MD (electronic (test bwlo=6042) signature) PLATELET COUNT AGG (BEAKER) 113 K/CU MM 150-430 (test nyuw=5980) POCT-GLUCOSE [id number] 14:21:00 Test Item Value Reference Range Comments POC-GLUCOSE METER (BEAKER) 82 mg/dL 70-110 TESTED AT [facility] [address] [facility] (test bxur=1997) [facility] [address] HEPATIC FUNCTION [id number] 07:38:00 Test Item Value Reference Range Comments TOTAL PROTEIN (BEAKER) (test 7.6 gm/dL 6.0-8.3 Specimen slightly hemolyzed sbhy=837) ALBUMIN (BEAKER) (test 3.4 g/dL 3.5-5.0 Specimen slightly hemolyzed vqnb=3703) BILIRUBIN TOTAL (BEAKER) (test 0.8 mg/dL 0.2-1.2 Specimen slightly hemolyzed gpoq=398) BILIRUBIN DIRECT (BEAKER) (test 0.3 mg/dL 0.1-0.5 Specimen slightly hemolyzed rple=985) ALKALINE PHOSPHATASE (BEAKER) 49 U/L 40-150 (test zmxi=976) AST (SGOT) (BEAKER) (test 16 U/L 5-34 Specimen slightly hemolyzed mciz=262) ALT (SGPT) (BEAKER) (test 16 U/L 6-55 Specimen slightly hemolyzed anrp=055) PROTHROMBIN [id number] 07:10:00 Test Item Value Reference Range Comments PROTIME (BEAKER) (test xdpu=183) 14.9 seconds 11.7-14.7 INR (BEAKER) (test ggif=316) 1.2 <=5.9 RECOMMENDED COUMADIN/WARFARIN INR THERAPY RANGESSTANDARD DOSE: 2.0 - 3.0 Includes: PROPHYLAXIS forvenous thrombosis, systemic embolization; TREATMENT for venous thrombosis and/or pulmonary embolus.HIGH RISK: Target INR is 2.5-3.5 for patients with mechanical heart valves.[id number] 07:10:00 Test Item Value Reference Range Comments PARTIAL THROMBOPLASTIN TIME (BEAKER) (test 35.9 seconds 22.5-36.0 isea=582) CBC W/PLT COUNT & AUTO [id number] 07:07:00 Test Item Value Reference Range Comments WHITE BLOOD CELL COUNT (BEAKER) (test iaqk=302) 7.4 K/ L 4.0-10.0 RED BLOOD CELL COUNT (BEAKER) (test wlaw=936) 5.04 M/ L 4.20-5.80 HEMOGLOBIN (BEAKER) (test utfu=797) 12.9 GM/DL 13.0-16.8 HEMATOCRIT (BEAKER) (test zfln=092) 40.0 % 40.0-50.0 MEAN CORPUSCULAR VOLUME (BEAKER) (test wmhx=927) 79.2 fL 82.0-98.0 MEAN CORPUSCULAR HEMOGLOBIN (BEAKER) (test 25.6 pg 27.0-33.0 ezve=993) MEAN CORPUSCULAR HEMOGLOBIN CONC (BEAKER) (test 32.3 GM/DL 32.0-36.0 astk=593) RED CELL DISTRIBUTION WIDTH (BEAKER) (test 14.5 % 10.3-14.2 uazv=684) PLATELET COUNT (BEAKER) (test etgf=269) 94 K/CU MM 150-430 MEAN PLATELET VOLUME (BEAKER) (test vtot=665) 11.7 fL 6.5-10.5 NUCLEATED RED BLOOD CELLS (BEAKER) (test 0 /100 WBC 0-0 bmfr=565) NEUTROPHILS RELATIVE PERCENT (BEAKER) (test 72 % iwil=885) LYMPHOCYTES RELATIVE PERCENT (BEAKER) (test 17 % ckqi=906) MONOCYTES RELATIVE PERCENT (BEAKER) (test 9 % leus=562) EOSINOPHILS RELATIVE PERCENT (BEAKER) (test 2 % bvtn=703) BASOPHILS RELATIVE PERCENT (BEAKER) (test 0 % pxxx=660) NEUTROPHILS ABSOLUTE COUNT (BEAKER) (test 5.33 K/ L 1.80-8.00 xzgm=532) LYMPHOCYTES ABSOLUTE COUNT (BEAKER) (test 1.25 K/ L 1.48-4.50 nitz=705) MONOCYTES ABSOLUTE COUNT (BEAKER) (test xusy=154) 0.66 K/ L 0.00-1.30 EOSINOPHILS ABSOLUTE COUNT (BEAKER) (test 0.12 K/ L 0.00-0.50 owuz=978) BASOPHILS ABSOLUTE COUNT (BEAKER) (test hhzv=694) 0.03 K/ L 0.00-0.20 0.00
[2019-03-04] MEDS ORDERED: METHYLPREDNISOLONE 125 MG INJ ONE (08:40)
[2019-03-04] MEDS ORDERED: HYDROCODONE/APAP 5/325 MG TAB ONE (08:41)
--- NOTE | 2019-03-04 09:17 | ER ---
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 Transition of care: patient was not received from another setting of care. Onset of symptoms was February 27, 2019. Risk Assessment: Do you want to hurt yourself or someone else? Patient reports no desire to harm self or others. Initial Sepsis Screen: Does the patient meet any 2 criteria? No. Patient's initial sepsis screen is negative. Does the patient have a suspected source of infection? No. Patient's initial sepsis screen is negative. Care prior to arrival: None. 08:13 Method Of Arrival: Ambulatory ss 08:13 Acuity: AQUILES 4 ss Historical: - Allergies: 08:14 NKA; ss - PMHx: 08:14 chronic kidney disease; Hyperlipidemia; Hypertension; Myocardial infarction; ss - PSHx: 08:14 Head bleed; ss - Immunization history:: Adult Immunizations up to date. - Social history:: Smoking status: Patient/guardian denies using tobacco. - Ebola Screening: : Patient denies exposure to infectious person Patient denies travel to an Ebola-affected area in the 21 days before illness onset. Screenin:15 Fall Risk None identified. hb 09:00 Abuse screen: Denies threats or abuse. Denies injuries from another. Nutritional hb screening: No deficits noted. Tuberculosis screening: No symptoms or risk factors identified. Assessment: 08:15 General: Appears in no apparent distress. Behavior is calm, cooperative. Pain: Pain hb currently is 9 out of 10 on a pain scale. Neuro: Level of Consciousness is awake, alert, obeys commands, Oriented to person, place, time, situation. Cardiovascular: Capillary refill < 3 seconds Patient's skin is warm and dry. Respiratory: Airway is patent Respiratory effort is even, unlabored, Respiratory pattern is regular, symmetrical. GI: No signs and/or symptoms were reported involving the gastrointestinal system. : No signs and/or symptoms were reported regarding the genitourinary system. EENT: No signs and/or symptoms were reported regarding the EENT system. Derm: Skin is intact, is healthy with good turgor. Musculoskeletal: Reports LOW BACK PAIN. 09:00 Reassessment: Patient appears in no apparent distress at this time. Patient and/or hb family updated on plan of care and expected duration. Pain level reassessed. Patient is alert, oriented x 3, equal unlabored respirations, skin warm/dry/pink. Vital Signs: 08:14 BP 151 / 81; Pulse 56; Resp 15; Temp 97.8(TE); Pulse Ox 96% on R/A; Weight 105.23 kg; ss Height 6 ft. 1 in. (185.42 cm); Pain 9/10; 09:00 BP 148 / 78; Pulse 55; Resp 15; Pulse Ox 100% on R/A; Pain 4/10; hb 08:14 Body Mass Index 30.61 (105.23 kg, 185.42 cm) ED Course: 07:57 Patient arrived in ED. as 07:57 Bear Moreira DO is Private Physician. as 08:09 Colin De Paz [facility] pm1 08:09 Brandyn Silva MD is Attending Physician. pm1 08:14 Triage completed. ss 08:14 Arm band placed on right wrist. ss 08:27 Liana Tinsley, RN is Primary Nurse. ls4 08:28 Liana Tinsley, RN is Primary Nurse. ls4 08:30 Patient has correct armband on for positive identification. Bed in low position. Call hb light in reach. Side rails up X 1. 09:36 No provider procedures requiring assistance completed. Patient did not have IV access hb during this emergency room visit. Administered Medications: 08:28 Drug: SOLU-Medrol 125 mg Route: IM; Site: right deltoid; ls4 08:29 Drug: [place] 5 mg-325 mg 1 tabs Route: PO; ls4 Outcome: 09:17 Discharge ordered by . pm1 09:36 Discharged to home ambulatory. hb 09:36 Condition: stable 09:36 Discharge instructions given to patient, Instructed on discharge instructions, follow up and referral plans. medication usage, Demonstrated understanding of instructions, follow-up care, medications, Prescriptions given X 2. 09:38 Patient left the ED. hb Signatures: Little Miranda Shelby, RN RN ss Colin De Paz, EDGER AUTOMATIC EDGER AUTOMATIC pm1 Nikole Carpenter, RN RN hb Liana Tinsley RN RN ls4
--- NOTE | 2019-03-04 09:17 | EDPHYS ---
Physician Documentation [facility] Name: Reggie Mayer Age: 73 yrs Sex: Male : 1945 Arrival Date: 03/04/2019 Time: 07:57 Bed 20 Private MD: Bear Moreira ED Physician Brandyn Silva HPI: 03/04 08:31 This 73 yrs old Black Male presents to ER via Ambulatory with complaints of Back Pain. pm1 08:31 The patient presents with pain that is acute. The symptoms are located in the low back. pm1 Onset: The symptoms/episode began/occurred 5 day(s) ago. The pain does not radiate. Associated signs and symptoms: Pertinent negatives: abdominal pain, chest pain, dysuria, fever, hematuria, incontinence, nausea, numbness, tingling, vomiting. 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 Modifying factors: The patient symptoms are alleviated by remaining still, the patient symptoms are aggravated by changing position, standing up from sitting position and twisting. Severity of symptoms: in the emergency department the symptoms are unchanged. The patient has not experienced similar symptoms in the past. The patient has not recently seen a physician. Historical: - Allergies: 08:14 NKA; ss - PMHx: 08:14 chronic kidney disease; Hyperlipidemia; Hypertension; Myocardial infarction; ss - PSHx: 08:14 Head bleed; ss - Immunization history:: Adult Immunizations up to date. - Social history:: Smoking status: Patient/guardian denies using tobacco. - Ebola Screening: : Patient denies exposure to infectious person Patient denies travel to an Ebola-affected area in the 21 days before illness onset. ROS: 08:31 Constitutional: Negative for fever, chills, and weight loss, Eyes: Negative for injury, pm1 pain, redness, and discharge, ENT: Negative for injury, pain, and discharge, Neck: Negative for injury, pain, and swelling, Cardiovascular: Negative for chest pain, palpitations, and edema, Respiratory: Negative for shortness of breath, cough, wheezing, and pleuritic chest pain, Abdomen/GI: Negative for abdominal pain, nausea, vomiting, diarrhea, and constipation. 08:31 : Negative for injury, bleeding, discharge, and swelling, MS/Extremity: Negative for injury and deformity, Skin: Negative for injury, rash, and discoloration, Neuro: Negative for headache, weakness, numbness, tingling, and seizure. 08:31 Back: Positive for of the low back area. Exam: 08:31 Constitutional: This is a well developed, well nourished patient who is awake, alert, pm1 and in no acute distress. Head/Face: Normocephalic, atraumatic. Neck: Trachea midline, no thyromegaly or masses palpated, and no cervical lymphadenopathy. Supple, full range of motion without nuchal rigidity, or vertebral point tenderness. No Meningismus. Chest/axilla: Normal chest wall appearance and motion. Nontender with no deformity. No lesions are appreciated. Cardiovascular: Regular rate and rhythm with a normal S1 and S2. No gallops, murmurs, or rubs. Normal PMI, no JVD. No pulse deficits. Respiratory: Lungs have equal breath sounds bilaterally, clear to auscultation and percussion. No rales, rhonchi or wheezes noted. No increased work of breathing, no retractions or nasal flaring. Abdomen/GI: Soft, non-tender, with normal bowel sounds. No distension or tympany. No guarding or rebound. No evidence of tenderness throughout. 08:31 Skin: Warm, dry with normal turgor. Normal color with no rashes, no lesions, and no evidence of cellulitis. MS/ Extremity: Pulses equal, no cyanosis. Neurovascular intact. Full, normal range of motion. 08:31 Back: normal spinal alignment noted, vertebral tenderness, is not appreciated, muscle spasm, is appreciated in the left low back and right low back. 08:31 Neuro: Orientation: is normal, Motor: moves all fours, strength is normal, strength is 5/5 in all extremities, Sensation: is normal, no obvious gross deficits, patient able to dorsi and plantar flex bilateral great toes. Vital Signs: 08:14 BP 151 / 81; Pulse 56; Resp 15; Temp 97.8(TE); Pulse Ox 96% on R/A; Weight 105.23 kg; ss Height 6 ft. 1 in. (185.42 cm); Pain 9/10; 09:00 BP 148 / 78; Pulse 55; Resp 15; Pulse Ox 100% on R/A; Pain 4/10; hb 08:14 Body Mass Index 30.61 (105.23 kg, 185.42 cm) MDM: 08:19 Patient medically screened. pm1 08:57 Data reviewed: vital signs. Data interpreted: Pulse oximetry: on room air is 96 %. pm1 Interpretation: normal. 09:16 Counseling: I had a detailed discussion with the patient and/or guardian regarding: the pm1 historical points, exam findings, and any diagnostic results supporting the discharge/admit diagnosis, the need for outpatient follow up, a family practitioner, possible MRI of lower back, to return to the emergency department if symptoms worsen or persist or if there are any questions or concerns that arise at home. Administered Medications: 08:28 Drug: SOLU-Medrol 125 mg Route: IM; Site: right deltoid; ls4 08:29 Drug: [place] 5 mg-325 mg 1 tabs Route: PO; ls4 Disposition: 14:14 Co-signature as Attending Physician, Brandyn Silva MD I agree with the assessment and kdr plan of care. Disposition: 03/04/19 09:17 Discharged to Home. Impression: Low back pain. - Condition is Stable. - Discharge Instructions: Back Pain, Adult, Musculoskeletal Pain, Back Injury Prevention, [id number]. - Prescriptions for Tylenol- Codeine #3 300-30 mg Oral Tablet - take 2 tablets by ORAL route every 6 hours As needed; 20 tablet. Medrol (Sonu) 4 mg Oral Tablets, Dose Pack - take 1 tablet by ORAL route as directed - follow package instructions; 1 packet. - Medication Reconciliation Form, Thank You Letter, Antibiotic Education, Prescription Opioid Use form. - Follow up: Emergency Department; When: As needed; Reason: Worsening of condition. Follow up: Private Physician; When: 2 - 3 days; Reason: Recheck today's complaints, Continuance of care, Re-evaluation by your physician. - Problem is new. - Symptoms have improved. Signatures: Brandyn Silva MD MD [facility] Jovita Boothe RN RN Colin De Paz, CAR LUBRICATOR CAR LUBRICATOR pm1 Nikole Carpenter RN RN hb Liana Tinsley RN RN ls4 Corrections: (The following items were deleted from the chart) 09:38 09:17 03/04/2019 09:17 Discharged to Home. Impression: Low back pain. Condition is hb Stable. Forms are Medication Reconciliation Form, Thank You Letter, Antibiotic Education, Prescription Opioid Use. Follow up: Emergency Department; When: As needed; Reason: Worsening of condition. Follow up: Private Physician; When: 2 - 3 days; Reason: Recheck today's complaints, Continuance of care, Re-evaluation by your physician. Problem is new. Symptoms have improved. pm1
[2019-03-04 09:54] VITALS: TEMP 97.8
[2019-03-04 09:56] VITALS: BP 148/78; O2SAT 100
== END 2019-03-04 09:38 | disposition home or self-care (01) ==
LOC: ER 07:54
DX: M54.5 Low back pain (principal); I12.9 Hypertensive chronic kidney disease with stage 1 through stage 4 chronic kidney disease, or unspecified chronic kidney disease; N18.9 Chronic kidney disease, unspecified; E78.5 Hyperlipidemia, unspecified; I25.2 Old myocardial infarction
CPT/HCPCS: 96372; 99283; J2930

== ENCOUNTER 2019-11-12 09:21 | Emergency (ER) | payer MEDICARE ==
--- OUTSIDE RECORDS SUMMARY | 2019-11-12 09:24 | XMS REPORT ---
:1945 Author Organization [employer] Care Team Providers Name Role Phone Sudhir Bo Provider Role Unavailable Allergies, Adverse Reactions, Alerts Substance Reaction Event Type N.K.D.A. Info Not Available Non Drug Allergy Problems Problem Type Condition Code Onset Dates Condition Status Problem Traumatic subdural hemorrhage S06.5X0A Active without loss of consciousness, initial encounter Problem Other hammer toe(s) (acquired), M20.41 Active right foot Problem Other hammer toe(s) (acquired), M20.42 Active left foot Problem Prostate cancer C61 Active Problem CKD (chronic kidney disease) stage N18.3 Active 3, GFR 30-59 ml/min Problem Acute gout involving toe of right M10.9 Active foot, unspecified cause Problem History of gout Z87.39 Active Problem Type 2 diabetes mellitus with E11.22 Active chronic kidney disease, without long-term current use of insulin, unspecified CKD stage Problem Chronic gout of multiple sites, M1A.09X0 Active unspecified cause Problem BPH loc w/o ur obs/LUTS N40.0 Active Assessment Chronic gout of multiple sites, M1A.09X0 Active unspecified cause Assessment Acute gout involving toe of right M10.9 Active foot, unspecified cause Problem Hypercholesteremia E78.00 Active Problem Elevated PSA R97.2 Active Problem Psoriasis L40.9 Active Problem Arteriosclerosis of coronary I25.10 Active artery Problem Benign essential HTN I10 Active Medications Medication Code Code Instructions Start End Status Dosage System Date Date [facility] 66888730084 81 MG Orally Active 1 tablet Once a day Lisinopril ND 32665581673 20 MG Orally Active 1 tablet Once a day Clobetasol ND 29345593877 0.05 % Jul 20, Jul 14, Active use Propionate Externally 2018 2019 sparingly to Twice a day area Tamsulosin HCl ND 83056630457 0.4 MG Active TAKE 1 CAPSULE BY MOUTH EVERY DAY Carvedilol [facility] 51148289667 6.25 MG Oral Active take 1 Twice a day tablet by mouth twice a day Colchicine [facility] 16445185938 0.6 MG Orally Nov 03, Active 2 tab PO x Once a day 2019 09, then 1 tab 0.6 mg 1 hour later x 1 Max 1.8 mg total dose/course Atorvastatin [facility] 24690744576 40 MG Orally Active 1 tablet Calcium Once a day Allopurinol [facility] 57378323425 100 MG Orally Active 1 tablet Once a day Results No Known Results Summary Purpose [employer] Submission
--- OUTSIDE RECORDS SUMMARY | 2019-11-12 09:24 | XMS REPORT ---
:1945 Author Organization [employer] Care Team Providers Name Role Phone Sudhir Bo Provider Role Unavailable Allergies No Known Allergies Problems Problem Type Condition Code Onset Dates [...] BPH loc w/o ur obs/LUTS N40.0 Active Problem Hypercholesteremia E78.00 Active Problem Elevated PSA R97.2 Active Problem Psoriasis L40.9 Active Problem Arteriosclerosis of coronary I25.10 Active artery Problem Benign essential HTN I10 Active Medications No Known Medications Results No Known Results Summary Purpose [employer] Submission
--- OUTSIDE RECORDS SUMMARY | 2019-11-12 09:24 | XMS REPORT ---
[...] loc w/o ur obs/LUTS N40.0 Active Assessment Psoriasis L40.9 Active Problem Hypercholesteremia E78.00 Active Problem Elevated PSA R97.2 Active Problem Psoriasis L40.9 Active Problem Arteriosclerosis of coronary I25.10 Active artery Problem Benign essential HTN I10 Active Medications Medication Code Code Instructions Start End Status Dosage System Date Date Clobetasol [facility] 76205771312 0.05 % Active use Propionate Externally sparingly to Twice a day affected area Results No Known Results Summary Purpose [employer] Submission
--- OUTSIDE RECORDS SUMMARY | 2019-11-12 09:24 | XMS REPORT ---
:1945 Author Organization [employer] Care Team Providers Name Role Phone Sudhir Bo Provider Role Unavailable Allergies No Known Allergies Problems Problem Type Condition Code Onset Dates Condition Status Problem Benign essential HTN I10 Active Problem Other hammer toe(s) (acquired), M20.42 Active left foot Problem Traumatic subdural hemorrhage S06.5X0A Active without loss of consciousness, initial encounter Problem CKD (chronic kidney disease) stage N18.3 Active 3, GFR 30-59 ml/min Problem Chronic gout of multiple sites, M1A.09X0 Active unspecified cause Problem Prostate cancer C61 Active Problem Type 2 diabetes mellitus with E11.22 Active chronic kidney disease, without long-term current use of insulin, unspecified CKD stage Problem Other hammer toe(s) (acquired), M20.41 Active right foot Problem BPH loc w/o ur obs/LUTS N40.0 Active Problem History of gout Z87.39 Active Problem Arteriosclerosis of coronary I25.10 Active artery Problem Hypercholesteremia E78.00 Active Assessment Prostate cancer C61 Active Problem Elevated PSA R97.2 Active Problem Psoriasis L40.9 Active Medications No Known Medications Results No Known Results Summary Purpose [employer]Works Submission
--- OUTSIDE RECORDS SUMMARY | 2019-11-12 09:24 | XMS REPORT ---
:1945 Author Organization [facility] Address [address] [place] [address] Dr. Wolff [address] [place] [id number] Care Team Providers Name Role Phone CHIKIS TURCIOSCHLOE ONTIVEROSTRAN Unavailable Unavailable Problems This patient has no known problems. Allergies, Adverse Reactions, Alerts This patient has no known allergies or adverse reactions. Medications This patient has no known medications. Results Test Description Test Time Test Comments Text Results Atomic Results Result Comments CBC W/PLT COUNT & AUTO DIFFERENTIAL 2017-02-10 06:43:00 Test Item Value Reference Range Comments WHITE BLOOD CELL COUNT (BEAKER) (test ehbl=094) 9.2 K/ L 4.0-10.0 RED BLOOD CELL COUNT (BEAKER) (test jmet=915) 4.69 M/ L 4.20-5.80 HEMOGLOBIN (BEAKER) (test zkya=204) 12.2 GM/DL 13.0-16.8 HEMATOCRIT (BEAKER) (test ehrr=263) 36.5 % 40.0-50.0 MEAN CORPUSCULAR VOLUME (BEAKER) (test pmxp=374) 77.8 fL 82.0-98.0 MEAN CORPUSCULAR HEMOGLOBIN (BEAKER) (test kuow=230) 25.9 pg 27.0-33.0 MEAN CORPUSCULAR HEMOGLOBIN CONC (BEAKER) (test wiob=364) 33.3 GM/DL 32.0- 36.0 RED CELL DISTRIBUTION WIDTH (BEAKER) (test xrlv=660) 15.5 % 10.3-14.2 PLATELET COUNT (BEAKER) (test agbo=054) 140 K/CU MM 150-430 MEAN PLATELET VOLUME (BEAKER) (test ivjq=641) 10.1 fL 6.5-10.5 NUCLEATED RED BLOOD CELLS (BEAKER) (test cqur=668) 0 /100 WBC 0-0 NEUTROPHILS RELATIVE PERCENT (BEAKER) (test uftd=604) 74 % LYMPHOCYTES RELATIVE PERCENT (BEAKER) (test kpni=988) 12 % MONOCYTES RELATIVE PERCENT (BEAKER) (test vzjl=814) 13 % EOSINOPHILS RELATIVE PERCENT (BEAKER) (test evwm=532) 1 % BASOPHILS RELATIVE PERCENT (BEAKER) (test ylsr=035) 0 % NEUTROPHILS ABSOLUTE COUNT (BEAKER) (test hjmx=155) 6.78 K/ L 1.80-8.00 LYMPHOCYTES ABSOLUTE COUNT (BEAKER) (test wgpd=320) 1.08 K/ L 1.48-4.50 MONOCYTES ABSOLUTE COUNT (BEAKER) (test vabb=536) 1.19 K/ L 0.00-1.30 EOSINOPHILS ABSOLUTE COUNT (BEAKER) (test rzvn=137) 0.10 K/ L 0.00-0.50 BASOPHILS ABSOLUTE COUNT (BEAKER) (test amut=994) 0.01 K/ L 0.00-0.20 0.00BASIC METABOLIC [id number] 06:12:00 Test Item Value Reference Range Comments SODIUM (BEAKER) (test 136 meq/L 136-145 qdfr=445) POTASSIUM (BEAKER) (test 4.5 meq/L 3.5-5.1 nhim=944) CHLORIDE (BEAKER) (test 101 meq/L 98-107 yogg=245) CO2 (BEAKER) (test 26 meq/L 22-29 vdka=940) BLOOD UREA NITROGEN 18 mg/dL 7-21 (BEAKER) (test klfm=252) CREATININE (BEAKER) (test 1.28 mg/dL 0.57-1.25 vsci=483) GLUCOSE RANDOM (BEAKER) 89 mg/dL 70-105 (test jpta=495) CALCIUM (BEAKER) (test 8.6 mg/dL 8.4-10.2 rozm=446) EGFR (BEAKER) (test 67 mL/min/1.73 sq m ESTIMATED GFR IS NOT ride=7412) ACCURATE CREATININE CLEARANCE IN PREDICTING GLOMERULAR FILTRATION RATE. ESTIMATED GFR IS NOT APPLICABLE FOR DIALYSIS PATIENTS. PROTHROMBIN TIME/[id number] 05:45:00 Test Item Value Reference Range Comments PROTIME (BEAKER) (test zjbu=742) 14.5 seconds 11.7-14.7 INR (BEAKER) (test udgr=481) 1.1 <=5.9 RECOMMENDED COUMADIN/WARFARIN INR THERAPY RANGESSTANDARD DOSE: 2.0 - 3.0 Includes: PROPHYLAXIS forvenous thrombosis, systemic embolization; TREATMENT for venous thrombosis and/or pulmonary embolus.HIGH RISK: Target INR is 2.5-3.5 for patients with mechanical heart valves.[id number] 12:38:00 Test Item Value Reference Range Comments SODIUM (BEAKER) (test vjfr=562) 134 meq/L 136-145 [id number] 07:07:00 Test Item Value Reference Range Comments PHOSPHORUS (BEAKER) (test xnnq=852) 3.3 mg/dL 2.3-4.7 [id number] 07:07:00 Test Item Value Reference Range Comments MAGNESIUM (BEAKER) (test skgg=488) 1.6 mg/dL 1.6-2.6 BASIC METABOLIC [id number] 04:24:00 Test Item Value Reference Range Comments SODIUM (BEAKER) (test 134 meq/L 136-145 tqav=682) POTASSIUM (BEAKER) (test 4.2 meq/L 3.5-5.1 hqhw=473) CHLORIDE (BEAKER) (test 101 meq/L 98-107 pkot=613) CO2 (BEAKER) (test 27 meq/L 22-29 qqxn=725) BLOOD UREA NITROGEN 18 mg/dL 7-21 (BEAKER) (test tguc=491) CREATININE (BEAKER) (test 1.22 mg/dL 0.57-1.25 rncx=688) GLUCOSE RANDOM (BEAKER) 99 mg/dL 70-105 (test gofe=647) CALCIUM (BEAKER) (test 8.7 mg/dL 8.4-10.2 bvwy=772) EGFR (BEAKER) (test 71 mL/min/1.73 sq m ESTIMATED GFR IS NOT kgph=3580) ACCURATE CREATININE CLEARANCE IN PREDICTING GLOMERULAR FILTRATION RATE. ESTIMATED GFR IS NOT APPLICABLE FOR DIALYSIS PATIENTS. PROTHROMBIN TIME/[id number] 04:16:00 Test Item Value Reference Range Comments PROTIME (BEAKER) (test vvki=611) 15.0 seconds 11.7-14.7 INR (BEAKER) (test mkof=140) 1.2 <=5.9 RECOMMENDED COUMADIN/WARFARIN INR THERAPY RANGESSTANDARD DOSE: 2.0 - 3.0 Includes: PROPHYLAXIS forvenous thrombosis, systemic embolization; TREATMENT for venous thrombosis and/or pulmonary embolus.HIGH RISK: Target INR is 2.5-3.5 for patients with mechanical heart valves.CBC W/PLT COUNT & AUTO [id number] 04:16:00 Test Item Value Reference Range Comments WHITE BLOOD CELL COUNT (BEAKER) (test rtoi=500) 9.4 K/ L 4.0-10.0 RED BLOOD CELL COUNT (BEAKER) (test msub=225) 4.66 M/ L 4.20-5.80 HEMOGLOBIN (BEAKER) (test jjsq=960) 11.8 GM/DL 13.0-16.8 HEMATOCRIT (BEAKER) (test mssa=325) 36.9 % 40.0-50.0 MEAN CORPUSCULAR VOLUME (BEAKER) (test ikve=136) 79.2 fL 82.0-98.0 MEAN CORPUSCULAR HEMOGLOBIN (BEAKER) (test 25.2 pg 27.0-33.0 onvi=277) MEAN CORPUSCULAR HEMOGLOBIN CONC (BEAKER) (test 31.9 GM/DL 32.0-36.0 jxus=186) RED CELL DISTRIBUTION WIDTH (BEAKER) (test 14.1 % 10.3-14.2 mjno=010) PLATELET COUNT (BEAKER) (test dxgg=607) 129 K/CU MM 150-430 MEAN PLATELET VOLUME (BEAKER) (test vctd=645) 9.7 fL 6.5-10.5 NUCLEATED RED BLOOD CELLS (BEAKER) (test 0 /100 WBC 0-0 ahuf=887) NEUTROPHILS RELATIVE PERCENT (BEAKER) (test 74 % ndap=233) LYMPHOCYTES RELATIVE PERCENT (BEAKER) (test 12 % ngdf=065) MONOCYTES RELATIVE PERCENT (BEAKER) (test 13 % avbz=316) EOSINOPHILS RELATIVE PERCENT (BEAKER) (test 1 % gcvm=426) BASOPHILS RELATIVE PERCENT (BEAKER) (test 0 % opii=458) NEUTROPHILS ABSOLUTE COUNT (BEAKER) (test 6.97 K/ L 1.80-8.00 arix=965) LYMPHOCYTES ABSOLUTE COUNT (BEAKER) (test 1.11 K/ L 1.48-4.50 cdsf=534) MONOCYTES ABSOLUTE COUNT (BEAKER) (test 1.23 K/ L 0.00-1.30 zzdl=363) EOSINOPHILS ABSOLUTE COUNT (BEAKER) (test 0.06 K/ L 0.00-0.50 lvlc=555) BASOPHILS ABSOLUTE COUNT (BEAKER) (test 0.00 K/ L 0.00-0.20 erjc=439) [id number] 17:46:00 Test Item Value Reference Range Comments PROTIME (BEAKER) (test qtef=038) 14.4 seconds 11.7-14.7 INR (BEAKER) (test ixou=576) 1.1 <=5.9 PARTIAL THROMBOPLASTIN TIME (BEAKER) (test 36.8 seconds 22.5-36.0 gect=047) RECOMMENDED COUMADIN/WARFARIN INR THERAPY RANGESSTANDARD DOSE: 2.0 - 3.0 Includes: PROPHYLAXIS forvenous thrombosis, systemic embolization; TREATMENT for venous thrombosis and/or pulmonary embolus.HIGH RISK: Target INR is 2.5-3.5 for patients with mechanical heart valves.BASIC METABOLIC [id number] 02:40: 00 Test Item Value Reference Range Comments SODIUM (BEAKER) (test 137 meq/L 136-145 cuqz=759) POTASSIUM (BEAKER) (test 4.6 meq/L 3.5-5.1 ozgf=054) CHLORIDE (BEAKER) (test 101 meq/L 98-107 ziuw=658) CO2 (BEAKER) (test 29 meq/L 22-29 vavc=647) BLOOD UREA NITROGEN 19 mg/dL 7-21 (BEAKER) (test inrl=653) CREATININE (BEAKER) (test 1.42 mg/dL 0.57-1.25 xkym=617) GLUCOSE RANDOM (BEAKER) 105 mg/dL 70-105 (test kgxf=172) CALCIUM (BEAKER) (test 8.3 mg/dL 8.4-10.2 zwyg=311) EGFR (BEAKER) (test 59 mL/min/1.73 sq m ESTIMATED GFR IS NOT mmrr=7705) ACCURATE CREATININE CLEARANCE IN PREDICTING GLOMERULAR FILTRATION RATE. ESTIMATED GFR IS NOT APPLICABLE FOR DIALYSIS PATIENTS. CBC W/PLT COUNT & AUTO [id number] 02:16:00 Test Item Value Reference Range Comments WHITE BLOOD CELL COUNT (BEAKER) (test vcmp=662) 9.9 K/ L 4.0-10.0 RED BLOOD CELL COUNT (BEAKER) (test fckj=419) 4.56 M/ L 4.20-5.80 HEMOGLOBIN (BEAKER) (test csph=216) 11.8 GM/DL 13.0-16.8 HEMATOCRIT (BEAKER) (test lbxy=131) 36.5 % 40.0-50.0 MEAN CORPUSCULAR VOLUME (BEAKER) (test khkn=647) 79.9 fL 82.0-98.0 MEAN CORPUSCULAR HEMOGLOBIN (BEAKER) (test 25.9 pg 27.0-33.0 gkgm=246) MEAN CORPUSCULAR HEMOGLOBIN CONC (BEAKER) (test 32.4 GM/DL 32.0-36.0 mksl=408) RED CELL DISTRIBUTION WIDTH (BEAKER) (test 14.4 % 10.3-14.2 fwzd=112) PLATELET COUNT (BEAKER) (test kokx=699) 127 K/CU MM 150-430 MEAN PLATELET VOLUME (BEAKER) (test grux=781) 10.0 fL 6.5-10.5 NUCLEATED RED BLOOD CELLS (BEAKER) (test 0 /100 WBC 0-0 kakz=600) NEUTROPHILS RELATIVE PERCENT (BEAKER) (test 79 % loiz=380) LYMPHOCYTES RELATIVE PERCENT (BEAKER) (test 6 % ndxe=675) MONOCYTES RELATIVE PERCENT (BEAKER) (test 14 % drja=435) EOSINOPHILS RELATIVE PERCENT (BEAKER) (test 1 % uwgr=740) BASOPHILS RELATIVE PERCENT (BEAKER) (test 0 % yecw=748) NEUTROPHILS ABSOLUTE COUNT (BEAKER) (test 7.86 K/ L 1.80-8.00 epyv=387) LYMPHOCYTES ABSOLUTE COUNT (BEAKER) (test 0.64 K/ L 1.48-4.50 bkaa=809) MONOCYTES ABSOLUTE COUNT (BEAKER) (test 1.36 K/ L 0.00-1.30 yegz=280) EOSINOPHILS ABSOLUTE COUNT (BEAKER) (test 0.07 K/ L 0.00-0.50 dpol=238) BASOPHILS ABSOLUTE COUNT (BEAKER) (test 0.01 K/ L 0.00-0.20 gaik=323) 0.00POCT-GLUCOSE [id number] 18:13:00 Test Item Value Reference Range Comments POC-GLUCOSE METER (BEAKER) 110 mg/dL 70-110 TESTED AT [address] (test axfa=2940) [place] [id number] POCT-GLUCOSE [id number] 11:50:00 Test Item Value Reference Range Comments POC-GLUCOSE METER (BEAKER) 107 mg/dL 70-110 TESTED AT [address] (test wowc=3125) [place] [id number] POCT-GLUCOSE [id number] 06:35:00 Test Item Value Reference Range Comments POC-GLUCOSE METER (BEAKER) 113 mg/dL 70-110 TESTED AT [address] (test cimk=4165) [place] [address] CBC W/PLT COUNT & AUTO [id number] 03:27:00 Test Item Value Reference Range Comments WHITE BLOOD CELL COUNT (BEAKER) (test zeuh=205) 10.0 K/ L 4.0-10.0 RED BLOOD CELL COUNT (BEAKER) (test vyqx=029) 4.64 M/ L 4.20-5.80 HEMOGLOBIN (BEAKER) (test xnex=890) 11.9 GM/DL 13.0-16.8 HEMATOCRIT (BEAKER) (test enxz=056) 36.8 % 40.0-50.0 MEAN CORPUSCULAR VOLUME (BEAKER) (test qvcm=281) 79.3 fL 82.0-98.0 MEAN CORPUSCULAR HEMOGLOBIN (BEAKER) (test 25.6 pg 27.0-33.0 cqvu=343) MEAN CORPUSCULAR HEMOGLOBIN CONC (BEAKER) (test 32.3 GM/DL 32.0-36.0 syqm=588) RED CELL DISTRIBUTION WIDTH (BEAKER) (test 14.4 % 10.3-14.2 jmtt=057) PLATELET COUNT (BEAKER) (test jqrz=647) 135 K/CU MM 150-430 MEAN PLATELET VOLUME (BEAKER) (test zuvs=626) 9.7 fL 6.5-10.5 NUCLEATED RED BLOOD CELLS (BEAKER) (test 0 /100 WBC 0-0 ixte=979) NEUTROPHILS RELATIVE PERCENT (BEAKER) (test 81 % jdou=313) LYMPHOCYTES RELATIVE PERCENT (BEAKER) (test 7 % gngd=491) MONOCYTES RELATIVE PERCENT (BEAKER) (test 12 % goxi=565) EOSINOPHILS RELATIVE PERCENT (BEAKER) (test 1 % whsr=963) BASOPHILS RELATIVE PERCENT (BEAKER) (test 0 % rvtu=916) NEUTROPHILS ABSOLUTE COUNT (BEAKER) (test 8.03 K/ L 1.80-8.00 yvlo=714) LYMPHOCYTES ABSOLUTE COUNT (BEAKER) (test 0.69 K/ L 1.48-4.50 ahbm=322) MONOCYTES ABSOLUTE COUNT (BEAKER) (test 1.19 K/ L 0.00-1.30 rsmv=058) EOSINOPHILS ABSOLUTE COUNT (BEAKER) (test 0.07 K/ L 0.00-0.50 pytx=445) BASOPHILS ABSOLUTE COUNT (BEAKER) (test 0.00 K/ L 0.00-0.20 gwmd=505) 0.00BASI METABOLIC [id number] 03:16:00 Test Item Value Reference Range Comments SODIUM (BEAKER) (test 135 meq/L 136-145 qmbm=110) POTASSIUM (BEAKER) (test 4.3 meq/L 3.5-5.1 lkhy=877) CHLORIDE (BEAKER) (test 104 meq/L 98-107 tqko=783) CO2 (BEAKER) (test 26 meq/L 22-29 xugk=317) BLOOD UREA NITROGEN 19 mg/dL 7-21 (BEAKER) (test dceg=125) CREATININE (BEAKER) (test 1.35 mg/dL 0.57-1.25 njon=917) GLUCOSE RANDOM (BEAKER) 110 mg/dL 70-105 (test eboa=321) CALCIUM (BEAKER) (test 8.2 mg/dL 8.4-10.2 isjl=309) EGFR (BEAKER) (test 63 mL/min/1.73 sq m ESTIMATED GFR IS NOT imqy=0267) ACCURATE CREATININE CLEARANCE IN PREDICTING GLOMERULAR FILTRATION RATE. ESTIMATED GFR IS NOT APPLICABLE FOR DIALYSIS PATIENTS. POCT-GLUCOSE [id number] 00:29:00 Test Item Value Reference Range Comments POC-GLUCOSE METER (BEAKER) 114 mg/dL 70-110 TESTED AT [address] (test cqrc=6796) [facility] [place] [address] POCT-GLUCOSE [id number] 00:21:00 Test Item Value Reference Range Comments POC-GLUCOSE METER (BEAKER) 115 mg/dL 70-110 TESTED AT [address] (test uulw=9282) [facility] [place] [address] POCT-GLUCOSE [id number] 12:42:00 Test Item Value Reference Range Comments POC-GLUCOSE METER (BEAKER) 114 mg/dL 70-110 TESTED AT [facility] [address] [facility] (test xndg=9492) [facility] [place] [address] POCT-GLUCOSE [id number] 06:45:00 Test Item Value Reference Range Comments POC-GLUCOSE METER (BEAKER) 126 mg/dL 70-110 TESTED AT [facility] [address] [facility] (test napi=7088) [facility] [place] [address] [id number] 05:26:00 Test Item Value Reference Range Comments FERRITIN (BEAKER) (test phpv=861) 220 ng/mL 5-275 Effective 08/03/2014: Reference Range ChangeNew: Male 5-275 Previous: Male 22-322 Female 5-275 Female 10-291[facility] METABOLIC [id number] 05:01:00 Test Item Value Reference Range Comments SODIUM (BEAKER) (test 137 meq/L 136-145 empz=015) POTASSIUM (BEAKER) (test 3.9 meq/L 3.5-5.1 Specimen slightly vinc=598) hemolyzed CHLORIDE (BEAKER) (test 108 meq/L 98-107 louy=307) CO2 (BEAKER) (test 22 meq/L 22-29 cyki=162) BLOOD UREA NITROGEN 13 mg/dL 7-21 (BEAKER) (test rptk=962) CREATININE (BEAKER) (test 1.23 mg/dL 0.57-1.25 Specimen slightly cdvx=860) hemolyzed GLUCOSE RANDOM (BEAKER) 114 mg/dL 70-105 (test zscz=087) CALCIUM (BEAKER) (test 7.6 mg/dL 8.4-10.2 iwgr=077) EGFR (BEAKER) (test 70 mL/min/1.73 sq m ESTIMATED GFR IS NOT myou=4471) ACCURATE CREATININE CLEARANCE IN PREDICTING GLOMERULAR FILTRATION RATE. ESTIMATED GFR IS NOT APPLICABLE FOR DIALYSIS PATIENTS. [id number] 04:59:00 Test Item Value Reference Range Comments MAGNESIUM (BEAKER) (test 1.5 mg/dL 1.6-2.6 Specimen slightly hemolyzed bhcg=103) [id number] 04:59:00 Test Item Value Reference Range Comments PHOSPHORUS (BEAKER) (test 3.5 mg/dL 2.3-4.7 Specimen slightly hemolyzed pcij=878) CBC W/PLT COUNT & AUTO [id number] 04:52:00 Test Item Value Reference Range Comments WHITE BLOOD CELL COUNT (BEAKER) (test fnjf=847) 9.5 K/ L 4.0-10.0 RED BLOOD CELL COUNT (BEAKER) (test fjhi=997) 4.57 M/ L 4.20-5.80 HEMOGLOBIN (BEAKER) (test eudx=328) 11.5 GM/DL 13.0-16.8 HEMATOCRIT (BEAKER) (test eosr=263) 36.2 % 40.0-50.0 MEAN CORPUSCULAR VOLUME (BEAKER) (test mzuu=640) 79.3 fL 82.0-98.0 MEAN CORPUSCULAR HEMOGLOBIN (BEAKER) (test 25.2 pg 27.0-33.0 wwza=299) MEAN CORPUSCULAR HEMOGLOBIN CONC (BEAKER) (test 31.7 GM/DL 32.0-36.0 kawz=808) RED CELL DISTRIBUTION WIDTH (BEAKER) (test 14.6 % 10.3-14.2 kyie=002) PLATELET COUNT (BEAKER) (test roas=798) 98 K/CU MM 150-430 MEAN PLATELET VOLUME (BEAKER) (test xwzv=473) 10.8 fL 6.5-10.5 NUCLEATED RED BLOOD CELLS (BEAKER) (test 0 /100 WBC 0-0 ultx=561) NEUTROPHILS RELATIVE PERCENT (BEAKER) (test 81 % asan=541) LYMPHOCYTES RELATIVE PERCENT (BEAKER) (test 9 % mfdi=473) MONOCYTES RELATIVE PERCENT (BEAKER) (test 10 % dhkm=069) EOSINOPHILS RELATIVE PERCENT (BEAKER) (test 0 % ykow=647) BASOPHILS RELATIVE PERCENT (BEAKER) (test 0 % duoj=606) NEUTROPHILS ABSOLUTE COUNT (BEAKER) (test 7.71 K/ L 1.80-8.00 fash=790) LYMPHOCYTES ABSOLUTE COUNT (BEAKER) (test 0.81 K/ L 1.48-4.50 oyxe=842) MONOCYTES ABSOLUTE COUNT (BEAKER) (test bneh=714) 0.93 K/ L 0.00-1.30 EOSINOPHILS ABSOLUTE COUNT (BEAKER) (test 0.03 K/ L 0.00-0.50 ujww=713) BASOPHILS ABSOLUTE COUNT (BEAKER) (test qblr=458) 0.04 K/ L 0.00-0.20 RETICULOCYTE [id number] 04:51:00 Test Item Value Reference Range Comments RETICULOCYTE COUNT PCT (BEAKER) (test egxx=909) 0.9 % 0.4-2.9 POCT-GLUCOSE [id number] 00:25:00 Test Item Value Reference Range Comments POC-GLUCOSE METER (BEAKER) 124 mg/dL 70-110 TESTED AT [address] (test rqkz=2579) [place] [address] POCT-GLUCOSE [id number] 17:53:00 Test Item Value Reference Range Comments POC-GLUCOSE METER (BEAKER) 126 mg/dL 70-110 TESTED AT [address] (test sosz=2695) [place] [address] PERIPHERAL BLOOD SMEAR - PATHOLOGIST [id number] 13:47:00 Test Item Value Reference Range Comments RBC MORPHOLOGY (BEAKER) Anisocytosis (test mvvx=0378) RBC MORPHOLOGY (BEAKER) Poikilocytosis (test ylrt=88495) RBC MORPHOLOGY (BEAKER) Polychromasia (test ucpz=54420) WBC MORPHOLOGY (BEAKER) Unremarkable (test ssbb=3752) PLT MORPHOLOGY (BEAKER) Unremarkable (test laud=3247) PERIPHERAL SMR REVIEW No circulating blasts. No (BEAKER) (test vxfa=2535) significantly increased shistocytes. [id number] Mark Acuna, (BEAKER) (test ayrn=8990) M.D.(electronic signature) POCT-GLUCOSE [id number] 12:00:00 Test Item Value Reference Range Comments POC-GLUCOSE METER (BEAKER) 101 mg/dL 70-110 TESTED AT [address] (test goll=7612) [place] [address] [id number] 07:34:00 Test Item Value Reference Range Comments COL/EPI CLOSURE TIME (BEAKER) 93 Seconds 78-191 (test sutu=4759) COL/ADP CLOSURE TIME (BEAKER) 62 Seconds 43-122 (test kses=5529) PLATELET COUNT AGG (BEAKER) 113 K/CU MM 150-430 Previous platelet result was (test lbkm=5802) 113. Lavender top for platelet clotted! Hematocrit <35% or platelet count <150,000/CU MM may contribute to falsely elevated PFA-100.PT/[id number] 07:33:00 Test Item Value Reference Range Comments PROTIME (BEAKER) (test ufkh=338) 14.1 seconds 11.7-14.7 INR (BEAKER) (test pnbz=700) 1.1 <=5.9 PARTIAL THROMBOPLASTIN TIME (BEAKER) (test 30.8 seconds 22.5-36.0 ljzi=249) RECOMMENDED COUMADIN/WARFARIN INR THERAPY RANGESSTANDARD DOSE: 2.0 - 3.0 Includes: PROPHYLAXIS forvenous thrombosis, systemic embolization; TREATMENT for venous thrombosis and/or pulmonary embolus.HIGH RISK: Target INR is 2.5-3.5 for patients with mechanical heart valves.VITAMIN B12 AND [id number] 06:33 :00 Test Item Value Reference Range Comments VITAMIN B12 (BEAKER) (test pomv=201) 327 pg/mL 213-816 FOLATE (BEAKER) (test etpb=406) 9.6 ng/mL >=7.0 Effective 08/03/2014: Folate Reference Range ChangeNew: >=7.0 Previous: & gt;=5.4POCT-GLUCOSE [id number] 06:32:00 Test Item Value Reference Range Comments POC-GLUCOSE METER (BEAKER) 79 mg/dL 70-110 TESTED AT [facility] [address] [facility] (test jlka=5359) [facility] [place] [address] CBC W/PLT COUNT & AUTO [id number] 06:29:00 Test Item Value Reference Range Comments WHITE BLOOD CELL COUNT (BEAKER) (test hzub=912) 7.9 K/ L 4.0-10.0 RED BLOOD CELL COUNT (BEAKER) (test vjgt=924) 5.16 M/ L 4.20-5.80 HEMOGLOBIN (BEAKER) (test vnil=814) 13.0 GM/DL 13.0-16.8 HEMATOCRIT (BEAKER) (test uirl=846) 41.2 % 40.0-50.0 MEAN CORPUSCULAR VOLUME (BEAKER) (test wovt=762) 79.9 fL 82.0-98.0 MEAN CORPUSCULAR HEMOGLOBIN (BEAKER) (test 25.2 pg 27.0-33.0 ctlv=785) MEAN CORPUSCULAR HEMOGLOBIN CONC (BEAKER) (test 31.6 GM/DL 32.0-36.0 qlwk=785) RED CELL DISTRIBUTION WIDTH (BEAKER) (test 14.8 % 10.3-14.2 lvwc=875) PLATELET COUNT (BEAKER) (test lkwy=095) 108 K/CU MM 150-430 MEAN PLATELET VOLUME (BEAKER) (test mdwy=746) 11.2 fL 6.5-10.5 NUCLEATED RED BLOOD CELLS (BEAKER) (test 0 /100 WBC 0-0 enuz=232) NEUTROPHILS RELATIVE PERCENT (BEAKER) (test 71 % wjwf=992) LYMPHOCYTES RELATIVE PERCENT (BEAKER) (test 17 % sdfk=980) MONOCYTES RELATIVE PERCENT (BEAKER) (test 9 % flqf=324) EOSINOPHILS RELATIVE PERCENT (BEAKER) (test 2 % cltk=351) BASOPHILS RELATIVE PERCENT (BEAKER) (test 0 % mugt=694) NEUTROPHILS ABSOLUTE COUNT (BEAKER) (test 5.62 K/ L 1.80-8.00 tsfq=058) LYMPHOCYTES ABSOLUTE COUNT (BEAKER) (test 1.37 K/ L 1.48-4.50 fymo=938) MONOCYTES ABSOLUTE COUNT (BEAKER) (test 0.73 K/ L 0.00-1.30 xaky=352) EOSINOPHILS ABSOLUTE COUNT (BEAKER) (test 0.16 K/ L 0.00-0.50 jhhr=407) BASOPHILS ABSOLUTE COUNT (BEAKER) (test 0.02 K/ L 0.00-0.20 fhkk=563) 0.00IRON, TIBC, % SAT. (WITHOUT FERRITIN)2017-02-05 05:59:00 Test Item Value Reference Range Comments IRON (BEAKER) (test hhiy=679) 37 ug/dL 40-160 TOTAL IRON BINDING CAPACITY (BEAKER) (test 206 ug/dL 250-450 apxa=808) IRON % SATURATION (2) (BEAKER) (test yfoh=0271) 18 % 20-55 [id number] 05:33:00 Test Item Value Reference Range Comments PHOSPHORUS (BEAKER) (test xphf=941) 3.4 mg/dL 2.3-4.7 Once on admission and Daily AM afterwardsOnce on admission and Daily AM afterwardsOnce on admission and Daily AM [id number] 05:33:00 Test Item Value Reference Range Comments MAGNESIUM (BEAKER) (test hvlb=164) 1.7 mg/dL 1.6-2.6 Once on admission and Daily AM afterwardsOnce on admission and Daily AM afterwardsOnce on admission and Daily AM afterwardsBASIC METABOLIC [id number] 05:33:00 Test Item Value Reference Range Comments SODIUM (BEAKER) (test 139 meq/L 136-145 lkbn=505) POTASSIUM (BEAKER) (test 4.9 meq/L 3.5-5.1 lplp=154) CHLORIDE (BEAKER) (test 107 meq/L 98-107 iifv=032) CO2 (BEAKER) (test 26 meq/L 22-29 lucd=121) BLOOD UREA NITROGEN 15 mg/dL 7-21 (BEAKER) (test zfsm=665) CREATININE (BEAKER) (test 1.51 mg/dL 0.57-1.25 cpbr=612) GLUCOSE RANDOM (BEAKER) 76 mg/dL 70-105 (test dujj=793) CALCIUM (BEAKER) (test 8.5 mg/dL 8.4-10.2 smwm=853) EGFR (BEAKER) (test 55 mL/min/1.73 sq m ESTIMATED GFR IS NOT pvtb=8025) ACCURATE CREATININE CLEARANCE IN PREDICTING GLOMERULAR FILTRATION RATE. ESTIMATED GFR IS NOT APPLICABLE FOR DIALYSIS PATIENTS. Once on admission and Daily AM afterwardsOnce on admission and Daily AM afterwardsOnce on admission and Daily AM afterwardsPOCT-GLUCOSE [id number] 00:30:00 Test Item Value Reference Range Comments POC-GLUCOSE METER (BEAKER) 78 mg/dL 70-110 TESTED AT [address] (test vrqt=5043) [facility] [place] [address] POCT-GLUCOSE [id number] 18:20:00 Test Item Value Reference Range Comments POC-GLUCOSE METER (BEAKER) 156 mg/dL 70-110 TESTED AT [address] (test mtyi=6208) [facility] [place] [address] PLATELET AGGREGATION: FUNCTION [id number] 15:53:00 Test Item Value Reference Range Comments WEAK ADP RESULT(BEAKER) (test 94 % 60-91 xium=1631) PLATELET FUNCTION SCREEN 60-100% indicates normal INTERP (BEAKER) (test platelet function lasm=4231) [id number] (BEAKER) Aurora Pascual MD (electronic (test ffqo=2335) signature) PLATELET COUNT AGG (BEAKER) 113 K/CU MM 150-430 (test quiv=1195) POCT-GLUCOSE [id number] 14:21:00 Test Item Value Reference Range Comments POC-GLUCOSE METER (BEAKER) 82 mg/dL 70-110 TESTED AT [facility] [address] [facility] (test sixw=9641) [facility] [place] [address] HEPATIC FUNCTION [id number] 07:38:00 Test Item Value Reference Range Comments TOTAL PROTEIN (BEAKER) (test 7.6 gm/dL 6.0-8.3 Specimen slightly hemolyzed cvse=460) ALBUMIN (BEAKER) (test 3.4 g/dL 3.5-5.0 Specimen slightly hemolyzed symk=1153) BILIRUBIN TOTAL (BEAKER) (test 0.8 mg/dL 0.2-1.2 Specimen slightly hemolyzed lybg=237) BILIRUBIN DIRECT (BEAKER) (test 0.3 mg/dL 0.1-0.5 Specimen slightly hemolyzed wcrs=964) ALKALINE PHOSPHATASE (BEAKER) 49 U/L 40-150 (test kwik=512) AST (SGOT) (BEAKER) (test 16 U/L 5-34 Specimen slightly hemolyzed jgrt=753) ALT (SGPT) (BEAKER) (test 16 U/L 6-55 Specimen slightly hemolyzed iaoo=971) PROTHROMBIN [id number] 07:10:00 Test Item Value Reference Range Comments PROTIME (BEAKER) (test igny=928) 14.9 seconds 11.7-14.7 INR (BEAKER) (test wzcj=440) 1.2 <=5.9 RECOMMENDED COUMADIN/WARFARIN INR THERAPY RANGESSTANDARD DOSE: 2.0 - 3.0 Includes: PROPHYLAXIS forvenous thrombosis, systemic embolization; TREATMENT for venous thrombosis and/or pulmonary embolus.HIGH RISK: Target INR is 2.5-3.5 for patients with mechanical heart valves.[id number] 07:10:00 Test Item Value Reference Range Comments PARTIAL THROMBOPLASTIN TIME (BEAKER) (test 35.9 seconds 22.5-36.0 ofmo=924) CBC W/PLT COUNT & AUTO [id number] 07:07:00 Test Item Value Reference Range Comments WHITE BLOOD CELL COUNT (BEAKER) (test doos=213) 7.4 K/ L 4.0-10.0 RED BLOOD CELL COUNT (BEAKER) (test ystq=634) 5.04 M/ L 4.20-5.80 HEMOGLOBIN (BEAKER) (test kujv=585) 12.9 GM/DL 13.0-16.8 HEMATOCRIT (BEAKER) (test zbhr=217) 40.0 % 40.0-50.0 MEAN CORPUSCULAR VOLUME (BEAKER) (test zuno=433) 79.2 fL 82.0-98.0 MEAN CORPUSCULAR HEMOGLOBIN (BEAKER) (test 25.6 pg 27.0-33.0 fyil=605) MEAN CORPUSCULAR HEMOGLOBIN CONC (BEAKER) (test 32.3 GM/DL 32.0-36.0 yraw=889) RED CELL DISTRIBUTION WIDTH (BEAKER) (test 14.5 % 10.3-14.2 zrgb=878) PLATELET COUNT (BEAKER) (test omfv=231) 94 K/CU MM 150-430 MEAN PLATELET VOLUME (BEAKER) (test uroi=203) 11.7 fL 6.5-10.5 NUCLEATED RED BLOOD CELLS (BEAKER) (test 0 /100 WBC 0-0 afji=265) NEUTROPHILS RELATIVE PERCENT (BEAKER) (test 72 % gelq=898) LYMPHOCYTES RELATIVE PERCENT (BEAKER) (test 17 % ovgt=071) MONOCYTES RELATIVE PERCENT (BEAKER) (test 9 % tcxr=640) EOSINOPHILS RELATIVE PERCENT (BEAKER) (test 2 % zikh=950) BASOPHILS RELATIVE PERCENT (BEAKER) (test 0 % seiu=533) NEUTROPHILS ABSOLUTE COUNT (BEAKER) (test 5.33 K/ L 1.80-8.00 aizs=464) LYMPHOCYTES ABSOLUTE COUNT (BEAKER) (test 1.25 K/ L 1.48-4.50 iidt=480) MONOCYTES ABSOLUTE COUNT (BEAKER) (test emry=492) 0.66 K/ L 0.00-1.30 EOSINOPHILS ABSOLUTE COUNT (BEAKER) (test 0.12 K/ L 0.00-0.50 bklh=889) BASOPHILS ABSOLUTE COUNT (BEAKER) (test wdcj=282) 0.03 K/ L 0.00-0.20 0.00
[2019-11-12] MEDS ORDERED: HYDROCODONE/APAP 7.5/325 MG TAB ONE (09:45)
[2019-11-12 10:11] LABS: Basophils % 0.4 % (0-1.3); Hematocrit 40.4 % (39.6-49.0); Lymphocytes % 15.4 % (15.3-44.8); MPV 10.9 fL (7.6-11.3); RBC Red Blood Cell Count 5.34 M/uL (4.33-5.43)
[2019-11-12 10:18] LABS: Albumin 3.1 g/dL (3.4-5.0); Bilirubin Total 0.6 mg/dL (0.2-1.0); Potassium 4.5 mmol/L (3.5-5.1); Protein, Total 8.3 g/dL (6.4-8.2); Uric Acid 6.2 mg/dL (3.5-7.2)
--- NOTE | 2019-11-12 10:36 | EDPHYS ---
Physician Documentation [facility] Name: Reggie Mayer Age: 74 yrs Sex: Male : 1945 Arrival Date: 11/12/2019 Time: 09:23 Bed 6 Private MD: ED Physician Chris Dela Cruz HPI: 11/12 09:40 This 74 yrs old Black Male presents to ER via Wheelchair with complaints of Knee Pain. ps1 09:40 Patient has a history of GOUT. Was recently seen and evaluated for Gout and was given ps1 symptomatic care by PCP. Initially right great toe, now right medial ankle, and knee. Has CKD. Pain rated as moderate to severe. However improving in the toe. No fever, no effusion. . Historical: - Allergies: 09:34 NKA; sv - PMHx: 09:34 chronic kidney disease; Hyperlipidemia; Hypertension; Myocardial infarction; Prostate sv cancer; - PSHx: 09:34 Head bleed; liver; sv - Immunization history:: Adult Immunizations up to date. - Social history:: Smoking status: Patient denies any tobacco usage or history of. ROS: 09:40 Constitutional: Negative for fever, chills, and weight loss, Eyes: Negative for injury, ps1 pain, redness, and discharge, Cardiovascular: Negative for chest pain, palpitations, and edema, Respiratory: Negative for shortness of breath, cough, wheezing, and pleuritic chest pain, Abdomen/GI: Negative for abdominal pain, nausea, vomiting, diarrhea, and constipation, MS/Extremity: Negative for injury and deformity, Neuro: Negative for headache, weakness, numbness, tingling, and seizure. 09:40 Skin: Positive for tenderness of ankle and knee, Negative for cellulitis, discoloration, swelling. Exam: 09:40 Constitutional: This is a well developed, well nourished patient who is awake, alert, ps1 and in no acute distress. Head/Face: Normocephalic, atraumatic. Eyes: Pupils equal round and reactive to light, extra-ocular motions intact. Lids and lashes normal. Conjunctiva and sclera are non-icteric and not injected. Chest/axilla: Normal chest wall appearance and motion. Nontender with no deformity. No lesions are appreciated. Cardiovascular: Regular rate and rhythm. No gallops, murmurs, or rubs. Normal PMI, no JVD. No pulse deficits. Respiratory: Lungs have equal breath sounds bilaterally, clear to auscultation and percussion. No rales, rhonchi or wheezes noted. No increased work of breathing, no retractions or nasal flaring. Abdomen/GI: Soft, non-tender, with normal bowel sounds. No distension or tympany. No guarding or rebound. No evidence of tenderness throughout. Neuro: Awake and alert, GCS 15, oriented to person, place, time, and situation. Cranial nerves II-XII grossly intact. Sensory grossly intact. 09:40 Musculoskeletal/extremity: Extremities: grossly normal except: noted in the medial aspect of right knee: pain, noted in the right ankle: pain. Vital Signs: 09:31 BP 142 / 94; Pulse 64; Resp 18; Temp 98; Pulse Ox 97% ; Weight 101.6 kg; Height 6 ft. 1 sv in. (185.42 cm); 10:30 BP 132 / 80; Pulse 62; Resp 18; Pulse Ox 99% ; sv 10:49 Pain 6/10; sv 09:31 Body Mass Index 29.55 (101.60 kg, 185.42 cm) sv MDM: 09:38 Patient medically screened. ps1 10:36 Differential diagnosis: gout, polyarthritis, ischemic limb, and others. Data reviewed: ps1 vital signs, nurses notes, lab test result(s), and as a result, I will discharge patient. Counseling: I had a detailed discussion with the patient and/or guardian regarding: the historical points, exam findings, and any diagnostic results supporting the discharge/admit diagnosis, lab results, the need for outpatient follow up, to return to the emergency department if symptoms worsen or persist or if there are any questions or concerns that arise at home. 10:36 ED course: 74 y/o M with hx of Gout. Pain seems cw diagnosis. No fever or effusion. Has ps1 palpable pulses in foot. Follow up OP, pain improved in ED. Stable for discharge. . 11/12 09:38 Order name: Uric Acid; Complete Time: 10:33 ps1 11/12 09:38 Order name: CBC with Diff; Complete Time: 10:22 ps1 11/12 09:38 Order name: CMP; Complete Time: 10:33 ps1 Administered Medications: 09:49 Drug: [place] (7.5 mg-325 mg) 1 tabs {Note: RASS1.} Route: PO; sv 10:49 Follow up: Pain 6/10 Adult; Response: No adverse reaction; Pain is decreased; RASS: sv Alert and Calm (0) Disposition: 11/12/19 10:35 Discharged to Home. Impression: Gout. - Condition is Stable. - Discharge Instructions: Gout. - Prescriptions for Colchicine- Probenecid 0.5-500 mg Oral Tablet - take 1 tablet by ORAL route every 1 hour up to 3 hours; 3 tablet. Tramadol 50 mg Oral Tablet - take 1 tablet by ORAL route every 8 hours as needed; 12 tablet. - Medication Reconciliation Form, Thank You Letter, Antibiotic Education, Prescription Opioid Use form. - Follow up: Private Physician; When: As needed; Reason: Recheck today's complaints, Continuance of care, Re-evaluation by your physician. Follow up: Emergency Department; When: As needed; Reason: Fever > 102 F, Worsening of condition. - Problem is chronic. - Symptoms have improved. Signatures: Dispatcher [employer] Melly Dean RN RN Chris Shanks MD MD ps1 Corrections: (The following items were deleted from the chart) 10:49 10:35 11/12/2019 10:35 Discharged to Home. Impression: Gout. Condition is Stable. Forms sv are Medication Reconciliation Form, Thank You Letter, Antibiotic Education, Prescription Opioid Use. Follow up: Private Physician; When: As needed; Reason: Recheck today's complaints, Continuance of care, Re-evaluation by your physician. Follow up: Emergency Department; When: As needed; Reason: Fever > 102 F, Worsening of condition. Problem is chronic. Symptoms have improved. ps1
--- NOTE | 2019-11-12 10:36 | ER ---
Nurse's Notes [facility] Name: Reggie Mayer Age: 74 yrs Sex: Male : 1945 Arrival Date: 11/12/2019 Time: :23 Bed 6 Private MD: Diagnosis: Gout Presentation: 11/12 09:31 Chief complaint: Patient states: saw his PCP last week for the right knee and ankle sv pain/swelling and was prescribed Colchicine and given an IM steroid shot but pain and swelling has not improved. Coronavirus screen: The patient has NOT traveled to [place] in the past 14 days. Proceed with normal triage procedures. The patient has NOT had contact with known and/or suspected case of Coronavirus. Proceed with normal triage procedures. Ebola Screen: No symptoms or risks identified at this time. Initial Sepsis Screen: Does the patient meet any 2 criteria? No. Patient's initial sepsis screen is negative. Does the patient have a suspected source of infection? No. Patient's initial sepsis screen is negative. Risk Assessment: Do you want to hurt yourself or someone else? Patient reports no desire to harm self or others. Onset of symptoms was October 2019. 09:31 Method Of Arrival: Wheelchair sv 09:31 Acuity: AQUILES 3 sv Triage Assessment: :31 General: Appears in no apparent distress. uncomfortable, well developed, Behavior is sv calm, cooperative, appropriate for age. Pain: Complains of pain in right knee and anterior aspect of right ankle Pain currently is 8 out of 10 on a pain scale. Pain began over a week ago Is intermittent. Neuro: Level of Consciousness is awake, alert, obeys commands, Oriented to person, place, time, situation, Moves all extremities. Gait is steady. Respiratory: Airway is patent Respiratory effort is even, unlabored, Respiratory pattern is regular, symmetrical. Derm: Skin is pink, warm \T\ dry. Musculoskeletal: Range of motion: intact in all extremities, Swelling present in right ankle and medial aspect of right foot. Historical: - Allergies: :34 NKA; sv - PMHx: :34 chronic kidney disease; Hyperlipidemia; Hypertension; Myocardial infarction; Prostate sv cancer; - PSHx: :34 Head bleed; liver; sv - Immunization history:: Adult Immunizations up to date. - Social history:: Smoking status: Patient denies any tobacco usage or history of. Screenin:35 Abuse screen: Denies threats or abuse. Denies injuries from another. Nutritional sv screening: No deficits noted. Tuberculosis screening: No symptoms or risk factors identified. Fall Risk None identified. Assessment: 09:51 Reassessment: Patient appears in no apparent distress at this time. No changes from sv previously documented assessment. Patient and/or family updated on plan of care and expected duration. Pain level reassessed. Patient is alert, oriented x 3, equal unlabored respirations, skin warm/dry/pink. 10:47 Reassessment: Patient appears in no apparent distress at this time. No changes from sv previously documented assessment. Patient and/or family updated on plan of care and expected duration. Pain level reassessed. Patient is alert, oriented x 3, equal unlabored respirations, skin warm/dry/pink. Vital Signs: 09:31 BP 142 / 94; Pulse 64; Resp 18; Temp 98; Pulse Ox 97% ; Weight 101.6 kg; Height 6 ft. 1 sv in. (185.42 cm); 10:30 BP 132 / 80; Pulse 62; Resp 18; Pulse Ox 99% ; sv 10:49 Pain 6/10; sv 09:31 Body Mass Index 29.55 (101.60 kg, 185.42 cm) sv ED Course: 09:23 Patient arrived in ED. as 09:25 Melly Shea, DODIE is Primary Nurse. sv 09:26 Chris Dela Cruz MD is Attending Physician. ps1 09:33 Triage completed. sv 09:34 ED physician to see patient. sv 09:34 Arm band placed on Patient placed in an exam room, on a stretcher. sv 09:34 Patient has correct armband on for positive identification. Bed in low position. Call sv light in reach. Adult w/ patient. Pulse ox on. NIBP on. Door closed. Head of bed elevated. 09:45 Initial lab(s) drawn, by me, sent to lab. done by a 23G needle, site covered with gauze sv and bandaid. 10:47 No provider procedures requiring assistance completed. Patient did not have IV access sv during this emergency room visit. Administered Medications: 09:49 Drug: [place] (7.5 mg-325 mg) 1 tabs {Note: RASS1.} Route: PO; sv 10:49 Follow up: Pain 6/10 Adult; Response: No adverse reaction; Pain is decreased; RASS: sv Alert and Calm (0) Outcome: 10:35 Discharge ordered by . ps1 10:48 Discharged to home ambulatory, with family, with his cane sv 10:48 Condition: stable 10:48 Discharge instructions given to patient, Instructed on discharge instructions, follow up and referral plans. medication usage, Demonstrated understanding of instructions, follow-up care, medications, Prescriptions given X 2. 10:49 Patient left the ED. sv Signatures: Melyl Shea, DODIE RN [place] Montez Phillip, MD MD ps1
[2019-11-12 10:54] VITALS: TEMP 98
[2019-11-12 10:55] VITALS: BP 132/80; O2SAT 99
== END 2019-11-12 10:49 | disposition home or self-care (01) ==
LOC: ER 09:21
DX: M10.9 Gout, unspecified (principal); I12.9 Hypertensive chronic kidney disease with stage 1 through stage 4 chronic kidney disease, or unspecified chronic kidney disease; N18.9 Chronic kidney disease, unspecified; Z85.46 Personal history of malignant neoplasm of prostate
CPT/HCPCS: 36415; 80053; 82306; 84153; 84550; 85025; 99284

== ENCOUNTER 2019-11-23 08:02 | Emergency (ER) | payer MEDICARE ==
--- OUTSIDE RECORDS SUMMARY | 2019-11-23 08:18 | XMS REPORT ---
[...] Start End Status Dosage System Date Date [facility] 40543435422 81 MG Orally Active 1 tablet Once a day Lisinopril ND 72122829512 20 MG Orally Active 1 tablet Once a day Clobetasol ND 97590302780 0.05 % Jul 20, Jul 14, Active use Propionate Externally 2018 2019 sparingly to Twice a day area Tamsulosin HCl ND 31092229579 0.4 MG Active TAKE 1 CAPSULE BY MOUTH EVERY DAY Carvedilol [facility] 96003939164 6.25 MG Oral Active take 1 Twice a day tablet by mouth twice a day Colchicine [facility] 57208624375 0.6 MG Orally Nov 03, Active 2 tab PO x Once a day 2019 09, then 1 tab 0.6 mg 1 hour later x 1 Max 1.8 mg total dose/course Atorvastatin [facility] 02322439260 40 MG Orally Active 1 tablet Calcium Once a day Allopurinol [facility] 68892557106 100 MG Orally Active 1 tablet Once a day Results No Known Results Summary Purpose eClinicalWorks Submission
--- OUTSIDE RECORDS SUMMARY | 2019-11-23 08:18 | XMS REPORT ---
[...] End Status Dosage System Date Date Clobetasol [facility] 50151169180 0.05 % Active use Propionate Externally sparingly to Twice a day affected area Results No Known Results Summary Purpose eClinicalWorks Submission
--- OUTSIDE RECORDS SUMMARY | 2019-11-23 08:18 | XMS REPORT ---
:1945 [facility] Address [address] [place] [address] Dr. Wolff [address] [place] [id number] Care Team Providers Name Role Phone CHIKIS [...] Comments WHITE BLOOD CELL COUNT (BEAKER) (test pgik=426) 9.2 K/ L 4.0-10.0 RED BLOOD CELL COUNT (BEAKER) (test nhri=225) 4.69 M/ L 4.20-5.80 HEMOGLOBIN (BEAKER) (test wlku=009) 12.2 GM/DL 13.0-16.8 HEMATOCRIT (BEAKER) (test anlq=229) 36.5 % 40.0-50.0 MEAN CORPUSCULAR VOLUME (BEAKER) (test yjap=496) 77.8 fL 82.0-98.0 MEAN CORPUSCULAR HEMOGLOBIN (BEAKER) (test sumk=541) 25.9 pg 27.0-33.0 MEAN CORPUSCULAR HEMOGLOBIN CONC (BEAKER) (test aqfy=128) 33.3 GM/DL 32.0- 36.0 RED CELL DISTRIBUTION WIDTH (BEAKER) (test mbnu=207) 15.5 % 10.3-14.2 PLATELET COUNT (BEAKER) (test alrk=634) 140 K/CU MM 150-430 MEAN PLATELET VOLUME (BEAKER) (test loyh=387) 10.1 fL 6.5-10.5 NUCLEATED RED BLOOD CELLS (BEAKER) (test kloe=264) 0 /100 WBC 0-0 NEUTROPHILS RELATIVE PERCENT (BEAKER) (test zjgq=259) 74 % LYMPHOCYTES RELATIVE PERCENT (BEAKER) (test yglw=210) 12 % MONOCYTES RELATIVE PERCENT (BEAKER) (test yyyz=844) 13 % EOSINOPHILS RELATIVE PERCENT (BEAKER) (test wsxa=980) 1 % BASOPHILS RELATIVE PERCENT (BEAKER) (test isop=122) 0 % NEUTROPHILS ABSOLUTE COUNT (BEAKER) (test arqh=783) 6.78 K/ L 1.80-8.00 LYMPHOCYTES ABSOLUTE COUNT (BEAKER) (test hbqi=228) 1.08 K/ L 1.48-4.50 MONOCYTES ABSOLUTE COUNT (BEAKER) (test jiox=969) 1.19 K/ L 0.00-1.30 EOSINOPHILS ABSOLUTE COUNT (BEAKER) (test ftpj=850) 0.10 K/ L 0.00-0.50 BASOPHILS ABSOLUTE COUNT (BEAKER) (test yeqz=762) 0.01 K/ L 0.00-0.20 0.00BASIC METABOLIC [id number] 06:12:00 Test Item Value Reference Range Comments SODIUM (BEAKER) (test 136 meq/L 136-145 zxnv=841) POTASSIUM (BEAKER) (test 4.5 meq/L 3.5-5.1 xemn=530) CHLORIDE (BEAKER) (test 101 meq/L 98-107 rxuz=248) CO2 (BEAKER) (test 26 meq/L 22-29 wyes=546) BLOOD UREA NITROGEN 18 mg/dL 7-21 (BEAKER) (test hsyo=525) CREATININE (BEAKER) (test 1.28 mg/dL 0.57-1.25 zplw=604) GLUCOSE RANDOM (BEAKER) 89 mg/dL 70-105 (test oasm=740) CALCIUM (BEAKER) (test 8.6 mg/dL 8.4-10.2 ofea=844) EGFR (BEAKER) (test 67 mL/min/1.73 sq m ESTIMATED GFR IS NOT whgc=5642) ACCURATE CREATININE CLEARANCE IN PREDICTING GLOMERULAR FILTRATION RATE. ESTIMATED GFR IS NOT APPLICABLE FOR DIALYSIS PATIENTS. PROTHROMBIN TIME/[id number] 05:45:00 Test Item Value Reference Range Comments PROTIME (BEAKER) (test yycc=411) 14.5 seconds 11.7-14.7 INR (BEAKER) (test vzoh=023) 1.1 <=5.9 RECOMMENDED COUMADIN/WARFARIN INR THERAPY RANGESSTANDARD DOSE: 2.0 - 3.0 Includes: PROPHYLAXIS forvenous thrombosis, systemic embolization; TREATMENT for venous thrombosis and/or pulmonary embolus.HIGH RISK: Target INR is 2.5-3.5 for patients with mechanical heart valves.[id number] 12:38:00 Test Item Value Reference Range Comments SODIUM (BEAKER) (test vmam=845) 134 meq/L 136-145 [id number] 07:07:00 Test Item Value Reference Range Comments PHOSPHORUS (BEAKER) (test rikj=017) 3.3 mg/dL 2.3-4.7 [id number] 07:07:00 Test Item Value Reference Range Comments MAGNESIUM (BEAKER) (test dahg=667) 1.6 mg/dL 1.6-2.6 BASIC METABOLIC [id number] 04:24:00 Test Item Value Reference Range Comments SODIUM (BEAKER) (test 134 meq/L 136-145 ncch=181) POTASSIUM (BEAKER) (test 4.2 meq/L 3.5-5.1 jfxt=577) CHLORIDE (BEAKER) (test 101 meq/L 98-107 rbdk=573) CO2 (BEAKER) (test 27 meq/L 22-29 jqcn=820) BLOOD UREA NITROGEN 18 mg/dL 7-21 (BEAKER) (test okgs=557) CREATININE (BEAKER) (test 1.22 mg/dL 0.57-1.25 hqkw=756) GLUCOSE RANDOM (BEAKER) 99 mg/dL 70-105 (test kqpm=689) CALCIUM (BEAKER) (test 8.7 mg/dL 8.4-10.2 kjts=737) EGFR (BEAKER) (test 71 mL/min/1.73 sq m ESTIMATED GFR IS NOT tnpx=0215) ACCURATE CREATININE CLEARANCE IN PREDICTING GLOMERULAR FILTRATION RATE. ESTIMATED GFR IS NOT APPLICABLE FOR DIALYSIS PATIENTS. PROTHROMBIN TIME/[id number] 04:16:00 Test Item Value Reference Range Comments PROTIME (BEAKER) (test hbot=638) 15.0 seconds 11.7-14.7 INR (BEAKER) (test myjy=700) 1.2 <=5.9 RECOMMENDED COUMADIN/WARFARIN INR THERAPY RANGESSTANDARD DOSE: 2.0 - 3.0 Includes: PROPHYLAXIS forvenous thrombosis, systemic embolization; TREATMENT for venous thrombosis and/or pulmonary embolus.HIGH RISK: Target INR is 2.5-3.5 for patients with mechanical heart valves.CBC W/PLT COUNT & AUTO [id number] 04:16:00 Test Item Value Reference Range Comments WHITE BLOOD CELL COUNT (BEAKER) (test rqrc=279) 9.4 K/ L 4.0-10.0 RED BLOOD CELL COUNT (BEAKER) (test vved=677) 4.66 M/ L 4.20-5.80 HEMOGLOBIN (BEAKER) (test zvbg=135) 11.8 GM/DL 13.0-16.8 HEMATOCRIT (BEAKER) (test apvu=466) 36.9 % 40.0-50.0 MEAN CORPUSCULAR VOLUME (BEAKER) (test gmkc=059) 79.2 fL 82.0-98.0 MEAN CORPUSCULAR HEMOGLOBIN (BEAKER) (test 25.2 pg 27.0-33.0 schg=976) MEAN CORPUSCULAR HEMOGLOBIN CONC (BEAKER) (test 31.9 GM/DL 32.0-36.0 hbth=515) RED CELL DISTRIBUTION WIDTH (BEAKER) (test 14.1 % 10.3-14.2 rkjy=319) PLATELET COUNT (BEAKER) (test iqnj=511) 129 K/CU MM 150-430 MEAN PLATELET VOLUME (BEAKER) (test ldli=266) 9.7 fL 6.5-10.5 NUCLEATED RED BLOOD CELLS (BEAKER) (test 0 /100 WBC 0-0 vnrm=533) NEUTROPHILS RELATIVE PERCENT (BEAKER) (test 74 % lsyf=918) LYMPHOCYTES RELATIVE PERCENT (BEAKER) (test 12 % hcjq=798) MONOCYTES RELATIVE PERCENT (BEAKER) (test 13 % hhqh=691) EOSINOPHILS RELATIVE PERCENT (BEAKER) (test 1 % kfde=858) BASOPHILS RELATIVE PERCENT (BEAKER) (test 0 % zqsv=254) NEUTROPHILS ABSOLUTE COUNT (BEAKER) (test 6.97 K/ L 1.80-8.00 rwzb=114) LYMPHOCYTES ABSOLUTE COUNT (BEAKER) (test 1.11 K/ L 1.48-4.50 rcxu=177) MONOCYTES ABSOLUTE COUNT (BEAKER) (test 1.23 K/ L 0.00-1.30 wuds=514) EOSINOPHILS ABSOLUTE COUNT (BEAKER) (test 0.06 K/ L 0.00-0.50 nojj=669) BASOPHILS ABSOLUTE COUNT (BEAKER) (test 0.00 K/ L 0.00-0.20 vjwz=512) 0.00PT/[id number] 17:46:00 Test Item Value Reference Range Comments PROTIME (BEAKER) (test xxbs=765) 14.4 seconds 11.7-14.7 INR (BEAKER) (test wbrv=099) 1.1 <=5.9 PARTIAL THROMBOPLASTIN TIME (BEAKER) (test 36.8 seconds 22.5-36.0 xykj=112) RECOMMENDED COUMADIN/WARFARIN INR THERAPY RANGESSTANDARD DOSE: 2.0 - 3.0 Includes: PROPHYLAXIS forvenous thrombosis, systemic embolization; TREATMENT for venous thrombosis and/or pulmonary embolus.HIGH RISK: Target INR is 2.5-3.5 for patients with mechanical heart valves.BASIC METABOLIC [id number] 02:40: 00 Test Item Value Reference Range Comments SODIUM (BEAKER) (test 137 meq/L 136-145 vded=188) POTASSIUM (BEAKER) (test 4.6 meq/L 3.5-5.1 dgxa=485) CHLORIDE (BEAKER) (test 101 meq/L 98-107 tptz=712) CO2 (BEAKER) (test 29 meq/L 22-29 lugm=364) BLOOD UREA NITROGEN 19 mg/dL 7-21 (BEAKER) (test twnt=853) CREATININE (BEAKER) (test 1.42 mg/dL 0.57-1.25 liac=678) GLUCOSE RANDOM (BEAKER) 105 mg/dL 70-105 (test wraz=532) CALCIUM (BEAKER) (test 8.3 mg/dL 8.4-10.2 topv=722) EGFR (BEAKER) (test 59 mL/min/1.73 sq m ESTIMATED GFR IS NOT tlat=7560) ACCURATE CREATININE CLEARANCE IN PREDICTING GLOMERULAR FILTRATION RATE. ESTIMATED GFR IS NOT APPLICABLE FOR DIALYSIS PATIENTS. CBC W/PLT COUNT & AUTO [id number] 02:16:00 Test Item Value Reference Range Comments WHITE BLOOD CELL COUNT (BEAKER) (test wrzk=891) 9.9 K/ L 4.0-10.0 RED BLOOD CELL COUNT (BEAKER) (test bkzj=499) 4.56 M/ L 4.20-5.80 HEMOGLOBIN (BEAKER) (test snjb=785) 11.8 GM/DL 13.0-16.8 HEMATOCRIT (BEAKER) (test zaei=834) 36.5 % 40.0-50.0 MEAN CORPUSCULAR VOLUME (BEAKER) (test sepv=915) 79.9 fL 82.0-98.0 MEAN CORPUSCULAR HEMOGLOBIN (BEAKER) (test 25.9 pg 27.0-33.0 fqlj=768) MEAN CORPUSCULAR HEMOGLOBIN CONC (BEAKER) (test 32.4 GM/DL 32.0-36.0 rexy=542) RED CELL DISTRIBUTION WIDTH (BEAKER) (test 14.4 % 10.3-14.2 jrfg=145) PLATELET COUNT (BEAKER) (test knsq=388) 127 K/CU MM 150-430 MEAN PLATELET VOLUME (BEAKER) (test xanr=867) 10.0 fL 6.5-10.5 NUCLEATED RED BLOOD CELLS (BEAKER) (test 0 /100 WBC 0-0 wbag=472) NEUTROPHILS RELATIVE PERCENT (BEAKER) (test 79 % hnpu=178) LYMPHOCYTES RELATIVE PERCENT (BEAKER) (test 6 % jbfp=615) MONOCYTES RELATIVE PERCENT (BEAKER) (test 14 % lrns=516) EOSINOPHILS RELATIVE PERCENT (BEAKER) (test 1 % hanb=727) BASOPHILS RELATIVE PERCENT (BEAKER) (test 0 % tlpl=936) NEUTROPHILS ABSOLUTE COUNT (BEAKER) (test 7.86 K/ L 1.80-8.00 gljb=230) LYMPHOCYTES ABSOLUTE COUNT (BEAKER) (test 0.64 K/ L 1.48-4.50 dkwq=960) MONOCYTES ABSOLUTE COUNT (BEAKER) (test 1.36 K/ L 0.00-1.30 qaqn=376) EOSINOPHILS ABSOLUTE COUNT (BEAKER) (test 0.07 K/ L 0.00-0.50 yrpy=131) BASOPHILS ABSOLUTE COUNT (BEAKER) (test 0.01 K/ L 0.00-0.20 bcek=196) 0.00POCT-GLUCOSE [id number] 18:13:00 Test Item Value Reference Range Comments POC-GLUCOSE METER (BEAKER) 110 mg/dL 70-110 TESTED AT [address] (test dbzb=3989) [place] [id number] POCT-GLUCOSE [id number] 11:50:00 Test Item Value Reference Range Comments POC-GLUCOSE METER (BEAKER) 107 mg/dL 70-110 TESTED AT [address] (test sxtd=9464) [place] [id number] POCT-GLUCOSE [id number] 06:35:00 Test Item Value Reference Range Comments POC-GLUCOSE METER (BEAKER) 113 mg/dL 70-110 TESTED AT [address] (test dkap=7093) [place] [address] CBC W/PLT COUNT & AUTO [id number] 03:27:00 Test Item Value Reference Range Comments WHITE BLOOD CELL COUNT (BEAKER) (test tszl=856) 10.0 K/ L 4.0-10.0 RED BLOOD CELL COUNT (BEAKER) (test eodt=042) 4.64 M/ L 4.20-5.80 HEMOGLOBIN (BEAKER) (test wjdo=986) 11.9 GM/DL 13.0-16.8 HEMATOCRIT (BEAKER) (test lles=644) 36.8 % 40.0-50.0 MEAN CORPUSCULAR VOLUME (BEAKER) (test bdct=407) 79.3 fL 82.0-98.0 MEAN CORPUSCULAR HEMOGLOBIN (BEAKER) (test 25.6 pg 27.0-33.0 dgif=911) MEAN CORPUSCULAR HEMOGLOBIN CONC (BEAKER) (test 32.3 GM/DL 32.0-36.0 zrou=704) RED CELL DISTRIBUTION WIDTH (BEAKER) (test 14.4 % 10.3-14.2 wtxl=160) PLATELET COUNT (BEAKER) (test pzqs=405) 135 K/CU MM 150-430 MEAN PLATELET VOLUME (BEAKER) (test jple=806) 9.7 fL 6.5-10.5 NUCLEATED RED BLOOD CELLS (BEAKER) (test 0 /100 WBC 0-0 hlbd=513) NEUTROPHILS RELATIVE PERCENT (BEAKER) (test 81 % pzgn=392) LYMPHOCYTES RELATIVE PERCENT (BEAKER) (test 7 % nnlq=023) MONOCYTES RELATIVE PERCENT (BEAKER) (test 12 % zdat=934) EOSINOPHILS RELATIVE PERCENT (BEAKER) (test 1 % lbaf=477) BASOPHILS RELATIVE PERCENT (BEAKER) (test 0 % tyqx=852) NEUTROPHILS ABSOLUTE COUNT (BEAKER) (test 8.03 K/ L 1.80-8.00 cigr=408) LYMPHOCYTES ABSOLUTE COUNT (BEAKER) (test 0.69 K/ L 1.48-4.50 pxtv=721) MONOCYTES ABSOLUTE COUNT (BEAKER) (test 1.19 K/ L 0.00-1.30 hpsu=479) EOSINOPHILS ABSOLUTE COUNT (BEAKER) (test 0.07 K/ L 0.00-0.50 yjco=116) BASOPHILS ABSOLUTE COUNT (BEAKER) (test 0.00 K/ L 0.00-0.20 khiy=418) 0.00BASI METABOLIC [id number] 03:16:00 Test Item Value Reference Range Comments SODIUM (BEAKER) (test 135 meq/L 136-145 sdms=885) POTASSIUM (BEAKER) (test 4.3 meq/L 3.5-5.1 rhuj=041) CHLORIDE (BEAKER) (test 104 meq/L 98-107 emmx=938) CO2 (BEAKER) (test 26 meq/L 22-29 thoz=823) BLOOD UREA NITROGEN 19 mg/dL 7-21 (BEAKER) (test qzzy=758) CREATININE (BEAKER) (test 1.35 mg/dL 0.57-1.25 etom=158) GLUCOSE RANDOM (BEAKER) 110 mg/dL 70-105 (test hzhj=662) CALCIUM (BEAKER) (test 8.2 mg/dL 8.4-10.2 pnau=621) EGFR (BEAKER) (test 63 mL/min/1.73 sq m ESTIMATED GFR IS NOT dnmt=0680) ACCURATE CREATININE CLEARANCE IN PREDICTING GLOMERULAR FILTRATION RATE. ESTIMATED GFR IS NOT APPLICABLE FOR DIALYSIS PATIENTS. POCT-GLUCOSE [id number] 00:29:00 Test Item Value Reference Range Comments POC-GLUCOSE METER (BEAKER) 114 mg/dL 70-110 TESTED AT [address] (test sjrx=0070) [facility] [address] POCT-GLUCOSE [id number] 00:21:00 Test Item Value Reference Range Comments POC-GLUCOSE METER (BEAKER) 115 mg/dL 70-110 TESTED AT [address] (test qszy=6073) [facility] [address] POCT-GLUCOSE [id number] 12:42:00 Test Item Value Reference Range Comments POC-GLUCOSE METER (BEAKER) 114 mg/dL 70-110 TESTED AT [facility] [address] [facility] (test pdbx=3705) [facility] [address] POCT-GLUCOSE [id number] 06:45:00 Test Item Value Reference Range Comments POC-GLUCOSE METER (BEAKER) 126 mg/dL 70-110 TESTED AT [facility] [address] [facility] (test fugf=6961) [facility] [address] [id number] 05:26:00 Test Item Value Reference Range Comments FERRITIN (BEAKER) (test vibn=274) 220 ng/mL 5-275 Effective 08/03/2014: Reference Range ChangeNew: Male 5-275 Previous: Male 22-322 Female 5-275 Female 10-291[facility] METABOLIC [id number] 05:01:00 Test Item Value Reference Range Comments SODIUM (BEAKER) (test 137 meq/L 136-145 saig=470) POTASSIUM (BEAKER) (test 3.9 meq/L 3.5-5.1 Specimen slightly zrpr=746) hemolyzed CHLORIDE (BEAKER) (test 108 meq/L 98-107 hazy=160) CO2 (BEAKER) (test 22 meq/L 22-29 sefl=797) BLOOD UREA NITROGEN 13 mg/dL 7-21 (BEAKER) (test vstk=388) CREATININE (BEAKER) (test 1.23 mg/dL 0.57-1.25 Specimen slightly gwxg=583) hemolyzed GLUCOSE RANDOM (BEAKER) 114 mg/dL 70-105 (test sqjm=504) CALCIUM (BEAKER) (test 7.6 mg/dL 8.4-10.2 qkfa=959) EGFR (BEAKER) (test 70 mL/min/1.73 sq m ESTIMATED GFR IS NOT xcoi=5028) ACCURATE CREATININE CLEARANCE IN PREDICTING GLOMERULAR FILTRATION RATE. ESTIMATED GFR IS NOT APPLICABLE FOR DIALYSIS PATIENTS. [id number] 04:59:00 Test Item Value Reference Range Comments MAGNESIUM (BEAKER) (test 1.5 mg/dL 1.6-2.6 Specimen slightly hemolyzed guiz=791) [id number] 04:59:00 Test Item Value Reference Range Comments PHOSPHORUS (BEAKER) (test 3.5 mg/dL 2.3-4.7 Specimen slightly hemolyzed hafw=944) CBC W/PLT COUNT & AUTO [id number] 04:52:00 Test Item Value Reference Range Comments WHITE BLOOD CELL COUNT (BEAKER) (test kota=985) 9.5 K/ L 4.0-10.0 RED BLOOD CELL COUNT (BEAKER) (test ggcj=705) 4.57 M/ L 4.20-5.80 HEMOGLOBIN (BEAKER) (test lonn=243) 11.5 GM/DL 13.0-16.8 HEMATOCRIT (BEAKER) (test wuos=714) 36.2 % 40.0-50.0 MEAN CORPUSCULAR VOLUME (BEAKER) (test jixa=993) 79.3 fL 82.0-98.0 MEAN CORPUSCULAR HEMOGLOBIN (BEAKER) (test 25.2 pg 27.0-33.0 zupd=617) MEAN CORPUSCULAR HEMOGLOBIN CONC (BEAKER) (test 31.7 GM/DL 32.0-36.0 akrl=598) RED CELL DISTRIBUTION WIDTH (BEAKER) (test 14.6 % 10.3-14.2 upaq=000) PLATELET COUNT (BEAKER) (test zwgn=129) 98 K/CU MM 150-430 MEAN PLATELET VOLUME (BEAKER) (test fxeg=659) 10.8 fL 6.5-10.5 NUCLEATED RED BLOOD CELLS (BEAKER) (test 0 /100 WBC 0-0 vcfz=833) NEUTROPHILS RELATIVE PERCENT (BEAKER) (test 81 % wdyy=944) LYMPHOCYTES RELATIVE PERCENT (BEAKER) (test 9 % bhhf=869) MONOCYTES RELATIVE PERCENT (BEAKER) (test 10 % buhw=429) EOSINOPHILS RELATIVE PERCENT (BEAKER) (test 0 % nocg=357) BASOPHILS RELATIVE PERCENT (BEAKER) (test 0 % ezfl=408) NEUTROPHILS ABSOLUTE COUNT (BEAKER) (test 7.71 K/ L 1.80-8.00 szyl=554) LYMPHOCYTES ABSOLUTE COUNT (BEAKER) (test 0.81 K/ L 1.48-4.50 tbew=846) MONOCYTES ABSOLUTE COUNT (BEAKER) (test nqol=312) 0.93 K/ L 0.00-1.30 EOSINOPHILS ABSOLUTE COUNT (BEAKER) (test 0.03 K/ L 0.00-0.50 cfqp=713) BASOPHILS ABSOLUTE COUNT (BEAKER) (test ldzq=903) 0.04 K/ L 0.00-0.20 RETICULOCYTE [id number] 04:51:00 Test Item Value Reference Range Comments RETICULOCYTE COUNT PCT (BEAKER) (test slgu=223) 0.9 % 0.4-2.9 POCT-GLUCOSE [id number] 00:25:00 Test Item Value Reference Range Comments POC-GLUCOSE METER (BEAKER) 124 mg/dL 70-110 TESTED AT [address] (test qekw=7034) [place] [address] POCT-GLUCOSE [id number] 17:53:00 Test Item Value Reference Range Comments POC-GLUCOSE METER (BEAKER) 126 mg/dL 70-110 TESTED AT [address] (test ixkl=8699) [place] [address] PERIPHERAL BLOOD SMEAR - PATHOLOGIST [id number] 13:47:00 Test Item Value Reference Range Comments RBC MORPHOLOGY (BEAKER) Anisocytosis (test aoax=1298) RBC MORPHOLOGY (BEAKER) Poikilocytosis (test uetg=19795) RBC MORPHOLOGY (BEAKER) Polychromasia (test hkme=69695) WBC MORPHOLOGY (BEAKER) Unremarkable (test topr=4504) PLT MORPHOLOGY (BEAKER) Unremarkable (test pjkd=1554) PERIPHERAL SMR REVIEW No circulating blasts. No (BEAKER) (test zaza=6859) significantly increased shistocytes. [id number] Mark Acuna, (BEAKER) (test otfg=2966) M.D.(electronic signature) POCT-GLUCOSE [id number] 12:00:00 Test Item Value Reference Range Comments POC-GLUCOSE METER (BEAKER) 101 mg/dL 70-110 TESTED AT [address] (test csjm=9357) [place] [address] [id number] 07:34:00 Test Item Value Reference Range Comments COL/EPI CLOSURE TIME (BEAKER) 93 Seconds 78-191 (test dzox=7266) COL/ADP CLOSURE TIME (BEAKER) 62 Seconds 43-122 (test glih=4545) PLATELET COUNT AGG (BEAKER) 113 K/CU MM 150-430 Previous platelet result was (test coth=5898) 113. Lavender top for platelet clotted! Hematocrit <35% or platelet count <150,000/CU MM may contribute to falsely elevated PFA-100.PT/[id number] 07:33:00 Test Item Value Reference Range Comments PROTIME (BEAKER) (test zqac=643) 14.1 seconds 11.7-14.7 INR (BEAKER) (test vpjp=869) 1.1 <=5.9 PARTIAL THROMBOPLASTIN TIME (BEAKER) (test 30.8 seconds 22.5-36.0 uqos=804) RECOMMENDED COUMADIN/WARFARIN INR THERAPY RANGESSTANDARD DOSE: 2.0 - 3.0 Includes: PROPHYLAXIS forvenous thrombosis, systemic embolization; TREATMENT for venous thrombosis and/or pulmonary embolus.HIGH RISK: Target INR is 2.5-3.5 for patients with mechanical heart valves.VITAMIN B12 AND [id number] 06:33 :00 Test Item Value Reference Range Comments VITAMIN B12 (BEAKER) (test mkor=999) 327 pg/mL 213-816 FOLATE (BEAKER) (test eest=775) 9.6 ng/mL >=7.0 Effective 08/03/2014: Folate Reference Range ChangeNew: >=7.0 Previous: & gt;=5.4POCT-GLUCOSE [id number] 06:32:00 Test Item Value Reference Range Comments POC-GLUCOSE METER (BEAKER) 79 mg/dL 70-110 TESTED AT [facility] [address] [facility] (test vqqc=9512) [facility] [address] CBC W/PLT COUNT & AUTO [id number] 06:29:00 Test Item Value Reference Range Comments WHITE BLOOD CELL COUNT (BEAKER) (test auss=593) 7.9 K/ L 4.0-10.0 RED BLOOD CELL COUNT (BEAKER) (test vpus=866) 5.16 M/ L 4.20-5.80 HEMOGLOBIN (BEAKER) (test xpae=432) 13.0 GM/DL 13.0-16.8 HEMATOCRIT (BEAKER) (test wrem=926) 41.2 % 40.0-50.0 MEAN CORPUSCULAR VOLUME (BEAKER) (test qqjd=366) 79.9 fL 82.0-98.0 MEAN CORPUSCULAR HEMOGLOBIN (BEAKER) (test 25.2 pg 27.0-33.0 lmpn=525) MEAN CORPUSCULAR HEMOGLOBIN CONC (BEAKER) (test 31.6 GM/DL 32.0-36.0 nmlb=795) RED CELL DISTRIBUTION WIDTH (BEAKER) (test 14.8 % 10.3-14.2 whwl=070) PLATELET COUNT (BEAKER) (test bnzg=953) 108 K/CU MM 150-430 MEAN PLATELET VOLUME (BEAKER) (test nony=829) 11.2 fL 6.5-10.5 NUCLEATED RED BLOOD CELLS (BEAKER) (test 0 /100 WBC 0-0 knhd=443) NEUTROPHILS RELATIVE PERCENT (BEAKER) (test 71 % zogn=253) LYMPHOCYTES RELATIVE PERCENT (BEAKER) (test 17 % dufu=776) MONOCYTES RELATIVE PERCENT (BEAKER) (test 9 % zjzc=286) EOSINOPHILS RELATIVE PERCENT (BEAKER) (test 2 % asie=928) BASOPHILS RELATIVE PERCENT (BEAKER) (test 0 % xaiu=316) NEUTROPHILS ABSOLUTE COUNT (BEAKER) (test 5.62 K/ L 1.80-8.00 rmgh=955) LYMPHOCYTES ABSOLUTE COUNT (BEAKER) (test 1.37 K/ L 1.48-4.50 xulk=919) MONOCYTES ABSOLUTE COUNT (BEAKER) (test 0.73 K/ L 0.00-1.30 wwzb=787) EOSINOPHILS ABSOLUTE COUNT (BEAKER) (test 0.16 K/ L 0.00-0.50 axsu=099) BASOPHILS ABSOLUTE COUNT (BEAKER) (test 0.02 K/ L 0.00-0.20 hnea=930) 0.00IRON, TIBC, % SAT. (WITHOUT FERRITIN)2017-02-05 05:59:00 Test Item Value Reference Range Comments IRON (BEAKER) (test olsh=588) 37 ug/dL 40-160 TOTAL IRON BINDING CAPACITY (BEAKER) (test 206 ug/dL 250-450 rjts=266) IRON % SATURATION (2) (BEAKER) (test pofq=8984) 18 % 20-55 [id number] 05:33:00 Test Item Value Reference Range Comments PHOSPHORUS (BEAKER) (test xlpo=118) 3.4 mg/dL 2.3-4.7 Once on admission and Daily AM afterwardsOnce on admission and Daily AM afterwardsOnce on admission and Daily AM [id number] 05:33:00 Test Item Value Reference Range Comments MAGNESIUM (BEAKER) (test vszz=352) 1.7 mg/dL 1.6-2.6 Once on admission and Daily AM afterwardsOnce on admission and Daily AM afterwardsOnce on admission and Daily AM afterwardsBASIC METABOLIC [id number] 05:33:00 Test Item Value Reference Range Comments SODIUM (BEAKER) (test 139 meq/L 136-145 trmk=167) POTASSIUM (BEAKER) (test 4.9 meq/L 3.5-5.1 ofor=440) CHLORIDE (BEAKER) (test 107 meq/L 98-107 iyaz=379) CO2 (BEAKER) (test 26 meq/L 22-29 yqkq=352) BLOOD UREA NITROGEN 15 mg/dL 7-21 (BEAKER) (test yxvi=973) CREATININE (BEAKER) (test 1.51 mg/dL 0.57-1.25 usqd=227) GLUCOSE RANDOM (BEAKER) 76 mg/dL 70-105 (test uemx=808) CALCIUM (BEAKER) (test 8.5 mg/dL 8.4-10.2 tonc=863) EGFR (BEAKER) (test 55 mL/min/1.73 sq m ESTIMATED GFR IS NOT otrd=5464) ACCURATE CREATININE CLEARANCE IN PREDICTING GLOMERULAR FILTRATION RATE. ESTIMATED GFR IS NOT APPLICABLE FOR DIALYSIS PATIENTS. Once on admission and Daily AM afterwardsOnce on admission and Daily AM afterwardsOnce on admission and Daily AM afterwardsPOCT-GLUCOSE [id number] 00:30:00 Test Item Value Reference Range Comments POC-GLUCOSE METER (BEAKER) 78 mg/dL 70-110 TESTED AT [address] (test jhpk=8844) [facility] [address] POCT-GLUCOSE [id number] 18:20:00 Test Item Value Reference Range Comments POC-GLUCOSE METER (BEAKER) 156 mg/dL 70-110 TESTED AT [address] (test guwk=8269) [facility] [address] PLATELET AGGREGATION: FUNCTION [id number] 15:53:00 Test Item Value Reference Range Comments WEAK ADP RESULT(BEAKER) (test 94 % 60-91 jlyv=9078) PLATELET FUNCTION SCREEN 60-100% indicates normal INTERP (BEAKER) (test platelet function qftb=7228) [id number] (BEAKER) Aurora Pascual MD (electronic (test bqod=2516) signature) PLATELET COUNT AGG (BEAKER) 113 K/CU MM 150-430 (test hxwa=5349) POCT-GLUCOSE [id number] 14:21:00 Test Item Value Reference Range Comments POC-GLUCOSE METER (BEAKER) 82 mg/dL 70-110 TESTED AT [facility] [address] [facility] (test nwzr=9483) [facility] [address] HEPATIC FUNCTION [id number] 07:38:00 Test Item Value Reference Range Comments TOTAL PROTEIN (BEAKER) (test 7.6 gm/dL 6.0-8.3 Specimen slightly hemolyzed apdw=940) ALBUMIN (BEAKER) (test 3.4 g/dL 3.5-5.0 Specimen slightly hemolyzed mlhx=1366) BILIRUBIN TOTAL (BEAKER) (test 0.8 mg/dL 0.2-1.2 Specimen slightly hemolyzed qdbo=485) BILIRUBIN DIRECT (BEAKER) (test 0.3 mg/dL 0.1-0.5 Specimen slightly hemolyzed ahpw=068) ALKALINE PHOSPHATASE (BEAKER) 49 U/L 40-150 (test lfzs=324) AST (SGOT) (BEAKER) (test 16 U/L 5-34 Specimen slightly hemolyzed epef=575) ALT (SGPT) (BEAKER) (test 16 U/L 6-55 Specimen slightly hemolyzed sgzz=879) PROTHROMBIN TIME/[id number] 07:10:00 Test Item Value Reference Range Comments PROTIME (BEAKER) (test xoio=238) 14.9 seconds 11.7-14.7 INR (BEAKER) (test uyhc=561) 1.2 <=5.9 RECOMMENDED COUMADIN/WARFARIN INR THERAPY RANGESSTANDARD DOSE: 2.0 - 3.0 Includes: PROPHYLAXIS forvenous thrombosis, systemic embolization; TREATMENT for venous thrombosis and/or pulmonary embolus.HIGH RISK: Target INR is 2.5-3.5 for patients with mechanical heart valves.[id number] 07:10:00 Test Item Value Reference Range Comments PARTIAL THROMBOPLASTIN TIME (BEAKER) (test 35.9 seconds 22.5-36.0 eipf=656) CBC W/PLT COUNT & AUTO [id number] 07:07:00 Test Item Value Reference Range Comments WHITE BLOOD CELL COUNT (BEAKER) (test obfq=866) 7.4 K/ L 4.0-10.0 RED BLOOD CELL COUNT (BEAKER) (test qrud=021) 5.04 M/ L 4.20-5.80 HEMOGLOBIN (BEAKER) (test dtdk=669) 12.9 GM/DL 13.0-16.8 HEMATOCRIT (BEAKER) (test wzeq=405) 40.0 % 40.0-50.0 MEAN CORPUSCULAR VOLUME (BEAKER) (test sfub=826) 79.2 fL 82.0-98.0 MEAN CORPUSCULAR HEMOGLOBIN (BEAKER) (test 25.6 pg 27.0-33.0 pcgz=546) MEAN CORPUSCULAR HEMOGLOBIN CONC (BEAKER) (test 32.3 GM/DL 32.0-36.0 njac=802) RED CELL DISTRIBUTION WIDTH (BEAKER) (test 14.5 % 10.3-14.2 sqze=258) PLATELET COUNT (BEAKER) (test aaih=307) 94 K/CU MM 150-430 MEAN PLATELET VOLUME (BEAKER) (test vbwp=460) 11.7 fL 6.5-10.5 NUCLEATED RED BLOOD CELLS (BEAKER) (test 0 /100 WBC 0-0 awig=761) NEUTROPHILS RELATIVE PERCENT (BEAKER) (test 72 % qcrw=315) LYMPHOCYTES RELATIVE PERCENT (BEAKER) (test 17 % qene=427) MONOCYTES RELATIVE PERCENT (BEAKER) (test 9 % qkfh=848) EOSINOPHILS RELATIVE PERCENT (BEAKER) (test 2 % mkwy=901) BASOPHILS RELATIVE PERCENT (BEAKER) (test 0 % jbkg=918) NEUTROPHILS ABSOLUTE COUNT (BEAKER) (test 5.33 K/ L 1.80-8.00 alac=[id number]) LYMPHOCYTES ABSOLUTE COUNT (BEAKER) (test 1.25 K/ L 1.48-4.50 espf=389) MONOCYTES ABSOLUTE COUNT (BEAKER) (test gtjw=210) 0.66 K/ L 0.00-1.30 EOSINOPHILS ABSOLUTE COUNT (BEAKER) (test 0.12 K/ L 0.00-0.50 bwoq=287) BASOPHILS ABSOLUTE COUNT (BEAKER) (test ujsy=447) 0.03 K/ L 0.00-0.20 0.00
--- NOTE | 2019-11-23 08:33 | ER ---
Nurse's Notes [facility] Name: Reggie Mayer Age: 74 yrs Sex: Male : 1945 Arrival Date: 11/23/2019 Time: 08:04 Bed 5 Private MD: Sudhir Bo Diagnosis: Gout Presentation: 11/22 08:15 Chief complaint: Patient states: R knee and ankle pain that began 3 weeks ago. ss Diagnosed with gout. Medications previously prescribed help, but as soon as they wear off pain comes right back and is not improving. Coronavirus screen: The patient has NOT traveled to a country currently being monitored by the [facility] within the last 14 days. Ebola Screen: Patient denies exposure to infectious person. Patient denies travel to an Ebola-affected area in the 21 days before illness onset. Initial Sepsis Screen: Does the patient meet any 2 criteria? No. Patient's initial sepsis screen is negative. Does the patient have a suspected source of infection? No. Patient's initial sepsis screen is negative. Risk Assessment: Do you want to hurt yourself or someone else? Patient reports no desire to harm self or others. 08:15 Method Of Arrival: Wheelchair ss 08:15 Acuity: AQUILES 4 ss 08:28 Onset of symptoms was October 2019. sv Historical: - Allergies: 08:18 NKA; ss - PMHx: 08:18 chronic kidney disease; Hyperlipidemia; Hypertension; Myocardial infarction; Prostate ss Cancer; - PSHx: 08:18 Head bleed; liver; ss - Immunization history:: Adult Immunizations up to date. - Social history:: Smoking status: Patient denies any tobacco usage or history of. - Family history:: not pertinent. - Hospitalizations: : No recent hospitalization is reported. Screenin:28 Abuse screen: Denies threats or abuse. Denies injuries from another. Nutritional sv screening: No deficits noted. Tuberculosis screening: No symptoms or risk factors identified. Fall Risk None identified. Assessment: 08:15 General: Appears in no apparent distress. uncomfortable, Behavior is calm, cooperative, sv appropriate for age. Pain: Complains of pain in right knee and right ankle Pain currently is 8 out of 10 on a pain scale. Neuro: Level of Consciousness is awake, alert, obeys commands, Oriented to person, place, time, situation, Moves all extremities. Full function. Respiratory: Airway is patent Respiratory effort is even, unlabored, Respiratory pattern is regular, symmetrical. Derm: Skin is pink, warm \T\ dry. Vital Signs: 08:15 BP 149 / 102; Pulse 76; Resp 16; Temp 97.8(TE); Pulse Ox 96% on R/A; ss ED Course: 08:04 Patient arrived in ED. rg4 08:05 Sudhir Bo DO is Private Physician. rg4 08:07 Zander Paz MD is Attending Physician. rn 08:10 Melly Shea, DODIE is Primary Nurse. sv 08:10 Arm band placed on Patient placed in an exam room, on a stretcher. sv 08:10 Patient has correct armband on for positive identification. Bed in low position. Call sv light in reach. Door closed. Head of bed elevated. 08:17 Triage completed. ss 08:49 No provider procedures requiring assistance completed. Patient did not have IV access sv during this emergency room visit. Administered Medications: 08:30 Drug: Decadron 10 mg Route: IM; Site: right deltoid; sv 08:48 Follow up: Response: No adverse reaction sv 08:30 Drug: Newton 10 mg-325 mg 1 tabs Route: PO; sv 08:48 Follow up: Response: No adverse reaction; Medication administered at discharge. sv Outcome: 08:32 Discharge ordered by . rn 08:49 Discharged to home ambulatory, with family, with cane sv 08:49 Condition: stable 08:49 Discharge instructions given to patient, family, Instructed on discharge instructions, follow up and referral plans. medication usage, Demonstrated understanding of instructions, follow-up care, medications, Prescriptions given X 2. 08:49 Patient left the ED. sv Signatures: Melly Shea, Zander Hall RN, MD MD rn Smirch, Shelby, RN RN ss Garcia, Rubi rg4
[2019-11-23] MEDS ORDERED: dexAMETHasone 10 MG/ML VIAL ONE (08:34)
[2019-11-23] MEDS ORDERED: HYDROCODONE/APAP 10/325 TAB ONE (08:34)
--- NOTE | 2019-11-23 08:34 | EDPHYS ---
Physician Documentation [facility] Name: Reggie Mayer Age: 74 yrs Sex: Male : 1945 Arrival Date: 11/23/2019 Time: 08:04 Bed 5 Private MD: Sudhir Bo ED Physician Zander Paz HPI: 11/22 08:27 This 74 yrs old Black Male presents to ER via Wheelchair with complaints of Leg Pain. rn 08:27 The patient presents with pain. The complaints affect the right ankle, right knee and rn anterior aspect of right ankle. Onset: The symptoms/episode began/occurred 3 week(s) ago. Modifying factors: The symptoms are alleviated by nothing. the symptoms are aggravated by movement, weight bearing, bending knee. Severity of symptoms: At their worst the symptoms were moderate, in the emergency department the symptoms are unchanged. The patient has experienced similar episodes in the past. Reports hx of gout for > 20 years, takes allopurinol, seen recently for this problem, states not getting better, has been taking his allopurinol through the attack. Sent home with colchicine and not better. Reports started in right great toe, then ankle then knee. Toe better now. NO trauma. No fever. . Historical: - Allergies: 08:18 NKA; ss - PMHx: 08:18 chronic kidney disease; Hyperlipidemia; Hypertension; Myocardial infarction; Prostate ss Cancer; - PSHx: 08:18 Head bleed; liver; ss - Immunization history:: Adult Immunizations up to date. - Social history:: Smoking status: Patient denies any tobacco usage or history of. - Family history:: not pertinent. - Hospitalizations: : No recent hospitalization is reported. ROS: 08:27 Constitutional: Negative for fever, chills, and weight loss, MS/Extremity: Negative for rn injury and deformity, Skin: Negative for injury, rash, and discoloration, Neuro: Negative for headache, weakness, numbness, tingling, and seizure. Exam: 08:27 Constitutional: This is a well developed, well nourished patient who is awake, alert, rn and in no acute distress. MS/ Extremity: Pulses equal, no cyanosis. Neurovascular intact. Mild painful ROM right knee and ankle, mild knee swelling, + medial ankle swelling. No erythema or warmth of joints. No cellulitis. Vital Signs: 08:15 BP 149 / 102; Pulse 76; Resp 16; Temp 97.8(TE); Pulse Ox 96% on R/A; ss MDM: 08:07 Patient medically screened. rn 08:27 Differential diagnosis: gout, pseudogout, inflammatory arthritis. Data reviewed: vital rn signs, nurses notes, and as a result, I will discharge patient. Counseling: I had a detailed discussion with the patient and/or guardian regarding: the historical points, exam findings, and any diagnostic results supporting the discharge/admit diagnosis, the need for outpatient follow up, to return to the emergency department if symptoms worsen or persist or if there are any questions or concerns that arise at home. Response to treatment: the patient's symptoms have mildly improved after treatment, and as a result, I will discharge patient. Special discussion: I discussed with the patient/guardian in detail that at this point there is no indication for admission to the hospital. It is understood, however, that if the symptoms persist or worsen the patient needs to return immediately for re-evaluation. Based on the history and exam findings, there is no indication for further emergent testing or inpatient evaluation. I discussed with the patient/guardian the need to see the primary care provider for further evaluation of the symptoms. I discussed with the patient/guardian the need to see the retail team leader for further evaluation of the symptoms. ED course: Pt with mild improvement, offered knee aspiration given never had fluid aspiration to confirm diagnosis. But after discussion, decision made not to perform knee aspiration given pattern of pain that began in great toe. Patient chooses pain meds and steroids instead of knee aspiration and testing. Urged to f/u with pcp/ortho/Rheumatology. . 08:34 ED course: [place] checked, 110/060/130 scores, no active narcotic prescriptions, will rn dc home with tramadol and medrol dose pack.. Administered Medications: 08:30 Drug: Decadron 10 mg Route: IM; Site: right deltoid; sv 08:48 Follow up: Response: No adverse reaction sv 08:30 Drug: [place] 10 mg-325 mg 1 tabs Route: PO; sv 08:48 Follow up: Response: No adverse reaction; Medication administered at discharge. sv Disposition: 11/23/19 08:32 Discharged to Home. Impression: Gout. - Condition is Stable. - Discharge Instructions: Gout. - Prescriptions for Tramadol 50 mg Oral Tablet - take 1 tablet by ORAL route every 8 hours as needed; 20 tablet. Medrol (Sonu) 4 mg Oral Tablets, Dose Pack - take 1 tablet by ORAL route as directed - follow package instructions; 1 packet. - Medication Reconciliation Form, Thank You Letter, Antibiotic Education, Prescription Opioid Use form. - Follow up: Private Physician; When: As needed; Reason: Recheck today's complaints, Re-evaluation by your physician. - Problem is an acute exacerbation. - Symptoms have improved. Signatures: Melly Shea RN RN sv Zander Paz MD MD rn Smirch, Shelby, RN RN ss Corrections: (The following items were deleted from the chart) 08:49 08:32 11/23/2019 08:32 Discharged to Home. Impression: Gout. Condition is Stable. Forms sv are Medication Reconciliation Form, Thank You Letter, Antibiotic Education, Prescription Opioid Use. Follow up: Private Physician; When: As needed; Reason: Recheck today's complaints, Re-evaluation by your physician. Problem is an acute exacerbation. Symptoms have improved. rn
[2019-11-23 08:56] VITALS: BP 149/102; TEMP 97.8; O2SAT 96
== END 2019-11-23 08:49 | disposition home or self-care (01) ==
LOC: ER 08:02
DX: M10.9 Gout, unspecified (principal)
CPT/HCPCS: 96372; 99283; J1100

== ENCOUNTER 2019-12-04 08:34 | Emergency (ER) | payer MEDICARE ==
--- OUTSIDE RECORDS SUMMARY | 2019-12-04 08:38 | XMS REPORT ---
:1945 [facility] Address [address] [place] [address] Dr. Wolff [address] [place] [id number] Care Team Providers Name Role Phone CHIKIS [...] Comments WHITE BLOOD CELL COUNT (BEAKER) (test uvcc=184) 9.2 K/ L 4.0-10.0 RED BLOOD CELL COUNT (BEAKER) (test ymvc=580) 4.69 M/ L 4.20-5.80 HEMOGLOBIN (BEAKER) (test jjjx=470) 12.2 GM/DL 13.0-16.8 HEMATOCRIT (BEAKER) (test nxaz=713) 36.5 % 40.0-50.0 MEAN CORPUSCULAR VOLUME (BEAKER) (test siwc=773) 77.8 fL 82.0-98.0 MEAN CORPUSCULAR HEMOGLOBIN (BEAKER) (test dcbl=861) 25.9 pg 27.0-33.0 MEAN CORPUSCULAR HEMOGLOBIN CONC (BEAKER) (test uylr=662) 33.3 GM/DL 32.0- 36.0 RED CELL DISTRIBUTION WIDTH (BEAKER) (test rcob=971) 15.5 % 10.3-14.2 PLATELET COUNT (BEAKER) (test acsz=744) 140 K/CU MM 150-430 MEAN PLATELET VOLUME (BEAKER) (test ycor=943) 10.1 fL 6.5-10.5 NUCLEATED RED BLOOD CELLS (BEAKER) (test tuur=600) 0 /100 WBC 0-0 NEUTROPHILS RELATIVE PERCENT (BEAKER) (test whvl=623) 74 % LYMPHOCYTES RELATIVE PERCENT (BEAKER) (test urpl=501) 12 % MONOCYTES RELATIVE PERCENT (BEAKER) (test zgsi=922) 13 % EOSINOPHILS RELATIVE PERCENT (BEAKER) (test dkyk=131) 1 % BASOPHILS RELATIVE PERCENT (BEAKER) (test jzkq=459) 0 % NEUTROPHILS ABSOLUTE COUNT (BEAKER) (test jdjv=637) 6.78 K/ L 1.80-8.00 LYMPHOCYTES ABSOLUTE COUNT (BEAKER) (test xuqc=535) 1.08 K/ L 1.48-4.50 MONOCYTES ABSOLUTE COUNT (BEAKER) (test iykr=183) 1.19 K/ L 0.00-1.30 EOSINOPHILS ABSOLUTE COUNT (BEAKER) (test jkol=030) 0.10 K/ L 0.00-0.50 BASOPHILS ABSOLUTE COUNT (BEAKER) (test pkbr=210) 0.01 K/ L 0.00-0.20 0.00BASIC METABOLIC [id number] 06:12:00 Test Item Value Reference Range Comments SODIUM (BEAKER) (test 136 meq/L 136-145 bshc=054) POTASSIUM (BEAKER) (test 4.5 meq/L 3.5-5.1 pzsz=672) CHLORIDE (BEAKER) (test 101 meq/L 98-107 czyz=200) CO2 (BEAKER) (test 26 meq/L 22-29 vxwv=628) BLOOD UREA NITROGEN 18 mg/dL 7-21 (BEAKER) (test rlvg=482) CREATININE (BEAKER) (test 1.28 mg/dL 0.57-1.25 plqf=054) GLUCOSE RANDOM (BEAKER) 89 mg/dL 70-105 (test edta=593) CALCIUM (BEAKER) (test 8.6 mg/dL 8.4-10.2 ypdl=463) EGFR (BEAKER) (test 67 mL/min/1.73 sq m ESTIMATED GFR IS NOT yuno=2026) ACCURATE CREATININE CLEARANCE IN PREDICTING GLOMERULAR FILTRATION RATE. ESTIMATED GFR IS NOT APPLICABLE FOR DIALYSIS PATIENTS. PROTHROMBIN [id number] 05:45:00 Test Item Value Reference Range Comments PROTIME (BEAKER) (test aurt=879) 14.5 seconds 11.7-14.7 INR (BEAKER) (test tsgk=037) 1.1 <=5.9 RECOMMENDED COUMADIN/WARFARIN INR THERAPY RANGESSTANDARD DOSE: 2.0 - 3.0 Includes: PROPHYLAXIS forvenous thrombosis, systemic embolization; TREATMENT for venous thrombosis and/or pulmonary embolus.HIGH RISK: Target INR is 2.5-3.5 for patients with mechanical heart valves.[id number] 12:38:00 Test Item Value Reference Range Comments SODIUM (BEAKER) (test byin=310) 134 meq/L 136-145 [id number] 07:07:00 Test Item Value Reference Range Comments PHOSPHORUS (BEAKER) (test zokw=315) 3.3 mg/dL 2.3-4.7 [id number] 07:07:00 Test Item Value Reference Range Comments MAGNESIUM (BEAKER) (test lrkq=867) 1.6 mg/dL 1.6-2.6 BASIC METABOLIC [id number] 04:24:00 Test Item Value Reference Range Comments SODIUM (BEAKER) (test 134 meq/L 136-145 fago=610) POTASSIUM (BEAKER) (test 4.2 meq/L 3.5-5.1 cxxp=847) CHLORIDE (BEAKER) (test 101 meq/L 98-107 duqa=932) CO2 (BEAKER) (test 27 meq/L 22-29 oifz=991) BLOOD UREA NITROGEN 18 mg/dL 7-21 (BEAKER) (test glzd=578) CREATININE (BEAKER) (test 1.22 mg/dL 0.57-1.25 ohkd=899) GLUCOSE RANDOM (BEAKER) 99 mg/dL 70-105 (test aoej=768) CALCIUM (BEAKER) (test 8.7 mg/dL 8.4-10.2 gkyg=231) EGFR (BEAKER) (test 71 mL/min/1.73 sq m ESTIMATED GFR IS NOT znlg=6321) ACCURATE CREATININE CLEARANCE IN PREDICTING GLOMERULAR FILTRATION RATE. ESTIMATED GFR IS NOT APPLICABLE FOR DIALYSIS PATIENTS. PROTHROMBIN [id number] 04:16:00 Test Item Value Reference Range Comments PROTIME (BEAKER) (test ctqf=932) 15.0 seconds 11.7-14.7 INR (BEAKER) (test itnn=400) 1.2 <=5.9 RECOMMENDED COUMADIN/WARFARIN INR THERAPY RANGESSTANDARD DOSE: 2.0 - 3.0 Includes: PROPHYLAXIS forvenous thrombosis, systemic embolization; TREATMENT for venous thrombosis and/or pulmonary embolus.HIGH RISK: Target INR is 2.5-3.5 for patients with mechanical heart valves.CBC W/PLT COUNT & AUTO [id number] 04:16:00 Test Item Value Reference Range Comments WHITE BLOOD CELL COUNT (BEAKER) (test uibd=741) 9.4 K/ L 4.0-10.0 RED BLOOD CELL COUNT (BEAKER) (test srdu=942) 4.66 M/ L 4.20-5.80 HEMOGLOBIN (BEAKER) (test igvz=477) 11.8 GM/DL 13.0-16.8 HEMATOCRIT (BEAKER) (test vmjd=207) 36.9 % 40.0-50.0 MEAN CORPUSCULAR VOLUME (BEAKER) (test pzuy=260) 79.2 fL 82.0-98.0 MEAN CORPUSCULAR HEMOGLOBIN (BEAKER) (test 25.2 pg 27.0-33.0 aney=671) MEAN CORPUSCULAR HEMOGLOBIN CONC (BEAKER) (test 31.9 GM/DL 32.0-36.0 hbbo=845) RED CELL DISTRIBUTION WIDTH (BEAKER) (test 14.1 % 10.3-14.2 rsyu=351) PLATELET COUNT (BEAKER) (test kfxu=942) 129 K/CU MM 150-430 MEAN PLATELET VOLUME (BEAKER) (test yuoj=860) 9.7 fL 6.5-10.5 NUCLEATED RED BLOOD CELLS (BEAKER) (test 0 /100 WBC 0-0 vaho=558) NEUTROPHILS RELATIVE PERCENT (BEAKER) (test 74 % ircf=080) LYMPHOCYTES RELATIVE PERCENT (BEAKER) (test 12 % rtky=476) MONOCYTES RELATIVE PERCENT (BEAKER) (test 13 % xcxa=636) EOSINOPHILS RELATIVE PERCENT (BEAKER) (test 1 % cvve=032) BASOPHILS RELATIVE PERCENT (BEAKER) (test 0 % lxgm=648) NEUTROPHILS ABSOLUTE COUNT (BEAKER) (test 6.97 K/ L 1.80-8.00 fpyd=542) LYMPHOCYTES ABSOLUTE COUNT (BEAKER) (test 1.11 K/ L 1.48-4.50 posv=287) MONOCYTES ABSOLUTE COUNT (BEAKER) (test 1.23 K/ L 0.00-1.30 upsw=036) EOSINOPHILS ABSOLUTE COUNT (BEAKER) (test 0.06 K/ L 0.00-0.50 dqqk=574) BASOPHILS ABSOLUTE COUNT (BEAKER) (test 0.00 K/ L 0.00-0.20 agnn=931) 0.00PT/[id number] 17:46:00 Test Item Value Reference Range Comments PROTIME (BEAKER) (test pgbb=883) 14.4 seconds 11.7-14.7 INR (BEAKER) (test dlcv=659) 1.1 <=5.9 PARTIAL THROMBOPLASTIN TIME (BEAKER) (test 36.8 seconds 22.5-36.0 pjnx=788) RECOMMENDED COUMADIN/WARFARIN INR THERAPY RANGESSTANDARD DOSE: 2.0 - 3.0 Includes: PROPHYLAXIS forvenous thrombosis, systemic embolization; TREATMENT for venous thrombosis and/or pulmonary embolus.HIGH RISK: Target INR is 2.5-3.5 for patients with mechanical heart valves.BASIC METABOLIC [id number] 02:40: 00 Test Item Value Reference Range Comments SODIUM (BEAKER) (test 137 meq/L 136-145 gnhm=904) POTASSIUM (BEAKER) (test 4.6 meq/L 3.5-5.1 wnor=114) CHLORIDE (BEAKER) (test 101 meq/L 98-107 kqvk=745) CO2 (BEAKER) (test 29 meq/L 22-29 tsos=947) BLOOD UREA NITROGEN 19 mg/dL 7-21 (BEAKER) (test nlff=527) CREATININE (BEAKER) (test 1.42 mg/dL 0.57-1.25 gdqj=507) GLUCOSE RANDOM (BEAKER) 105 mg/dL 70-105 (test dovg=482) CALCIUM (BEAKER) (test 8.3 mg/dL 8.4-10.2 ctyq=924) EGFR (BEAKER) (test 59 mL/min/1.73 sq m ESTIMATED GFR IS NOT eneu=7508) ACCURATE CREATININE CLEARANCE IN PREDICTING GLOMERULAR FILTRATION RATE. ESTIMATED GFR IS NOT APPLICABLE FOR DIALYSIS PATIENTS. CBC W/PLT COUNT & AUTO [id number] 02:16:00 Test Item Value Reference Range Comments WHITE BLOOD CELL COUNT (BEAKER) (test brtp=416) 9.9 K/ L 4.0-10.0 RED BLOOD CELL COUNT (BEAKER) (test lsyf=020) 4.56 M/ L 4.20-5.80 HEMOGLOBIN (BEAKER) (test gskt=251) 11.8 GM/DL 13.0-16.8 HEMATOCRIT (BEAKER) (test modn=478) 36.5 % 40.0-50.0 MEAN CORPUSCULAR VOLUME (BEAKER) (test ihha=262) 79.9 fL 82.0-98.0 MEAN CORPUSCULAR HEMOGLOBIN (BEAKER) (test 25.9 pg 27.0-33.0 iddg=659) MEAN CORPUSCULAR HEMOGLOBIN CONC (BEAKER) (test 32.4 GM/DL 32.0-36.0 imxh=644) RED CELL DISTRIBUTION WIDTH (BEAKER) (test 14.4 % 10.3-14.2 fzkd=075) PLATELET COUNT (BEAKER) (test gdqt=953) 127 K/CU MM 150-430 MEAN PLATELET VOLUME (BEAKER) (test cvvj=511) 10.0 fL 6.5-10.5 NUCLEATED RED BLOOD CELLS (BEAKER) (test 0 /100 WBC 0-0 cmuk=126) NEUTROPHILS RELATIVE PERCENT (BEAKER) (test 79 % gkbx=965) LYMPHOCYTES RELATIVE PERCENT (BEAKER) (test 6 % abyc=331) MONOCYTES RELATIVE PERCENT (BEAKER) (test 14 % wphd=854) EOSINOPHILS RELATIVE PERCENT (BEAKER) (test 1 % ckkn=441) BASOPHILS RELATIVE PERCENT (BEAKER) (test 0 % irqz=074) NEUTROPHILS ABSOLUTE COUNT (BEAKER) (test 7.86 K/ L 1.80-8.00 ukah=484) LYMPHOCYTES ABSOLUTE COUNT (BEAKER) (test 0.64 K/ L 1.48-4.50 dztv=504) MONOCYTES ABSOLUTE COUNT (BEAKER) (test 1.36 K/ L 0.00-1.30 xoio=660) EOSINOPHILS ABSOLUTE COUNT (BEAKER) (test 0.07 K/ L 0.00-0.50 gexs=885) BASOPHILS ABSOLUTE COUNT (BEAKER) (test 0.01 K/ L 0.00-0.20 rlmm=121) 0.00POCT-GLUCOSE [id number] 18:13:00 Test Item Value Reference Range Comments POC-GLUCOSE METER (BEAKER) 110 mg/dL 70-110 TESTED AT [address] (test bhcp=6440) [place] [id number] POCT-GLUCOSE [id number] 11:50:00 Test Item Value Reference Range Comments POC-GLUCOSE METER (BEAKER) 107 mg/dL 70-110 TESTED AT [address] (test ydzr=4859) [place] [id number] POCT-GLUCOSE [id number] 06:35:00 Test Item Value Reference Range Comments POC-GLUCOSE METER (BEAKER) 113 mg/dL 70-110 TESTED AT [address] (test rayx=9666) [place] [address] CBC W/PLT COUNT & AUTO [id number] 03:27:00 Test Item Value Reference Range Comments WHITE BLOOD CELL COUNT (BEAKER) (test hnds=390) 10.0 K/ L 4.0-10.0 RED BLOOD CELL COUNT (BEAKER) (test tvrg=522) 4.64 M/ L 4.20-5.80 HEMOGLOBIN (BEAKER) (test pyji=816) 11.9 GM/DL 13.0-16.8 HEMATOCRIT (BEAKER) (test eier=222) 36.8 % 40.0-50.0 MEAN CORPUSCULAR VOLUME (BEAKER) (test ftfc=801) 79.3 fL 82.0-98.0 MEAN CORPUSCULAR HEMOGLOBIN (BEAKER) (test 25.6 pg 27.0-33.0 vhqz=189) MEAN CORPUSCULAR HEMOGLOBIN CONC (BEAKER) (test 32.3 GM/DL 32.0-36.0 iypp=742) RED CELL DISTRIBUTION WIDTH (BEAKER) (test 14.4 % 10.3-14.2 tvio=109) PLATELET COUNT (BEAKER) (test sahu=717) 135 K/CU MM 150-430 MEAN PLATELET VOLUME (BEAKER) (test vpsi=609) 9.7 fL 6.5-10.5 NUCLEATED RED BLOOD CELLS (BEAKER) (test 0 /100 WBC 0-0 fhxi=265) NEUTROPHILS RELATIVE PERCENT (BEAKER) (test 81 % kmti=497) LYMPHOCYTES RELATIVE PERCENT (BEAKER) (test 7 % gijs=327) MONOCYTES RELATIVE PERCENT (BEAKER) (test 12 % zyxq=101) EOSINOPHILS RELATIVE PERCENT (BEAKER) (test 1 % jwup=529) BASOPHILS RELATIVE PERCENT (BEAKER) (test 0 % qdpm=055) NEUTROPHILS ABSOLUTE COUNT (BEAKER) (test 8.03 K/ L 1.80-8.00 haya=832) LYMPHOCYTES ABSOLUTE COUNT (BEAKER) (test 0.69 K/ L 1.48-4.50 jefy=191) MONOCYTES ABSOLUTE COUNT (BEAKER) (test 1.19 K/ L 0.00-1.30 cesw=459) EOSINOPHILS ABSOLUTE COUNT (BEAKER) (test 0.07 K/ L 0.00-0.50 vnza=314) BASOPHILS ABSOLUTE COUNT (BEAKER) (test 0.00 K/ L 0.00-0.20 wvgt=798) 0.00BASI METABOLIC [id number] 03:16:00 Test Item Value Reference Range Comments SODIUM (BEAKER) (test 135 meq/L 136-145 aapo=720) POTASSIUM (BEAKER) (test 4.3 meq/L 3.5-5.1 tkpn=943) CHLORIDE (BEAKER) (test 104 meq/L 98-107 fgac=242) CO2 (BEAKER) (test 26 meq/L 22-29 riwa=355) BLOOD UREA NITROGEN 19 mg/dL 7-21 (BEAKER) (test mdfd=303) CREATININE (BEAKER) (test 1.35 mg/dL 0.57-1.25 fwiv=886) GLUCOSE RANDOM (BEAKER) 110 mg/dL 70-105 (test mybq=371) CALCIUM (BEAKER) (test 8.2 mg/dL 8.4-10.2 eudh=046) EGFR (BEAKER) (test 63 mL/min/1.73 sq m ESTIMATED GFR IS NOT yqzu=6903) ACCURATE CREATININE CLEARANCE IN PREDICTING GLOMERULAR FILTRATION RATE. ESTIMATED GFR IS NOT APPLICABLE FOR DIALYSIS PATIENTS. POCT-GLUCOSE [id number] 00:29:00 Test Item Value Reference Range Comments POC-GLUCOSE METER (BEAKER) 114 mg/dL 70-110 TESTED AT [address] (test innd=7225) [facility] [address] POCT-GLUCOSE [id number] 00:21:00 Test Item Value Reference Range Comments POC-GLUCOSE METER (BEAKER) 115 mg/dL 70-110 TESTED AT [address] (test otmd=0195) [facility] [address] POCT-GLUCOSE [id number] 12:42:00 Test Item Value Reference Range Comments POC-GLUCOSE METER (BEAKER) 114 mg/dL 70-110 TESTED AT [facility] [address] [facility] (test fwfa=1703) [facility] [address] POCT-GLUCOSE [id number] 06:45:00 Test Item Value Reference Range Comments POC-GLUCOSE METER (BEAKER) 126 mg/dL 70-110 TESTED AT [facility] [address] [facility] (test fsav=6532) [facility] [address] [id number] 05:26:00 Test Item Value Reference Range Comments FERRITIN (BEAKER) (test fzqj=796) 220 ng/mL 5-275 Effective 08/03/2014: Reference Range ChangeNew: Male 5-275 Previous: Male 22-322 Female 5-275 Female 10-291[facility] METABOLIC [id number] 05:01:00 Test Item Value Reference Range Comments SODIUM (BEAKER) (test 137 meq/L 136-145 msaq=764) POTASSIUM (BEAKER) (test 3.9 meq/L 3.5-5.1 Specimen slightly paqi=660) hemolyzed CHLORIDE (BEAKER) (test 108 meq/L 98-107 yddr=987) CO2 (BEAKER) (test 22 meq/L 22-29 nbbf=074) BLOOD UREA NITROGEN 13 mg/dL 7-21 (BEAKER) (test uzuw=617) CREATININE (BEAKER) (test 1.23 mg/dL 0.57-1.25 Specimen slightly iwys=085) hemolyzed GLUCOSE RANDOM (BEAKER) 114 mg/dL 70-105 (test xlfp=263) CALCIUM (BEAKER) (test 7.6 mg/dL 8.4-10.2 speb=123) EGFR (BEAKER) (test 70 mL/min/1.73 sq m ESTIMATED GFR IS NOT rgkx=8838) ACCURATE CREATININE CLEARANCE IN PREDICTING GLOMERULAR FILTRATION RATE. ESTIMATED GFR IS NOT APPLICABLE FOR DIALYSIS PATIENTS. [id number] 04:59:00 Test Item Value Reference Range Comments MAGNESIUM (BEAKER) (test 1.5 mg/dL 1.6-2.6 Specimen slightly hemolyzed ndnp=280) [id number] 04:59:00 Test Item Value Reference Range Comments PHOSPHORUS (BEAKER) (test 3.5 mg/dL 2.3-4.7 Specimen slightly hemolyzed qxmu=822) CBC W/PLT COUNT & AUTO [id number] 04:52:00 Test Item Value Reference Range Comments WHITE BLOOD CELL COUNT (BEAKER) (test sntx=917) 9.5 K/ L 4.0-10.0 RED BLOOD CELL COUNT (BEAKER) (test kcdh=623) 4.57 M/ L 4.20-5.80 HEMOGLOBIN (BEAKER) (test zvgb=890) 11.5 GM/DL 13.0-16.8 HEMATOCRIT (BEAKER) (test bzaq=792) 36.2 % 40.0-50.0 MEAN CORPUSCULAR VOLUME (BEAKER) (test wkng=846) 79.3 fL 82.0-98.0 MEAN CORPUSCULAR HEMOGLOBIN (BEAKER) (test 25.2 pg 27.0-33.0 rwti=284) MEAN CORPUSCULAR HEMOGLOBIN CONC (BEAKER) (test 31.7 GM/DL 32.0-36.0 tnqr=006) RED CELL DISTRIBUTION WIDTH (BEAKER) (test 14.6 % 10.3-14.2 hrjn=394) PLATELET COUNT (BEAKER) (test lvyn=372) 98 K/CU MM 150-430 MEAN PLATELET VOLUME (BEAKER) (test parl=855) 10.8 fL 6.5-10.5 NUCLEATED RED BLOOD CELLS (BEAKER) (test 0 /100 WBC 0-0 rcva=216) NEUTROPHILS RELATIVE PERCENT (BEAKER) (test 81 % efcj=515) LYMPHOCYTES RELATIVE PERCENT (BEAKER) (test 9 % zyjr=010) MONOCYTES RELATIVE PERCENT (BEAKER) (test 10 % tyvm=628) EOSINOPHILS RELATIVE PERCENT (BEAKER) (test 0 % arqe=520) BASOPHILS RELATIVE PERCENT (BEAKER) (test 0 % yiml=152) NEUTROPHILS ABSOLUTE COUNT (BEAKER) (test 7.71 K/ L 1.80-8.00 vrio=101) LYMPHOCYTES ABSOLUTE COUNT (BEAKER) (test 0.81 K/ L 1.48-4.50 rlnd=627) MONOCYTES ABSOLUTE COUNT (BEAKER) (test srcu=917) 0.93 K/ L 0.00-1.30 EOSINOPHILS ABSOLUTE COUNT (BEAKER) (test 0.03 K/ L 0.00-0.50 yfel=590) BASOPHILS ABSOLUTE COUNT (BEAKER) (test gxyq=832) 0.04 K/ L 0.00-0.20 RETICULOCYTE [id number] 04:51:00 Test Item Value Reference Range Comments RETICULOCYTE COUNT PCT (BEAKER) (test ejtf=754) 0.9 % 0.4-2.9 POCT-GLUCOSE [id number] 00:25:00 Test Item Value Reference Range Comments POC-GLUCOSE METER (BEAKER) 124 mg/dL 70-110 TESTED AT [address] (test geli=1482) [place] [address] POCT-GLUCOSE [id number] 17:53:00 Test Item Value Reference Range Comments POC-GLUCOSE METER (BEAKER) 126 mg/dL 70-110 TESTED AT [address] (test hohx=5176) [place] [address] PERIPHERAL BLOOD SMEAR - PATHOLOGIST [id number] 13:47:00 Test Item Value Reference Range Comments RBC MORPHOLOGY (BEAKER) Anisocytosis (test tlhz=5055) RBC MORPHOLOGY (BEAKER) Poikilocytosis (test pxrx=29159) RBC MORPHOLOGY (BEAKER) Polychromasia (test tawj=60884) WBC MORPHOLOGY (BEAKER) Unremarkable (test zvzg=6920) PLT MORPHOLOGY (BEAKER) Unremarkable (test qzgk=0538) PERIPHERAL SMR REVIEW No circulating blasts. No (BEAKER) (test itxj=9554) significantly increased shistocytes. [id number] Mark Acuna, (BEAKER) (test iyuf=1560) M.D.(electronic signature) POCT-GLUCOSE [id number] 12:00:00 Test Item Value Reference Range Comments POC-GLUCOSE METER (BEAKER) 101 mg/dL 70-110 TESTED AT [address] (test bkhy=4422) [place] [address] [id number] 07:34:00 Test Item Value Reference Range Comments COL/EPI CLOSURE TIME (BEAKER) 93 Seconds 78-191 (test rrqb=0517) COL/ADP CLOSURE TIME (BEAKER) 62 Seconds 43-122 (test mbeg=2945) PLATELET COUNT AGG (BEAKER) 113 K/CU MM 150-430 Previous platelet result was (test ugru=3254) 113. Lavender top for platelet clotted! Hematocrit <35% or platelet count <150,000/CU MM may contribute to falsely elevated PFA-100.PT/[id number] 07:33:00 Test Item Value Reference Range Comments PROTIME (BEAKER) (test ufme=750) 14.1 seconds 11.7-14.7 INR (BEAKER) (test pagg=934) 1.1 <=5.9 PARTIAL THROMBOPLASTIN TIME (BEAKER) (test 30.8 seconds 22.5-36.0 dnnc=575) RECOMMENDED COUMADIN/WARFARIN INR THERAPY RANGESSTANDARD DOSE: 2.0 - 3.0 Includes: PROPHYLAXIS forvenous thrombosis, systemic embolization; TREATMENT for venous thrombosis and/or pulmonary embolus.HIGH RISK: Target INR is 2.5-3.5 for patients with mechanical heart valves.VITAMIN B12 AND [id number] 06:33 :00 Test Item Value Reference Range Comments VITAMIN B12 (BEAKER) (test tdao=216) 327 pg/mL 213-816 FOLATE (BEAKER) (test txwt=561) 9.6 ng/mL >=7.0 Effective 08/03/2014: Folate Reference Range ChangeNew: >=7.0 Previous: & gt;=5.4POCT-GLUCOSE [id number] 06:32:00 Test Item Value Reference Range Comments POC-GLUCOSE METER (BEAKER) 79 mg/dL 70-110 TESTED AT [facility] [address] [facility] (test xojs=2337) [facility] [address] CBC W/PLT COUNT & AUTO [id number] 06:29:00 Test Item Value Reference Range Comments WHITE BLOOD CELL COUNT (BEAKER) (test eoiw=509) 7.9 K/ L 4.0-10.0 RED BLOOD CELL COUNT (BEAKER) (test adfm=053) 5.16 M/ L 4.20-5.80 HEMOGLOBIN (BEAKER) (test ebed=436) 13.0 GM/DL 13.0-16.8 HEMATOCRIT (BEAKER) (test layr=282) 41.2 % 40.0-50.0 MEAN CORPUSCULAR VOLUME (BEAKER) (test dhqo=195) 79.9 fL 82.0-98.0 MEAN CORPUSCULAR HEMOGLOBIN (BEAKER) (test 25.2 pg 27.0-33.0 xlqf=260) MEAN CORPUSCULAR HEMOGLOBIN CONC (BEAKER) (test 31.6 GM/DL 32.0-36.0 idak=686) RED CELL DISTRIBUTION WIDTH (BEAKER) (test 14.8 % 10.3-14.2 smac=510) PLATELET COUNT (BEAKER) (test mkys=677) 108 K/CU MM 150-430 MEAN PLATELET VOLUME (BEAKER) (test bewb=502) 11.2 fL 6.5-10.5 NUCLEATED RED BLOOD CELLS (BEAKER) (test 0 /100 WBC 0-0 kpxb=301) NEUTROPHILS RELATIVE PERCENT (BEAKER) (test 71 % aapg=482) LYMPHOCYTES RELATIVE PERCENT (BEAKER) (test 17 % lypi=531) MONOCYTES RELATIVE PERCENT (BEAKER) (test 9 % zzot=801) EOSINOPHILS RELATIVE PERCENT (BEAKER) (test 2 % enlv=279) BASOPHILS RELATIVE PERCENT (BEAKER) (test 0 % xyny=975) NEUTROPHILS ABSOLUTE COUNT (BEAKER) (test 5.62 K/ L 1.80-8.00 xbra=053) LYMPHOCYTES ABSOLUTE COUNT (BEAKER) (test 1.37 K/ L 1.48-4.50 kgpj=201) MONOCYTES ABSOLUTE COUNT (BEAKER) (test 0.73 K/ L 0.00-1.30 licu=291) EOSINOPHILS ABSOLUTE COUNT (BEAKER) (test 0.16 K/ L 0.00-0.50 mdzg=585) BASOPHILS ABSOLUTE COUNT (BEAKER) (test 0.02 K/ L 0.00-0.20 caaf=685) 0.00IRON, TIBC, % SAT. (WITHOUT FERRITIN)2017-02-05 05:59:00 Test Item Value Reference Range Comments IRON (BEAKER) (test ayah=427) 37 ug/dL 40-160 TOTAL IRON BINDING CAPACITY (BEAKER) (test 206 ug/dL 250-450 uxvr=238) IRON % SATURATION (2) (BEAKER) (test wvvn=6566) 18 % 20-55 [id number] 05:33:00 Test Item Value Reference Range Comments PHOSPHORUS (BEAKER) (test hsrq=037) 3.4 mg/dL 2.3-4.7 Once on admission and Daily AM afterwardsOnce on admission and Daily AM afterwardsOnce on admission and Daily AM [id number] 05:33:00 Test Item Value Reference Range Comments MAGNESIUM (BEAKER) (test djbn=961) 1.7 mg/dL 1.6-2.6 Once on admission and Daily AM afterwardsOnce on admission and Daily AM afterwardsOnce on admission and Daily AM afterwardsBASIC METABOLIC [id number] 05:33:00 Test Item Value Reference Range Comments SODIUM (BEAKER) (test 139 meq/L 136-145 gkfv=232) POTASSIUM (BEAKER) (test 4.9 meq/L 3.5-5.1 njvd=314) CHLORIDE (BEAKER) (test 107 meq/L 98-107 rsoc=107) CO2 (BEAKER) (test 26 meq/L 22-29 yjkf=727) BLOOD UREA NITROGEN 15 mg/dL 7-21 (BEAKER) (test jjmw=732) CREATININE (BEAKER) (test 1.51 mg/dL 0.57-1.25 ehao=790) GLUCOSE RANDOM (BEAKER) 76 mg/dL 70-105 (test nggw=514) CALCIUM (BEAKER) (test 8.5 mg/dL 8.4-10.2 dniu=140) EGFR (BEAKER) (test 55 mL/min/1.73 sq m ESTIMATED GFR IS NOT hsrq=4427) ACCURATE CREATININE CLEARANCE IN PREDICTING GLOMERULAR FILTRATION RATE. ESTIMATED GFR IS NOT APPLICABLE FOR DIALYSIS PATIENTS. Once on admission and Daily AM afterwardsOnce on admission and Daily AM afterwardsOnce on admission and Daily AM afterwardsPOCT-GLUCOSE [id number] 00:30:00 Test Item Value Reference Range Comments POC-GLUCOSE METER (BEAKER) 78 mg/dL 70-110 TESTED AT [address] (test clgx=5891) [facility] [id number] POCT-GLUCOSE [id number] 18:20:00 Test Item Value Reference Range Comments POC-GLUCOSE METER (BEAKER) 156 mg/dL 70-110 TESTED AT [address] (test xuiw=1638) [facility] [id number] PLATELET AGGREGATION: FUNCTION [id number] 15:53:00 Test Item Value Reference Range Comments WEAK ADP RESULT(BEAKER) (test 94 % 60-91 nfvs=1425) PLATELET FUNCTION SCREEN 60-100% indicates normal INTERP (BEAKER) (test platelet function dtnx=7432) [id number]-[id number] (BEAKER) Aurora Pascual MD (electronic (test bojr=3933) signature) PLATELET COUNT AGG (BEAKER) 113 K/CU MM 150-430 (test irqp=3615) POCT-GLUCOSE [id number] 14:21:00 Test Item Value Reference Range Comments POC-GLUCOSE METER (BEAKER) 82 mg/dL 70-110 TESTED AT [facility] [address] [facility] (test zyrt=5900) [facility] [address] HEPATIC FUNCTION [id number] 07:38:00 Test Item Value Reference Range Comments TOTAL PROTEIN (BEAKER) (test 7.6 gm/dL 6.0-8.3 Specimen slightly hemolyzed dkme=465) ALBUMIN (BEAKER) (test 3.4 g/dL 3.5-5.0 Specimen slightly hemolyzed ddfq=0723) BILIRUBIN TOTAL (BEAKER) (test 0.8 mg/dL 0.2-1.2 Specimen slightly hemolyzed ipbl=941) BILIRUBIN DIRECT (BEAKER) (test 0.3 mg/dL 0.1-0.5 Specimen slightly hemolyzed awce=850) ALKALINE PHOSPHATASE (BEAKER) 49 U/L 40-150 (test yrhj=251) AST (SGOT) (BEAKER) (test 16 U/L 5-34 Specimen slightly hemolyzed aepb=124) ALT (SGPT) (BEAKER) (test 16 U/L 6-55 Specimen slightly hemolyzed likf=907) PROTHROMBIN [id number] 07:10:00 Test Item Value Reference Range Comments PROTIME (BEAKER) (test zjfj=214) 14.9 seconds 11.7-14.7 INR (BEAKER) (test wgdo=159) 1.2 <=5.9 RECOMMENDED COUMADIN/WARFARIN INR THERAPY RANGESSTANDARD DOSE: 2.0 - 3.0 Includes: PROPHYLAXIS forvenous thrombosis, systemic embolization; TREATMENT for venous thrombosis and/or pulmonary embolus.HIGH RISK: Target INR is 2.5-3.5 for patients with mechanical heart valves.[id number] 07:10:00 Test Item Value Reference Range Comments PARTIAL THROMBOPLASTIN TIME (BEAKER) (test 35.9 seconds 22.5-36.0 pcwl=568) CBC W/PLT COUNT & AUTO [id number] 07:07:00 Test Item Value Reference Range Comments WHITE BLOOD CELL COUNT (BEAKER) (test muds=498) 7.4 K/ L 4.0-10.0 RED BLOOD CELL COUNT (BEAKER) (test rmud=162) 5.04 M/ L 4.20-5.80 HEMOGLOBIN (BEAKER) (test ojyj=285) 12.9 GM/DL 13.0-16.8 HEMATOCRIT (BEAKER) (test ajxn=688) 40.0 % 40.0-50.0 MEAN CORPUSCULAR VOLUME (BEAKER) (test hjzk=645) 79.2 fL 82.0-98.0 MEAN CORPUSCULAR HEMOGLOBIN (BEAKER) (test 25.6 pg 27.0-33.0 ckoc=743) MEAN CORPUSCULAR HEMOGLOBIN CONC (BEAKER) (test 32.3 GM/DL 32.0-36.0 addf=086) RED CELL DISTRIBUTION WIDTH (BEAKER) (test 14.5 % 10.3-14.2 ukju=630) PLATELET COUNT (BEAKER) (test xddp=307) 94 K/CU MM 150-430 MEAN PLATELET VOLUME (BEAKER) (test ginv=539) 11.7 fL 6.5-10.5 NUCLEATED RED BLOOD CELLS (BEAKER) (test 0 /100 WBC 0-0 iqzz=873) NEUTROPHILS RELATIVE PERCENT (BEAKER) (test 72 % ujmc=440) LYMPHOCYTES RELATIVE PERCENT (BEAKER) (test 17 % imxu=319) MONOCYTES RELATIVE PERCENT (BEAKER) (test 9 % ghxv=800) EOSINOPHILS RELATIVE PERCENT (BEAKER) (test 2 % wkaw=744) BASOPHILS RELATIVE PERCENT (BEAKER) (test 0 % gscm=264) NEUTROPHILS ABSOLUTE COUNT (BEAKER) (test 5.33 K/ L 1.80-8.00 lrod=416) LYMPHOCYTES ABSOLUTE COUNT (BEAKER) (test 1.25 K/ L 1.48-4.50 flpx=111) MONOCYTES ABSOLUTE COUNT (BEAKER) (test fpox=768) 0.66 K/ L 0.00-1.30 EOSINOPHILS ABSOLUTE COUNT (BEAKER) (test 0.12 K/ L 0.00-0.50 pnxm=379) BASOPHILS ABSOLUTE COUNT (BEAKER) (test lgad=227) 0.03 K/ L 0.00-0.20 0.00
--- OUTSIDE RECORDS SUMMARY | 2019-12-04 08:39 | XMS REPORT ---
[...] End Status Dosage System Date Date [facility] 44432996344 0.05 % Active use Propionate Externally sparingly to Twice a day affected area Results No Known Results Summary Purpose eClinicalWorks Submission
--- OUTSIDE RECORDS SUMMARY | 2019-12-04 08:39 | XMS REPORT ---
[...] End Status Dosage System Date Date [facility] 15037422841 81 MG Orally Active 1 tablet Once a day Lisinopril ND 63251555244 20 MG Orally Active 1 tablet Once a day Clobetasol ND 84290995725 0.05 % Jul 20, Jul 14, Active use Propionate Externally 2018 2019 sparingly to Twice a day area Tamsulosin HCl ND 12205257617 0.4 MG Active TAKE 1 CAPSULE BY MOUTH EVERY DAY Carvedilol [facility] 22727611225 6.25 MG Oral Active take 1 Twice a day tablet by mouth twice a day Colchicine [facility] 74978904043 0.6 MG Orally Nov 03, Active 2 tab PO x Once a day 2019 09, then 1 tab 0.6 mg 1 hour later x 1 Max 1.8 mg total dose/course Atorvastatin [facility] 76391163042 40 MG Orally Active 1 tablet Calcium Once a day Allopurinol [facility] 14529052228 100 MG Orally Active 1 tablet Once a day Results No Known Results Summary Purpose eClinicalWorks Submission
[2019-12-04] MEDS ORDERED: TRAMADOL HCL 50 MG TAB ONE (09:57)
[2019-12-04 10:04] LABS: Absolute Lymphocytes (CBC) 1.3 K/uL (0.7-4.9); Basophils % 0.8 % (0-1.3); Hematocrit 42.6 % (39.6-49.0); Lymphocytes % 15.3 % (15.3-44.8); MPV 10.2 fL (7.6-11.3); RBC Red Blood Cell Count 5.69 M/uL (4.33-5.43)
--- NOTE | 2019-12-04 10:12 | RAD REPORT ---
EXAM DESCRIPTION: RAD - Chest Single View - 12/04/2019 9:58 am CLINICAL HISTORY: DYSPNEA Chest pain. COMPARISON: Chest Single View dated 12/24/2018; Chest Single View dated 06/01/2018; Chest Single View dated 05/18/2018; CHEST SINGLE VIEW dated 12/08/2014; Bone Imaging Whole Body dated 10/28/2019 FINDINGS: Portable technique limits examination quality. Chronic elevation of the right hemidiaphragm is again noted. The lungs appear grossly clear of acute infiltrate. The heart is normal in size. Mildly tortuous thoracic aorta. IMPRESSION: No acute intrathoracic process suspected.
[2019-12-04 10:26] LABS: ALT/SGPT 22 U/L (12-78); AST/SGOT 18 U/L (15-37); Alkaline Phosphatase 54 U/L (45-117); BUN Blood Urea Nitrogen 43 mg/dL (7-18); Bicarbonate 26 mmol/L (21-32); Bilirubin Total 0.6 mg/dL (0.2-1.0); Glucose Level 88 mg/dL (74-106); Protein, Total 8.2 g/dL (6.4-8.2); Sodium Level 138 mmol/L (136-145); Troponin (Emerg Dept Use Only) < 0.02 ng/mL (0.0-0.045)
[2019-12-04 11:25] LABS: Blood Morphology Comment NOT SEEN (NOT SEEN); Platelet Estimate DECR; Urine White Blood Cell Casts OK
[2019-12-04 11:26] LABS: Platelets, Giant FEW
--- NOTE | 2019-12-04 11:31 | EDPHYS ---
Physician Documentation [facility] Name: Reggie Mayer Age: 74 yrs Sex: Male : 1945 Arrival Date: 12/04/2019 Time: 08:37 Bed 13 Private MD: Sudhir Bo ED Physician Chris Dela Cruz HPI: 12/03 11:33 This 74 yrs old Black Male presents to ER via Ambulatory with complaints of Knee Pain, ps1 Ankle Pain, Nausea. 11:33 Patient has history of gouty arthritis. States that he has recurrent pain. Was treated ps1 with colcrys but has CKD. States that he has shortness of breath 2/2 ankle pain when walking and fatigue over last week. No cough/fever/ or known COVID exposure. Hx of CAD. Pain is moderate and able to be palpated not CW gouty arthritis. . Historical: - Allergies: 09:15 NKA; iw - Home Meds: 09:15 allopurinol 100 mg Oral tab 1 tab once daily [Active]; aspirin 81 mg Oral chew 1 tab iw once daily [Active]; atorvastatin 40 mg Oral tab 1 tab once daily [Active]; carvedilol 6.25 mg Oral tab 1 tab 2 times per day [Active]; lisinopril 20 mg Oral tab 1 tab twice a day [Active]; tamsulosin 0.4 mg Oral cp24 1 cap once daily [Active]; - PMHx: 09:15 chronic kidney disease; Hyperlipidemia; Hypertension; Myocardial infarction; Prostate iw Cancer; - PSHx: 09:15 Head bleed; liver; iw - Immunization history:: Adult Immunizations up to date. - Social history:: Smoking status: Patient denies any tobacco usage or history of. ROS: 11:33 Constitutional: Negative for fever, chills, and weight loss, Eyes: Negative for injury, ps1 pain, redness, and discharge, Cardiovascular: Negative for chest pain, palpitations, and edema, Abdomen/GI: Negative for abdominal pain, nausea, vomiting, diarrhea, and constipation, Back: Negative for injury and pain, Skin: Negative for injury, rash, and discoloration, Neuro: Negative for headache, weakness, numbness, tingling, and seizure. 11:33 Respiratory: Positive for shortness of breath. 11:33 MS/extremity: Positive for pain, tenderness, of the right ankle. Exam: 11:33 Constitutional: This is a well developed, well nourished patient who is awake, alert, ps1 and in no acute distress. Head/Face: Normocephalic, atraumatic. Eyes: Pupils equal round and reactive to light, extra-ocular motions intact. Lids and lashes normal. Conjunctiva and sclera are non-icteric and not injected. Cardiovascular: Regular rate and rhythm. No gallops, murmurs, or rubs. Normal PMI, no JVD. No pulse deficits. Respiratory: Lungs have equal breath sounds bilaterally, clear to auscultation and percussion. No rales, rhonchi or wheezes noted. No increased work of breathing, no retractions or nasal flaring. MS/ Extremity: Pulses equal, no cyanosis. Neurovascular intact. Full, normal range of motion. Neuro: Awake and alert, GCS 15, oriented to person, place, time, and situation. Cranial nerves II-XII grossly intact. Sensory grossly intact. Psych: Awake, alert, with orientation to person, place and time. Behavior, mood, and affect are within normal limits. Vital Signs: 09:10 BP 100 / 69; Pulse 74; Resp 16; Temp 97.7; Pulse Ox 96% on R/A; Weight 97.98 kg; Height iw 6 ft. 1 in. (185.42 cm); Pain 10/10; 10:57 BP 108 / 66; Pulse 54; Resp 16; Pulse Ox 96% ; bp 11:46 BP 95 / 62; Pulse 53; Resp 17; Temp 97.8; Pulse Ox 97% ; bp 09:10 Body Mass Index 28.50 (97.98 kg, 185.42 cm) iw MDM: 09:47 Patient medically screened. ps1 11:38 Data reviewed: vital signs, nurses notes, lab test result(s), EKG, and as a result, I ps1 will discharge patient. Counseling: I had a detailed discussion with the patient and/or guardian regarding: the presence of at least one elevated blood pressure reading (>120/80) during this emergency department visit, lab results, the need for outpatient follow up, to return to the emergency department if symptoms worsen or persist or if there are any questions or concerns that arise at home. ED course: 74 y/o M with recurrent gouty arthritis from CKD with thrombocytopenia. Needs IM/Nephro eval for epogen. COVID screen negative. Home with tramadol as NSAIDS may exacerbate brown exposure. . 12/03 09:36 Order name: CBC with Diff; Complete Time: 11:27 ps1 12/03 09:36 Order name: CMP; Complete Time: 11:00 ps1 12/03 09:36 Order name: Troponin (emerg Dept Use Only); Complete Time: 11:00 ps1 12/03 09:36 Order name: CXR XRAY; Complete Time: 11:00 ps1 12/03 10:19 Order name: CBC Smear Scan; Complete Time: 11:27 EDMS 12/03 09:56 Order name: EKG; Complete Time: 09:57 bp 12/03 09:56 Order name: EKG - Nurse/Tech; Complete Time: 10:32 bp Administered Medications: 09:50 Drug: traMADol 100 mg Route: PO; bp 11:49 Follow up: Response: Pain is decreased bp Disposition: 12/04/19 11:30 Discharged to Home. Impression: Chronic kidney disease (CKD), Thrombocytopenia, unspecified, Gout due to renal impairment. - Condition is Stable. - Discharge Instructions: Gout, Thrombocytopenia, Chronic Kidney Disease, Adult. - Prescriptions for Tramadol 50 mg Oral Tablet - take 1 tablet by ORAL route every 8 hours as needed; 12 tablet. - Medication Reconciliation Form, Thank You Letter, Antibiotic Education, Prescription Opioid Use form. - Follow up: Sudhir Bo DO; When: 48 Hours; Reason: Further diagnostic work-up, Recheck today's complaints, Continuance of care. - Problem is chronic. - Symptoms have worsened. Signatures: Dispatcher [employer] EDGeraldine Chu RN RN iw Isak Robertson RN RN Chris Barksdale MD MD ps1 Corrections: (The following items were deleted from the chart) 11:50 11:30 12/04/2019 11:30 Discharged to Home. Impression: Chronic kidney disease (CKD); bp Thrombocytopenia, unspecified; Gout due to renal impairment. Condition is Stable. Forms are Medication Reconciliation Form, Thank You Letter, Antibiotic Education, Prescription Opioid Use. Follow up: Sudhir Bo; When: 48 Hours; Reason: Further diagnostic work-up, Recheck today's complaints, Continuance of care. Problem is chronic. Symptoms have worsened. ps1
--- NOTE | 2019-12-04 11:31 | ER ---
Nurse's Notes [facility] Name: Reggie Mayer Age: 74 yrs Sex: Male : 1945 Arrival Date: 12/04/2019 Time: 08:37 Bed 13 Private MD: Sudhir Bo Diagnosis: Chronic kidney disease (CKD);Thrombocytopenia, unspecified;Gout due to renal impairment Presentation: 12/03 09:10 Chief complaint: Patient states: right ankle and knee pain X 2 weeks, has been seen iw here before, diagnosed with arthritis, also reports that 3 days ago he was belching a lot and was sweaty and since then he has been nauseated when he starts moving around. Coronavirus screen: The patient has NOT traveled to a country currently being monitored by the [facility] within the last 14 days. Proceed with normal triage procedures. The patient has NOT had contact with any known and/or suspected case of coronavirus. Proceed with normal triage procedures. Ebola Screen: Patient negative for fever greater than or equal to 101.5 degrees Fahrenheit, and additional compatible Ebola Virus Disease symptoms Patient denies exposure to infectious person. Patient denies travel to an Ebola-affected area in the 21 days before illness onset. No symptoms or risks identified at this time. Initial Sepsis Screen: Does the patient meet any 2 criteria? No. Patient's initial sepsis screen is negative. Does the patient have a suspected source of infection? No. Patient's initial sepsis screen is negative. Risk Assessment: Do you want to hurt yourself or someone else? Patient reports no desire to harm self or others. 09:10 Method Of Arrival: Ambulatory iw 09:10 Acuity: AQUILES 3 iw Triage Assessment: 09:15 General: Appears in no apparent distress. comfortable, Behavior is calm, cooperative, bp appropriate for age. EENT: No deficits noted. Neuro: No deficits noted. Cardiovascular: No deficits noted. Respiratory: Reports shortness of breath. GI: No signs and/or symptoms were reported involving the gastrointestinal system. : No signs and/or symptoms were reported regarding the genitourinary system. Derm: No deficits noted. Musculoskeletal: No deficits noted. 09:15 Pain: Complains of pain in right leg. bp Historical: - Allergies: 09:15 NKA; iw - Home Meds: 09:15 allopurinol 100 mg Oral tab 1 tab once daily [Active]; aspirin 81 mg Oral chew 1 tab iw once daily [Active]; atorvastatin 40 mg Oral tab 1 tab once daily [Active]; carvedilol 6.25 mg Oral tab 1 tab 2 times per day [Active]; lisinopril 20 mg Oral tab 1 tab twice a day [Active]; tamsulosin 0.4 mg Oral cp24 1 cap once daily [Active]; - PMHx: 09:15 chronic kidney disease; Hyperlipidemia; Hypertension; Myocardial infarction; Prostate iw Cancer; - PSHx: 09:15 Head bleed; liver; iw - Immunization history:: Adult Immunizations up to date. - Social history:: Smoking status: Patient denies any tobacco usage or history of. Screenin:15 Abuse screen: Denies threats or abuse. Denies injuries from another. Nutritional bp screening: No deficits noted. Tuberculosis screening: No symptoms or risk factors identified. Fall Risk None identified. Assessment: 09:15 General: SEE TRIAGE NOTE. GI: Abdomen is non-distended. bp 10:59 Reassessment: ALL CURRENT ORDERS COMPLETED, VS STABLE. bp 11:47 Reassessment: PT D/C HOME AMBULATORY, DX WITH CKD AND GOUT. bp Vital Signs: 09:10 BP 100 / 69; Pulse 74; Resp 16; Temp 97.7; Pulse Ox 96% on R/A; Weight 97.98 kg; Height iw 6 ft. 1 in. (185.42 cm); Pain 10/10; 10:57 BP 108 / 66; Pulse 54; Resp 16; Pulse Ox 96% ; bp 11:46 BP 95 / 62; Pulse 53; Resp 17; Temp 97.8; Pulse Ox 97% ; bp 09:10 Body Mass Index 28.50 (97.98 kg, 185.42 cm) iw ED Course: 08:37 Patient arrived in ED. ag5 08:38 Sudhir Bo DO is Private Physician. ag5 08:57 Isak Robertson, RN is Primary Nurse. bp 09:10 Arm band placed on. iw 09:13 Triage completed. iw 09:15 Patient has correct armband on for positive identification. Bed in low position. Call bp light in reach. Side rails up X2. 09:21 Chris Dela Cruz MD is Attending Physician. ps1 10:03 CXR XRAY In Process Unspecified. EDMS 11:29 Sudhir Bo DO is Referral Physician. ps1 11:47 No provider procedures requiring assistance completed. Patient did not have IV access bp during this emergency room visit. Administered Medications: 09:50 Drug: traMADol 100 mg Route: PO; bp 11:49 Follow up: Response: Pain is decreased bp Outcome: 11:30 Discharge ordered by MD. ps1 11:47 Discharged to home ambulatory. bp 11:47 Condition: stable 11:47 Discharge instructions given to patient, Instructed on discharge instructions, follow up and referral plans. medication usage, Demonstrated understanding of instructions, follow-up care, medications, Prescriptions given X 1. 11:50 Patient left the ED. bp Signatures: Dispatcher [employer] EDMS Geraldine Oconnell RN RN iw Isak Robertson RN RN bp Chris Dela Cruz MD MD ps1 Sunny Zamora ag5 Corrections: (The following items were deleted from the chart) 09:46 09:15 Pain: Complains of pain in left leg bp bp
[2019-12-04 12:14] VITALS: BP 95/62; TEMP 97.8; O2SAT 97
== END 2019-12-04 11:50 | disposition home or self-care (01) ==
LOC: ER 08:34
DX: D69.6 Thrombocytopenia, unspecified (principal); I12.9 Hypertensive chronic kidney disease with stage 1 through stage 4 chronic kidney disease, or unspecified chronic kidney disease; N18.9 Chronic kidney disease, unspecified; E78.5 Hyperlipidemia, unspecified; Z79.82 Long term (current) use of aspirin; Z85.46 Personal history of malignant neoplasm of prostate
CPT/HCPCS: 36415; 71045; 80053; 84484; 85025; 93005; 99283

== ENCOUNTER → 2023-09-12 | Emergency (ER) | payer OTHER ==
[~2023-09-12] MED LIST: levoFLOXacin 250 MG TAB ONE; metroNIDAZOLE 500 MG TABLET ONE
[2023-09-12 08:47] LABS: Hematocrit 38.3 % (39.6-49.0); Lymphocytes % 14.9 % (15.3-44.8); MCV 76.6 fL (80-100); MPV 10.4 fL (7.6-11.3); Platelets 114 thou/uL (152-406); RBC Red Blood Cell Count 5.01 M/uL (4.33-5.43)
[2023-09-12 09:10] LABS: Albumin 2.9 g/dL (3.4-5.0); Bilirubin Total 0.8 mg/dL (0.2-1.0); Potassium 4.8 mEq/L (3.5-5.1); Protein, Total 8.2 g/dL (6.4-8.2)
--- NOTE | 2023-09-12 10:20 | RAD REPORT ---
EXAM DESCRIPTION: CT - Abdomen Pelvis Wo Contrast - 09/12/2023 9:39 am CLINICAL HISTORY: LLQ;Abd pain COMPARISON: CTSTONE PROTOCOL dated 07/15/2015; CT ABDOMEN PELVIS WO CONTRAST dated 03/24/2014 TECHNIQUE: Thin cut axial CT imaging of the abdomen and pelvis was performed without IV contrast. Mu ltiplanar reformats were generated and reviewed. All CT scans are performed using dose optimization technique as appropriate and may include automated exposure control or mA/KV adjustment according to patient size. FINDINGS: No suspicious findings in the lung bases. Elevation of the right hemidiaphragm with right basilar segmental atelectasis, stable. The liver, spleen, adrenal glands, and pancreas show no suspicious findings. Gallbladder and biliary tree are also without suspicious finding. Symmetric renal contour, without suspicious parenchymal findings within limits of noncontrast techniq ue, with small exophytic dx fluid density cysts bilaterally, largest measuring 2.7 cm at the right lo wer pole. A 1 cm cyst at the left interpolar region shows intrinsic hyperdensity, suggestive of a sma ll hemorrhagic cyst. No evidence of radiopaque calculi or hydroureteronephrosis. No dilated bowel loops. Focal bowel wall thickening and adjacent fat stranding with minimal fluid tra cking along the left paracolic gutter, findings are present at the junction of the descending and sig moid colon. No adjacent fluid collection or fistulous tract. Appendix is unremarkable. Otherwise mode rate burden of colonic diverticulosis. No free air, free fluid or inflammatory stranding. No hernia, mass or bulky lymphadenopathy. The urinary bladder is without significant finding. No suspicious bony findings. IMPRESSION: Sequelae of acute diverticulitis at the junction of the descending and sigmoid colon, wi thout evidence of complications. Other incidental findings as above. The findings were communicated to Brandyn Silva on 09/12/2023 at 10:13 hours.
--- NOTE | 2023-09-12 11:05 | ER ---
Nurse's Notes [facility] Name: Reggie Mayer Age: 78 yrs Sex: Male : 1945 Arrival Date: 09/12/2023 Time: 08:21 Bed 7 Private MD: Sudhir Bo Diagnosis: Lower abdominal pain, unspecified;Diverticulitis of large intestine without perforation or abscess without bleeding Presentation: 09/12 08:30 Chief complaint: Intermittent LLQ pain x 2 days, normal bowel movements. Denies hb N/V/fever. Coronavirus screen: At this time, the client does not indicate any symptoms associated with coronavirus-19. Ebola Screen: No symptoms or risks identified at this time. Initial Sepsis Screen: Does the patient meet any 2 criteria? No. Patient's initial sepsis screen is negative. Does the patient have a suspected source of infection? No. Patient's initial sepsis screen is negative. Risk Assessment: Do you want to hurt yourself or someone else? Patient reports no desire to harm self or others. Onset of symptoms was September 11, 2023. 08:30 Method Of Arrival: Ambulatory hb 08:30 Acuity: AQUILES 3 hb Historical: - Allergies: 08:26 NKA; ll1 - PMHx: 08:26 chronic kidney disease; Hyperlipidemia; Hypertension; Myocardial infarction; Prostate ll1 Cancer; - Immunization history:: Adult Immunizations up to date. - Social history:: Smoking status: Patient denies any tobacco usage or history of. Screenin:32 [facility] ED Fall Risk Assessment (Adult) Score/Fall Risk Level 0 - 2 = Low Risk hb Oriented to surroundings, Maintained a safe environment, Educated pt \T\ family on fall prevention, incl call for assistance when getting out of bed. Abuse screen: Denies threats or abuse. Denies injuries from another. Nutritional screening: No deficits noted. Tuberculosis screening: No symptoms or risk factors identified. Assessment: 08:33 General: Appears in no apparent distress. Behavior is calm, cooperative, appropriate ll1 for age. Pain: Denies pain. Neuro: No deficits noted. Cardiovascular: No deficits noted. GI: Bowel sounds present X 4 quads. Abd is soft Abdomen is tender to palpation in left lower quadrant. 09:24 Reassessment: Patient appears in no apparent distress at this time. No changes from kc6 previously documented assessment. Patient and/or family updated on plan of care and expected duration. Pain level reassessed. Patient is alert, oriented x 3, equal unlabored respirations, skin warm/dry/pink. 09:30 Reassessment: No changes from previously documented assessment. ll1 10:30 Reassessment: No changes from previously documented assessment. Patient and/or family ll1 updated on plan of care and expected duration. Pain level reassessed. 11:43 Reassessment: Patient appears in no apparent distress at this time. No changes from kc6 previously documented assessment. Patient and/or family updated on plan of care and expected duration. Pain level reassessed. Patient is alert, oriented x 3, equal unlabored respirations, skin warm/dry/pink. Vital Signs: 08:30 BP 178 / 107; Pulse 68; Resp 16; Temp 98.5(O); Pulse Ox 100% on R/A; Weight 97.07 kg; hb Height 6 ft. 1 in. ; Pain 8/10; 08:40 BP 134 / 91; Pulse 57; Pulse Ox 99% ; ll1 09:24 BP 140 / 79; Pulse 55; Resp 16 S; Pulse Ox 97% on R/A; kc6 10:30 BP 149 / 78; Pulse 50; Pulse Ox 99% ; ll1 08:30 Body Mass Index 28.23 (97.07 kg, 185.42 cm) hb 08:30 Pain Scale: Adult hb ED Course: 08:25 Patient arrived in ED. mr 08:25 Sudhir Bo DO is Private Physician. mr 08:26 Arm band placed on Patient placed in an exam room, on a stretcher. ll1 08:30 Inserted saline lock: 22 gauge in right antecubital area, using aseptic technique. ll1 Blood collected. 08:31 Brandyn Silva MD is Attending Physician. kdr 08:31 Joyce Waters, DODIE is Primary Nurse. kc6 08:31 Triage completed. hb 08:34 Patient has correct armband on for positive identification. Bed in low position. Call ll1 light in reach. Provided Education on: ER procedures and process. Client placed on continuous cardiac and pulse oximetry monitoring. NIBP monitoring applied. 09:40 Abdomen In Process Unspecified. EDMS 11:03 Sudhir Bo DO is Referral Physician. kdr 11:48 No provider procedures requiring assistance completed. IV discontinued, intact, hb bleeding controlled, No redness/swelling at site. Administered Medications: 10:54 Drug: metroNIDAZOLE PO 500 mg PO once Route: PO; kc6 11:43 Follow up: Response: No adverse reaction kc6 10:54 Drug: LevOfloxacin PO 500 mg PO once Route: PO; kc6 11:43 Follow up: Response: No adverse reaction kc6 Medication: 11:49 VIS not applicable for this client. hb Outcome: 11:04 Discharge ordered by . kdr 11:48 Discharged to home ambulatory, with significant other, hb 11:48 Condition: stable 11:48 Discharge instructions given to patient, significant other, Instructed on discharge instructions, follow up and referral plans. medication usage, Demonstrated understanding of instructions, follow-up care, medications, Prescriptions given X 2, 11:49 Patient left the ED. hb Signatures: Dispatcher [employer] EDMS Brandyn Silva MD MD kdr Ordoñez, Gabby, Reg Reg mr Nikole Carpenter RN RN Forrest Laguna RN RN ll1 Joyce Waters RN RN kc6
--- NOTE | 2023-09-12 11:06 | EDPHYS ---
Physician Documentation [facility] Name: Reggie Mayer Age: 78 yrs Sex: Male : 1945 Arrival Date: 09/12/2023 Time: 08:21 Bed 7 Private MD: Anup[facility] ED Physician Brandyn Silva HPI: 09/12 15:22 This 78 yrs old Black Male presents to ER via Ambulatory with complaints of Abdominal kdr Pain. 15:22 The patient presents to the ED with left lower quadrant pain for 2 days. Patient denies kdr any bloody stools or dark tarry stools. He denies fever as well as nausea, vomiting. Patient is nontoxic-appearing is otherwise in his usual state of health.. Onset: The symptoms/episode began/occurred gradually, 2 day(s) ago. Severity of symptoms: At their worst the symptoms were mild in the emergency department the symptoms are unchanged. The patient has not experienced similar symptoms in the past. The patient has not recently seen a physician. Historical: - Allergies: 08:26 NKA; ll1 - PMHx: 08:26 chronic kidney disease; Hyperlipidemia; Hypertension; Myocardial infarction; Prostate ll1 Cancer; - Immunization history:: Adult Immunizations up to date. - Social history:: Smoking status: Patient denies any tobacco usage or history of. ROS: 15:22 Constitutional: Negative for fever, chills, and weight loss, Eyes: Negative for injury, kdr pain, redness, and discharge, ENT: Negative for injury, pain, and discharge, Neck: Negative for injury, pain, and swelling, Cardiovascular: Negative for chest pain, palpitations, and edema, Respiratory: Negative for shortness of breath, cough, wheezing, and pleuritic chest pain, Back: Negative for injury and pain, : Negative for injury, bleeding, discharge, and swelling, MS/Extremity: Negative for injury and deformity, Skin: Negative for injury, rash, and discoloration, Neuro: Negative for headache, weakness, numbness, tingling, and seizure activity. Psych: Negative for depression, anxiety, suicide ideation, homicidal ideation, and hallucinations, Allergy/Immunology: Negative for hives, rash, and allergies, Endocrine: Negative for neck swelling, polydipsia, polyuria, polyphagia, and marked weight changes, Hematologic/Lymphatic: Negative for swollen nodes, abnormal bleeding, and unusual bruising, 15:22 Abdomen/GI: Positive for abdominal pain, Negative for nausea, vomiting, and diarrhea, black/tarry stool, rectal pain, rectal bleeding, bowel incontinence, Exam: 15:22 Constitutional: This is a well developed, well nourished patient who is awake, alert, kdr and in no acute distress. Head/Face: Normocephalic, atraumatic. Eyes: Pupils equal round and reactive to light, extra-ocular motions intact. Lids and lashes normal. Conjunctiva and sclera are non-icteric and not injected. Cornea within normal limits. Periorbital areas with no swelling, redness, or edema. Neck: Trachea midline, no thyromegaly or masses palpated, and no cervical lymphadenopathy. Supple, full range of motion without nuchal rigidity, or vertebral point tenderness. No Meningismus. Chest/axilla: Normal chest wall appearance and motion. Nontender with no deformity. No lesions are appreciated. Cardiovascular: Regular rate and rhythm with a normal S1 and S2. No gallops, murmurs, or rubs. Normal PMI, no JVD. No pulse deficits. Respiratory: Lungs have equal breath sounds bilaterally, clear to auscultation and percussion. No rales, rhonchi or wheezes noted. No increased work of breathing, no retractions or nasal flaring. Back: No spinal tenderness. No costovertebral tenderness. Full range of motion. Skin: Warm, dry with normal turgor. Normal color with no rashes, no lesions, and no evidence of cellulitis. MS/ Extremity: Pulses equal, no cyanosis. Neurovascular intact. Full, normal range of motion. Neuro: Awake and alert, GCS 15, oriented to person, place, time, and situation. Cranial nerves II-XII grossly intact. Motor strength 5/5 in all extremities. Sensory grossly intact. Cerebellar exam normal. Normal gait. Psych: Awake, alert, with orientation to person, place and time. Behavior, mood, and affect are within normal limits. Vital Signs: 08:30 BP 178 / 107; Pulse 68; Resp 16; Temp 98.5(O); Pulse Ox 100% on R/A; Weight 97.07 kg; hb Height 6 ft. 1 in. ; Pain 8/10; 08:40 BP 134 / 91; Pulse 57; Pulse Ox 99% ; ll1 09:24 BP 140 / 79; Pulse 55; Resp 16 S; Pulse Ox 97% on R/A; kc6 10:30 BP 149 / 78; Pulse 50; Pulse Ox 99% ; ll1 08:30 Body Mass Index 28.23 (97.07 kg, 185.42 cm) hb 08:30 Pain Scale: Adult hb MDM: 11:04 Patient medically screened. kdr 15:23 Data reviewed: vital signs, nurses notes, lab test result(s), radiologic studies. kdr 09/12 08:35 Order name: CBC with Diff; Complete Time: 09:23 ll1 09/12 08:35 Order name: CMP; Complete Time: 09:23 ll1 09/12 08:35 Order name: Lipase; Complete Time: 09:23 ll1 09/12 09:34 Order name: Abdomen ; Complete Time: 10:38 EDMS 09/12 08:35 Order name: IV Saline Lock; Complete Time: 08:35 ll1 09/12 08:35 Order name: Labs collected and sent; Complete Time: 08:35 ll1 Administered Medications: 10:54 Drug: metroNIDAZOLE PO 500 mg PO once Route: PO; kc6 11:43 Follow up: Response: No adverse reaction kc6 10:54 Drug: LevOfloxacin PO 500 mg PO once Route: PO; kc6 11:43 Follow up: Response: No adverse reaction kc6 Disposition Summary: 09/12/23 11:04 Discharge Ordered Notes: Location: Home kdr Problem: new kdr Symptoms: have improved kdr Condition: Stable kdr Diagnosis - Lower abdominal pain, unspecified kdr - Diverticulitis of large intestine without perforation or abscess without bleeding kdr Followup: kdr - With: Sudhir Bo, DO - When: 2 - 3 days - Reason: If symptoms return, Further diagnostic work-up, Recheck today's complaints, Continuance of care, Re-evaluation by your physician Discharge Instructions: - Discharge Summary Sheet kdr - High-Fiber Eating Plan kdr - Diverticulitis kdr - Abdominal Pain, Adult, [id number] kdr Forms: - Medication Reconciliation Form kdr - Thank You Letter kdr - Antibiotic Education kdr - Patient Portal Instructions kdr - Leadership Thank You Letter kdr Prescriptions: - Flagyl 500 mg Oral tablet - take 1 tablet ORAL route every 6 hours for 7 days; 28 tablet; Refills: 0, kdr Product Selection Permitted - Cipro 500 mg Oral Tablet - take 1 tablet ORAL route every 12 hours for 7 days; 14 tablet; Refills: 0, kdr Product Selection Permitted Signatures: Dispatcher [employer] Brandyn Goetz MD MD kdr Baxter, Heather, RN RN Forrest Garcia RN RN ll1 Joyce Waetrs RN RN kc6 Corrections: (The following items were deleted from the chart) 09:34 08:43 Abdomen Pelvis W Con+CT.RAD.BRZ ordered. EDMS ED
[2023-09-12 12:22] VITALS: BP 149/78; TEMP 98.5; O2SAT 99
== END ==
LOC: ER 08:21
DX: K57.32 Diverticulitis of large intestine without perforation or abscess without bleeding (principal); I12.9 Hypertensive chronic kidney disease with stage 1 through stage 4 chronic kidney disease, or unspecified chronic kidney disease; N18.9 Chronic kidney disease, unspecified
CPT/HCPCS: 36415; 74176; 80053; 83690; 85025; 99284

== ENCOUNTER 2024-07-27 01:49 | Observation (INO) | payer OTHER ==
[2024-07-27 03:23] LABS: Absolute Eosinophils 0.2 K/uL (0-0.5); Absolute Lymphocytes (CBC) 1.2 K/uL (0.7-4.9); Absolute Monocytes 0.7 K/uL (0.1-1.3); Absolute Neutrophil 4.1 K/uL (1.8-8.0); Basophils % 0.4 % (0-1.3); Eosinophils % 3.1 % (0-4.4); Hematocrit 35.8 % (39.6-49.0); Hemoglobin 11.5 g/dL (13.6-17.9); Lymphocytes % 19.8 % (15.3-44.8); MCH 24.6 pg (27.0-35.0); MCHC 32.1 g/dL (32.0-36.0); MCV 76.7 fL (80-100); MPV 9.6 fL (7.6-11.3); Monocytes % 11.5 % (3.3-12.3); Neutrophils % 65.2 % (41.7-73.7); Nucleated Red Blood Cells % 0.3 % (0-0); Platelets 114 thou/uL (152-406); RBC Red Blood Cell Count 4.67 M/uL (4.33-5.43); Red Cell Distribution Width 18.3 % (12.1-15.2)
[2024-07-27 03:38] LABS: Anion Gap 6.6 mEq/L (5.0-15.0); Potassium 4.6 mEq/L (3.5-5.1)
[2024-07-27 03:47] LABS: Troponin High Sensitivity 116.9 pg/mL (<58.9)
[2024-07-27] MEDS ORDERED: ASPIRIN 81 MG CHEWABLE TABLET ONE (03:56)
--- NOTE | 2024-07-27 03:58 | EDPHYS ---
Physician Documentation [facility] Name: Reggie Mayer Age: 79 yrs Sex: Male : 1945 Arrival Date: 07/27/2024 Time: 01:49 Bed 20 Private MD: Sudhir Bo ED Physician Zander Paz HPI: 07/27 03:35 This 79 yrs old Black Male presents to ER via Ambulatory with complaints of Chest Pain. rn 03:35 The patient or guardian reports chest pain that is located primarily in the anterior rn chest wall, left. Onset: yesterday. The pain does not radiate. Associated signs and symptoms: Pertinent negatives: abdominal pain, cough, shortness of breath, syncope, vomiting. The chest pain is described as aching. Duration: The patient or guardian reports multiple episodes, that are intermittent. Modifying factors: The symptoms are alleviated by nothing. the symptoms are aggravated by movement. Severity of pain: At its worst the pain was mild in the emergency department the pain has improved. The patient has not experienced similar symptoms in the past. Patient reports left anterior chest pain that began yesterday. Is intermittent and lasts a few seconds at a time. Worse with movement. Did mow grass and do yard work yesterday prior to chest pain initiation. No trauma. No abdominal pain. No shortness of breath. No hemoptysis.. Historical: - Allergies: 02:57 NKA; kj2 - Home Meds: 02:57 allopurinol 100 mg Oral tab 1 tab once daily [Active]; aspirin 81 mg Oral chew 1 tab kj2 once daily [Active]; atorvastatin 40 mg Oral tab 1 tab once daily [Active]; carvedilol 6.25 mg Oral tab 1 tab 2 times per day [Active]; lisinopril 20 mg Oral tab 1 tab twice a day [Active]; tamsulosin 0.4 mg Oral cp24 1 cap once daily [Active]; - PMHx: 02:57 chronic kidney disease; Hyperlipidemia; Hypertension; Myocardial infarction; Prostate kj2 Cancer; - Immunization history:: Adult Immunizations unknown. - Infectious Disease History:: Denies. - Social history:: Smoking status: unknown. - Family history:: not pertinent. - Hospitalizations: : No recent hospitalization is reported. ROS: 03:35 Constitutional: Negative for fever, chills, and weight loss, Neck: Negative for injury, rn pain, and swelling, Cardiovascular: Positive for chest pain Respiratory: Negative for shortness of breath, wheezing Abdomen/GI: Negative for abdominal pain, nausea, vomiting, diarrhea, and constipation, Back: Negative for injury and pain, MS/Extremity: Negative for injury and deformity, Skin: Negative for injury, rash, and discoloration, Neuro: Negative for headache, weakness, numbness, tingling, and seizure, Exam: 03:35 Constitutional: This is a well developed, well nourished patient who is awake, alert, rn and in no acute distress. Head/Face: Normocephalic, atraumatic. Chest/axilla: Normal chest wall appearance and motion. Nontender with no deformity. Cardiovascular: Regular rate and rhythm. No pulse deficits. Respiratory: No increased work of breathing, no retractions or nasal flaring. Abdomen/GI: Soft, non-tender MS/ Extremity: Pulses equal, no cyanosis. Neurovascular intact. Full, normal range of motion. Equal circumference. Neuro: Awake and alert, GCS 15 03:54 ECG was reviewed by the Attending Physician. rn Vital Signs: 02:00 BP 184 / 95; Pulse 56; Resp 18; Temp 97.8; Pulse Ox 99% on R/A; Weight 90.72 kg; Height kj2 6 ft. 0 in. ; 03:16 BP 156 / 84; Pulse 52; Resp 18; Temp 98(O); Pulse Ox 93% on R/A; kj2 04:03 BP 157 / 97; Pulse 55; Resp 18; Pulse Ox 100% ; kj2 04:59 BP 160 / 85; Pulse 58 LA; Resp 20; kj2 05:52 BP 167 / 87; Pulse 60; Resp 18; Temp 98; Pulse Ox 98% on R/A; kj2 02:00 Body Mass Index 27.12 (90.72 kg, 182.88 cm) kj2 MDM: 01:55 Medical Screening Exam initiated rn 03:54 Differential diagnosis: acute myocardial infarction, acute pericarditis, coronary rn artery disease congestive heart failure costochondritis, pleurisy, pneumonia, pneumothorax, stable angina, unstable angina. The patient was given aspirin in the Emergency Department. Data reviewed: vital signs, nurses notes, lab test result(s), EKG, radiologic studies, plain films, and as a result, I will discharge patient. Counseling: I had a detailed discussion with the patient and/or guardian regarding the historical points, exam findings, and any diagnostic results supporting the discharge/admit diagnosis, lab results, radiology results, the need for further work-up and treatment in the hospital. Response to treatment: the patient's condition has returned to base line, the patient is now symptom free, and as a result, I will admit patient. ED course: Patient chest pain-free but troponin 116. ECG without acute ischemia. Will admit for cardiology consultation and further care.. 03:56 HEART Score: History: Moderately Suspicious (1), ECG: Normal (0), Age: > or = 65 years rn (2), Risk Factors: > or = 3 Risk factors for atherosclerotic disease (2), Troponin: > 1 and < 3 x normal limit (1), Total Score = 6. 07/27 01:55 Order name: Basic Metabolic Panel; Complete Time: 03:50 07/27 01:55 Order name: CBC with Diff; Complete Time: 03:50 07/27 01:55 Order name: NT PRO-BNP; Complete Time: 03:50 07/27 01:55 Order name: Troponin HS; Complete Time: 03:50 07/27 04:50 Order name: Urinalysis w/ reflexes [facility] 07/27 04:50 Order name: CBC with Automated Diff [facility] 07/27 04:50 Order name: CBC with Automated Diff [facility] 07/27 04:50 Order name: Comprehensive Metabolic Panel [facility] 07/27 04:50 Order name: Comprehensive Metabolic Panel [facility] 07/27 04:50 Order name: Troponin High Sensitivity [facility] 07/27 04:50 Order name: Troponin High Sensitivity [facility] 07/27 04:50 Order name: Troponin High Sensitivity [facility] 07/27 04:50 Order name: Troponin High Sensitivity [facility] 07/27 01:55 Order name: XRAY Chest (1 view) 07/27 01:55 Order name: EKG; Complete Time: 01:56 rn 07/27 01:55 Order name: Cardiac monitoring; Complete Time: 02:45 07/27 01:55 Order name: EKG - Nurse/Tech; Complete Time: 02:46 07/27 01:55 Order name: IV Saline Lock; Complete Time: 02:46 rn 07/27 01:55 Order name: Labs collected and sent; Complete Time: :46 rn 07/27 01:55 Order name: O2 Per Protocol; Complete Time: rn 07/27 01:55 Order name: O2 Sat Monitoring; Complete Time: :46 rn EC:54 Rate is 54 beats/min. Rhythm is regular. QRS [place] is Normal. [place] interval is normal. QRS rn interval is normal. QT interval is normal. No Q waves. T waves are Normal. No ST changes noted. Clinical impression: Sinus bradycardia. Interpreted by me. Reviewed by me. Administered Medications: 04:03 Drug: Aspirin PO Chewable Tablet 324 mg PO once; 81 mg tablets x 4 Route: PO; kj2 05:55 Follow up: Response: No adverse reaction kj2 Disposition Summary: 07/27/24 03:57 Hospitalization Ordered Notes: Hospitalization Status: Inpatient Admission rn Provider: Jonathan Pittman rn Location: Telemetry/MedSurg (Inpatient) rn Condition: Stable rn Problem: new rn Symptoms: have improved rn Bed/Room Type: Standard rn Room Assignment: 230(07/27/24 04:51) af3 Diagnosis - Chest pain, unspecified rn - Subsequent non-ST elevation (NSTEMI) myocardial infarction rn Forms: - Medication Reconciliation Form rn - SBAR form rn - Leadership Thank You Letter rn Signatures: Dispatcher [employer] Zander Holm MD MD rn Jordan, Krystal, RN RN kj2 Fry, Ashley af3 Corrections: (The following items were deleted from the chart) 03:38 03:35 Constitutional: Negative for fever, chills, and weight loss, Neck: Negative for rn injury, pain, and swelling, Cardiovascular: Positive for chest pain Respiratory: Negative for shortness of breath, cough, wheezing, and pleuritic chest pain, Abdomen/GI: Negative for abdominal pain, nausea, vomiting, diarrhea, and constipation, Back: Negative for injury and pain, MS/Extremity: Negative for injury and deformity, Skin: Negative for injury, rash, and discoloration, Neuro: Negative for headache, weakness, numbness, tingling, and seizure, rn 04:51 03:57 rn af3
--- NOTE | 2024-07-27 03:58 | ER ---
Nurse's Notes [facility] Name: Reggie Mayer Age: 79 yrs Sex: Male : 1945 Arrival Date: 07/27/2024 Time: 01:49 Bed 20 Private MD: Sudhir Bo Diagnosis: Chest pain, unspecified;Subsequent non-ST elevation (NSTEMI) myocardial infarction Presentation: 07/27 02:00 Chief complaint: Patient states: chest pain. Coronavirus screen: Client denies travel kj2 out of the [place] in the last 14 days. Ebola Screen: No symptoms or risks identified at this time. Initial Sepsis Screen: Does the patient meet any 2 criteria? No. Patient's initial sepsis screen is negative. Does the patient have a suspected source of infection? No. Patient's initial sepsis screen is negative. Risk Assessment: Do you want to hurt yourself or someone else? Patient reports no desire to harm self or others. Onset of symptoms was July 27, 2024. 02:00 Method Of Arrival: Ambulatory kj2 02:00 Acuity: AQUILES 3 kj2 Triage Assessment: 02:00 General: Appears in no apparent distress. Behavior is calm, cooperative. Pain: kj2 Complains of pain in chest Pain currently is 6 out of 10 on a pain scale. Historical: - Allergies: 02:57 NKA; kj2 - Home Meds: 02:57 allopurinol 100 mg Oral tab 1 tab once daily [Active]; aspirin 81 mg Oral chew 1 tab kj2 once daily [Active]; atorvastatin 40 mg Oral tab 1 tab once daily [Active]; carvedilol 6.25 mg Oral tab 1 tab 2 times per day [Active]; lisinopril 20 mg Oral tab 1 tab twice a day [Active]; tamsulosin 0.4 mg Oral cp24 1 cap once daily [Active]; - PMHx: 02:57 chronic kidney disease; Hyperlipidemia; Hypertension; Myocardial infarction; Prostate kj2 Cancer; - Immunization history:: Adult Immunizations unknown. - Infectious Disease History:: Denies. - Social history:: Smoking status: unknown. - Family history:: not pertinent. - Hospitalizations: : No recent hospitalization is reported. Screenin:00 [facility] ED Fall Risk Assessment (Adult) History of falling in the last 3 months, kj2 including since admission No falls in past 3 months (0 pts) Confusion or Disorientation No (0 pts) Intoxicated or Sedated No (0 pts) Impaired Gait Mobility Assist Device Used No (0 pt) Altered Elimination No (0 pt) Score/Fall Risk Level 0 - 2 = Low Risk Maintained a safe environment, Hourly rounding (assess needs \T\ fall precautionary measures) done. Abuse screen: Denies threats or abuse. Denies injuries from another. Nutritional screening: No deficits noted. Tuberculosis screening: No symptoms or risk factors identified. Assessment: 02:00 Pain: Complains of pain in chest Pain currently is 5 out of 10 on a pain scale. Quality kj2 of pain is described as Pain began gradually. 03:16 Reassessment: Patient appears in no apparent distress at this time. Patient and/or kj2 family updated on plan of care and expected duration. Pain level reassessed. Patient is alert, oriented x 3, equal unlabored respirations, skin warm/dry/pink. 04:04 Reassessment: Patient appears in no apparent distress at this time. Patient and/or kj2 family updated on plan of care and expected duration. Pain level reassessed. Patient is alert, oriented x 3, equal unlabored respirations, skin warm/dry/pink. Patient states feeling better. 05:52 Reassessment: Patient appears in no apparent distress at this time. Patient and/or kj2 family updated on plan of care and expected duration. Pain level reassessed. Patient is alert, oriented x 3, equal unlabored respirations, skin warm/dry/pink. 05:55 Cardiovascular: Patient's skin is warm and dry. kj2 Vital Signs: 02:00 BP 184 / 95; Pulse 56; Resp 18; Temp 97.8; Pulse Ox 99% on R/A; Weight 90.72 kg; Height kj2 6 ft. 0 in. ; 03:16 BP 156 / 84; Pulse 52; Resp 18; Temp 98(O); Pulse Ox 93% on R/A; kj2 04:03 BP 157 / 97; Pulse 55; Resp 18; Pulse Ox 100% ; kj2 04:59 BP 160 / 85; Pulse 58 LA; Resp 20; kj2 05:52 BP 167 / 87; Pulse 60; Resp 18; Temp 98; Pulse Ox 98% on R/A; kj2 02:00 Body Mass Index 27.12 (90.72 kg, 182.88 cm) kj2 ED Course: 01:54 Patient arrived in ED. gm2 01:55 Sudhir Bo DO is Private Physician. gm2 01:55 Zander Paz MD is Attending Physician. rn 02:00 Patient has correct armband on for positive identification. Bed in low position. Call kj2 light in reach. Adult w/ patient. Provided Education on: call light. Client placed on continuous cardiac and pulse oximetry monitoring. NIBP monitoring applied. 02:00 Arm band placed on Patient placed in an exam room, on a stretcher. kj2 02:10 Leticia Broderick RN is Primary Nurse. kj2 02:20 No provider procedures requiring assistance completed. Inserted saline lock: 20 gauge kj2 in right antecubital area, using aseptic technique. Blood collected. Flushed with 10 mL NS. 02:56 Triage completed. kj2 03:08 XRAY Chest (1 view) In Process Unspecified. EDMS 03:57 Jonathan Pittman MD is Hospitalizing Provider. rn 05:54 Patient admitted, IV remains in place. Patient maintains SpO2 saturation greater than kj2 95% on room air. Administered Medications: 04:03 Drug: Aspirin PO Chewable Tablet 324 mg PO once; 81 mg tablets x 4 Route: PO; kj2 05:55 Follow up: Response: No adverse reaction kj2 Medication: 04:04 VIS not applicable for this client. kj2 Outcome: 03:57 Decision to Hospitalize by Provider. rn 05:54 Admitted to Med/surg via wheelchair, room 230, kj2 05:54 Condition: stable 05:54 Instructed on the need for admit, 05:56 Patient left the ED. kj2 Signatures: Dispatcher [employer] EDMS Zander Paz MD MD rn Mitchell, Ginger gm2 Leticia Broderick RN RN kj2
--- NOTE | 2024-07-27 04:45 | P.HP ---
Certification for Inpatient Patient admitted to: Observation With expected LOS: <2 Midnights Practitioner: I am a practitioner with admitting privileges, knowledge of patient current condition, hospital course, and medical plan of care. Services: Services provided to patient in accordance with Admission requirements found in Title 42 Section 412.3 of the Code of Federal Regulations Patient History Date of Service: 07/27/24 Reason for admission: NSTEMI History of Present Illness: 79 yrs old Male with past medical history of hypertension, hyperlipidemia, CKD stage II, history of CAD status post [place], history of prostate cancer who was brought to ER with chest pain which started yesterday and has been progressively worsening and was brought to ER. Chest pain is retrosternal location without radiation not associated with any diaphoresis. Worse with movements. Denies any nausea vomiting or diarrhea. No fever or chills. Patient states that the pain started Saturday morning and has not been resolved and was got worried and was brought to ER. Patient is 3 out of 10 in severity at the time of interview. Denies any cough or shortness of breath. Patient was assessed in the ER and was admitted for further management of chest pain to rule out ACS Allergies No Known Drug Allergies Allergy (Verified 05/20/18 05:08) Unknown Home medications list reviewed: Yes Home Medications: Aspirin [Aspirin EC 81 MG] 1 tab PO DAILY 05/20/18 Tamsulosin HCl 1 cap PO DAILY 05/20/18 allopurinoL [Allopurinol] 1 tab PO DAILY 05/20/18 carvediloL [Coreg*] 1 tab PO BID 05/20/18 lisinopriL [Prinivil*] 20 mg PO BID 05/20/18 Atorvastatin Calcium 40 mg PO DAILY 12/25/18 - Past Medical/Surgical History Diabetic: No Past Medical History: Reviewed- Non-Contributory -: Hypertension -: Dyslipidemia -: Psoriasis -: hematoma to head -: CKD -: HLD -: [place] Past Surgical History: Reviewed- Non-Contributory -: hematoma removal - Family History Father -: Cancer - Social History Smoking Status: Never smoker Alcohol use: No CD- Drugs: No Caffeine use: Yes Review of Systems 10-point ROS is otherwise unremarkable Physical Examination - Vital Signs Temperature: 97.8 F Blood Pressure: 138/78 Pulse: 78 Respirations: 18 Pulse Ox (%): 94 - Physical Exam General: Alert, In no apparent distress, Oriented x3, Obese HEENT: Atraumatic, Normocephalic Neck: Supple Respiratory: Clear to auscultation bilaterally, Normal air movement Cardiovascular: Regular rate/rhythm, Normal S1 S2 Capillary refill: <2 Seconds Gastrointestinal: Soft and benign, W/out hepatosplenomegaly Musculoskeletal: No clubbing, No swelling Integumentary: No rashes, No breakdown Neurological: Normal speech, Normal strength at 5/5 x4 extr, Cranial nerves 3-12 intact, Normal reflexes 2+, Normal affect Lymphatics: No axilla or inguinal lymphadenopathy - Studies Laboratory Data (last 24 hrs) 07/27/24 07/27/24 02:20 02:20 WBC 6.30 Hgb 11.5 L Hct 35.8 L Plt Count 114 L Sodium 139 Potassium 4.6 BUN 35 H Creatinine 2.03 H Glucose 91 Assessment and Plan - Plan NSTEMI Will trend cardiac enzymes Will monitor telemetry Started on aspirin and statin EKG did not show any acute changes suggestive of ischemia Patient denies any chest pain Will get an echocardiogram Cardiology consult Hypertension Antihypertensives titrated Continue home medications and titrate as needed Hyperlipidemia Continue statin CKD stage II Monitor renal parameters Electrolytes monitor and replace accordingly Anemia of chronic disease Monitor H&H closely No overt bleeding at this time GI/DVT prophylaxis Advanced directive full code Discharge Plan: Home Plan to discharge in: 48 Hours - Advance Directives Does patient have a Living Will: Yes Does patient have a Durable POA for Healthcare: No - Code Status/Comfort Care Code Status: Full Code Time Spent Managing Pts Care (In Minutes): 48
[2024-07-27] MEDS ORDERED: ONDANSETRON 4 MG/2 ML VIAL IV PRN (04:46)
[2024-07-27] MEDS ORDERED: ACETAMINOPHEN 325 MG TABLET PO PRN (04:46)
--- NOTE | 2024-07-27 05:57 | RAD REPORT ---
EXAM DESCRIPTION: XR CHEST 1 VIEW 07/27/2024 3:36 AM [employer]IVEST[employer] SHOWMAN CLINICAL HISTORY: 79 years, Male, Chest pain. COMPARISON: XR Chest 12/04/2019. FINDINGS: 1 view of the chest (AP portable projection) was obtained. No prior films are available at this swati e for comparison. There is normal lung volume. Mediastinum: The cardiomediastinal silhouette appears normal in size and shape. Lungs: No areas of consolidations or masses are identified. Minimal compressive atelectatic changes r ight lung base. Heart: The heart is normal in size. Thoracic aorta: The thoracic aorta demonstrate to be normal. Pulmonary vasculature: The pulmonary vasculature is normal in distribution. Pleura: The costophrenic angles demonstrate to be sharp. Elevation of the right hemidiaphragm Osseous structures: The bony structures demonstrate to be within normal limits. Other: External EKG leads within the yzvhl-he-foil limits diagnosis. IMPRESSION: No acute cardiopulmonary disease seen. Minimal compressive atelectatic changes right lung base. Electronically signed by: Riley Holley MD 07/27/2024 03:52 AM [employer] SHOWMAN Due to temporary technical issues with the [employer] reporting system, reports are being jovan d by the in-house radiologist without review as a courtesy to ensure prompt reporting the interpreting radiologist is fully responsible for the content of the report. Transcribed Date/Time: 07/27/2024 5:56 AM
[2024-07-27 06:25] VITALS: O2SAT 98
[2024-07-27 06:47] VITALS: BMI 26.4
--- NOTE | 2024-07-27 10:06 | P.CNS ---
Date of Consult: 07/27/24 Chief Complaint: NSTEMI History of Present Illness: Patient with PMH of HTN, CKD presented to hospital with left sided chest pain that has been going on for few days, denies radiation, feels tingling in nature, denies any other cardiac symptoms. Allergies No Known Drug Allergies Allergy (Verified 05/20/18 05:08) Unknown Home medications list reviewed: Yes Home Medications: Aspirin [Aspirin EC 81 MG] 1 tab PO DAILY 05/20/18 Tamsulosin HCl 1 cap PO DAILY 05/20/18 allopurinoL [Allopurinol] 1 tab PO DAILY 05/20/18 carvediloL [Coreg*] 1 tab PO BID 05/20/18 lisinopriL [Prinivil*] 20 mg PO BID 05/20/18 Atorvastatin Calcium 40 mg PO DAILY 12/25/18 - Past Medical/Surgical History Diabetic: No -: Hypertension -: Dyslipidemia -: Psoriasis -: hematoma to head -: CKD -: HLD -: LA -: hematoma removal - Family History Father History Unknown: Yes Medical History: Cancer - Social History Smoking Status: Unknown if ever smoked Alcohol use: No CD- Drugs: No Caffeine use: No Place of Residence: Home Review of Systems 10-point ROS is otherwise unremarkable Physical Examination Temp Pulse Resp BP Pulse Ox 98.0 F 55 18 184/91 H 98 07/27/24 06:12 07/27/24 06:12 07/27/24 06:12 07/27/24 06:12 07/27/24 06:12 General: Alert, In no apparent distress HEENT: Atraumatic, PERRLA, Mucous membr. moist/pink, EOMI, Sclerae nonicteric Neck: Supple, 2+ carotid pulse no bruit, No LAD, Without JVD or thyroid abnormality Respiratory: Clear to auscultation bilaterally, Normal air movement Cardiovascular: Regular rate/rhythm, Normal S1 S2 Gastrointestinal: Normal bowel sounds, No tenderness Musculoskeletal: No tenderness Integumentary: No rashes Neurological: Normal gait, Normal speech, Normal tone, Normal affect Lymphatics: No axilla or inguinal lymphadenopathy Laboratory Data (last 24 hrs) 07/27/24 07/27/24 02:20 02:20 WBC 6.30 Hgb 11.5 L Hct 35.8 L Plt Count 114 L Sodium 139 Potassium 4.6 BUN 35 H Creatinine 2.03 H Glucose 91 - Problems (1) Chest pain Onset Date: 05/21/18 Current Visit: No Status: Acute Plan: mild troponin elevation, no significant delta, most likely secondary to CKD and high BP but patient got multiple risk factors for CAD NPO for nuclear stress test (Lexiscan) get Echo ASA 81 mg daily Lipitor 40 mg daily Qualifiers: (2) Hypertension Onset Date: 05/21/18 Current Visit: No Status: Chronic Plan: reconcile and continue home medications.
[2024-07-27] MEDS: TAMSULOSIN 0.4 MG SR CAP PO SCH (10:09)
[2024-07-27] MEDS: allopurinoL 100 MG TAB PO SCH (10:10)
[2024-07-27] MEDS: lisinopriL 20 MG TAB PO SCH (10:10)
[2024-07-27] MEDS: HEPARIN 5000 UNIT/ML 1 ML VIAL SQ SCH (10:11)
[2024-07-27] MEDS: ATORVASTATIN 40 MG TAB PO SCH (10:11)
[2024-07-27] MEDS: ASPIRIN EC 81 MG TAB PO SCH (10:11)
[2024-07-27 10:22] LABS: Specific Gravity 1.016 (1.005-1.030); Urine Bilirubin NEGATIVE (Negative); Urine Blood Negative (Negative); Urine Clarity Clear (Clear); Urine Color Light-Yellow (Yellow); Urine Glucose NEGATIVE (Negative); Urine Ketones NEGATIVE (Negative); Urine Microscopic Reflex YN NO UMIC; Urine Nitrite NEGATIVE (Negative); Urine Protein NEGATIVE (Negative); Urine Urobilinogen Normal (Normal)
--- NOTE | 2024-07-27 12:02 | EKG ---
Test Date: 2024-07-27 Test Time: 02:18:56 Telecommunication Operator: АННА MEASUREMENT RESULTS: Intervals: Rate: 54 WA: 204 QRSD: 82 QT: 432 QTc: 409 [place]: P: 50 WA: 204 QRS: 38 T: 86 INTERPRETIVE STATEMENTS: Sinus bradycardia with occasional premature ventricular complexes Otherwise normal ECG Compared to ECG 12/25/2018 01:35:39 Ventricular premature complex(es) now present Electronically Signed On 07-27-24 12:01:32 [employer] ED[employer]IMMER by Fernando Hyde
--- NOTE | 2024-07-27 12:55 | ECHO ---
HEIGHT: 6 ft 1 in WEIGHT: 200 lb 0 oz DATE OF STUDY: 07/27/[address]: Edwin Paz MD 2-DIMENSIONAL: YES M.MODE: YES DOPPLER: YES COLOR FLOW: YES TDS: NO PORTABLE: YES DEFINITY: NO BUBBLE STUDY: NO DIAGNOSIS: EVALUATE FUNCTION/ ACUTE CORONARY SYNDROME CARDIAC HISTORY: CATHERIZATION: SURGERY: PROSTHETIC VALVE: PACEMAKER: MEASUREMENTS (cm) DIASTOLIC (NORMALS) SYSTOLIC (NORMALS) IVSd 1.0 (0.6-1.2) LA Diam 3.9 (1.9-4.0) LVEF 55% LVIDd 4.2 (3.5-5.7) LVIDs 3.0 (2.0-3.5) %FS 28% LVPWd 1.3 (0.6-1.2) Ao Diam 3.2 (2.0-3.7) 2 DIMENSIONAL ASSESSMENT: RIGHT ATRIUM: NORMAL LEFT ATRIUM: NORMAL RIGHT VENTRICLE: NORMAL LEFT VENTRICLE: NORMAL TRICUSPID VALVE: MILD TRICUSPID REGURGITATION MITRAL VALVE: TRACE OF MITRAL REGURGITATION PULMONIC VALVE: NORMAL AORTIC VALVE: NORMAL PERICARDIAL EFFUSION: NONE AORTIC ROOT: NORMAL LEFT VENTRICULAR WALL MOTION: NORMAL. DOPPLER/COLOR FLOW: NORMAL. COMMENTS: 1. NORMAL LEFT VENTRICULAR SYSTOLIC FUNCTION. EJECTION FRACTION 55%, NORMAL WALL MOTION. 2. NORMAL DIASTOLIC FUNCTION. 3. MILD TRIUCPSID REGURGITATION TECHNOLOGIST: RADHA SAMSON
[2024-07-27] MEDS ORDERED: REGADENOSON 0.4 MG/5 ML SYR IV ONE (13:19)
[2024-07-27] MEDS: carvediloL 6.25 MG TAB PO SCH (14:22)
--- NOTE | 2024-07-27 14:56 | RAD REPORT ---
EXAM: Nuclear medicine cardiac perfusion examination with ejection fraction HISTORY: Chest pain COMPARISON: 12/25/2018 TECHNIQUE: Rest images: 9.8 mCi technetium 99m sestamibi Stress images: 26.2 mCi of technetium 99m sestamibi; Lexiscan COMPARISON: None FINDINGS: Tomographic images: No reversible perfusion defects. Stable fixed defects involving almost the entire ty of the inferior wall, could relate to sequelae of remote infarct or artifactual reduction of uptake given splanchnic uptake Gated images: Normal ejection fraction of 54%. Hypokinesia of the inferior wall and septum. EDV: 100 mL ESV: 47 mL TID: 0.86 IMPRESSION: No scintigraphic evidence of myocardial ischemia. Stable fixed defect along the inferior wall, could be artifactual. Left ventricular ejection fraction:54%, not significantly changed compared to the prior exam.
[2024-07-27 17:13] VITALS: BP 161/94; TEMP 97.7
--- NOTE | 2024-07-28 09:14 | TREADPHA ---
DX: ACUTE CORONARY SYNDROME Date of Study: 07/27/2024 Ht: 6' 1 " Wt: 200 lb 0 oz Consulting Physician: OLGA MEDICATIONS: TYLENOL, ZYLOPRIM, LIPITORR, COREG, HEPARIN, PRINIVIL, ZOFRAN, FLOMAX HISTORY: HISTORY OF HYPERTENSION, HYPERLIPIDEMIA, PROSTATE HISTORY PHYSICIAL EXAMINATION: RESTING B.P.: 169/92 RESTING H.R.: 60 RESTING EKG: SINUS RHYTHM PROTOCOL: PHARMACOLOGIC EXERCISE TIME: 3:30 B.P. AT PEAK STRESS: 187/97 IMPRESSION: PREMATURE VENTRICULAR COMPLEX PRE PROCEDURE, DURING AND POST PROCEDURE. LEXISCAN STRESS TEST COMPLETED ORDERED. CARDIOLITE INJECTED PER PROTOCOL (SEE NUCLEAR MEDICINE REPORT). NO VENTRICULAR TACHYCARDIA, SUPRAVENTRICULAR TACHYCARDIA NOTED. NO COMPLAINTS OF SHORTNESS OF BREATH OR CHEST PAIN.
== END 2024-07-27 18:27 | disposition home or self-care (01) ==
LOC: ER 01:49 → ERHOLD 04:46 → 2ND 05:38
PROVIDERS: ADMIT Family Medicine; ATTEND Hospitalist
DX: I21.4 Non-ST elevation (NSTEMI) myocardial infarction (principal); I10 Essential (primary) hypertension; E78.5 Hyperlipidemia, unspecified; N18.30 Chronic kidney disease, stage 3 unspecified; D63.1 Anemia in chronic kidney disease
CPT/HCPCS: 93005; 93017; 93306; 85025; 80048; 36415; 81003; 84484 ×4; 83880; 71045; 78452; J1644 ×2; J2785; A9500; G0378 ×2; 99285

== ENCOUNTER 2025-06-06 19:17 | Emergency (ER) | payer OTHER ==
[2025-06-06] MEDS ORDERED: ONDANSETRON 4 MG (ODT) TAB ONE (20:31)
[2025-06-06 21:06] LABS: Absolute Lymphocytes (CBC) 0.8 K/uL (0.7-4.9); Hematocrit 41.2 % (39.6-49.0); Hemoglobin 13.3 g/dL (13.6-17.9); MCH 24.0 pg (27.0-35.0); MCHC 32.2 g/dL (32.0-36.0); MCV 74.6 fL (80-100); MPV 9.4 fL (7.6-11.3); Nucleated RBC Absolute Count 0.0 (0-0); Nucleated Red Blood Cells % 0.1 % (0-0); RBC Red Blood Cell Count 5.52 M/uL (4.33-5.43); White Blood Count 7.60 thou/uL (4.3-10.9)
[2025-06-06 21:22] LABS: Influenza A Ag Negative; Influenza B Ag Negative; SARS-CoV-2 Antigen Rapid Res Negative (Negative)
[2025-06-06 21:23] LABS: Anion Gap 9.5 mEq/L (5.0-15.0); BUN Blood Urea Nitrogen 38.0 mg/dL (7-18); Glucose Level 88.0 mg/dL (74-106)
[2025-06-06 21:25] LABS: Potassium 5.5 mEq/L (3.5-5.1)
[2025-06-06] MEDS ORDERED: Ringers Lactate 1,000 ML IV ONE (23:02)
--- NOTE | 2025-06-06 23:52 | EDPHYS ---
Physician Documentation [facility] Name: Reggie Mayer Age: 80 yrs Sex: Male : 1945 Arrival Date: 06/06/2025 Time: 19:17 Bed 11 Private MD: ED Physician Foster Gurrola HPI: 06/07 08:22 This 80 yrs old Black Male presents to ER via Ambulatory with complaints of weakness, tt7 nausea. 08:22 Patient reports some generalized weakness and nausea without vomiting today, he reports tt7 that yesterday he was mowing the lawn outside for several hours he was not drinking much water, he denies any chest pain or shortness of breath, denies palpitations, past medical history includes chronic kidney disease, hypertension, coronary artery disease. 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 - Infectious Disease History:: Denies. - Social history:: Smoking status: Patient denies any tobacco usage or history of. ROS: 06/07 08:16 Constitutional: negative for fever. Cardiovascular: negative for chest pain. tt7 Respiratory: negative for shortness of breath. MS/Extremity: negative for injury and deformity. Skin: negative for rash. Neuro: negative for focal weakness. Constitutional: Positive for fatigue, Abdomen/GI: Positive for nausea, Negative for abdominal pain, vomiting, diarrhea, Exam: 08:16 Constitutional: vital signs reviewed, well appearing. Head/Face: normocephalic, tt7 atraumatic. Eyes: no conjunctival injection, anicteric sclerae. ENT: mucus membranes moist. Neck: trachea midline, no JVD, no meningismus. Chest/axilla: normal chest wall appearance and motion, nontender, no crepitus. Cardiovascular: regular rate and rhythm, no murmurs, no rubs, no lower extremity edema. Respiratory: normal respiratory effort, no accessory muscle use, lungs CTAB. Abdomen/GI: soft, nondistended, nontender, no guarding or rebound, negative Vasquez's sign, no McBurney point tenderness. Back: normal ROM. Skin: warm, dry, intact, normal turgor, normal color, no rash. MS/ Extremity: normal ROM of extremities, no gross deformities. Neuro: alert and oriented with appropriate mental status, normal speech, follows commands, no focal neurologic deficits. Psych: appropriate mood and affect. Vital Signs: 06/06 19:39 BP 127 / 82; Pulse 55; Resp 18; Temp 98.4; Pulse Ox 98% ; Weight 90.72 kg; Height 6 ft. me1 1 in. ; Pain 0/10; 21:45 BP 114 / 67; Pulse 64; Resp 20; Pulse Ox 99% ; Pain 0/10; jj7 22:45 BP 115 / 75; Pulse 75; Resp 17; Pulse Ox 100% ; jj7 23:50 BP 115 / 76; Pulse 89; Resp 20; Temp 97.9; Pulse Ox 95% ; Pain 0/10; jj7 19:39 Body Mass Index 26.39 (90.72 kg, 185.42 cm) me1 19:39 Pain Scale: Adult me1 21:45 Pain Scale: Adult jj7 23:50 Pain Scale: Adult jj7 MDM: 20:07 Medical Screening Exam initiated tt7 06/07 08:17 Differential diagnosis: Anemia, acute renal failure, hyperkalemia, COVID-19 infection, tt7 influenza infection. Data reviewed: vital signs, nurses notes, lab test result(s), CBC, electrolytes, Flu: EKG. Consideration of Admission/Observation Escalation of care including admission/observation considered. Did not escalate care to admission/observation because patient has a normal EKG without any changes of hyperkalemia, he also has very close follow-up with a statuary painter that he is already established with, he understands very strict return precautions and has good social support and access to transportation. I considered the following discharge prescriptions or medication management in the emergency department Antibiotics: At this time antibiotics are not recommended, Pain Medications: At this time, prescription pain medications are not recommended, Medications were administered in the Emergency Department. See MAR. Historians other than the Patient: Spouse/Significant Other: Collateral history obtained. Daughter/Son: Collateral history obtained. Care significantly affected by the following chronic conditions: Chronic Kidney Disease. Counseling: I had a detailed discussion with the patient and/or guardian regarding the historical points, exam findings, and any diagnostic results supporting the discharge/admit diagnosis, lab results, the need for outpatient follow up, to return to the emergency department if symptoms worsen or persist or if there are any questions or concerns that arise at home. ED course: Vital signs are stable, physical exam reassuring, laboratory studies demonstrate no significant anemia or leukocytosis, flu and COVID antigens are negative, patient has mildly elevated potassium of 5.5, I have ordered EKG to ensure there are no EKG changes characteristic of hyperkalemia, he has elevated creatinine of 2.46, this is slightly higher than his baseline which ranges from 2.0-2.3 on laboratory studies I personally reviewed from his past ER visits, he is already established with a statuary painter, I discussed the results of these findings with the patient, I suspect that he has some baseline CKD but likely exerted himself too much in the heat yesterday and has some prerenal component to his increase in his creatinine, I gave a 1 L lactated Ringer's bolus to rehydrate the patient, I have reviewed and independently interpreted the patient's EKG performed on 06/06/2025 at 2126. On my interpretation, normal sinus rhythm, ventricular rate 71 bpm, normal axis, normal QRS interval, normal ST segments, no STEMI, his EKG is reassuring, no need for calcium infusion or shifting with insulin/glucose at this time, I attempted to order a dose of Lokelma for the patient to lower his potassium level, we do not have this at my facility, I gave the patient a prescription for Lokelma to take and advised very close follow-up with his statuary painter tomorrow, emergency department evaluation is reassuring. I do not suspect life-threatening process. Patient is stable and not in need of emergent medical intervention. I had a detailed discussion with the patient regarding the historical points, exam findings, emergency department evaluation, diagnostic results, and the discharge diagnosis. I discussed outpatient management of the patient's condition. I discussed the need for outpatient follow-up with primary care and relevant specialist. I discussed return precautions including the need to return to the ED if symptoms do not improve, worsen, or if there are any questions or concerns that arise at home. The patient was discharged in stable condition. 06/06 20:07 Order name: COVID-19 Ag + Flu A+B Ag; Complete Time: 22:07 tt7 06/06 20:07 Order name: CBC with Diff; Complete Time: 22:07 tt7 06/06 20:07 Order name: BMP; Complete Time: 22:07 tt7 06/06 22:14 Order name: EKG - Nurse/Tech; Complete Time: 22:28 tt7 Administered Medications: 06/06 20:40 Drug: Ondansetron Oral Disintegrating Tablet Oral Disintegrating Tablet 4 mg PO once me1 Route: PO; 06/07 00:00 Follow up: Response: Marked relief of symptoms jj7 06/06 23:07 Drug: Ringers - Lactated Ringers Solution IV 1000 ml IV at bolus bolus; to be given as jj7 a bolus over 60 minutes Route: IV; Rate: bolus; Site: right antecubital; 06/07 00:00 Follow up: IV Status: Completed infusion jj7 06/06 23:07 Not Given (MED NOT AVAILABLEe): Lokelma Powder 10 grams PO once jj7 Disposition: 06/07 08:22 Co-signature as Attending Physician, Foster Gurrola DO. tt7 Disposition Summary: 06/06/25 23:51 Discharge Ordered Notes: Location: Home tt7 Problem: new tt7 Symptoms: have improved tt7 Condition: Stable tt7 Diagnosis - ACUTE KIDNEY INJURY tt7 - Hyperkalemia tt7 - Chronic kidney disease, unspecified tt7 Followup: tt7 - With: Emergency Department - When: As needed - Reason: Followup: tt7 - With: Private Physician - When: 1 - 2 days - Reason: Recheck today's complaints, Continuance of care, Re-evaluation by your physician, Recheck creatinine and potassium Discharge Instructions: - Discharge Summary Sheet tt7 - Hyperkalemia, [id number] tt7 - Food Basics for Chronic Kidney Disease tt7 Forms: - Medication Reconciliation Form tt7 - Antibiotic Education tt7 - Prescription Opioid Use tt7 - Patient Portal Instructions tt7 - Leadership Thank You Letter tt7 Prescriptions: - Lokelma 10 gram Oral powder in packet - take 1 packet ORAL route 2 times per day for 4 doses; 4 packet; Refills: 0, tt7 Product Selection Permitted Signatures: Dispatcher [employer] Sudhakar Gonzalez RN RN jj7 Margy Christensen RN RN me1 Foster Gurrola, DO DO tt7
--- NOTE | 2025-06-06 23:52 | ER ---
Nurse's Notes [facility] Name: Reggie Mayer Age: 80 yrs Sex: Male : 1945 Arrival Date: 06/06/2025 Time: 19:17 Bed 11 Private MD: Diagnosis: ACUTE KIDNEY INJURY;Hyperkalemia;Chronic kidney disease, unspecified Presentation: 06/06 19:39 Chief complaint: Patient states: started having lower back pain last week and went to [facility] PCP and was given a shot that helped but patient is concerned he has a back injury. Today he started sounding hoarse, denies sore throat. Laid down this afternoon and became dizzy- resolved at this time. Coronavirus screen: Vaccine status: Patient reports being unvaccinated. Ebola Screen: No symptoms or risks identified at this time. Initial Sepsis Screen: Does the patient meet any 2 criteria? No. Patient's initial sepsis screen is negative. Does the patient have a suspected source of infection? No. Patient's initial sepsis screen is negative. Risk Assessment: Do you want to hurt yourself or someone else? Patient reports no desire to harm self or others. Onset of symptoms is unknown. 19:39 [place] [facility] [place] Acuity: AQUILES 3 ms1 Triage Assessment: 06/07 00:02 General: Appears in no apparent distress. comfortable, Behavior is calm, cooperative, jj7 appropriate for age. Pain: Denies pain. 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 - Infectious Disease History:: Denies. - Social history:: Smoking status: Patient denies any tobacco usage or history of. Screenin:45 [facility] ED Fall Risk Assessment (Adult) History of falling in the last 3 months, jj7 including since admission No falls in past 3 months (0 pts) Confusion or Disorientation No (0 pts) Intoxicated or Sedated No (0 pts) Impaired Gait No (0 pts) Mobility Assist Device Used No (0 pt) Altered Elimination No (0 pt) Score/Fall Risk Level 0 - 2 = Low Risk Oriented to surroundings, Maintained a safe environment, Educated pt \T\ family on fall prevention, incl call for assistance when getting out of bed, Assessed \T\ reinforced patient's understanding of fall precautions. Abuse screen: Denies threats or abuse. Nutritional screening: No deficits noted. Tuberculosis screening: No symptoms or risk factors identified. Assessment: 21:25 Reassessment: ASSUMED CARE OF PT. jj7 Vital Signs: 19:39 BP 127 / 82; Pulse 55; Resp 18; Temp 98.4; Pulse Ox 98% ; Weight 90.72 kg; Height 6 ft. me1 1 in. ; Pain 0/10; 21:45 BP 114 / 67; Pulse 64; Resp 20; Pulse Ox 99% ; Pain 0/10; jj7 22:45 BP 115 / 75; Pulse 75; Resp 17; Pulse Ox 100% ; jj7 23:50 BP 115 / 76; Pulse 89; Resp 20; Temp 97.9; Pulse Ox 95% ; Pain 0/10; jj7 19:39 Body Mass Index 26.39 (90.72 kg, 185.42 cm) me1 19:39 Pain Scale: Adult me1 21:45 Pain Scale: Adult jj7 23:50 Pain Scale: Adult jj7 ED Course: 19:20 Patient arrived in ED. im 19:41 Triage completed. me1 19:42 Arm band placed on Patient placed in waiting room. me1 20:06 Foster Gurrola DO is Attending Physician. tt7 21:00 BMP Sent. kmf 21:00 CBC with Diff Sent. kmf 21:00 COVID-19 Ag + Flu A+B Ag Sent. kmf 22:28 EKG done, by ED staff, reviewed by Foster Gurrola DO. rk3 06/07 00:00 Patient has correct armband on for positive identification. Provided Education on: [email or web address].[email or web address] 00:00 No provider procedures requiring assistance completed. IV discontinued, intact, jj7 bleeding controlled, No redness/swelling at site. Pressure dressing applied. Administered Medications: 06/06 20:40 Drug: Ondansetron Oral Disintegrating Tablet Oral Disintegrating Tablet 4 mg PO once me1 Route: PO; 06/07 00:00 Follow up: Response: Marked relief of symptoms jj7 06/06 23:07 Drug: Ringers - Lactated Ringers Solution IV 1000 ml IV at bolus bolus; to be given as jj7 a bolus over 60 minutes Route: IV; Rate: bolus; Site: right antecubital; 06/07 00:00 Follow up: IV Status: Completed infusion jj7 06/06 23:07 Not Given (MED NOT AVAILABLEe): Lokelma Powder 10 grams PO once jj7 Medication: 06/07 00:00 VIS not applicable for this client. jj7 Outcome: 06/06 23:51 Discharge ordered by MD. mckoy 06/07 00:00 Discharged to home ambulatory, with family, jj7 Condition: improved Discharge instructions given to patient, family, Instructed on discharge instructions, follow up and referral plans. medication usage, Demonstrated understanding of instructions, follow-up care, medications, Prescriptions given X 1, 00:04 Patient left the ED. jj7 Signatures: Sudhakar Kaminski RN RN jj7 Namita Mercado Michelle, RN RN me1 Sara Camejo [facility] Quique Jacome 3 Foster Gurrola DO DO tt7
[2025-06-07 00:16] VITALS: TEMP 98.4
[2025-06-07 00:19] VITALS: BP 115/75; O2SAT 100
== END 2025-06-07 00:04 | disposition home or self-care (01) ==
LOC: ER 19:17
DX: N17.9 Acute kidney failure, unspecified (principal); E87.5 Hyperkalemia; I12.9 Hypertensive chronic kidney disease with stage 1 through stage 4 chronic kidney disease, or unspecified chronic kidney disease; N18.9 Chronic kidney disease, unspecified; Z11.52 Encounter for screening for COVID-19
CPT/HCPCS: 96365; 93005; 85025; 80048; 36415; 99284; 87428; Q0162; J7120